=== PATIENT | male | born 1930 | race Caucasian/White ===

== ENCOUNTER 2016-12-10 06:55 | Inpatient (IN) | payer MEDICARE, OTHER ==
[2016-12-10] VITALS (13 sets, daily range): BP systolic 115–170; BP diastolic 54–96
[~2016-12-10] VITALS: Ht 177.8 cm; Wt 75.6 kg
[2016-12-10] MEDS ORDERED: NITROGLYCERIN SUBLINGUAL 0.4 MG BOTTLE OF 25. SL ONE (07:15)
[2016-12-10] MEDS ORDERED: PIP/TAZO PER PHARMACY MC PRN (07:15)
[2016-12-10] MEDS ORDERED: FUROSEMIDE 40 MG/4 ML VIAL IVP ONE ×2 (07:15→12:15)
--- NOTE | 2016-12-10 07:15 | EKG ---
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 ABNORMAL RIGHT AXIS DEVIATION LOW LIMB LEAD VOLTAGE QRS(T) CONTOUR ABNORMALITY CONSIDER ANTEROSEPTAL MYOCARDIAL DAMAGE CONSIDER HIGH LATERAL INFARCT CONSIDER INFERIOR INFARCT ST ABNORMALITY, POSSIBLE ANTERIOR SUBENDOCARDIAL INJURY RI6.01 Unconfirmed report No previous ECG available for comparison Electronically Signed On 12-19-2016 10:06:14 [employer] HEL[employer] by Nito Tong
[2016-12-10 07:30] LABS: CALCIUM 9.2 mg/dL (8.5-10.1); CREATININE 1.1 mg/dL (0.7-1.3); GFR 63.3; POTASSIUM 4.1 mmol/L (3.5-5.1)
[2016-12-10] MEDS ORDERED: MORPHINE SULFATE 2 MG/ML DISP.SYRIN. IV PRN (07:30)
[2016-12-10] MEDS ORDERED: ONDANSETRON PF 4 MG/2 ML VIAL. IV PRN (07:30)
[2016-12-10 07:36] LABS: DIRECT BILIRUBIN 0.2 mg/dL (0.0-0.2); TOTAL BILIRUBIN 0.6 mg/dL (0.2-1.0); TOTAL PROTEIN 7.2 g/dL (6.4-8.2)
[2016-12-10 07:42] LABS: BASO # 0.1 x10^3/uL (0.0-0.2); BASO % 1 % (0-3); EOS % 2 % (0-3); HEMATOCRIT 38.2 % (39.0-53.0); HEMOGLOBIN 12.5 g/dL (13.0-17.5); LYMPH # 1.5 x10^3/uL (1.0-4.8); LYMPH % 20 % (24-48); MEAN CORPUSCULAR HEMOGLOBIN 32 pg (25-35); MEAN CORPUSCULAR HGB CONC 33 g/dL (31-37); MEAN CORPUSCULAR VOLUME 97 fL (79-100); MONO % 5 % (0-9); NEUT % 72 % (31-73); PLATELET COUNT 323 x10^3/uL (140-400); RED BLOOD COUNT 3.95 x10^6/uL (4.30-5.70); RED CELL DISTRIBUTION WIDTH 14.4 % (11.5-14.5); WHITE BLOOD COUNT 7.3 x10^3/uL (4.0-11.0)
--- NOTE | 2016-12-10 07:44 | RAD ---
Portable chest, 12/10/2016: History: Shortness of breath No previous chest radiographs are available at this time for comparison purposes. A right PICC extends into the superior vena cava. The heart is at the upper limits of normal in size. There is calcific plaquing of the aorta. The pulmonary vascularity is congested with loss of vascular margination. There are interstitial opacities in both lungs as well as bibasilar airspace opacities suggesting pulmonary edema. Blunting of the right lateral costophrenic angle suggests associated pleural fluid. IMPRESSION: 1. A right PICC is in satisfactory position. 2. Moderate pulmonary infiltrates most compatible with pulmonary edema due to congestive heart failure.
[2016-12-10] MEDS ORDERED: PIPERACILLIN/TAZOBACTAM 4.5 GM in IV NORMAL SALINE 100ML 100 ML IV ONE (07:45)
[2016-12-10] MEDS: DILTIAZEM 125 MG in IV DEXTROSE 5% 100 ML IV PRN ×2 (07:53→18:16)
[2016-12-10 07:59] LABS: FIO2 ABG 100; HCO3 ABG 22 mmol/L (21-28); PCO2 ABG 37 mmHg (35-46); PO2 ABG 203 mmHg (65-108); SAT O2 ABG 99 % (92-99)
--- NOTE | 2016-12-10 08:21 | ACF ---
Admit Criteria Forms Admit Criteria Forms Admit Criteria Forms RESPIRATORY FAILURE GRG Clinical Indications for Admission to Inpatient Care (Place 'X' for any and all applicable criteria): Hospital admission is needed for appropriate care of the patient because of acute respiratory failure or insufficiency as indicated by ANY ONE of the following(1)(2)(3)(4)(5)(6)(7)(8): [X]I. Mechanical ventilation needed (acute invasive or noninvasive) [ ]II. Severe ventilation deficit as indicated by ANY ONE of the following (9) [ ]a) Respiratory acidosis (pH less than 7.32 and partial pressure of carbon dioxide greater than 40 mm Hg (5.3 kPa)) [ ]b) Partial pressure of carbon dioxide greater than 44 mm Hg (5.9 kPa ) (new) [ ]c) Airflow measurements less than 25% of predicted (eg, peak expiratory flow rate less than 100 L/minute) [ ]d) Forced vital capacity less than 15 mL/kg of ideal body weight, or 50% decrease in vital capacity from baseline [ ]III. Noncardiac pulmonary edema not resolving with rapid emergency treatment (8) [ ]IV. Severe respiratory distress as indicated by ANY ONE of the following: [ ]a) Severe tachypnea (respiratory rate greater than 30, greater than 45 for 6-month-old, greater than 60 for ) [ ]b) Severe hypoxemia (partial pressure of oxygen less than 50 mm Hg ( 6.7 kPa) on greater than 50% oxygen or partial pressure of oxygen to FIO2 ratio less than 200) [ ]c) Mental status deterioration from respiratory disease [ ]V. Airway obstruction or inadequate protection [A](10)(11) The original [employer] content created by [employer] has been revised. The portions of the content which have been revised are identified through the use of italic text or in bold, and [employer] has neither reviewed nor approved the modified material. All other unmodified content is copyright [employer]. Please see references footnoted in the original [employer] edition 2016 JACOBY JULIEN Dec 10, 2016 08:21
--- NOTE | 2016-12-10 09:12 | PDOC2 ---
ELBA PARKER INSTITUTIONAL ASSET MANAGER 12/10/16 0912: CONSULT Date of Consult Date of Consult DATE: 12/10/16 TIME: 09:07 Reason for Consult Reason for Consult: hepatic abscess Referring Physician Referring Physician: ER Identification/Chief Complaint Chief Complaint resp distress Source Source: Chart review, Patient History of Present Illness Reason for Visit: Patient had been treated at another facility for a hepatic abscess where they placed 2 drains, he then went to [facility] for recovery. Almost resolved pain to abdomen, although acute development of respiratory distress he is unsure if he was on abx at [facility] Past Medical History Cardiovascular: HTN Past Surgical History Past Surgical History: Other (2 drains placed in abdomen ) Family History Family History: Other (noncontributory to current illness ) Social History No ALCOHOL: occassional Drugs: None Current Problem List Problem List Problems Medical Problems: (1) Acute respiratory failure Status: Acute Current Medications Current Medications Current Medications Piperacillin Sod/ Tazobactam Sod 1 each 1 each PRN DAILY PRN MC SEE COMMENTS; Start 12/10/16 at 07:15; Status UNV Diltiazem HCl/ Dextrose (Cardizem) 125 ml @ 0 mls/hr CONT PRN IV SEE I/O RECORD Last administered on 12/10/16 07:53; Start 12/10/16 at 07:15 Furosemide (Lasix) 40 mg 1X ONCE IVP Last administered on 12/10/16 07:52; Start 12/10/16 at 07:15; Stop 12/10/16 at 07:18; Status DC Nitroglycerin (Nitrostat) 0.4 mg 1X ONCE SL ; Start 12/10/16 at 07:15; Stop at 07:18; Status DC Ondansetron HCl (Zofran) 4 mg PRN Q8HRS PRN IV NAUSEA/VOMITING; Start 12/10/16 at 07:30; Stop 12/11/16 at 07:29 Morphine Sulfate 2 mg 2 mg PRN Q2HR PRN IV PAIN; Start 12/10/16 at 07:30; Stop 12/11/16 at 07:29 Piperacillin Sod/ Tazobactam Sod/ Sodium Chloride (Zosyn/Iv Sodium Chloride 0.9 % 100ml) 100 ml @ 200 mls/hr 1X ONCE IV ; Start 12/10/16 at 07:45; Stop at 08:14; Status DC Allergies Allergies: Coded Allergies: enalapril (Verified Allergy, Intermediate, 12/10/16) ROS General: No: Chills, Other (fevers) PSYCHOLOGICAL ROS: No: Anxiety, Depression Eyes: No Blurry vision, No Double vision HEENT: No: Heacaches, Sore Throat Hematological and Lymphatic: No: Bleeding Problems, Blood Clots Respiratory: YES: Shortness of breath, No: Cough Cardiovascular: No Chest Pain, No Palpitations Gastrointestinal: No Abdominal Pain, No Nausea, No Vomiting Genitourinary: No Dysuria, No Hematuria Musculoskeletal: No Joint Pain, No Muscle Pain Neurological: No Confusion, No Numbness/Tingling Skin: No Pruritus, No Rash Physical Exam Physical Exam resp distress, pulmonary edema hepatic abscess, has c tube and abscess drain in place--would continue drains and abx at this time General: Alert, Oriented X3, Cooperative, No acute distress HEENT: PERRLA, Mucous membr. moist/pink Lungs: Other (bipap) Heart: Other (tachycardia ) Abdomen: Soft, No tenderness, Other (c tube in place bilious, PAULETTE with purulent drainage) Extremities: No clubbing, No cyanosis Neuro: Normal speech, Sensation intact Psych/Mental Status: Mental status NL, Mood NL MUSCULOSKELETAL: No deformity, No swelling Vitals VITALS Vital Signs Date Time Temp Pulse Resp B/P Pulse Ox O2 Delivery O2 Flow Rate FiO2 12/10/16 07:59 143 26 148/94 98 12/10/16 07:19 BiPAP/CPAP 12/10/16 07:01 97.9 97.9 Labs Labs Laboratory Tests Test 12/10/16 07:00 12/10/16 07:50 White Blood Count 7.3x10^3/uL (4.0-11.0) Red Blood Count 3.95x10^6/uL (4.30-5.70) Hemoglobin 12.5g/dL (13.0-17.5) Hematocrit 38.2% (39.0-53.0) Mean Corpuscular Volume 97fL (79-100) Mean Corpuscular Hemoglobin 32pg (25-35) Mean Corpuscular Hemoglobin Concent 33g/dL (31-37) Red Cell Distribution Width 14.4% (11.5-14.5) Platelet Count 323x10^3/uL (140-400) Neutrophils (%) (Auto) 72% (31-73) Lymphocytes (%) (Auto) 20% (24-48) Monocytes (%) (Auto) 5% (0-9) Eosinophils (%) (Auto) 2% (0-3) Basophils (%) (Auto) 1% (0-3) Neutrophils # (Auto) 5.3x10^3uL (1.8-7.7) Lymphocytes # (Auto) 1.5x10^3/uL (1.0-4.8) Monocytes # (Auto) 0.3x10^3/uL (0.0-1.1) Eosinophils # (Auto) 0.1x10^3/uL (0.0-0.7) Basophils # (Auto) 0.1x10^3/uL (0.0-0.2) Sodium Level 142mmol/L (136-145) Potassium Level 4.1mmol/L (3.5-5.1) Chloride Level 104mmol/L (98-107) Carbon Dioxide Level 27mmol/L (21-32) Anion Gap 11 (6-14) Blood Urea Nitrogen 11mg/dL (8-26) Creatinine 1.1mg/dL (0.7-1.3) Estimated GFR (Cockcroft-Gault) 63.3 Glucose Level 251mg/dL (70-99) Lactic Acid Level 3.8mmol/L (0.4-2.0) Calcium Level 9.2mg/dL (8.5-10.1) Total Bilirubin 0.6mg/dL (0.2-1.0) Direct Bilirubin 0.2mg/dL (0.0-0.2) Aspartate Amino Transf (AST/SGOT) 40U/L (15-37) Alanine Aminotransferase (ALT/SGPT) 38U/L (16-63) Alkaline Phosphatase 75U/L (46-116) Troponin I Quantitative 0.019ng/mL (0.000-0.055) LQ-Bdd-G-Type Natriuretic Peptide 5187pg/mL (0-449) Total Protein 7.2g/dL (6.4-8.2) Albumin 3.0g/dL (3.4-5.0) Lipase 141U/L (73-393) O2 Saturation 99% (92-99) Arterial Blood pH 7.40 (7.35-7.45) Arterial Blood pCO2 at Patient Temp 37mmHg (35-46) Arterial Blood pO2 at Patient Temp 203mmHg (65-108) Arterial Blood HCO3 22mmol/L (21-28) Arterial Blood Base Excess -2mmol/L (-3-3) FiO2 100 Laboratory Tests Test 12/10/16 07:00 12/10/16 07:50 White Blood Count 7.3x10^3/uL (4.0-11.0) Red Blood Count 3.95x10^6/uL (4.30-5.70) Hemoglobin 12.5g/dL (13.0-17.5) Hematocrit 38.2% (39.0-53.0) Mean Corpuscular Volume 97fL (79-100) Mean Corpuscular Hemoglobin 32pg (25-35) Mean Corpuscular Hemoglobin Concent 33g/dL (31-37) Red Cell Distribution Width 14.4% (11.5-14.5) Platelet Count 323x10^3/uL (140-400) Neutrophils (%) (Auto) 72% (31-73) Lymphocytes (%) (Auto) 20% (24-48) Monocytes (%) (Auto) 5% (0-9) Eosinophils (%) (Auto) 2% (0-3) Basophils (%) (Auto) 1% (0-3) Neutrophils # (Auto) 5.3x10^3uL (1.8-7.7) Lymphocytes # (Auto) 1.5x10^3/uL (1.0-4.8) Monocytes # (Auto) 0.3x10^3/uL (0.0-1.1) Eosinophils # (Auto) 0.1x10^3/uL (0.0-0.7) Basophils # (Auto) 0.1x10^3/uL (0.0-0.2) Sodium Level 142mmol/L (136-145) Potassium Level 4.1mmol/L (3.5-5.1) Chloride Level 104mmol/L (98-107) Carbon Dioxide Level 27mmol/L (21-32) Anion Gap 11 (6-14) Blood Urea Nitrogen 11mg/dL (8-26) Creatinine 1.1mg/dL (0.7-1.3) Estimated GFR (Cockcroft-Gault) 63.3 Glucose Level 251mg/dL (70-99) Lactic Acid Level 3.8mmol/L (0.4-2.0) Calcium Level 9.2mg/dL (8.5-10.1) Total Bilirubin 0.6mg/dL (0.2-1.0) Direct Bilirubin 0.2mg/dL (0.0-0.2) Aspartate Amino Transf (AST/SGOT) 40U/L (15-37) Alanine Aminotransferase (ALT/SGPT) 38U/L (16-63) Alkaline Phosphatase 75U/L (46-116) Troponin I Quantitative 0.019ng/mL (0.000-0.055) LN-Rjj-Q-Type Natriuretic Peptide 5187pg/mL (0-449) Total Protein 7.2g/dL (6.4-8.2) Albumin 3.0g/dL (3.4-5.0) Lipase 141U/L (73-393) O2 Saturation 99% (92-99) Arterial Blood pH 7.40 (7.35-7.45) Arterial Blood pCO2 at Patient Temp 37mmHg (35-46) Arterial Blood pO2 at Patient Temp 203mmHg (65-108) Arterial Blood HCO3 22mmol/L (21-28) Arterial Blood Base Excess -2mmol/L (-3-3) FiO2 100 JANEL ALLISON MD 12/10/16 0920: CONSULT Allergies Allergies: Coded Allergies: enalapril (Verified Allergy, Intermediate, 12/10/16) Assessment/Plan Assessment/Plan Pt seen and examined. Agree with Ms. Parker's note Pt seen in ER accompanied by his supportive son d/w Dr. Flower Apparently pt in CHF with resp failure, improving s/p cholecystostomy and liver abscess drainage drains intact with bilious and purulent drainage, respectively abd soft, ND, NTTP agree with ID consult will check CT soon when resp status improved to eval GB and abscess Thanks for consult! ELBA PARKER APRN Dec 10, 2016 09:12 JANEL ALLISON MD Dec 10, 2016 09:20
--- NOTE | 2016-12-10 09:28 | PHYS DOC ---
Past Medical History Past Medical History: A-Fib, COPD, Hypertension, MT, TIA Additional Past Medical Histor: liver abscess Past Surgical History: Angioplasty Alcohol Use: None Drug Use: None Adult General Chief Complaint Chief Complaint: SHORTNESS OF BREATH HPI HPI 86-year-old male presenting to the emergency department today with acute hypoxia. He has a history of a cholecystostomy placement and status post drain placement by interventional radiology at [facility]. Upon EMS arrival the patient was saturating 70% on 2 L nasal cannula. He was placed on BiPAP and brought in to our emergency department for further evaluation workup and care. Onset today. Location lungs. Duration intermittent. No alleviating factors present. Review of systems is negative for abdominal pain nausea vomiting diarrhea. All other review of systems is negative unless otherwise noted in history of present illness. Review of Systems Review of Systems SEE ABOVE. Current Medications Current Medications Current Medications Medications (Trade) Dose Ordered Sig/Massiel Start Time Stop Time Status Last Admin Dose Admin Diltiazem HCl/ Dextrose (Cardizem) 125 ml @ 0 mls/hr CONT PRN 12/10/16 07:15 12/10/16 07:53 5 MLS/HR Furosemide (Lasix) 40 mg 1X ONCE 12/10/16 07:15 12/10/16 07:18 DC 12/10/16 07:52 40 MG Morphine Sulfate 2 mg 2 mg PRN Q2HR PRN 12/10/16 07:30 12/11/16 07:29 Nitroglycerin (Nitrostat) 0.4 mg 1X ONCE 12/10/16 07:15 12/10/16 07:18 DC Ondansetron HCl (Zofran) 4 mg PRN Q8HRS PRN 12/10/16 07:30 12/11/16 07:29 Piperacillin Sod/ Tazobactam Sod 1 each 1 each PRN DAILY PRN 12/10/16 07:15 UNV Piperacillin Sod/ Tazobactam Sod/ Sodium Chloride (Zosyn/Iv Sodium Chloride 0.9% 100ml) 100 ml @ 200 mls/hr 1X ONCE 12/10/16 07:45 12/10/16 08:14 DC Allergies Allergies Allergies Coded Allergies Type Severity Reaction Last Updated Verified enalapril Allergy Intermediate 12/10/16 Yes Physical Exam Physical Exam Constitutional: Well developed, well nourished, patient was transferred to our BiPAP machine from EMS. Patient comfortable on BiPAP. HENT: Normocephalic, atraumatic, bilateral external ears normal, oropharynx moist, no oral exudates, nose normal. [] Eyes: PERRLA, EOMI, conjunctiva normal, no discharge. Neck: Normal range of motion, no tenderness, supple, no stridor. Cardiovascular:Heart rate regular rhythm, no murmur [] Lungs & Thorax: Patient has diffuse crackles more the bases Abdomen: Bowel sounds normal, soft, no tenderness, no masses, no pulsatile masses. [] Skin: Warm, dry, no erythema, no rash. Back: No tenderness, no CVA tenderness. [] Extremities: No tenderness, no cyanosis, no clubbing, ROM intact, no edema. [] Neurologic: Alert and oriented X 3, normal motor function, normal sensory function, no focal deficits noted. Psychologic: Affect normal, judgement normal, mood normal. [] Current Patient Data Vital Signs Vital Signs Date Time Temp Pulse Resp B/P Pulse Ox O2 Delivery O2 Flow Rate FiO2 12/10/16 07:59 143 26 148/94 98 12/10/16 07:19 BiPAP/CPAP 12/10/16 07:01 97.9 97.9 Lab Values Laboratory Tests Test 12/10/16 07:00 12/10/16 07:50 White Blood Count 7.3x10^3/uL (4.0-11.0) Red Blood Count 3.95x10^6/uL (4.30-5.70) L Hemoglobin 12.5g/dL (13.0-17.5) L Hematocrit 38.2% (39.0-53.0) L Mean Corpuscular Volume 97fL (79-100) Mean Corpuscular Hemoglobin 32pg (25-35) Mean Corpuscular Hemoglobin Concent 33g/dL (31-37) Red Cell Distribution Width 14.4% (11.5-14.5) Platelet Count 323x10^3/uL (140-400) Neutrophils (%) (Auto) 72% (31-73) Lymphocytes (%) (Auto) 20% (24-48) L Monocytes (%) (Auto) 5% (0-9) Eosinophils (%) (Auto) 2% (0-3) Basophils (%) (Auto) 1% (0-3) Neutrophils # (Auto) 5.3x10^3uL (1.8-7.7) Lymphocytes # (Auto) 1.5x10^3/uL (1.0-4.8) Monocytes # (Auto) 0.3x10^3/uL (0.0-1.1) Eosinophils # (Auto) 0.1x10^3/uL (0.0-0.7) Basophils # (Auto) 0.1x10^3/uL (0.0-0.2) Sodium Level 142mmol/L (136-145) Potassium Level 4.1mmol/L (3.5-5.1) Chloride Level 104mmol/L (98-107) Carbon Dioxide Level 27mmol/L (21-32) Anion Gap 11 (6-14) Blood Urea Nitrogen 11mg/dL (8-26) Creatinine 1.1mg/dL (0.7-1.3) Estimated GFR (Cockcroft-Gault) 63.3 Glucose Level 251mg/dL (70-99) H Lactic Acid Level 3.8mmol/L (0.4-2.0) H Calcium Level 9.2mg/dL (8.5-10.1) Total Bilirubin 0.6mg/dL (0.2-1.0) Direct Bilirubin 0.2mg/dL (0.0-0.2) Aspartate Amino Transferase (AST) 40U/L (15-37) H Alanine Aminotransferase (ALT) 38U/L (16-63) Alkaline Phosphatase 75U/L (46-116) Troponin I Quantitative 0.019ng/mL (0.000-0.055) YC-Uir-Y-Type Natriuretic Peptide 5187pg/mL (0-449) H Total Protein 7.2g/dL (6.4-8.2) Albumin 3.0g/dL (3.4-5.0) L Lipase 141U/L (73-393) O2 Saturation 99% (92-99) Arterial Blood pH 7.40 (7.35-7.45) Arterial Blood pCO2 at Patient Temp 37mmHg (35-46) Arterial Blood pO2 at Patient Temp 203mmHg (65-108) H Arterial Blood HCO3 22mmol/L (21-28) Arterial Blood Base Excess -2mmol/L (-3-3) FiO2 100 Laboratory Tests 12/10/16 07:00 Laboratory Tests 12/10/16 07:00 EKG EKG EKG shows A. fib with RVR. [place] normal. Intervals within normal limits. ST segments congruent though there is variable baseline in leads V3 through V6 [] Course & Med Decision Making Course & Med Decision Making Pertinent Labs and Imaging studies reviewed. (See chart for details) [] 86-year-old male presenting to the emergency department with acute hypoxic respiratory failure. Patient was placed on BiPAP machine which improved the patient's symptomatology and saturations. Blood work obtained. CBC shows mild anemia. Chemistry panel shows hyperglycemia with elevation in proBNP. Lactic acid 3.8. ABG shows normal pH hyperoxic will titrate down FiO2. I discussed the case with our cardiology team doctor Sid. Nitroglycerin, Lasix, and diltiazem ordered. I placed a consultation for Dr. Parks and our infectious disease team to consult with the treatment of the patient's history of hepatic abscess and cholecystitis status post cholecystostomy tube placement and drain placement. The patient was then admitted to our intensive care unit for further evaluation workup and care. Dragon Disclaimer Dragon Disclaimer This electronic medical record was generated, in whole or in part, using a voice recognition dictation system. Departure Departure Impression: Primary Impression: Acute respiratory failure Additional Impressions: CHF exacerbation Pulmonary edema Hypoxia Volume overload Disposition: ADMITTED INPATIENT Admitting Physician: Alicia Welsh Condition: STABLE Referrals: DONNA ANGELES (PCP) Problem Qualifiers MONI MELO MD Dec 10, 2016 09:27
--- NOTE | 2016-12-10 09:39 | PDOC ---
Provider Note Provider Note dictated RUKHSANA LEE MD Dec 10, 2016 09:39
[2016-12-10 09:52] LABS: BILIRUBIN,URINE NEGATIVE (NEG); GLUCOSE,URINE NEGATIVE (NEG); NITRITE,URINE NEGATIVE (NEG); PH,URINE 5.5; PROTEIN,URINE NEGATIVE (NEG-TRACE); UROBILINOGEN,URINE 0.2 mg/dL (0.2 mg/dL)
--- NOTE | 2016-12-10 10:09 | CONS ---
DATE OF CONSULTATION: ATTENDING PHYSICIAN: Dr. Alicia Welsh. REASON FOR CONSULTATION: Respiratory failure and congestive heart failure. HISTORY OF PRESENT ILLNESS: The patient is an 86-year-old male who has been recently hospitalized at [facility] after he presented with right upper quadrant pain. CT in the ER revealed a dilated gallbladder and a liver abscess. Interventional Radiology was consulted and he underwent percutaneous cholecystostomy with tube placement, which he tolerated well. The patient had new onset atrial fibrillation. Cardiology was consulted. He also had elevated troponin consistent with non-ST HI. He had repeat CT on 12/02/2016 which showed persistent hepatic abscess and a second drain was placed. He was then transferred to [facility]. He was brought into the hospital with complaint of increased shortness of breath. He had lower extremity edema. No cough, no chest pain, no fever, no chills. He was seen in the Emergency Room and was hypoxic. His chest x-ray was consistent with congestive heart failure and he was in AFib with RVR. He is placed on BiPAP and he has received Lasix and ____ for further evaluation. ABGs showed a pH of 7.40, pCO2 of 37, pO2 of 203 on 100% FiO2. PAST MEDICAL HISTORY: History of atrial fibrillation, history of questionable COPD, history of hypertension, history of recent non-ST HI, and history of recent liver abscess. PAST SURGICAL HISTORY: Angioplasty 20 years ago. ALLERGIES: ENALAPRIL. MEDICATIONS: Given in the ER were reviewed. REVIEW OF SYSTEMS: Twelve-point system obtained. Pertinent positives discussed in history of present illness, otherwise noncontributory. All systems that were negative were reviewed as well. SOCIAL HISTORY: Denies any history of tobacco use. FAMILY HISTORY: Noncontributory. PHYSICAL EXAMINATION: VITAL SIGNS: Currently shows a blood pressure of 141/83, pulse was in the 140s, AFib, afebrile, pulse ox 98% on 60% BiPAP. HEENT: Sclerae nonicteric. NECK: Supple. LUNGS: With crackles at lower lobes. CARDIOVASCULAR: Regular rhythm. ABDOMEN: Soft and nontender. There are [address] in the right upper quadrant. EXTREMITIES: With bilateral 2+ pitting edema. LABORATORY DATA: ABGs were discussed in my history of present illness. Other lab shows BUN of 11, creatinine 1.1, sodium 142. White cell count 7.3, hemoglobin 12.5 and platelets 323. IMPRESSION: 1. Acute hypoxic respiratory failure secondary to development of acute congestive heart failure, suspect diastolic heart failure triggered by atrial fibrillation with rapid ventricular response. 2. Atrial fibrillation with rapid ventricular response, triggering congestive heart failure. 3. Recent dilated gallbladder with liver abscess, status post percutaneous cholecystostomy placement. Followup CT chest showed persistent abscess in the liver and status post second drain. He still has ongoing drainage. 4. No significant history of tobacco use. RECOMMENDATIONS: 1. Continue with present BiPAP. We will follow ABGs after diuresis. 2. He may eventually be taken off the BiPAP and placed on Venturi mask, once his oxygenation improves. 3. Follow chest x-rays as needed depending on response to diuretics. 4. Broad-spectrum antibiotics. 5. Consider Infectious Disease consultation and followup. 6. Consult Cardiology and follow their recommendations. 7. Add bronchodilators. 8. Discussed with the patient's son and ER physician. CRITICAL CARE TIME: 37 minutes. RUKHSANA LEE MD DR: IBRAHIMA/sharon JOB#: [id number] / [id number]
[2016-12-10 10:11] LABS: BACTERIA,URINE 0 /HPF (0-FEW); RBC,URINE 0 /HPF (0-2); SQUAMOUS EPITHELIAL CELL,UR FEW /LPF; YEAST,URINE PRESENT /HPF
[2016-12-10] MEDS ORDERED: LABETALOL 20 MG/4 ML DISP.SYRIN. IVP PRN (11:30)
--- NOTE | 2016-12-10 11:44 | PDOC2 ---
CARDIAC CONSULT DATE OF CONSULT Date of Consult DATE: 12/10/16 TIME: 11:23 REASON FOR CONSULT Reason for Consult: AFIB RVR REFERRING PHYSICIAN Referring Physician: Mundo SOURCE Source: Chart review, Patient HISTORY OF PRESENT ILLNESS HISTORY OF PRESENT ILLNESS This is a pleasant 86 yo male admitted for complains of SOA more with exertion. He was recently discharge from [facility] in which he was noted with GB disease and hepatic abscess in which a drain was placed and was also noted with GB infection per pt. He was then discharged to [facility] in which he has been receiving antibiotics via PICC. He then starting to develop SOA particularly with rehab therapy and has noted his legs to increasingly swollen. Upon admission he was noted with AFIB RVR as well and also CHF. He was then placed on bipap and lasix was given in which he responded well. He has CAD with remote PTCA but no prior CHF, AFIB and he is a nonsmoker and no hx of COPD. In the last week he has not been having any chest pain, palpitations, nor dizzy spells. Denies any past falls, syncope, recent injury, no CVA nor VTE. PAST MEDICAL HISTORY Cardiovascular: CAD, HTN Pulmonary: No pertinent hx CENTRAL NERVOUS SYSTEM: Other (No pertinent history) GI: No pertinent hx Hepatobiliary: Other (Recent GB infection) Psych: No pertinent hx Musculoskeletal: Osteoarthritis Rheumatologic: No pertinent hx Infectious disease: No pertinent hx, Other ENT: No pertinent hx Renal/: Benign prostatic enlarg. Endocrine: No pertinent hx Dermatology: No pertinent hx PAST SURGICAL HISTORY Past Surgical History: Other (PTCA 20 yrs ago; s/p cholecystostomy and liver abscess drainage) FAMILY HISTORY Family History: Coronary Artery Disease (father) SOCIAL HISTORY Smoke: No (never) ALCOHOL: occassional Drugs: None Lives: Intermediate CURRENT MEDICATIONS CURRENT MEDICATIONS Current Medications Medications (Trade) Dose Ordered Sig/Massiel Route PRN Reason Start Time Stop Time Status Last Admin Dose Admin Diltiazem HCl/ Dextrose (Cardizem) 125 ml @ 0 mls/hr CONT PRN IV SEE I/O RECORD 12/10/16 07:15 12/10/16 07:53 Furosemide 40 mg 40 mg 1X ONCE IVP 12/10/16 07:15 12/10/16 07:18 DC 12/10/16 07:52 Piperacillin Sod/ Tazobactam Sod/ Sodium Chloride (Zosyn/Iv Sodium Chloride 0.9% 100ml) 100 ml @ 200 mls/hr 1X ONCE IV 12/10/16 07:45 12/10/16 08:14 DC 12/10/16 09:28 ALLERGIES ALLERGIES: Coded Allergies: enalapril (Verified Allergy, Intermediate, 12/10/16) ROS Review of System 14 point ROS evaluated with pertinent positives noted per HPI PHYSICAL EXAM General: Alert, Oriented X3, Cooperative, No acute distress HEENT: Atraumatic, Mucous membr. moist/pink Lungs: Other (bibasilar crackles) Heart: Other (AFIB RVR; 3/6 systolic murmur to apical region) Abdomen: Soft, No tenderness, Other (T-Tube in place with bile drain) Extremities: No cyanosis, Other (2-3+ bilateral LE pitting edema) Skin: No breakdown, Other (multiple abdominal ecchymoses reflecting lovenox injections) Neuro: Normal speech, Sensation intact Psych/Mental Status: Mood NL MUSCULOSKELETAL: Osteoarthritic changes both hands VITALS VITALS Vital Signs Date Time Temp Pulse Resp B/P Pulse Ox O2 Delivery O2 Flow Rate FiO2 12/10/16 07:59 143 26 148/94 98 12/10/16 07:19 BiPAP/CPAP 12/10/16 07:01 97.9 97.9 LABS Lab: Laboratory Tests Test 12/10/16 07:00 12/10/16 07:50 12/10/16 09:31 White Blood Count 7.3x10^3/uL (4.0-11.0) Red Blood Count 3.95x10^6/uL (4.30-5.70) Hemoglobin 12.5g/dL (13.0-17.5) Hematocrit 38.2% (39.0-53.0) Mean Corpuscular Volume 97fL (79-100) Mean Corpuscular Hemoglobin 32pg (25-35) Mean Corpuscular Hemoglobin Concent 33g/dL (31-37) Red Cell Distribution Width 14.4% (11.5-14.5) Platelet Count 323x10^3/uL (140-400) Neutrophils (%) (Auto) 72% (31-73) Lymphocytes (%) (Auto) 20% (24-48) Monocytes (%) (Auto) 5% (0-9) Eosinophils (%) (Auto) 2% (0-3) Basophils (%) (Auto) 1% (0-3) Neutrophils # (Auto) 5.3x10^3uL (1.8-7.7) Lymphocytes # (Auto) 1.5x10^3/uL (1.0-4.8) Monocytes # (Auto) 0.3x10^3/uL (0.0-1.1) Eosinophils # (Auto) 0.1x10^3/uL (0.0-0.7) Basophils # (Auto) 0.1x10^3/uL (0.0-0.2) Sodium Level 142mmol/L (136-145) Potassium Level 4.1mmol/L (3.5-5.1) Chloride Level 104mmol/L (98-107) Carbon Dioxide Level 27mmol/L (21-32) Anion Gap 11 (6-14) Blood Urea Nitrogen 11mg/dL (8-26) Creatinine 1.1mg/dL (0.7-1.3) Estimated GFR (Cockcroft-Gault) 63.3 Glucose Level 251mg/dL (70-99) Lactic Acid Level 3.8mmol/L (0.4-2.0) Calcium Level 9.2mg/dL (8.5-10.1) Total Bilirubin 0.6mg/dL (0.2-1.0) Direct Bilirubin 0.2mg/dL (0.0-0.2) Aspartate Amino Transf (AST/SGOT) 40U/L (15-37) Alanine Aminotransferase (ALT/SGPT) 38U/L (16-63) Alkaline Phosphatase 75U/L (46-116) Troponin I Quantitative 0.019ng/mL (0.000-0.055) TQ-Bap-P-Type Natriuretic Peptide 5187pg/mL (0-449) Total Protein 7.2g/dL (6.4-8.2) Albumin 3.0g/dL (3.4-5.0) Lipase 141U/L (73-393) O2 Saturation 99% (92-99) Arterial Blood pH 7.40 (7.35-7.45) Arterial Blood pCO2 at Patient Temp 37mmHg (35-46) Arterial Blood pO2 at Patient Temp 203mmHg (65-108) Arterial Blood HCO3 22mmol/L (21-28) Arterial Blood Base Excess -2mmol/L (-3-3) FiO2 100 Urine Collection Type Unknown Urine Color Yellow Urine Clarity Clear Urine pH 5.5 Urine Specific [place] 1.010 Urine Protein Negativemg/dL (NEG-TRACE) Urine Glucose (UA) Negativemg/dL (NEG) Urine Ketones (Stick) Negativemg/dL (NEG) Urine Blood Negative (NEG) Urine Nitrite Negative (NEG) Urine Bilirubin Negative (NEG) Urine Urobilinogen Dipstick 0.2mg/dL (0.2 mg/dL) Urine Leukocyte Esterase Trace (NEG) Urine RBC 0/HPF (0-2) Urine WBC 5-10/HPF (0-4) Urine Squamous Epithelial Cells Few/LPF Urine Bacteria 0/HPF (0-FEW) Urine Yeast Present/HPF ECHOCARDIOGRAM ECHOCARDIOGRAM 11/29/2016 TTE EF 45% mild segmental LV systolic dysfunction with hypokinesis to inferolateral , inferior and anterolateral mckeon Normal LV and RV cavity size. Aortic sclerosis without stenosis Normal PA/RA systolic pressure ASSESSMENT/PLAN ASSESSMENT/PLAN 1. Acute Respiratory failure: related to CHF 2. Persistent AFIB with RVR: new onset. Recently diagnosed at [facility]. RVR triggers likely from infectious process 3. Acute CHF with possible diastolic dysfunction: likely induced by AFIB RVR 4. CAD: PTCA about 20 yrs ago. CP free. 5. HTN: labile. 6. s/p cholecystostomy and liver abscess drainage: about 2-3 weeks ago at [facility]. PICC in place. Recommendations 1. Was noted with metoprolol/cardizem po on home med list post [facility]. Continue with cardizem drip. Start on ECASA 81 mg for stroke prevention 2. Unable to place on OAC/NOAC due to t-tube drain with possible surgery 3. Continue with lasix therapy 4. TSH, lipid panel, Mg 5. Rate control for now till hepatobiliary issues resolved. 6. Start on lisinopril. Will reeval for BB post cardizem drip. Labetalol IV PRN. Problems: JASSI REID APRN Dec 10, 2016 11:44
[2016-12-10 12:02] LABS: CHOLESTEROL/HDL RATIO 2.6
--- NOTE | 2016-12-10 13:07 | HP ---
ADMIT DATE: 12/10/2016 CHIEF COMPLAINT: Shortness of breath. HISTORY OF PRESENT ILLNESS: The patient is a pleasant 86-year-old male who has been suffering from a large liver abscess. It appears his gallbladder was also infected. He has been treated [facility]. He has been on IV antibiotics. Today, he presents with shortness of breath. He has known COPD, was in the ER, he is noted to be in AFib with RVR. His sats were 70% when he arrived. Discussed the case with ER physician. We are going to admit the patient, give him IV antibiotics and consult Infectious Disease and Pulmonary Medicine. PAST MEDICAL HISTORY: Chronically infected liver abscess. He is on IV antibiotics. He has a PICC line, cholecystitis, COPD, previous AFib, hypertension, myocardial infarction, transient ischemic attacks, angioplasty. ALLERGIES: ENALAPRIL. FAMILY HISTORY: Coronary artery disease. SOCIAL HISTORY: He quit smoking, no drinking or drugs. MEDICATIONS: Reviewed, please refer the MRAD. REVIEW OF SYSTEMS: GENERAL: No history of weight change, weakness or fevers. SKIN: No bruising, hair changes or rashes. EYES: No blurred, double or loss of vision. NOSE AND THROAT: No history of nosebleeds, hoarseness or sore throat. HEART: No history of palpitations, chest pain or shortness of breath on exertion. LUNGS: Denies cough, hemoptysis, wheezing. He complains of shortness of breath. GASTROINTESTINAL: Denies changes in appetite, nausea, vomiting, diarrhea or constipation, but he complains of abdominal pain. GENITOURINARY: No history of frequency, urgency, hesitancy or nocturia. NEUROLOGIC: Denies history of numbness, tingling, tremor or weakness. PSYCHIATRIC: No history of panic, anxiety or depression. ENDOCRINE: No history of heat or cold intolerance, polyuria or polydipsia. EXTREMITIES: Denies muscle weakness, joint pain, pain on walking or stiffness. PHYSICAL EXAMINATION: VITAL SIGNS: Temperature afebrile, pulse 128, respirations 18, blood pressure 171/103. GENERAL: He is alert, cooperative. His son is present. HEART: Tachycardic, S1, S2 irregular. LUNGS: Clear with slight crackles. ABDOMEN: Soft, decreased bowel sounds, tender. There are [address] ENDOCRINE: No thyromegaly. LYMPHATICS: No cervical nodes. HEMATOPOIETIC: No bruising. PSYCHIATRIC: He seems a little depressed. LABORATORY DATA: White count 7, hemoglobin 12, platelets 323. Electrolytes: Sodium 142, potassium 4.1, chloride 104, bicarbonate 27, BUN 11, creatinine 1.1, glucose 251. Urinalysis, trace leukocyte esterase, 5-10 white cells. Chest x-ray shows PICC line positioned properly and some pulmonary infiltrates. ASSESSMENT AND PLAN: Respiratory failure with AFib with rapid ventricular response with pneumonia and chronic liver abscess. The patient has been admitted for treatment with IV antibiotics. Consult Infectious Disease, consult pulmonary medicine, frequent labs. I resumed the other medicines he was on from home. Consult Cardiology as he also has some vascular congestion on chest x-ray. LONG-TERM PROGNOSIS: Guarded. NYDIA BARBOSA DO DR: ROSENDA/sharon JOB#: [id number] / [id number]
[2016-12-10] MEDS: PIPERACILLIN/TAZOBACTAM 3.375 GM in IV NORMAL SALINE 50ML 50 ML IV SCH ×3 (14:18→23:42)
[2016-12-10] MEDS ORDERED: DILT30TA26 PO (16:15)
[2016-12-10] MEDS ORDERED: METO100T2 PO (16:15)
[2016-12-10] MEDS ORDERED: LINE600T PO (16:15)
[2016-12-10] MEDS ORDERED: MAGN2400 PO (16:15)
[2016-12-10] MEDS ORDERED: SPIR25TA3 PO (16:15)
[2016-12-10] MEDS ORDERED: AMOX1TAB61 PO (16:15)
[2016-12-10] MEDS ORDERED: ALLO100T PO (16:15)
[2016-12-10] MEDS ORDERED: ASPI-482 PO (16:15)
--- NOTE | 2016-12-10 17:56 | PDOC ---
Infectious Disease Note Vital Sign Vital Signs Vital Signs Date Time Temp Pulse Resp B/P Pulse Ox O2 Delivery O2 Flow Rate FiO2 12/10/16 15:30 Nasal Cannula 6.0 12/10/16 14:24 98.6 86 129/58 95 98.6 12/10/16 10:45 20 Labs Lab Laboratory Tests Test 12/10/16 07:00 12/10/16 07:50 12/10/16 09:31 12/10/16 13:25 White Blood Count 7.3x10^3/uL (4.0-11.0) Red Blood Count 3.95x10^6/uL (4.30-5.70) Hemoglobin 12.5g/dL (13.0-17.5) Hematocrit 38.2% (39.0-53.0) Mean Corpuscular Volume 97fL (79-100) Mean Corpuscular Hemoglobin 32pg (25-35) Mean Corpuscular Hemoglobin Concent 33g/dL (31-37) Red Cell Distribution Width 14.4% (11.5-14.5) Platelet Count 323x10^3/uL (140-400) Neutrophils (%) (Auto) 72% (31-73) Lymphocytes (%) (Auto) 20% (24-48) Monocytes (%) (Auto) 5% (0-9) Eosinophils (%) (Auto) 2% (0-3) Basophils (%) (Auto) 1% (0-3) Neutrophils # (Auto) 5.3x10^3uL (1.8-7.7) Lymphocytes # (Auto) 1.5x10^3/uL (1.0-4.8) Monocytes # (Auto) 0.3x10^3/uL (0.0-1.1) Eosinophils # (Auto) 0.1x10^3/uL (0.0-0.7) Basophils # (Auto) 0.1x10^3/uL (0.0-0.2) Sodium Level 142mmol/L (136-145) Potassium Level 4.1mmol/L (3.5-5.1) Chloride Level 104mmol/L (98-107) Carbon Dioxide Level 27mmol/L (21-32) Anion Gap 11 (6-14) Blood Urea Nitrogen 11mg/dL (8-26) Creatinine 1.1mg/dL (0.7-1.3) Estimated GFR (Cockcroft-Gault) 63.3 Glucose Level 251mg/dL (70-99) Lactic Acid Level 3.8mmol/L (0.4-2.0) Calcium Level 9.2mg/dL (8.5-10.1) Magnesium Level 2.0mg/dL (1.8-2.4) Total Bilirubin 0.6mg/dL (0.2-1.0) Direct Bilirubin 0.2mg/dL (0.0-0.2) Aspartate Amino Transf (AST/SGOT) 40U/L (15-37) Alanine Aminotransferase (ALT/SGPT) 38U/L (16-63) Alkaline Phosphatase 75U/L (46-116) Troponin I Quantitative 0.019ng/mL (0.000-0.055) 9.661ng/mL (0.000-0.055) WO-Bkg-B-Type Natriuretic Peptide 5187pg/mL (0-449) Total Protein 7.2g/dL (6.4-8.2) Albumin 3.0g/dL (3.4-5.0) Triglycerides Level 112mg/dL (0-150) Cholesterol Level 132mg/dL (0-200) LDL Cholesterol, Calculated 60mg/dL (0-100) VLDL Cholesterol, Calculated 22mg/dL (0-40) HDL Cholesterol 50mg/dL (40-60) Cholesterol/HDL Ratio 2.6 Lipase 141U/L (73-393) Thyroid Stimulating Hormone (TSH) 2.594uIU/mL (0.358-3.74) O2 Saturation 99% (92-99) Arterial Blood pH 7.40 (7.35-7.45) Arterial Blood pCO2 at Patient Temp 37mmHg (35-46) Arterial Blood pO2 at Patient Temp 203mmHg (65-108) Arterial Blood HCO3 22mmol/L (21-28) Arterial Blood Base Excess -2mmol/L (-3-3) FiO2 100 Urine Collection Type Unknown Urine Color Yellow Urine Clarity Clear Urine pH 5.5 Urine Specific [place] 1.010 Urine Protein Negativemg/dL (NEG-TRACE) Urine Glucose (UA) Negativemg/dL (NEG) Urine Ketones (Stick) Negativemg/dL (NEG) Urine Blood Negative (NEG) Urine Nitrite Negative (NEG) Urine Bilirubin Negative (NEG) Urine Urobilinogen Dipstick 0.2mg/dL (0.2 mg/dL) Urine Leukocyte Esterase Trace (NEG) Urine RBC 0/HPF (0-2) Urine WBC 5-10/HPF (0-4) Urine Squamous Epithelial Cells Few/LPF Urine Bacteria 0/HPF (0-FEW) Urine Yeast Present/HPF Objective Assessment 66 yr old who presented to [facility] on 11/25/16 with Fatigue, ffever. Imaging revealed acute calculous cholecystitis with liver abscess. A drain was placed percutaneously and he was started on Abx and planned for interval cholecystectomy when clinically better Abx plan per note - Zosyn 11/25/16- 12/07/16 Unasyn 12/07/16 to present Assessment Liver abscess Acute cholecystitis Percutaneous drain placement Plan [facility] Nasal swab for MRSA (since there was a plan to switch patient to augmentin and Zyvox on 12/13/16) Full consult to follow RUKHSANA BOCANEGRA MD Dec 10, 2016 17:56
[2016-12-10] MEDS: ASPIRIN ENTERIC COATED 81 MG TABLET.DR. PO SCH (18:09)
[2016-12-11] VITALS (19 sets, daily range): BP systolic 114–159; BP diastolic 41–71
--- NOTE | 2016-12-11 02:28 | CONS ---
DATE OF CONSULTATION: REFERRING PHYSICIAN: Dr. Flower. REASON FOR CONSULTATION: Hepatic abscess. HISTORY OF PRESENT ILLNESS: This patient is an 86-year-old gentleman who was [facility] with acute hypoxic respiratory failure requiring BiPAP, atrial fibrillation with rapid ventricular response and acute congestive heart failure. Both Pulmonology and Cardiology are following. The [facility] with abdominal pain, nausea, vomiting, and fatigue. CT revealed a dilated gallbladder with a 17 mm calculus, dependently in the gallbladder neck and an intrahepatic abscess with a loculated appearance. He underwent a percutaneous cholecystostomy tube placement. A repeat CT on 12/02/2016 showed unchanged multiloculated fluid collections within the right hepatic lobe, the largest measuring 4.9 x 3.4 cm; mildly improved, but persistent pericholecystic inflammation and gallbladder wall thickening with a gallstone in the gallbladder neck; pericolonic inflammation involving the splenic flexure and to a lesser degree of the ascending colon and cecum. There is questionable enlargement of the appendix with surrounding inflammatory changes. A second drain was placed. Cultures are unavailable. He is currently on piperacillin/tazobactam. PAST MEDICAL HISTORY: As mentioned above. Paroxysmal atrial fibrillation, diabetes mellitus type 2, non-ST MS, coronary artery disease, hypertension, solitary pulmonary nodule, chronic obstructive pulmonary disease, and transient ischemic attacks. PAST SURGICAL HISTORY: Angioplasty 20 years ago. SOCIAL HISTORY: Former smoker. [facility]. Former smoker. ALLERGIES: ENALAPRIL. MEDICATIONS: Piperacillin/tazobactam, Cardizem drip, furosemide, labetalol, and Zofran. On review of medication record from [facility], he was initially on Unasyn until 12/12/2016, then was to start on Augmentin for 7 days with an end date of 12/20/2016 and Zyvox for 20 days with an end date of 01/02/2017. REVIEW OF SYSTEMS: The patient verbalized discomfort at the moment. Appetite is diminished. He does try to eat. Denies nausea, vomiting, diarrhea or constipation. Nasal/sinus congestion or sore throat. Denies cough, shortness of air, or wheezing. Denies chest pain or palpitations. His legs feel heavy and swollen. Denies dysuria, frequency, or urgency. Denies muscle aches or joint pains. Denies fevers, chills or sweats. Denies rash. PHYSICAL EXAMINATION: GENERAL: male, propped up in bed, in no apparent distress. VITAL SIGNS: Temperature is 98.6, blood pressure 129/58, heart rate 86, respiratory rate 20, and pulse oximetry is 95% on 2 liters nasal cannula. HEENT: Pupils equally round and reactive. Normal conjunctivae. Oral mucosa is pink and moist. NECK: Supple, no adenopathy present. CHEST: Lungs clear to auscultation. CARDIOVASCULAR: Normal S1, S2. ABDOMEN: Nondistended. Bowel sounds are present, soft, and nontender. MUSCULOSKELETAL: He has 2 percutaneous cholecystostomy tubes on the right side, intact. EXTREMITIES: Bilateral lower extremity pitting edema. No cyanosis. SKIN: Without rash. Warm to touch. NEUROLOGIC: Alert and oriented x 3. Moves all extremities. LINES: RUE-PICC. Clean. LABORATORY DATA: Today's WBC 7.3, hemoglobin 12.5, and platelet count 323,000. Electrolytes were unremarkable. Creatinine 1.1, glucose 251, total bilirubin 0.6, AST 40, and ALT 38. BNP 5187, troponin 9.661 from 0.019 on admission. TSH 2.594. Lipase 141. Urinalysis unremarkable for infection. The urine and blood cultures are pending. IMAGING: Chest x-ray shows moderate pulmonary infiltrates, most compatible with pulmonary edema due to congestive heart failure. ASSESSMENT: 1. Liver abscess. 2. Acute cholecystolithiasis. 3. Atrial fibrillation with rapid ventricular response. 4. Acute respiratory failure, improving. 5. Coronary artery disease. PLAN: Continue the piperacillin/tazobactam for now. Records from [facility] were reviewed. Additional records regarding ID progress notes and microbiology results are requested. Monitor laboratory values and cultures. Supportive care. Thank you, Dr. Flower for asking me to participate in this patient's care. Should you have further questions or concerns, please call. The patient was seen and examined and plan of care implemented by Dr. Andrea Barton. ANDREA BARTON MD DR: FERNANDO/sharon JOB#: [id number] / [id number]
[2016-12-11] MEDS: PIPERACILLIN/TAZOBACTAM 3.375 GM in IV NORMAL SALINE 50ML 50 ML IV SCH ×3 (06:00→18:18)
[2016-12-11 07:32] LABS: BASO # 0.1 x10^3/uL (0.0-0.2); BASO % 1 % (0-3); EOS % 3 % (0-3); HEMATOCRIT 32.5 % (39.0-53.0); HEMOGLOBIN 10.9 g/dL (13.0-17.5); LYMPH # 1.1 x10^3/uL (1.0-4.8); LYMPH % 17 % (24-48); MEAN CORPUSCULAR HEMOGLOBIN 32 pg (25-35); MEAN CORPUSCULAR HGB CONC 33 g/dL (31-37); MEAN CORPUSCULAR VOLUME 96 fL (79-100); MONO % 8 % (0-9); NEUT % 71 % (31-73); PLATELET COUNT 210 x10^3/uL (140-400); RED CELL DISTRIBUTION WIDTH 13.8 % (11.5-14.5); WHITE BLOOD COUNT 6.3 x10^3/uL (4.0-11.0)
[2016-12-11 07:43] LABS: CALCIUM 8.8 mg/dL (8.5-10.1); CREATININE 0.9 mg/dL (0.7-1.3); GFR 79.8; POTASSIUM 3.6 mmol/L (3.5-5.1)
[2016-12-11] MEDS: DILTIAZEM 125 MG in IV DEXTROSE 5% 100 ML IV PRN ×2 (07:55→20:48)
[2016-12-11] MEDS ORDERED: LISINOPRIL 10 MG TABLET PO SCH (09:00)
[2016-12-11] MEDS: ASPIRIN ENTERIC COATED 81 MG TABLET.DR. PO SCH (09:07)
--- NOTE | 2016-12-11 09:27 | PDOC ---
ELBA PARKER SCREENPLAY WRITER 12/11/16926: SURGICAL PROGRESS NOTE Subjective feels better no complaints Vital Signs Vital Signs Date Time Temp Pulse Resp B/P Pulse Ox O2 Delivery O2 Flow Rate FiO2 12/11/16 07:00 98.0 70 24 137/71 93 Nasal Cannula 6.0 98.0 I&O Intake and Output 12/11/16 07:00 Intake Total 230 ml Output Total 2725 ml Balance -2495 ml Intake IV Total 230 ml Output Urine Total 2675 ml Drainage Total 50 ml General: Alert, Oriented X3, Cooperative, No acute distress Abdomen: Soft, Other (ND, NTTP, drains in place) Labs Laboratory Tests Test 12/10/16 07:00 12/10/16 07:50 12/10/16 09:31 12/10/16 13:25 White Blood Count 7.3x10^3/uL (4.0-11.0) Red Blood Count 3.95x10^6/uL (4.30-5.70) Hemoglobin 12.5g/dL (13.0-17.5) Hematocrit 38.2% (39.0-53.0) Mean Corpuscular Volume 97fL (79-100) Mean Corpuscular Hemoglobin 32pg (25-35) Mean Corpuscular Hemoglobin Concent 33g/dL (31-37) Red Cell Distribution Width 14.4% (11.5-14.5) Platelet Count 323x10^3/uL (140-400) Neutrophils (%) (Auto) 72% (31-73) Lymphocytes (%) (Auto) 20% (24-48) Monocytes (%) (Auto) 5% (0-9) Eosinophils (%) (Auto) 2% (0-3) Basophils (%) (Auto) 1% (0-3) Neutrophils # (Auto) 5.3x10^3uL (1.8-7.7) Lymphocytes # (Auto) 1.5x10^3/uL (1.0-4.8) Monocytes # (Auto) 0.3x10^3/uL (0.0-1.1) Eosinophils # (Auto) 0.1x10^3/uL (0.0-0.7) Basophils # (Auto) 0.1x10^3/uL (0.0-0.2) Sodium Level 142mmol/L (136-145) Potassium Level 4.1mmol/L (3.5-5.1) Chloride Level 104mmol/L (98-107) Carbon Dioxide Level 27mmol/L (21-32) Anion Gap 11 (6-14) Blood Urea Nitrogen 11mg/dL (8-26) Creatinine 1.1mg/dL (0.7-1.3) Estimated GFR (Cockcroft-Gault) 63.3 Glucose Level 251mg/dL (70-99) Lactic Acid Level 3.8mmol/L (0.4-2.0) Calcium Level 9.2mg/dL (8.5-10.1) Magnesium Level 2.0mg/dL (1.8-2.4) Total Bilirubin 0.6mg/dL (0.2-1.0) Direct Bilirubin 0.2mg/dL (0.0-0.2) Aspartate Amino Transf (AST/SGOT) 40U/L (15-37) Alanine Aminotransferase (ALT/SGPT) 38U/L (16-63) Alkaline Phosphatase 75U/L (46-116) Troponin I Quantitative 0.019ng/mL (0.000-0.055) 9.661ng/mL (0.000-0.055) KB-Mkl-V-Type Natriuretic Peptide 5187pg/mL (0-449) Total Protein 7.2g/dL (6.4-8.2) Albumin 3.0g/dL (3.4-5.0) Triglycerides Level 112mg/dL (0-150) Cholesterol Level 132mg/dL (0-200) LDL Cholesterol, Calculated 60mg/dL (0-100) VLDL Cholesterol, Calculated 22mg/dL (0-40) HDL Cholesterol 50mg/dL (40-60) Cholesterol/HDL Ratio 2.6 Lipase 141U/L (73-393) Thyroid Stimulating Hormone (TSH) 2.594uIU/mL (0.358-3.74) O2 Saturation 99% (92-99) Arterial Blood pH 7.40 (7.35-7.45) Arterial Blood pCO2 at Patient Temp 37mmHg (35-46) Arterial Blood pO2 at Patient Temp 203mmHg (65-108) Arterial Blood HCO3 22mmol/L (21-28) Arterial Blood Base Excess -2mmol/L (-3-3) FiO2 100 Urine Collection Type Unknown Urine Color Yellow Urine Clarity Clear Urine pH 5.5 Urine Specific Anna 1.010 Urine Protein Negativemg/dL (NEG-TRACE) Urine Glucose (UA) Negativemg/dL (NEG) Urine Ketones (Stick) Negativemg/dL (NEG) Urine Blood Negative (NEG) Urine Nitrite Negative (NEG) Urine Bilirubin Negative (NEG) Urine Urobilinogen Dipstick 0.2mg/dL (0.2 mg/dL) Urine Leukocyte Esterase Trace (NEG) Urine RBC 0/HPF (0-2) Urine WBC 5-10/HPF (0-4) Urine Squamous Epithelial Cells Few/LPF Urine Bacteria 0/HPF (0-FEW) Urine Yeast Present/HPF Test 12/10/16 19:15 12/11/16 07:15 Troponin I Quantitative 10.225ng/mL (0.000-0.055) White Blood Count 6.3x10^3/uL (4.0-11.0) Red Blood Count 3.40x10^6/uL (4.30-5.70) Hemoglobin 10.9g/dL (13.0-17.5) Hematocrit 32.5% (39.0-53.0) Mean Corpuscular Volume 96fL (79-100) Mean Corpuscular Hemoglobin 32pg (25-35) Mean Corpuscular Hemoglobin Concent 33g/dL (31-37) Red Cell Distribution Width 13.8% (11.5-14.5) Platelet Count 210x10^3/uL (140-400) Neutrophils (%) (Auto) 71% (31-73) Lymphocytes (%) (Auto) 17% (24-48) Monocytes (%) (Auto) 8% (0-9) Eosinophils (%) (Auto) 3% (0-3) Basophils (%) (Auto) 1% (0-3) Neutrophils # (Auto) 4.5x10^3uL (1.8-7.7) Lymphocytes # (Auto) 1.1x10^3/uL (1.0-4.8) Monocytes # (Auto) 0.5x10^3/uL (0.0-1.1) Eosinophils # (Auto) 0.2x10^3/uL (0.0-0.7) Basophils # (Auto) 0.1x10^3/uL (0.0-0.2) Sodium Level 146mmol/L (136-145) Potassium Level 3.6mmol/L (3.5-5.1) Chloride Level 106mmol/L (98-107) Carbon Dioxide Level 32mmol/L (21-32) Anion Gap 8 (6-14) Blood Urea Nitrogen 13mg/dL (8-26) Creatinine 0.9mg/dL (0.7-1.3) Estimated GFR (Cockcroft-Gault) 79.8 Glucose Level 103mg/dL (70-99) Calcium Level 8.8mg/dL (8.5-10.1) Laboratory Tests Test 12/10/16 09:31 12/10/16 13:25 12/10/16 19:15 12/11/16 07:15 Urine Collection Type Unknown Urine Color Yellow Urine Clarity Clear Urine pH 5.5 Urine Specific Anna 1.010 Urine Protein Negativemg/dL (NEG-TRACE) Urine Glucose (UA) Negativemg/dL (NEG) Urine Ketones (Stick) Negativemg/dL (NEG) Urine Blood Negative (NEG) Urine Nitrite Negative (NEG) Urine Bilirubin Negative (NEG) Urine Urobilinogen Dipstick 0.2mg/dL (0.2 mg/dL) Urine Leukocyte Esterase Trace (NEG) Urine RBC 0/HPF (0-2) Urine WBC 5-10/HPF (0-4) Urine Squamous Epithelial Cells Few/LPF Urine Bacteria 0/HPF (0-FEW) Urine Yeast Present/HPF Troponin I Quantitative 9.661ng/mL (0.000-0.055) 10.225ng/mL (0.000-0.055) White Blood Count 6.3x10^3/uL (4.0-11.0) Red Blood Count 3.40x10^6/uL (4.30-5.70) Hemoglobin 10.9g/dL (13.0-17.5) Hematocrit 32.5% (39.0-53.0) Mean Corpuscular Volume 96fL (79-100) Mean Corpuscular Hemoglobin 32pg (25-35) Mean Corpuscular Hemoglobin Concent 33g/dL (31-37) Red Cell Distribution Width 13.8% (11.5-14.5) Platelet Count 210x10^3/uL (140-400) Neutrophils (%) (Auto) 71% (31-73) Lymphocytes (%) (Auto) 17% (24-48) Monocytes (%) (Auto) 8% (0-9) Eosinophils (%) (Auto) 3% (0-3) Basophils (%) (Auto) 1% (0-3) Neutrophils # (Auto) 4.5x10^3uL (1.8-7.7) Lymphocytes # (Auto) 1.1x10^3/uL (1.0-4.8) Monocytes # (Auto) 0.5x10^3/uL (0.0-1.1) Eosinophils # (Auto) 0.2x10^3/uL (0.0-0.7) Basophils # (Auto) 0.1x10^3/uL (0.0-0.2) Sodium Level 146mmol/L (136-145) Potassium Level 3.6mmol/L (3.5-5.1) Chloride Level 106mmol/L (98-107) Carbon Dioxide Level 32mmol/L (21-32) Anion Gap 8 (6-14) Blood Urea Nitrogen 13mg/dL (8-26) Creatinine 0.9mg/dL (0.7-1.3) Estimated GFR (Cockcroft-Gault) 79.8 Glucose Level 103mg/dL (70-99) Calcium Level 8.8mg/dL (8.5-10.1) Problem List Problems Medical Problems: (1) Acute respiratory failure Status: Acute (2) CHF exacerbation Status: Acute (3) Hypoxia Status: Acute (4) Pulmonary edema Status: Acute (5) Volume overload Status: Acute Assessment/Plan liver abscess continue drains, abx per ID Repeat CT prior to discharge to reassess(? tomorrow) Problems: JANEL ALLISON MD 12/11/16 3918: SURGICAL PROGRESS NOTE Assessment/Plan Pt seen and examined. Agree with Ms. Parker's note pt denies abd c/o abd soft, ND, NTTP drains with bilious and purulent output d/w cards, proceed with their w/u no gen surgical plans currently imaging at some point to eval abscess elective lap raquel with grams, but may be several months Problems: ELBA PARKER APRN Dec 11, 2016 09:27 JANEL ALLISON MD Dec 11, 2016 14:18
--- NOTE | 2016-12-11 09:36 | PDOC ---
PROGRESS NOTES Chief Complaint Chief Complaint SOB Edema ASSESSMENT AND PLAN: 1. Afib w/ RVR: new onset. remains on cardizem gtt. cardiology following. 2. CHF: prob related to above. breathing much improved. echo pending 3. Troponin leak: without primary symptoms. ?cause or result of above. further W/U as per cards. ? IV heparin 4. CAD hx: cont deidre BB, ASA 5. GB abscess: drain in place, on Abx. ID service following. on Zosyn, zyvox (reportedly, for Klebsiella, enterococcus - printed records not yet available) 6. Gout: no acute issues. cont allopurinol Vitals Vitals Vital Signs Date Time Temp Pulse Resp B/P Pulse Ox O2 Delivery O2 Flow Rate FiO2 12/11/16 07:00 98.0 70 24 137/71 93 Nasal Cannula 6.0 98.0 Physical Exam General: Alert, Oriented X3, Cooperative, No acute distress Heart: Regular rate, Other (AFIB RVR; 3/6 systolic murmur to apical region) Lungs: Clear Abdomen: Soft, No tenderness, Other (billiary drain in place) Extremities: No cyanosis, Other (2-3+ bilateral LE pitting edema) Skin: No breakdown, Other (multiple abdominal ecchymoses reflecting lovenox injections) Labs LABS Laboratory Tests Test 12/10/16 09:31 12/10/16 13:25 12/10/16 19:15 12/11/16 07:15 Urine Collection Type Unknown Urine Color Yellow Urine Clarity Clear Urine pH 5.5 Urine Specific Drayton 1.010 Urine Protein Negativemg/dL (NEG-TRACE) Urine Glucose (UA) Negativemg/dL (NEG) Urine Ketones (Stick) Negativemg/dL (NEG) Urine Blood Negative (NEG) Urine Nitrite Negative (NEG) Urine Bilirubin Negative (NEG) Urine Urobilinogen Dipstick 0.2mg/dL (0.2 mg/dL) Urine Leukocyte Esterase Trace (NEG) Urine RBC 0/HPF (0-2) Urine WBC 5-10/HPF (0-4) Urine Squamous Epithelial Cells Few/LPF Urine Bacteria 0/HPF (0-FEW) Urine Yeast Present/HPF Troponin I Quantitative 9.661ng/mL (0.000-0.055) 10.225ng/mL (0.000-0.055) White Blood Count 6.3x10^3/uL (4.0-11.0) Red Blood Count 3.40x10^6/uL (4.30-5.70) Hemoglobin 10.9g/dL (13.0-17.5) Hematocrit 32.5% (39.0-53.0) Mean Corpuscular Volume 96fL (79-100) Mean Corpuscular Hemoglobin 32pg (25-35) Mean Corpuscular Hemoglobin Concent 33g/dL (31-37) Red Cell Distribution Width 13.8% (11.5-14.5) Platelet Count 210x10^3/uL (140-400) Neutrophils (%) (Auto) 71% (31-73) Lymphocytes (%) (Auto) 17% (24-48) Monocytes (%) (Auto) 8% (0-9) Eosinophils (%) (Auto) 3% (0-3) Basophils (%) (Auto) 1% (0-3) Neutrophils # (Auto) 4.5x10^3uL (1.8-7.7) Lymphocytes # (Auto) 1.1x10^3/uL (1.0-4.8) Monocytes # (Auto) 0.5x10^3/uL (0.0-1.1) Eosinophils # (Auto) 0.2x10^3/uL (0.0-0.7) Basophils # (Auto) 0.1x10^3/uL (0.0-0.2) Sodium Level 146mmol/L (136-145) Potassium Level 3.6mmol/L (3.5-5.1) Chloride Level 106mmol/L (98-107) Carbon Dioxide Level 32mmol/L (21-32) Anion Gap 8 (6-14) Blood Urea Nitrogen 13mg/dL (8-26) Creatinine 0.9mg/dL (0.7-1.3) Estimated GFR (Cockcroft-Gault) 79.8 Glucose Level 103mg/dL (70-99) Calcium Level 8.8mg/dL (8.5-10.1) Assessment and Plan Assessmemt and Plan no CP, no SOB Problems: NINA RAO MD Dec 11, 2016 09:36
[2016-12-11] MEDS: SPIRONOLACTONE 25 MG TABLET PO SCH (10:00)
[2016-12-11] MEDS ORDERED: ALLOPURINOL 100 MG TABLET. PO SCH (10:00)
[2016-12-11] MEDS: METOPROLOL TART IMMED RELEASE 50 MG TABLET PO SCH ×2 (10:00→21:00)
--- NOTE | 2016-12-11 10:10 | PDOC ---
PULMONARY PROGRESS NOTES Subjective feels better off BIPAP Vitals Vital Signs Date Time Temp Pulse Resp B/P Pulse Ox O2 Delivery O2 Flow Rate FiO2 12/11/16 07:00 98.0 70 24 137/71 93 Nasal Cannula 6.0 98.0 General: Alert, No acute distress Lungs: Crackles (improved) Cardiovascular: S1 Abdomen: Soft Neuro Exam: Alert Extremities: No Edema Skin: Warm Labs Laboratory Tests Test 12/10/16 07:00 12/10/16 07:50 12/10/16 09:31 12/10/16 13:25 White Blood Count 7.3x10^3/uL (4.0-11.0) Red Blood Count 3.95x10^6/uL (4.30-5.70) Hemoglobin 12.5g/dL (13.0-17.5) Hematocrit 38.2% (39.0-53.0) Mean Corpuscular Volume 97fL (79-100) Mean Corpuscular Hemoglobin 32pg (25-35) Mean Corpuscular Hemoglobin Concent 33g/dL (31-37) Red Cell Distribution Width 14.4% (11.5-14.5) Platelet Count 323x10^3/uL (140-400) Neutrophils (%) (Auto) 72% (31-73) Lymphocytes (%) (Auto) 20% (24-48) Monocytes (%) (Auto) 5% (0-9) Eosinophils (%) (Auto) 2% (0-3) Basophils (%) (Auto) 1% (0-3) Neutrophils # (Auto) 5.3x10^3uL (1.8-7.7) Lymphocytes # (Auto) 1.5x10^3/uL (1.0-4.8) Monocytes # (Auto) 0.3x10^3/uL (0.0-1.1) Eosinophils # (Auto) 0.1x10^3/uL (0.0-0.7) Basophils # (Auto) 0.1x10^3/uL (0.0-0.2) Sodium Level 142mmol/L (136-145) Potassium Level 4.1mmol/L (3.5-5.1) Chloride Level 104mmol/L (98-107) Carbon Dioxide Level 27mmol/L (21-32) Anion Gap 11 (6-14) Blood Urea Nitrogen 11mg/dL (8-26) Creatinine 1.1mg/dL (0.7-1.3) Estimated GFR (Cockcroft-Gault) 63.3 Glucose Level 251mg/dL (70-99) Lactic Acid Level 3.8mmol/L (0.4-2.0) Calcium Level 9.2mg/dL (8.5-10.1) Magnesium Level 2.0mg/dL (1.8-2.4) Total Bilirubin 0.6mg/dL (0.2-1.0) Direct Bilirubin 0.2mg/dL (0.0-0.2) Aspartate Amino Transf (AST/SGOT) 40U/L (15-37) Alanine Aminotransferase (ALT/SGPT) 38U/L (16-63) Alkaline Phosphatase 75U/L (46-116) Troponin I Quantitative 0.019ng/mL (0.000-0.055) 9.661ng/mL (0.000-0.055) FO-Psv-X-Type Natriuretic Peptide 5187pg/mL (0-449) Total Protein 7.2g/dL (6.4-8.2) Albumin 3.0g/dL (3.4-5.0) Triglycerides Level 112mg/dL (0-150) Cholesterol Level 132mg/dL (0-200) LDL Cholesterol, Calculated 60mg/dL (0-100) VLDL Cholesterol, Calculated 22mg/dL (0-40) HDL Cholesterol 50mg/dL (40-60) Cholesterol/HDL Ratio 2.6 Lipase 141U/L (73-393) Thyroid Stimulating Hormone (TSH) 2.594uIU/mL (0.358-3.74) O2 Saturation 99% (92-99) Arterial Blood pH 7.40 (7.35-7.45) Arterial Blood pCO2 at Patient Temp 37mmHg (35-46) Arterial Blood pO2 at Patient Temp 203mmHg (65-108) Arterial Blood HCO3 22mmol/L (21-28) Arterial Blood Base Excess -2mmol/L (-3-3) FiO2 100 Urine Collection Type Unknown Urine Color Yellow Urine Clarity Clear Urine pH 5.5 Urine Specific Adrian 1.010 Urine Protein Negativemg/dL (NEG-TRACE) Urine Glucose (UA) Negativemg/dL (NEG) Urine Ketones (Stick) Negativemg/dL (NEG) Urine Blood Negative (NEG) Urine Nitrite Negative (NEG) Urine Bilirubin Negative (NEG) Urine Urobilinogen Dipstick 0.2mg/dL (0.2 mg/dL) Urine Leukocyte Esterase Trace (NEG) Urine RBC 0/HPF (0-2) Urine WBC 5-10/HPF (0-4) Urine Squamous Epithelial Cells Few/LPF Urine Bacteria 0/HPF (0-FEW) Urine Yeast Present/HPF Test 12/10/16 19:15 12/11/16 07:15 Troponin I Quantitative 10.225ng/mL (0.000-0.055) White Blood Count 6.3x10^3/uL (4.0-11.0) Red Blood Count 3.40x10^6/uL (4.30-5.70) Hemoglobin 10.9g/dL (13.0-17.5) Hematocrit 32.5% (39.0-53.0) Mean Corpuscular Volume 96fL (79-100) Mean Corpuscular Hemoglobin 32pg (25-35) Mean Corpuscular Hemoglobin Concent 33g/dL (31-37) Red Cell Distribution Width 13.8% (11.5-14.5) Platelet Count 210x10^3/uL (140-400) Neutrophils (%) (Auto) 71% (31-73) Lymphocytes (%) (Auto) 17% (24-48) Monocytes (%) (Auto) 8% (0-9) Eosinophils (%) (Auto) 3% (0-3) Basophils (%) (Auto) 1% (0-3) Neutrophils # (Auto) 4.5x10^3uL (1.8-7.7) Lymphocytes # (Auto) 1.1x10^3/uL (1.0-4.8) Monocytes # (Auto) 0.5x10^3/uL (0.0-1.1) Eosinophils # (Auto) 0.2x10^3/uL (0.0-0.7) Basophils # (Auto) 0.1x10^3/uL (0.0-0.2) Sodium Level 146mmol/L (136-145) Potassium Level 3.6mmol/L (3.5-5.1) Chloride Level 106mmol/L (98-107) Carbon Dioxide Level 32mmol/L (21-32) Anion Gap 8 (6-14) Blood Urea Nitrogen 13mg/dL (8-26) Creatinine 0.9mg/dL (0.7-1.3) Estimated GFR (Cockcroft-Gault) 79.8 Glucose Level 103mg/dL (70-99) Calcium Level 8.8mg/dL (8.5-10.1) Laboratory Tests Test 12/10/16 13:25 12/10/16 19:15 12/11/16 07:15 Troponin I Quantitative 9.661ng/mL (0.000-0.055) 10.225ng/mL (0.000-0.055) White Blood Count 6.3x10^3/uL (4.0-11.0) Red Blood Count 3.40x10^6/uL (4.30-5.70) Hemoglobin 10.9g/dL (13.0-17.5) Hematocrit 32.5% (39.0-53.0) Mean Corpuscular Volume 96fL (79-100) Mean Corpuscular Hemoglobin 32pg (25-35) Mean Corpuscular Hemoglobin Concent 33g/dL (31-37) Red Cell Distribution Width 13.8% (11.5-14.5) Platelet Count 210x10^3/uL (140-400) Neutrophils (%) (Auto) 71% (31-73) Lymphocytes (%) (Auto) 17% (24-48) Monocytes (%) (Auto) 8% (0-9) Eosinophils (%) (Auto) 3% (0-3) Basophils (%) (Auto) 1% (0-3) Neutrophils # (Auto) 4.5x10^3uL (1.8-7.7) Lymphocytes # (Auto) 1.1x10^3/uL (1.0-4.8) Monocytes # (Auto) 0.5x10^3/uL (0.0-1.1) Eosinophils # (Auto) 0.2x10^3/uL (0.0-0.7) Basophils # (Auto) 0.1x10^3/uL (0.0-0.2) Sodium Level 146mmol/L (136-145) Potassium Level 3.6mmol/L (3.5-5.1) Chloride Level 106mmol/L (98-107) Carbon Dioxide Level 32mmol/L (21-32) Anion Gap 8 (6-14) Blood Urea Nitrogen 13mg/dL (8-26) Creatinine 0.9mg/dL (0.7-1.3) Estimated GFR (Cockcroft-Gault) 79.8 Glucose Level 103mg/dL (70-99) Calcium Level 8.8mg/dL (8.5-10.1) Medications Active Scripts Medications Dose Route/Sig Days Date Category Milk Of Magnesia (Magnesium Hydroxide) 2,400 Mg/10 Ml Oral.susp 2,400 Mg PO 12/10/16 Reported Metoprolol Tartrate 100 Mg Tablet 1 Tab PO BID 12/10/16 Reported Allopurinol 100 Mg Tablet 1 Tab PO DAILY 12/10/16 Reported Aspir 81 (Aspirin) 81 Mg Tablet.dr 1 Tab PO DAILY 12/10/16 Reported Spironolactone 25 Mg Tablet 1 Tab PO DAILY 12/10/16 Reported Cardizem Tablet (Diltiazem Hcl) 30 Mg Tablet 30 Mg PO DAILY 12/10/16 Reported Zyvox (Linezolid) 600 Mg Tablet 600 Mg PO BID 12/10/16 Reported Augmentin 875-125 Tablet (Amoxicillin/Potassium Clav) 1 Each Tablet Tab PO BID 12/10/16 Reported Impression . 1. Acute hypoxic respiratory failure secondary to development of acute congestive heart failure, suspect diastolic heart failure triggered by atrial fibrillation with rapid ventricular response. 2. Atrial fibrillation with rapid ventricular response, triggering congestive heart failure. 3. Recent dilated gallbladder with liver abscess, status post percutaneous cholecystostomy placement. Followup CT chest showed persistent abscess in the liver and status post second drain. He still has ongoing drainage. 4. No significant history of tobacco use. Plan . 1. Continue with present oxygen . 2. clinically better 3. Follow chest x-rays as needed 4. Broad-spectrum antibiotics. 5. Infectious Disease consultation and followup. 6. Cardiology recommendations. 7. bronchodilators. RUKHSANA LEE MD Dec 11, 2016 10:10
--- NOTE | 2016-12-11 10:27 | PDOC ---
Infectious Disease Note Subjective Subjective Comfortable, denies pain Off BiPAP ROS ROS GEN: Denies fevers, chills, sweats HEENT: Denies sore throat CV: Denies chest pain RESP: Denies shortness of air, cough GI: Denies n/v/d/abd pain Vital Sign Vital Signs Vital Signs Date Time Temp Pulse Resp B/P Pulse Ox O2 Delivery O2 Flow Rate FiO2 12/11/16 07:00 98.0 70 24 137/71 93 Nasal Cannula 6.0 98.0 Physical Exam PHYSICAL EXAM GENERAL: Propped up in bed, relaxed appearance, smiling CHEST: Lungs clear to auscultation. CARDIOVASCULAR: Normal S1, S2. ABDOMEN: Nondistended. Bowel sounds are present, soft, and nontender. right-sided percutaneous cholecystostomy tube & PAULETTE drain intact, bilious drainage EXTREMITIES: Bilateral lower extremity pitting edema. No cyanosis. SKIN: Without rash. Warm to touch. NEUROLOGIC: Alert and oriented x 3. Moves all extremities. RUE-PICC. Clean. Labs Lab Laboratory Tests Test 12/10/16 13:25 12/10/16 19:15 12/11/16 07:15 Troponin I Quantitative 9.661ng/mL (0.000-0.055) 10.225ng/mL (0.000-0.055) White Blood Count 6.3x10^3/uL (4.0-11.0) Red Blood Count 3.40x10^6/uL (4.30-5.70) Hemoglobin 10.9g/dL (13.0-17.5) Hematocrit 32.5% (39.0-53.0) Mean Corpuscular Volume 96fL (79-100) Mean Corpuscular Hemoglobin 32pg (25-35) Mean Corpuscular Hemoglobin Concent 33g/dL (31-37) Red Cell Distribution Width 13.8% (11.5-14.5) Platelet Count 210x10^3/uL (140-400) Neutrophils (%) (Auto) 71% (31-73) Lymphocytes (%) (Auto) 17% (24-48) Monocytes (%) (Auto) 8% (0-9) Eosinophils (%) (Auto) 3% (0-3) Basophils (%) (Auto) 1% (0-3) Neutrophils # (Auto) 4.5x10^3uL (1.8-7.7) Lymphocytes # (Auto) 1.1x10^3/uL (1.0-4.8) Monocytes # (Auto) 0.5x10^3/uL (0.0-1.1) Eosinophils # (Auto) 0.2x10^3/uL (0.0-0.7) Basophils # (Auto) 0.1x10^3/uL (0.0-0.2) Sodium Level 146mmol/L (136-145) Potassium Level 3.6mmol/L (3.5-5.1) Chloride Level 106mmol/L (98-107) Carbon Dioxide Level 32mmol/L (21-32) Anion Gap 8 (6-14) Blood Urea Nitrogen 13mg/dL (8-26) Creatinine 0.9mg/dL (0.7-1.3) Estimated GFR (Cockcroft-Gault) 79.8 Glucose Level 103mg/dL (70-99) Calcium Level 8.8mg/dL (8.5-10.1) Micro BLOOD CULTURE Preliminary NO GROWTH AFTER 1 DAY Objective Assessment Liver abscess. s/p drains. Reportedly Klebsiella and enterococcus per [facility] s micro, though not able to access all results Acute cholecystolithiasis. Atrial fibrillation with rapid ventricular response. Acute respiratory failure, improving. Coronary artery disease Plan Plan of Care Zosyn Zyvox added per primary Await [facility] ID notes & micro. Need verification of bacteria and clarification regarding abx plans Nasal swab for MRSA (since there was a plan to switch patient to Augmentin and Zyvox on 12/13/16) pending Patient seen and examined. Chart reviewed. Case discussed with TAG [employer]ER. Agree with above plan Unable to get final susceptibility report from [facility] with Zyvox. Patient scheduled for cardiac cath in [facility]ESS[facility] Stephens APRN Dec 11, 2016 10:27 RUKHSANA BOCANEGRA MD Dec 11, 2016 17:41
--- NOTE | 2016-12-11 15:23 | PDOC ---
PROGRESS NOTES Subjective Subjective Patient feeling much better today. Dyspnea improved. Objective Objective Vital Signs Date Time Temp Pulse Resp B/P Pulse Ox O2 Delivery O2 Flow Rate FiO2 12/11/16 15:00 97.8 82 20 131/64 92 Nasal Cannula 6.0 97.8 Intake and Output 12/11/16 07:00 Intake Total 230 ml Output Total 2725 ml Balance -2495 ml IV Total 230 ml Output Urine Total 2675 ml Drainage Total 50 ml Physical Exam Abdomen: Soft, Other (ND, NTTP, drains in place) Heart: Other (AFIB RVR; 3/6 systolic murmur to apical region) Extremities: No cyanosis, Other (2-3+ bilateral LE pitting edema) General: Alert, Cooperative, No acute distress HEENT: Atraumatic, Mucous membr. moist/pink Lungs: Other (bibasilar crackles) Neuro: Normal speech Psych/Mental Status: Mood NL Skin: Other (multiple abdominal ecchymoses reflecting lovenox injections) Assessment Assessment 1. Acute Respiratory failure: secondary to acute on chronic diastolic heart failure - improved with diuresis. 2. Persistent AFIB with RVR: Heart rate well controlled with cardizem drip. Continue aspirin and start heparin per weight based protocol. 3. Acute NSTEMI - troponin level ~ 10, presently chest pain free. h/o CAD s/p PTCA about 20 yrs ago. Start heparin as stated above and plan cardiac cath and possible PCI in AM. Risks and benefits explained. OK from surgical standpoint per Dr. Parks. 4. HTN: better controlled since admission. 5. s/p cholecystostomy and liver abscess drainage: about 2-3 weeks ago at [facility]. PICC in place. Plan Plan of Care Problems Medical Problems: (1) Acute respiratory failure Status: Acute (2) CHF exacerbation Status: Acute (3) Hypoxia Status: Acute (4) Pulmonary edema Status: Acute (5) Volume overload Status: Acute Comment Review of Relevant I have reviewed the following items liana (where applicable) has been applied. Labs Laboratory Tests Test 12/10/16 19:15 12/11/16 07:15 Troponin I Quantitative 10.225ng/mL (0.000-0.055) White Blood Count 6.3x10^3/uL (4.0-11.0) Red Blood Count 3.40x10^6/uL (4.30-5.70) Hemoglobin 10.9g/dL (13.0-17.5) Hematocrit 32.5% (39.0-53.0) Mean Corpuscular Volume 96fL (79-100) Mean Corpuscular Hemoglobin 32pg (25-35) Mean Corpuscular Hemoglobin Concent 33g/dL (31-37) Red Cell Distribution Width 13.8% (11.5-14.5) Platelet Count 210x10^3/uL (140-400) Neutrophils (%) (Auto) 71% (31-73) Lymphocytes (%) (Auto) 17% (24-48) Monocytes (%) (Auto) 8% (0-9) Eosinophils (%) (Auto) 3% (0-3) Basophils (%) (Auto) 1% (0-3) Neutrophils # (Auto) 4.5x10^3uL (1.8-7.7) Lymphocytes # (Auto) 1.1x10^3/uL (1.0-4.8) Monocytes # (Auto) 0.5x10^3/uL (0.0-1.1) Eosinophils # (Auto) 0.2x10^3/uL (0.0-0.7) Basophils # (Auto) 0.1x10^3/uL (0.0-0.2) Sodium Level 146mmol/L (136-145) Potassium Level 3.6mmol/L (3.5-5.1) Chloride Level 106mmol/L (98-107) Carbon Dioxide Level 32mmol/L (21-32) Anion Gap 8 (6-14) Blood Urea Nitrogen 13mg/dL (8-26) Creatinine 0.9mg/dL (0.7-1.3) Estimated GFR (Cockcroft-Gault) 79.8 Glucose Level 103mg/dL (70-99) Calcium Level 8.8mg/dL (8.5-10.1) Microbiology 12/10/16 Blood Culture - Preliminary, Resulted NO GROWTH AFTER 1 DAY 12/10/16 Urine Culture - Preliminary, Resulted 12/10/16 Urine Culture Result 1 ([facility]) - Preliminary, Resulted Medications Current Medications Allopurinol (Zyloprim) 100 mg DAILY PO ; Start 12/11/16 at 10:00; Stop 12/11/16 at 10:13; Status DC Aspirin (Ecotrin) 81 mg DAILY PO ; Start 12/12/16 at 09:00; Status Cancel Heparin Sodium (Porcine) 2,050 unit PRN Q6HRS PRN IV FOR UFH LEVEL LESS THAN 0.2; Start 12/11/16 at 14:45 Heparin Sodium/ Dextrose 500 ml @ 19.6 mls/hr CONT PRN IV SEE I/O RECORD; Start 12/11/16 at 14:45 Linezolid (Zyvox) 600 mg BID PO ; Start 12/11/16 at 10:00 Lisinopril (Prinivil) 10 mg DAILY PO ; Start 12/11/16 at 09:00; Status UNV Metoprolol Tartrate 100 mg 100 mg BID PO ; Start 12/11/16 at 10:00 Spironolactone (Aldactone) 25 mg DAILY PO ; Start 12/11/16 at 10:00 Vitals/I & O Vital Sign - Last 24 Hours 12/10/16 12/10/16 12/10/16 12/10/16 15:30 16:00 17:00 18:00 Pulse 87 87 83 Resp 20 18 B/P 138/60 133/80 160/78 Pulse Ox 94 95 93 O2 Delivery Nasal Cannula Nasal Cannula Nasal Cannula Nasal Cannula O2 Flow Rate 6.0 6.0 6.0 6.0 12/10/16 12/10/16 12/10/16 12/10/16 19:51 20:00 21:00 22:00 Pulse 76 82 80 B/P 129/61 170/96 141/57 O2 Delivery Nasal Cannula O2 Flow Rate 6.0 12/10/16 12/10/16 12/11/16 12/11/16 22:55 23:00 00:00 01:00 Temp 98.3 98.3 Pulse 71 72 70 68 Resp 16 B/P 154/57 154/57 141/56 140/67 Pulse Ox 95 O2 Delivery Nasal Cannula O2 Flow Rate 6.0 12/11/16 12/11/16 12/11/16 12/11/16 02:00 03:00 03:00 04:00 Temp 98.3 98.3 Pulse 66 70 66 66 Resp 18 B/P 147/56 159/69 139/66 155/69 Pulse Ox 95 O2 Delivery Nasal Cannula O2 Flow Rate 6.0 12/11/16 12/11/16 12/11/16 12/11/16 05:00 07:00 08:00 11:00 Temp 98.0 97.6 98.0 97.6 Pulse 78 70 70 Resp 24 20 B/P 139/62 137/71 134/56 Pulse Ox 93 94 O2 Delivery Nasal Cannula Nasal Cannula Nasal Cannula O2 Flow Rate 6.0 6.0 6.0 12/11/16 15:00 Temp 97.8 97.8 Pulse 82 Resp 20 B/P 131/64 Pulse Ox 92 O2 Delivery Nasal Cannula O2 Flow Rate 6.0 Intake and Output 12/10/16 12/10/16 12/11/16 15:00 23:00 07:00 Intake Total 100 ml 130 ml Output Total 600 ml 1575 ml 550 ml Balance -500 ml -1445 ml -550 ml DYLLAN DUMONT MD Dec 11, 2016 15:23
[2016-12-11] MEDS: HEPARIN for IV BOLUS 10,000 UNIT/10 ML VIAL. IV PRN ×2 (15:36→21:18)
[2016-12-11] MEDS: HEPARIN 25,000UTS/500ML PREMIX 500 ML IV PRN (15:38)
[2016-12-11] MEDS: LINEZOLID 600 MG TABLET PO SCH ×2 (17:01→20:31)
[2016-12-12] VITALS (17 sets, daily range): BP systolic 113–141; BP diastolic 45–77
[2016-12-12] MEDS: PIPERACILLIN/TAZOBACTAM 3.375 GM in IV NORMAL SALINE 50ML 50 ML IV SCH ×5 (06:00→19:03)
[2016-12-12 06:17] LABS: HEMATOCRIT 32.6 % (39.0-53.0); HEMOGLOBIN 10.8 g/dL (13.0-17.5); RED BLOOD COUNT 3.41 x10^6/uL (4.30-5.70); RED CELL DISTRIBUTION WIDTH 13.8 % (11.5-14.5); WHITE BLOOD COUNT 7.9 x10^3/uL (4.0-11.0)
--- NOTE | 2016-12-12 08:13 | RAD ---
Portable chest, 12/12/2016: History: Congestive heart failure Comparison is made to a study from 12/10/2016. A right PICC remains in place extending into the superior vena cava. The heart is at the upper limits of normal in size and unchanged. There are persistent patchy infiltrates in the lower chest, slightly improved with better definition of the right hemidiaphragm. The pulmonary vascularity is congested, but better defined in some areas. There is persistent blunting of the lateral costophrenic angles. IMPRESSION: Ongoing congestive heart failure with slight interval improvement.
--- NOTE | 2016-12-12 08:34 | PDOC ---
Infectious Disease Note Subjective Subjective Comfortable, denies pain Off BiPAP ROS ROS GEN: Denies fevers, chills, sweats HEENT: Denies blurred vision, sore throat CV: Denies chest pain RESP: Denies shortness of air, cough GI: Denies n/v/d NEURO: Denies confusion, dizziness MSK: Denies weakness, joint pain/swelling Vital Sign Vital Signs Vital Signs Date Time Temp Pulse Resp B/P Pulse Ox O2 Delivery O2 Flow Rate FiO2 12/12/16 03:00 97.8 80 16 132/74 93 Nasal Cannula 6.0 97.8 Physical Exam PHYSICAL EXAM GENERAL: NAD, Alert HEENT: PERRL, OC/OP NECK: Supple, no JVD, no LN LUNGS: Clear HEART: S1S2, no gallop, no murmur ABD: Soft, NT, no organomegaly, no rebound EXT: No edema, no cyanosis EVENT DESIGNER: Alert, oriented x 3, no focal neurologic deficit SKIN: No rash IV: ok Labs Lab Laboratory Tests Test 12/11/16 11:00 12/11/16 20:45 12/12/16 06:00 Nasal Screen MRSA (PCR) Negative (Negative) Heparin Anti-Xa Act, Unfractionated < 0.10IU/mL (0.30-0.70) White Blood Count 7.9x10^3/uL (4.0-11.0) Red Blood Count 3.41x10^6/uL (4.30-5.70) Hemoglobin 10.8g/dL (13.0-17.5) Hematocrit 32.6% (39.0-53.0) Mean Corpuscular Volume 96fL (79-100) Mean Corpuscular Hemoglobin 32pg (25-35) Mean Corpuscular Hemoglobin Concent 33g/dL (31-37) Red Cell Distribution Width 13.8% (11.5-14.5) Platelet Count 201x10^3/uL (140-400) Objective Assessment Liver abscess 12/02 Kleb and Enterococcus. s/p biliary drains. Reportedly Klebsiella/Hafnia alvei/Ecoli and enterococcus 11/[address] [facility] records. Acute cholecystolithiasis. Atrial fibrillation with rapid ventricular response. Acute respiratory failure, improving. Coronary artery disease Plan Plan of Care Cont Zosyn for now . Will at least 2 to 4 more weeks of abx but can step down to po Augmentin soon as he was discharged on this on 12/07 Zyvox added per primary Nasal swab for MRSA (since there was a plan to switch patient to Augmentin and Zyvox on 12/13/16) pending Change to po abx after cath Patient scheduled for cardiac cath this [facility] records reviewed MICK WILBURN MD Dec 12, 2016 08:34
[2016-12-12] MEDS ORDERED: ASPIRIN ENTERIC COATED 81 MG TABLET.DR. PO SCH (09:00)
[2016-12-12] MEDS: ASPIRIN ENTERIC COATED 81 MG TABLET.DR. PO SCH (09:02)
[2016-12-12] MEDS: METOPROLOL TART IMMED RELEASE 50 MG TABLET PO SCH ×2 (09:02→21:34)
[2016-12-12] MEDS: LINEZOLID 600 MG TABLET PO SCH ×2 (09:02→21:34)
--- NOTE | 2016-12-12 09:50 | PDOC ---
ELBA PARKER SOFTWARE ENGINEERING ASSOCIATE MANAGER 12/12/16 0950: SURGICAL PROGRESS NOTE Subjective up in chair no complaints Vital Signs Vital Signs Date Time Temp Pulse Resp B/P Pulse Ox O2 Delivery O2 Flow Rate FiO2 12/12/16 09:02 70 141/69 12/12/16 07:00 98.2 20 91 Nasal Cannula 6.0 98.2 I&O Intake and Output 12/12/16 07:00 Intake Total 2205 ml Output Total 1250 ml Balance 955 ml Intake Oral 2010 ml IV Total 195 ml Output Urine Total 1150 ml Drainage Total 100 ml General: Alert, Oriented X3, Cooperative, No acute distress Abdomen: Soft, Other (ND, drains in place) Labs Laboratory Tests Test 12/10/16 13:25 12/10/16 19:15 12/11/16 07:15 12/11/16 11:00 Troponin I Quantitative 9.661ng/mL (0.000-0.055) 10.225ng/mL (0.000-0.055) White Blood Count 6.3x10^3/uL (4.0-11.0) Red Blood Count 3.40x10^6/uL (4.30-5.70) Hemoglobin 10.9g/dL (13.0-17.5) Hematocrit 32.5% (39.0-53.0) Mean Corpuscular Volume 96fL (79-100) Mean Corpuscular Hemoglobin 32pg (25-35) Mean Corpuscular Hemoglobin Concent 33g/dL (31-37) Red Cell Distribution Width 13.8% (11.5-14.5) Platelet Count 210x10^3/uL (140-400) Neutrophils (%) (Auto) 71% (31-73) Lymphocytes (%) (Auto) 17% (24-48) Monocytes (%) (Auto) 8% (0-9) Eosinophils (%) (Auto) 3% (0-3) Basophils (%) (Auto) 1% (0-3) Neutrophils # (Auto) 4.5x10^3uL (1.8-7.7) Lymphocytes # (Auto) 1.1x10^3/uL (1.0-4.8) Monocytes # (Auto) 0.5x10^3/uL (0.0-1.1) Eosinophils # (Auto) 0.2x10^3/uL (0.0-0.7) Basophils # (Auto) 0.1x10^3/uL (0.0-0.2) Sodium Level 146mmol/L (136-145) Potassium Level 3.6mmol/L (3.5-5.1) Chloride Level 106mmol/L (98-107) Carbon Dioxide Level 32mmol/L (21-32) Anion Gap 8 (6-14) Blood Urea Nitrogen 13mg/dL (8-26) Creatinine 0.9mg/dL (0.7-1.3) Estimated GFR (Cockcroft-Gault) 79.8 Glucose Level 103mg/dL (70-99) Calcium Level 8.8mg/dL (8.5-10.1) Nasal Screen MRSA (PCR) Negative (Negative) Test 12/11/16 20:45 12/12/16 06:00 Heparin Anti-Xa Act, Unfractionated < 0.10IU/mL (0.30-0.70) White Blood Count 7.9x10^3/uL (4.0-11.0) Red Blood Count 3.41x10^6/uL (4.30-5.70) Hemoglobin 10.8g/dL (13.0-17.5) Hematocrit 32.6% (39.0-53.0) Mean Corpuscular Volume 96fL (79-100) Mean Corpuscular Hemoglobin 32pg (25-35) Mean Corpuscular Hemoglobin Concent 33g/dL (31-37) Red Cell Distribution Width 13.8% (11.5-14.5) Platelet Count 201x10^3/uL (140-400) Laboratory Tests Test 12/11/16 11:00 12/11/16 20:45 12/12/16 06:00 Nasal Screen MRSA (PCR) Negative (Negative) Heparin Anti-Xa Act, Unfractionated < 0.10IU/mL (0.30-0.70) White Blood Count 7.9x10^3/uL (4.0-11.0) Red Blood Count 3.41x10^6/uL (4.30-5.70) Hemoglobin 10.8g/dL (13.0-17.5) Hematocrit 32.6% (39.0-53.0) Mean Corpuscular Volume 96fL (79-100) Mean Corpuscular Hemoglobin 32pg (25-35) Mean Corpuscular Hemoglobin Concent 33g/dL (31-37) Red Cell Distribution Width 13.8% (11.5-14.5) Platelet Count 201x10^3/uL (140-400) Problem List Problems Medical Problems: (1) Acute respiratory failure Status: Acute (2) CHF exacerbation Status: Acute (3) Hypoxia Status: Acute (4) Pulmonary edema Status: Acute (5) Volume overload Status: Acute Assessment/Plan continue drains, abx per ID cardiac evaluation in progress Problems: JANEL ALLISON MD 12/12/16 1343: SURGICAL PROGRESS NOTE Assessment/Plan Pt seen and examined. Agree with Ms. Parker's note Pt denies abd pain drains with appropriate output cont drains Problems: ELBA PARKER APRN Dec 12, 2016 09:50 JANEL ALLISON MD Dec 12, 2016 13:43
[2016-12-12] MEDS ORDERED: POLYETHYLENE GLYCOL 3350 17 GM PACKET. PO PRN (10:00)
[2016-12-12] MEDS ORDERED: MAGNESIUM HYDROXIDE 2,400 MG/30 ML ORAL.SUSP. PO PRN (10:00)
[2016-12-12] MEDS: DILTIAZEM 125 MG in IV DEXTROSE 5% 100 ML IV PRN (11:47)
--- NOTE | 2016-12-12 13:22 | CARD ---
APPROVED REPORT EXAM: Two-dimensional and M-mode echocardiogram with Doppler and color Doppler. Other Information Quality : Fair INDICATION Congestive Heart Failure 2D DIMENSIONS RVDd3.6 (2.9-3.5cm)Left Atrium(2D)4.7 (1.6-4.0cm) IVSd1.1 (0.7-1.1cm)Aortic Root(2D)3.0 (2.0-3.7cm) LVDd4.6 (3.9-5.9cm)LVOT Diameter2.3 (1.8-2.4cm) PWd1.1 (0.7-1.1cm)LVDs2.8 (2.5-4.0cm) FS (%) 30.0 %SV68.8 ml Aortic Valve AoV Peak Miko.154.5cm/sAoV VTI24.5cm AO Peak GR.9.5mmHgLVOT VTI 14.46cm AO Mean GR.6mmHgAVA (VTI)2.50cm2 AI P 1/2 [id number] Mitral Valve MV E Otmwioge744.0cm/sMV DECEL [id number] TDI Lateral E' P. V10.49cm/sMedial E' P. V6.44cm/s E/Lateral E'10.6E/Medial E'17.2 Tricuspid Valve TR P. [id number]/sRAP [id number] TR Peak Gr.68aoHfSJSC72esTc LEFT VENTRICLE The left ventricle is normal size. There is normal left ventricular wall thickness. The left ventricu lar systolic function is normal and the ejection fraction is within normal range. The Ejection Fracti on is 50-60%. There is normal LV segmental wall motion. RIGHT VENTRICLE The right ventricle is normal size. The right ventricular systolic function is normal. ATRIA The left atrium is mildly dilated. The right atrium size is normal. The interatrial septum is intact with no evidence for an atrial septal defect or patent foramen ovale as noted on 2-D or Doppler imagi ng. AORTIC VALVE The aortic valve is calcified but opens well. Doppler and Color Flow revealed mild aortic regurgitati on. There is no significant aortic valvular stenosis. MITRAL VALVE The mitral valve is calcified but opens well. Posterior mitral annular calcification is mild. There i s no evidence of mitral valve prolapse. There is no mitral valve stenosis. Doppler and Color-flow rev ealed mild mitral regurgitation. TRICUSPID VALVE The tricuspid valve is normal in structure and function. Doppler and Color Flow revealed mild tricusp id regurgitation. The PA pressure was estimated at 47 mmHg. There is no tricuspid valve stenosis. PULMONIC VALVE The pulmonary valve is normal in structure and function. Doppler and Color Flow revealed no pulmonic valvular regurgitation. There is no pulmonic valvular stenosis. GREAT VESSELS The aortic root is normal in size. The ascending aorta is mildly dilated at 3.8 cm. The IVC is normal in size and collapses >50% with inspiration. PERICARDIAL EFFUSION There is no evidence of significant pericardial effusion. Critical Notification Critical Value: No <Conclusion> The left ventricle is normal size. The left ventricular systolic function is normal and the ejection fraction is within normal range. The Ejection Fraction is 50-60%. There is no significant aortic valvular stenosis. Doppler and Color Flow revealed mild aortic regurgitation. Doppler and Color-flow revealed mild mitral regurgitation. Doppler and Color Flow revealed mild tricuspid regurgitation. The PA pressure was estimated at 47 mmHg. The ascending aorta is mildly dilated at 3.8 cm.
[2016-12-12] MEDS ORDERED: IODIXANOL 320 MG/ML 100 ML VIAL. ONE (14:11)
[2016-12-12] MEDS ORDERED: LIDOCAINE 2% 20 ML VIAL. ONE (14:11)
[2016-12-12] MEDS ORDERED: IOHEXOL 300 MG/ML 100ML VIAL. ONE (14:11)
--- NOTE | 2016-12-12 14:15 | PDOC ---
Provider Note Provider Note pt not seen / in director of cath lab Needs aggressive diuresis per cardiology, still in CHF RUKHSANA LEE MD Dec 12, 2016 14:15
[2016-12-12] MEDS ORDERED: VERAPAMIL 5 MG/2 ML VIAL. ONE (14:16)
[2016-12-12] MEDS ORDERED: NITROGLYCERIN 200 MCG/2 ML SYRINGE FOR CATH/VASC LAB. ONE (14:16)
[2016-12-12] MEDS ORDERED: FENTANYL PF 100 MCG/2 ML VIAL. ONE (14:16)
[2016-12-12] MEDS ORDERED: HEPARIN for IV BOLUS 10,000 UNIT/10 ML VIAL. ONE (14:16)
[2016-12-12] MEDS ORDERED: MIDAZOLAM HCL 2 MG/2 ML VIAL. ONE (14:16)
--- NOTE | 2016-12-12 14:29 | PDOC ---
MODERATE SEDATION ASSESSMENT RISKS/ALTERNATIVES Risks/Alternatives Risks and alternatives of this type of sedation and procedure discussed with: RISK/ALTERNATIVES: Patient H & P ON CHART H & P H & P on chart and reviewed for co-morbid conditions and appropriate labs. H&P ON CHART: Yes STATUS PREG STATUS ASSESSED: N/A MEDS/ALLERGIES REVIEWED Meds/Allergies Reviewed Medications and Allergies including time and route of recently administered narcotics and sedatives. MEDS/ALLERGIES REVIEWED: Yes ASA RATING ASA RATING: II AIRWAY ASSESSMENT Airway Assessment Airway patency, oral function limitations, presence of caps, crowns, dentures, partials, and ability to extend neck assessed. AIRWAY ASSESSMENT: Yes MALLAMPATI SCORE MALLAMPATI SCORE: II PRE-SEDATION ASSESSMENT PRE-SEDATION ASSESSMENT: Yes DYLLAN DUMONT MD Dec 12, 2016 14:29
[2016-12-12] MEDS ORDERED: IODIXANOL 320 MG/ML 100 ML VIAL. IART ONE (14:45)
[2016-12-12] MEDS ORDERED: NITROGLYCERIN 200 MCG/2 ML SYRINGE FOR CATH/VASC LAB. IART ONE (14:45)
[2016-12-12] MEDS ORDERED: HEPARIN for IV BOLUS 10,000 UNIT/10 ML VIAL. IART ONE (14:45)
[2016-12-12] MEDS ORDERED: FENTANYL PF 100 MCG/2 ML VIAL. IV ONE (14:45)
[2016-12-12] MEDS ORDERED: MIDAZOLAM HCL 2 MG/2 ML VIAL. IV ONE (14:45)
[2016-12-12] MEDS ORDERED: VERAPAMIL 5 MG/2 ML VIAL. IART ONE (14:45)
[2016-12-12] MEDS ORDERED: LIDOCAINE 2% 20 ML VIAL. IJ ONE (14:45)
--- NOTE | 2016-12-12 15:08 | PDOC ---
PROGRESS NOTES Chief Complaint Chief Complaint SOB Edema ASSESSMENT AND PLAN: 1. 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 Afib w/ RVR: new onset. remains on cardizem gtt. cardiology following. 2. CHF: prob related to above. breathing much improved. echo pending 3. Troponin leak: without primary symptoms. ?cause or result of above. further W/U as per cards. ? IV heparin 4. CAD hx: cont deidre BB, ASA 5. GB abscess: drain in place, on Abx. ID service following. on Zosyn, zyvox (reportedly, for Klebsiella, enterococcus - printed records not yet available) 6. Gout: no acute issues. cont allopurinol 7,.A cute hypoxic respi failure needing venti mask History of Present Illness History of Present Illness Out having cardiac cath Per report, triple vessel dse Needs TCVS Will be started on heparin gtt SBP 1teens SOA, needing high O2 requirements from CHF - pulmo on case - on venti mask Getting lasix PLAN: Follow pulmo recs TCVS consult Vitals Vitals Vital Signs Date Time Temp Pulse Resp B/P Pulse Ox O2 Delivery O2 Flow Rate FiO2 12/12/16 14:08 93 Nasal Cannula 6.0 12/12/16 11:18 97.9 80 21 138/77 97.9 Physical Exam General: Alert, Oriented X3, Cooperative, No acute distress Heart: Regular rate, Other (AFIB RVR; 3/6 systolic murmur to apical region) Lungs: Clear Abdomen: Soft, No tenderness, Other (billiary drain in place) Extremities: No cyanosis, Other (2-3+ bilateral LE pitting edema) Skin: Other (multiple abdominal ecchymoses reflecting lovenox injections) Labs LABS Laboratory Tests Test 12/11/16 20:45 12/12/16 06:00 Heparin Anti-Xa Act, Unfractionated < 0.10IU/mL (0.30-0.70) White Blood Count 7.9x10^3/uL (4.0-11.0) Red Blood Count 3.41x10^6/uL (4.30-5.70) Hemoglobin 10.8g/dL (13.0-17.5) Hematocrit 32.6% (39.0-53.0) Mean Corpuscular Volume 96fL (79-100) Mean Corpuscular Hemoglobin 32pg (25-35) Mean Corpuscular Hemoglobin Concent 33g/dL (31-37) Red Cell Distribution Width 13.8% (11.5-14.5) Platelet Count 201x10^3/uL (140-400) Review of Systems Review of Systems out Assessment and Plan Assessmemt and Plan Problems Medical Problems: (1) Acute respiratory failure Status: Acute (2) CHF exacerbation Status: Acute (3) Hypoxia Status: Acute (4) Pulmonary edema Status: Acute (5) Volume overload Status: Acute Problems: Comment Review of Relevant I have reviewed the following items liana (where applicable) has been applied. Labs Laboratory Tests Test 12/10/16 19:15 12/11/16 07:15 12/11/16 11:00 12/11/16 20:45 Troponin I Quantitative 10.225ng/mL (0.000-0.055) White Blood Count 6.3x10^3/uL (4.0-11.0) Red Blood Count 3.40x10^6/uL (4.30-5.70) Hemoglobin 10.9g/dL (13.0-17.5) Hematocrit 32.5% (39.0-53.0) Mean Corpuscular Volume 96fL (79-100) Mean Corpuscular Hemoglobin 32pg (25-35) Mean Corpuscular Hemoglobin Concent 33g/dL (31-37) Red Cell Distribution Width 13.8% (11.5-14.5) Platelet Count 210x10^3/uL (140-400) Neutrophils (%) (Auto) 71% (31-73) Lymphocytes (%) (Auto) 17% (24-48) Monocytes (%) (Auto) 8% (0-9) Eosinophils (%) (Auto) 3% (0-3) Basophils (%) (Auto) 1% (0-3) Neutrophils # (Auto) 4.5x10^3uL (1.8-7.7) Lymphocytes # (Auto) 1.1x10^3/uL (1.0-4.8) Monocytes # (Auto) 0.5x10^3/uL (0.0-1.1) Eosinophils # (Auto) 0.2x10^3/uL (0.0-0.7) Basophils # (Auto) 0.1x10^3/uL (0.0-0.2) Sodium Level 146mmol/L (136-145) Potassium Level 3.6mmol/L (3.5-5.1) Chloride Level 106mmol/L (98-107) Carbon Dioxide Level 32mmol/L (21-32) Anion Gap 8 (6-14) Blood Urea Nitrogen 13mg/dL (8-26) Creatinine 0.9mg/dL (0.7-1.3) Estimated GFR (Cockcroft-Gault) 79.8 Glucose Level 103mg/dL (70-99) Calcium Level 8.8mg/dL (8.5-10.1) Nasal Screen MRSA (PCR) Negative (Negative) Heparin Anti-Xa Act, Unfractionated < 0.10IU/mL (0.30-0.70) Test 12/12/16 06:00 White Blood Count 7.9x10^3/uL (4.0-11.0) Red Blood Count 3.41x10^6/uL (4.30-5.70) Hemoglobin 10.8g/dL (13.0-17.5) Hematocrit 32.6% (39.0-53.0) Mean Corpuscular Volume 96fL (79-100) Mean Corpuscular Hemoglobin 32pg (25-35) Mean Corpuscular Hemoglobin Concent 33g/dL (31-37) Red Cell Distribution Width 13.8% (11.5-14.5) Platelet Count 201x10^3/uL (140-400) Laboratory Tests Test 12/11/16 20:45 12/12/16 06:00 Heparin Anti-Xa Act, Unfractionated < 0.10IU/mL (0.30-0.70) White Blood Count 7.9x10^3/uL (4.0-11.0) Red Blood Count 3.41x10^6/uL (4.30-5.70) Hemoglobin 10.8g/dL (13.0-17.5) Hematocrit 32.6% (39.0-53.0) Mean Corpuscular Volume 96fL (79-100) Mean Corpuscular Hemoglobin 32pg (25-35) Mean Corpuscular Hemoglobin Concent 33g/dL (31-37) Red Cell Distribution Width 13.8% (11.5-14.5) Platelet Count 201x10^3/uL (140-400) Microbiology 12/10/16 Blood Culture - Preliminary, Resulted NO GROWTH AFTER 2 DAYS 12/10/16 Urine Culture - Final, Complete 12/10/16 Urine Culture Result 1 ([facility]) - Final, Complete Medications Current Medications Piperacillin Sod/ Tazobactam Sod 1 each 1 each PRN DAILY PRN MC SEE COMMENTS; Start 12/10/16 at 07:15 Diltiazem HCl/ Dextrose (Cardizem) 125 ml @ 0 mls/hr CONT PRN IV SEE I/O RECORD Last administered on 12/12/16 11:47; Start 12/10/16 at 07:15 Furosemide (Lasix) 40 mg 1X ONCE IVP Last administered on 12/10/16 07:52; Start 12/10/16 at 07:15; Stop 12/10/16 at 07:18; Status DC Nitroglycerin (Nitrostat) 0.4 mg 1X ONCE SL ; Start 12/10/16 at 07:15; Stop at 07:18; Status DC Ondansetron HCl (Zofran) 4 mg PRN Q8HRS PRN IV NAUSEA/VOMITING; Start 12/10/16 at 07:30; Stop 12/11/16 at 07:29; Status DC Morphine Sulfate 2 mg 2 mg PRN Q2HR PRN IV PAIN; Start 12/10/16 at 07:30; Stop 12/11/16 at 07:29; Status DC Piperacillin Sod/ Tazobactam Sod/ Sodium Chloride (Zosyn/Iv Sodium Chloride 0.9 % 100ml) 100 ml @ 200 mls/hr 1X ONCE IV Last administered on 12/10/16 09:28 ; Start 12/10/16 at 07:45; Stop 12/10/16 at 08:14; Status DC Lisinopril (Prinivil) 10 mg DAILY PO ; Start 12/11/16 at 09:00; Stop 12/11/16 at 16:31; Status DC Labetalol HCl (Normodyne) 20 mg PRN Q2HR PRN IVP HYPERTENSION, SEE COMMENTS; Start 12/10/16 at 11:30 Aspirin (Ecotrin) 81 mg DAILYWBKFT PO Last administered on 12/12/16 09:02; Start 12/10/16 at 13:00 Furosemide 40 mg 40 mg 1X ONCE IVP Last administered on 12/10/16 14:37; Start 12/10/16 at 12:15; Stop 12/10/16 at 12:23; Status DC Piperacillin Sod/ Tazobactam Sod/ Sodium Chloride (Zosyn/Iv Sodium Chloride 0.9 % 50ml) 50 ml @ 100 mls/hr Q6HRS IV Last administered on 12/12/16 13:10; Start 12/10/16 at 13:30 Allopurinol (Zyloprim) 100 mg DAILY PO ; Start 12/11/16 at 10:00; Stop 12/11/16 at 10:13; Status DC Aspirin (Ecotrin) 81 mg DAILY PO ; Start 12/12/16 at 09:00; Status Cancel Linezolid (Zyvox) 600 mg BID PO Last administered on 12/12/16 09:02; Start at 10:00 Spironolactone (Aldactone) 25 mg DAILY PO ; Start 12/11/16 at 10:00 Metoprolol Tartrate 100 mg 100 mg BID PO Last administered on 12/12/16 09:02; Start 12/11/16 at 10:00 Heparin Sodium/ Dextrose 500 ml @ 19.6 mls/hr CONT PRN IV SEE I/O RECORD Last administered on 12/11/16 15:38; Start 12/11/16 at 14:45 Heparin Sodium (Porcine) 2,050 unit PRN Q6HRS PRN IV FOR UFH LEVEL LESS THAN 0.2 Last administered on 12/11/16 21:18; Start 12/11/16 at 14:45 Throat Lozenges (Cepacol Sore Throat Lozenge) 1 jorge a PRN Q2HRS PRN PO SORE THROAT; Start 12/11/16 at 19:30 Docusate Sodium (Colace) 100 mg DAILY PO ; Start 12/12/16 at 10:00 Polyethylene Glycol (miraLAX PACKET) 17 gm PRN DAILY PRN PO CONSTIPATION; Start 12/12/16 at 10:00 Magnesium Hydroxide (Milk Of Magnesia) 2,400 mg PRN DAILY PRN PO CONSTIPATION; Start 12/12/16 at 10:00 Lidocaine HCl 20 ml 20 ml STK-MED ONCE .ROUTE ; Start 12/12/16 at 14:11; Stop at 14:12; Status DC Heparin Sodium/ Sodium Chloride 500 ml @ As Directed STK-MED ONCE .ROUTE ; Start 12/12/16 at 14:11; Stop 12/12/16 at 14:12; Status DC Iohexol (Omnipaque 300 Mg/ml) 100 ml STK-MED ONCE .ROUTE ; Start 12/12/16 at 14: 11; Stop 12/12/16 at 14:12; Status DC Iodixanol (Visipaque 320) 100 ml STK-MED ONCE .ROUTE ; Start 12/12/16 at 14:11; Stop 12/12/16 at 14:12; Status DC Nitroglycerin (Nitroglycerin) 200 mcg STK-MED ONCE .ROUTE ; Start 12/12/16 at 14 :16; Stop 12/12/16 at 14:17; Status DC Verapamil HCl (Verapamil) 5 mg STK-MED ONCE .ROUTE ; Start 12/12/16 at 14:16; Stop 12/12/16 at 14:17; Status DC Midazolam HCl (Versed) 2 mg STK-MED ONCE .ROUTE ; Start 12/12/16 at 14:16; Stop 12/12/16 at 14:17; Status DC Fentanyl Citrate (Fentanyl 2ml Vial) 100 mcg STK-MED ONCE .ROUTE ; Start at 14:16; Stop 12/12/16 at 14:17; Status DC Heparin Sodium (Porcine) 10,000 unit STK-MED ONCE .ROUTE ; Start 12/12/16 at 14: 16; Stop 12/12/16 at 14:17; Status DC Nitroglycerin (Nitroglycerin) 200 mcg 1X ONCE IART ; Start 12/12/16 at 14:45; Stop 12/12/16 at 14:46; Status DC Verapamil HCl (Verapamil) 2.5 mg 1X ONCE IART ; Start 12/12/16 at 14:45; Stop 12/12/16 at 14:46; Status DC Heparin Sodium (Porcine) 2,500 unit 1X ONCE IART ; Start 12/12/16 at 14:45; Stop 12/12/16 at 14:46; Status DC Heparin Sodium/ Sodium Chloride 1,000 unit 1X ONCE IART ; Start 12/12/16 at 14: 45; Stop 12/12/16 at 14:46; Status DC Midazolam HCl (Versed) 2 mg 1X ONCE IV ; Start 12/12/16 at 14:45; Stop at 14:46; Status DC Fentanyl Citrate (Fentanyl 2ml Vial) 100 mcg 1X ONCE IV ; Start 12/12/16 at 14: 45; Stop 12/12/16 at 14:46; Status DC Iodixanol (Visipaque 320) 100 ml 1X ONCE IART ; Start 12/12/16 at 14:45; Stop 12/12/16 at 14:46; Status DC Lidocaine HCl 1 ml 1X ONCE IJ ; Start 12/12/16 at 14:45; Stop 12/12/16 at 14:46 ; Status DC Active Scripts Active Reported Milk Of Magnesia (Magnesium Hydroxide) 2,400 Mg/10 Ml Oral.susp 2,400 Mg PO Metoprolol Tartrate 100 Mg Tablet 1 Tab PO BID Allopurinol 100 Mg Tablet 1 Tab PO DAILY Aspir 81 (Aspirin) 81 Mg Tablet.dr 1 Tab PO DAILY Spironolactone 25 Mg Tablet 1 Tab PO DAILY Cardizem Tablet (Diltiazem Hcl) 30 Mg Tablet 30 Mg PO DAILY Zyvox (Linezolid) 600 Mg Tablet 600 Mg PO BID Augmentin 875-125 Tablet (Amoxicillin/Potassium Clav) 1 Each Tablet Tab PO BID Vitals/I & O Vital Sign - Last 24 Hours 12/11/16 12/11/16 12/11/16 12/11/16 16:00 17:00 18:00 20:00 Pulse 71 66 66 B/P 142/59 119/71 137/67 O2 Delivery Nasal Cannula O2 Flow Rate 6.0 12/11/16 12/11/16 12/12/16 12/12/16 21:00 22:33 03:00 07:00 Temp 97.6 97.8 98.2 97.6 97.8 98.2 Pulse 66 80 80 70 Resp 18 16 20 B/P 137/67 152/67 132/74 141/69 Pulse Ox 91 93 91 O2 Delivery Nasal Cannula Nasal Cannula Nasal Cannula O2 Flow Rate 6.0 6.0 6.0 12/12/16 12/12/16 12/12/16 12/12/16 08:00 09:02 11:18 14:08 Temp 97.9 97.9 Pulse 70 80 Resp 21 B/P 141/69 138/77 Pulse Ox 93 O2 Delivery Nasal Cannula Nasal Cannula Nasal Cannula O2 Flow Rate 6.0 6.0 6.0 Intake and Output 12/11/16 12/11/16 12/12/16 15:00 23:00 07:00 Intake Total 720 ml 1335 ml 150 ml Output Total 450 ml 450 ml 350 ml Balance 270 ml 885 ml -200 ml CARLYLE CARMEN MD Dec 12, 2016 15:08
[2016-12-12] MEDS ORDERED: NITROGLYCERIN SUBLINGUAL 0.4 MG BOTTLE OF 25. SL PRN (15:30)
[2016-12-12] MEDS ORDERED: FUROSEMIDE 40 MG/4 ML VIAL IVP ONE (15:30)
--- NOTE | 2016-12-12 15:36 | CARD ---
APPROVED REPORT Procedure(s) performed: Left heart catheterization, selective coronary angiography and left ventricul ography via right transradial approach INDICATION The indication(s) include : Acute non-STEMI, acute on chronic diastolic heart failure. PROCEDURE NARRATIVE After explaining the risks, benefits and alternative options, informed consent was obtained from teresita ent. Patient was brought to the cardiac [facility] and right wrist was prepped and draped in the usual fashion after confirming a positive modified Fredrick's test. Arterial access was obtained in the [facility] radial artery and a 6 Russian sheath was inserted. Gigi Hill guidewire followed by glidewire Harvest wires were used to navigate radial artery loops and tortuosities and 6 Russian Darell catheter was used to perform selective angiography of the left and right coronary arteries. 6 Russian pigtail cath eter was used to perform left ventriculography. Patient tolerated the procedure well. Hemostasis wa s achieved using TR band. There were no immediate complications. The following findings were noted. FINDINGS 1. Hemodynamics: Left ventricular end-diastolic pressure of 20 mmHg. No pullback gradient across th e aortic valve. 2. Left ventriculography: Diaphragmatic wall hypokinesis with ejection fraction estimated at 50%. No significant mitral regurgitation seen. 3. Coronary angiography: a. The left main coronary artery arose from the left sinus of Valsalva, gave rise to the left anteri or descending and left circumflex arteries and did not show any significant stenosis. b. The left anterior descending artery was heavily calcified and showed 80% stenosis in proximal seg ment, long 40-50% stenosis in the midsegment, 90-95% stenosis with ulceration seen in the mid-distal segment. The second diagonal branch is a small-caliber vessel and showed 90% stenosis in the proximal segment. c. The left circumflex artery was heavily calcified and showed 90-95% stenosis in the midsegment. Th e first obtuse marginal branch showed 90% stenosis in proximal segment and 80% stenosis in the midseg ment, the second obtuse marginal branch showed 90-95% stenosis in the proximal to mid segment, the th ird obtuse marginal branch showed 80-90% stenosis in the proximal segment. d. The right coronary artery was a large and dominant vessel arising from the right sinus of Valsalv a that showed 90% stenosis involving the distal segment. The posterolateral branch showed 95% stenosi s involving the proximal segment. Conclusion 1. Severe three-vessel coronary artery disease 2. Diaphragmatic wall hypokinesis with ejection fraction estimated at 50%. Recommendations Cardiothoracic surgery consultation for possible coronary artery bypass surgery. If he is deemed a poor surgical candidate, we will consider either high risk multivessel Rotablator a therectomy/PCI with hemodynamic support from Impella percutaneous ventricular assist device or PCI/st ents in a staged fashion.
--- NOTE | 2016-12-12 15:54 | PDOC ---
Provider Note Provider Note Dr Lau asked me to see Mr Qiu for possible surgical coronary revascularization. I reviewed his coronary angiography which reveals severe three-vessel coronary artery diseasen, with preserved LV function. The patient 2 weeks ago had an episode of severe acute cholecystitis which required a cholecystotomy tube placement and was complicated by a right hepatic lobe abscess with subsequent drain placement. Both the cholecystostomy tube and liver abscess drain are in place. It does not appear that he has had a cholecystectomy. During this admission, the patient developed atrial fibrillation with RVR and a positive troponin which prompted a left heart cath. Considering the ongoing hepatic and biliary infection and in situ percutaneous drains, open heart surgery is contraindicated. The patient has very complex coronary artery disease, which would require multiple stents in a staged fashion. The patient does not have any symptoms nor did he have a myocardial infarction. I don't think that urgent coronary intervention is warranted at this stage. We can proceed with medical management for now. I went to see the patient today but he will still drowsy from his left heart catheter. I will see him tomorrow and will also speak to his family to assess if he is an appropriate surgical candidate for CABG in the future. If the patient wishes to proceed with open heart surgery, his liver and biliary infection need to resolve with removal of the both percutaneous drains first. Until then he can be treated with aggressive medical management. If the patient is too frail considering his advanced age or does not wish to have CABG, then the appropriate option would be staged multiple PCI's. Full consult to follow tomorrow. NEVA JUDGE MD Dec 12, 2016 15:54
[2016-12-12] MEDS: DOCUSATE SODIUM 100 MG CAPSULE PO SCH (16:17)
[2016-12-12] MEDS: SPIRONOLACTONE 25 MG TABLET PO SCH (16:18)
[2016-12-12] MEDS: HEPARIN for IV BOLUS 10,000 UNIT/10 ML VIAL. IV PRN ×2 (16:19→23:03)
[2016-12-12] MEDS: HEPARIN 25,000UTS/500ML PREMIX 500 ML IV PRN (16:20)
[2016-12-13] VITALS (12 sets, daily range): BP systolic 101–144; BP diastolic 51–74
[2016-12-13] MEDS: PIPERACILLIN/TAZOBACTAM 3.375 GM in IV NORMAL SALINE 50ML 50 ML IV SCH ×4 (00:11→18:00)
[2016-12-13] MEDS: DILTIAZEM 125 MG in IV DEXTROSE 5% 100 ML IV PRN (00:58)
[2016-12-13 05:00] LABS: BASO # 0.1 x10^3/uL (0.0-0.2); BASO % 1 % (0-3); EOS % 4 % (0-3); HEMATOCRIT 31.2 % (39.0-53.0); HEMOGLOBIN 10.2 g/dL (13.0-17.5); LYMPH # 1.3 x10^3/uL (1.0-4.8); LYMPH % 18 % (24-48); MEAN CORPUSCULAR HEMOGLOBIN 31 pg (25-35); MEAN CORPUSCULAR HGB CONC 33 g/dL (31-37); MEAN CORPUSCULAR VOLUME 96 fL (79-100); MONO % 10 % (0-9); NEUT % 68 % (31-73); PLATELET COUNT 175 x10^3/uL (140-400); RED BLOOD COUNT 3.25 x10^6/uL (4.30-5.70); WHITE BLOOD COUNT 7.3 x10^3/uL (4.0-11.0)
[2016-12-13 05:15] LABS: GFR 70.7; POTASSIUM 3.7 mmol/L (3.5-5.1)
[2016-12-13] MEDS: HEPARIN for IV BOLUS 10,000 UNIT/10 ML VIAL. IV PRN ×2 (06:13→20:30)
--- NOTE | 2016-12-13 08:34 | PDOC ---
ELBA PARKER PSS DELIVERY PROFESSIONAL 12/13/16 0834: SURGICAL PROGRESS NOTE Subjective tolerating diet a little weak today Vital Signs Vital Signs Date Time Temp Pulse Resp B/P Pulse Ox O2 Delivery O2 Flow Rate FiO2 12/13/16 07:45 97.7 51 22 130/63 91 Nasal Cannula 7.0 97.7 I&O Intake and Output 12/13/16 07:00 Intake Total 641.6 ml Output Total 1126 ml Balance -484.4 ml Intake Oral 360 ml IV Total 161.6 ml Other 120 ml Output Urine Total 1100 ml Stool Total 1 ml Drainage Total 25 ml # Voids 2 # Bowel Movements 1 General: Alert, Oriented X3, Cooperative, No acute distress Abdomen: Soft, Other (drains present ) Labs Laboratory Tests Test 12/11/16 11:00 12/11/16 20:45 12/12/16 06:00 12/12/16 22:12 Nasal Screen MRSA (PCR) Negative (Negative) Heparin Anti-Xa Act, Unfractionated < 0.10IU/mL (0.30-0.70) < 0.10IU/mL (0.30-0.70) White Blood Count 7.9x10^3/uL (4.0-11.0) Red Blood Count 3.41x10^6/uL (4.30-5.70) Hemoglobin 10.8g/dL (13.0-17.5) Hematocrit 32.6% (39.0-53.0) Mean Corpuscular Volume 96fL (79-100) Mean Corpuscular Hemoglobin 32pg (25-35) Mean Corpuscular Hemoglobin Concent 33g/dL (31-37) Red Cell Distribution Width 13.8% (11.5-14.5) Platelet Count 201x10^3/uL (140-400) Test 12/13/16 04:35 White Blood Count 7.3x10^3/uL (4.0-11.0) Red Blood Count 3.25x10^6/uL (4.30-5.70) Hemoglobin 10.2g/dL (13.0-17.5) Hematocrit 31.2% (39.0-53.0) Mean Corpuscular Volume 96fL (79-100) Mean Corpuscular Hemoglobin 31pg (25-35) Mean Corpuscular Hemoglobin Concent 33g/dL (31-37) Red Cell Distribution Width 14.0% (11.5-14.5) Platelet Count 175x10^3/uL (140-400) Neutrophils (%) (Auto) 68% (31-73) Lymphocytes (%) (Auto) 18% (24-48) Monocytes (%) (Auto) 10% (0-9) Eosinophils (%) (Auto) 4% (0-3) Basophils (%) (Auto) 1% (0-3) Neutrophils # (Auto) 5.0x10^3uL (1.8-7.7) Lymphocytes # (Auto) 1.3x10^3/uL (1.0-4.8) Monocytes # (Auto) 0.7x10^3/uL (0.0-1.1) Eosinophils # (Auto) 0.3x10^3/uL (0.0-0.7) Basophils # (Auto) 0.1x10^3/uL (0.0-0.2) Heparin Anti-Xa Act, Unfractionated < 0.10IU/mL (0.30-0.70) Sodium Level 140mmol/L (136-145) Potassium Level 3.7mmol/L (3.5-5.1) Chloride Level 103mmol/L (98-107) Carbon Dioxide Level 29mmol/L (21-32) Anion Gap 8 (6-14) Blood Urea Nitrogen 16mg/dL (8-26) Creatinine 1.0mg/dL (0.7-1.3) Estimated GFR (Cockcroft-Gault) 70.7 Glucose Level 121mg/dL (70-99) Calcium Level 9.0mg/dL (8.5-10.1) Laboratory Tests Test 12/12/16 22:12 12/13/16 04:35 Heparin Anti-Xa Act, Unfractionated < 0.10IU/mL (0.30-0.70) < 0.10IU/mL (0.30-0.70) White Blood Count 7.3x10^3/uL (4.0-11.0) Red Blood Count 3.25x10^6/uL (4.30-5.70) Hemoglobin 10.2g/dL (13.0-17.5) Hematocrit 31.2% (39.0-53.0) Mean Corpuscular Volume 96fL (79-100) Mean Corpuscular Hemoglobin 31pg (25-35) Mean Corpuscular Hemoglobin Concent 33g/dL (31-37) Red Cell Distribution Width 14.0% (11.5-14.5) Platelet Count 175x10^3/uL (140-400) Neutrophils (%) (Auto) 68% (31-73) Lymphocytes (%) (Auto) 18% (24-48) Monocytes (%) (Auto) 10% (0-9) Eosinophils (%) (Auto) 4% (0-3) Basophils (%) (Auto) 1% (0-3) Neutrophils # (Auto) 5.0x10^3uL (1.8-7.7) Lymphocytes # (Auto) 1.3x10^3/uL (1.0-4.8) Monocytes # (Auto) 0.7x10^3/uL (0.0-1.1) Eosinophils # (Auto) 0.3x10^3/uL (0.0-0.7) Basophils # (Auto) 0.1x10^3/uL (0.0-0.2) Sodium Level 140mmol/L (136-145) Potassium Level 3.7mmol/L (3.5-5.1) Chloride Level 103mmol/L (98-107) Carbon Dioxide Level 29mmol/L (21-32) Anion Gap 8 (6-14) Blood Urea Nitrogen 16mg/dL (8-26) Creatinine 1.0mg/dL (0.7-1.3) Estimated GFR (Cockcroft-Gault) 70.7 Glucose Level 121mg/dL (70-99) Calcium Level 9.0mg/dL (8.5-10.1) Problem List Problems Medical Problems: (1) Acute respiratory failure Status: Acute (2) CHF exacerbation Status: Acute (3) Hypoxia Status: Acute (4) Pulmonary edema Status: Acute (5) Volume overload Status: Acute Assessment/Plan continue drains, will plan ct prior to discharge Problems: JANEL ALLISON MD 12/13/16 1033: SURGICAL PROGRESS NOTE Assessment/Plan Pt seen and examined. Agree with Ms. Parker's note PT denies abd pain, reports feeling fatigued abd soft, drains in place cont drains and supportive care no surgical plans currently Problems: ELBA PARKER APRN Dec 13, 2016 08:34 JANEL ALLISON MD Dec 13, 2016 10:33
--- NOTE | 2016-12-13 08:53 | PDOC ---
Infectious Disease Note Subjective Subjective Comfortable, denies pain Feels well ROS ROS GEN: Denies fevers, chills, sweats HEENT: Denies blurred vision, sore throat CV: Denies chest pain RESP: Denies shortness of air, cough GI: Denies n/v/d NEURO: Denies confusion, dizziness MSK: Denies weakness, joint pain/swelling Vital Sign Vital Signs Vital Signs Date Time Temp Pulse Resp B/P Pulse Ox O2 Delivery O2 Flow Rate FiO2 12/13/16 07:45 97.7 51 22 130/63 91 Nasal Cannula 7.0 97.7 Physical Exam PHYSICAL EXAM GENERAL: NAD, Alert -pleasant HEENT: PERRL, OC/OP - clear NECK: Supple, no JVD, no LN LUNGS: Clear HEART: S1S2, no gallop, no murmur ABD: Soft, NT, no organomegaly, no rebound. Drain with bile appearing fluid EXT: No edema, no cyanosis. RU wrist cath site is clean IMMIGRATION CONSULTANT: Alert, oriented x 3, no focal neurologic deficit SKIN: No rash IV: ok Labs Lab Laboratory Tests Test 12/12/16 22:12 12/13/16 04:35 Heparin Anti-Xa Act, Unfractionated < 0.10IU/mL (0.30-0.70) < 0.10IU/mL (0.30-0.70) White Blood Count 7.3x10^3/uL (4.0-11.0) Red Blood Count 3.25x10^6/uL (4.30-5.70) Hemoglobin 10.2g/dL (13.0-17.5) Hematocrit 31.2% (39.0-53.0) Mean Corpuscular Volume 96fL (79-100) Mean Corpuscular Hemoglobin 31pg (25-35) Mean Corpuscular Hemoglobin Concent 33g/dL (31-37) Red Cell Distribution Width 14.0% (11.5-14.5) Platelet Count 175x10^3/uL (140-400) Neutrophils (%) (Auto) 68% (31-73) Lymphocytes (%) (Auto) 18% (24-48) Monocytes (%) (Auto) 10% (0-9) Eosinophils (%) (Auto) 4% (0-3) Basophils (%) (Auto) 1% (0-3) Neutrophils # (Auto) 5.0x10^3uL (1.8-7.7) Lymphocytes # (Auto) 1.3x10^3/uL (1.0-4.8) Monocytes # (Auto) 0.7x10^3/uL (0.0-1.1) Eosinophils # (Auto) 0.3x10^3/uL (0.0-0.7) Basophils # (Auto) 0.1x10^3/uL (0.0-0.2) Sodium Level 140mmol/L (136-145) Potassium Level 3.7mmol/L (3.5-5.1) Chloride Level 103mmol/L (98-107) Carbon Dioxide Level 29mmol/L (21-32) Anion Gap 8 (6-14) Blood Urea Nitrogen 16mg/dL (8-26) Creatinine 1.0mg/dL (0.7-1.3) Estimated GFR (Cockcroft-Gault) 70.7 Glucose Level 121mg/dL (70-99) Calcium Level 9.0mg/dL (8.5-10.1) Objective Assessment Liver abscess 12/02 Kleb and Enterococcus. s/p biliary drains. Reportedly Klebsiella/Hafnia alvei/Ecoli and enterococcus 11/28 per [facility] records. CAD s/p cath Acute cholecystolithiasis. Atrial fibrillation with rapid ventricular response. Acute respiratory failure, improving. Coronary artery disease Plan Plan of Care Cont Zosyn for now . Will at least 2 to 4 more weeks of abx D/c Zyvox Change to po Augmentin at discharge Ok to d/c from ID standpoint F/u [facility] ID [facility] records reviewed MICK WILBURN MD Dec 13, 2016 08:53
[2016-12-13] MEDS: BENZOCAINE/MENTHOL LOZENGE. PO PRN (09:26)
[2016-12-13] MEDS: ASPIRIN ENTERIC COATED 81 MG TABLET.DR. PO SCH (09:28)
[2016-12-13] MEDS: METOPROLOL TART IMMED RELEASE 50 MG TABLET PO SCH ×2 (09:28→20:28)
[2016-12-13] MEDS: SPIRONOLACTONE 25 MG TABLET PO SCH (09:29)
[2016-12-13] MEDS: DOCUSATE SODIUM 100 MG CAPSULE PO SCH (09:30)
--- NOTE | 2016-12-13 10:05 | PDOC ---
PULMONARY PROGRESS NOTES Subjective no more soa off venturi mask Vitals Vital Signs Date Time Temp Pulse Resp B/P Pulse Ox O2 Delivery O2 Flow Rate FiO2 12/13/16 09:28 80 136/71 12/13/16 07:45 97.7 22 91 Nasal Cannula 7.0 97.7 General: Alert, No acute distress Lungs: Clear Cardiovascular: S1 Abdomen: Soft Neuro Exam: Alert Extremities: No Edema Skin: Warm Labs Laboratory Tests Test 12/11/16 11:00 12/11/16 20:45 12/12/16 06:00 12/12/16 22:12 Nasal Screen MRSA (PCR) Negative (Negative) Heparin Anti-Xa Act, Unfractionated < 0.10IU/mL (0.30-0.70) < 0.10IU/mL (0.30-0.70) White Blood Count 7.9x10^3/uL (4.0-11.0) Red Blood Count 3.41x10^6/uL (4.30-5.70) Hemoglobin 10.8g/dL (13.0-17.5) Hematocrit 32.6% (39.0-53.0) Mean Corpuscular Volume 96fL (79-100) Mean Corpuscular Hemoglobin 32pg (25-35) Mean Corpuscular Hemoglobin Concent 33g/dL (31-37) Red Cell Distribution Width 13.8% (11.5-14.5) Platelet Count 201x10^3/uL (140-400) Test 12/13/16 04:35 White Blood Count 7.3x10^3/uL (4.0-11.0) Red Blood Count 3.25x10^6/uL (4.30-5.70) Hemoglobin 10.2g/dL (13.0-17.5) Hematocrit 31.2% (39.0-53.0) Mean Corpuscular Volume 96fL (79-100) Mean Corpuscular Hemoglobin 31pg (25-35) Mean Corpuscular Hemoglobin Concent 33g/dL (31-37) Red Cell Distribution Width 14.0% (11.5-14.5) Platelet Count 175x10^3/uL (140-400) Neutrophils (%) (Auto) 68% (31-73) Lymphocytes (%) (Auto) 18% (24-48) Monocytes (%) (Auto) 10% (0-9) Eosinophils (%) (Auto) 4% (0-3) Basophils (%) (Auto) 1% (0-3) Neutrophils # (Auto) 5.0x10^3uL (1.8-7.7) Lymphocytes # (Auto) 1.3x10^3/uL (1.0-4.8) Monocytes # (Auto) 0.7x10^3/uL (0.0-1.1) Eosinophils # (Auto) 0.3x10^3/uL (0.0-0.7) Basophils # (Auto) 0.1x10^3/uL (0.0-0.2) Heparin Anti-Xa Act, Unfractionated < 0.10IU/mL (0.30-0.70) Sodium Level 140mmol/L (136-145) Potassium Level 3.7mmol/L (3.5-5.1) Chloride Level 103mmol/L (98-107) Carbon Dioxide Level 29mmol/L (21-32) Anion Gap 8 (6-14) Blood Urea Nitrogen 16mg/dL (8-26) Creatinine 1.0mg/dL (0.7-1.3) Estimated GFR (Cockcroft-Gault) 70.7 Glucose Level 121mg/dL (70-99) Calcium Level 9.0mg/dL (8.5-10.1) Laboratory Tests Test 12/12/16 22:12 12/13/16 04:35 Heparin Anti-Xa Act, Unfractionated < 0.10IU/mL (0.30-0.70) < 0.10IU/mL (0.30-0.70) White Blood Count 7.3x10^3/uL (4.0-11.0) Red Blood Count 3.25x10^6/uL (4.30-5.70) Hemoglobin 10.2g/dL (13.0-17.5) Hematocrit 31.2% (39.0-53.0) Mean Corpuscular Volume 96fL (79-100) Mean Corpuscular Hemoglobin 31pg (25-35) Mean Corpuscular Hemoglobin Concent 33g/dL (31-37) Red Cell Distribution Width 14.0% (11.5-14.5) Platelet Count 175x10^3/uL (140-400) Neutrophils (%) (Auto) 68% (31-73) Lymphocytes (%) (Auto) 18% (24-48) Monocytes (%) (Auto) 10% (0-9) Eosinophils (%) (Auto) 4% (0-3) Basophils (%) (Auto) 1% (0-3) Neutrophils # (Auto) 5.0x10^3uL (1.8-7.7) Lymphocytes # (Auto) 1.3x10^3/uL (1.0-4.8) Monocytes # (Auto) 0.7x10^3/uL (0.0-1.1) Eosinophils # (Auto) 0.3x10^3/uL (0.0-0.7) Basophils # (Auto) 0.1x10^3/uL (0.0-0.2) Sodium Level 140mmol/L (136-145) Potassium Level 3.7mmol/L (3.5-5.1) Chloride Level 103mmol/L (98-107) Carbon Dioxide Level 29mmol/L (21-32) Anion Gap 8 (6-14) Blood Urea Nitrogen 16mg/dL (8-26) Creatinine 1.0mg/dL (0.7-1.3) Estimated GFR (Cockcroft-Gault) 70.7 Glucose Level 121mg/dL (70-99) Calcium Level 9.0mg/dL (8.5-10.1) Medications Active Scripts Medications Dose Route/Sig Days Date Category Milk Of Magnesia (Magnesium Hydroxide) 2,400 Mg/10 Ml Oral.susp 2,400 Mg PO 12/10/16 Reported Metoprolol Tartrate 100 Mg Tablet 1 Tab PO BID 12/10/16 Reported Allopurinol 100 Mg Tablet 1 Tab PO DAILY 12/10/16 Reported Aspir 81 (Aspirin) 81 Mg Tablet.dr 1 Tab PO DAILY 12/10/16 Reported Spironolactone 25 Mg Tablet 1 Tab PO DAILY 12/10/16 Reported Cardizem Tablet (Diltiazem Hcl) 30 Mg Tablet 30 Mg PO DAILY 12/10/16 Reported Zyvox (Linezolid) 600 Mg Tablet 600 Mg PO BID 12/10/16 Reported Augmentin 875-125 Tablet (Amoxicillin/Potassium Clav) 1 Each Tablet Tab PO BID 12/10/16 Reported Impression . 1. Acute hypoxic respiratory failure secondary to development of acute congestive heart failure, suspect diastolic heart failure triggered by atrial fibrillation with rapid ventricular response. 2. Atrial fibrillation with rapid ventricular response, triggering congestive heart failure. 3. Recent dilated gallbladder with liver abscess, status post percutaneous cholecystostomy placement. Followup CT chest showed persistent abscess in the liver and status post second drain. He still has ongoing drainage. 4. No significant history of tobacco use. Plan . will need 6 min walk prior to d/c 1. Continue with present oxygen . 2. clinically better 3. Follow chest x-rays as needed 4. Broad-spectrum antibiotics. 5. Infectious Disease consultation and followup. 6. Cardiology recommendations. 7. bronchodilators. YARIEL SMITH MD Dec 13, 2016 10:05
[2016-12-13] MEDS ORDERED: FUROSEMIDE 40 MG/4 ML VIAL IVP ONE (12:15)
--- NOTE | 2016-12-13 12:33 | PDOC ---
JASSI REID WELDING TECHNICIAN 12/13/16 1233: CARDIO Progress Notes Date and Time Date of Service 12/13/2016 Time of Evaluation 1200 Subjective Subjective: No Chest Pain, No Palpitations, No Dizziness, Other (SOA with activity; feels better today) Vitals Vitals Vital Signs Date Time Temp Pulse Resp B/P Pulse Ox O2 Delivery O2 Flow Rate FiO2 12/13/16 11:10 98.0 60 18 128/51 91 Nasal Cannula 6.0 98.0 Weight Weight [ ] Input and Output Intake and Output Intake and Output 12/13/16 07:00 Intake Total 641.6 ml Output Total 1126 ml Balance -484.4 ml Intake Oral 360 ml IV Total 161.6 ml Other 120 ml Output Urine Total 1100 ml Stool Total 1 ml Drainage Total 25 ml # Voids 2 # Bowel Movements 1 Laboratory Labs Laboratory Tests Test 12/12/16 22:12 12/13/16 04:35 Heparin Anti-Xa Act, Unfractionated < 0.10IU/mL (0.30-0.70) < 0.10IU/mL (0.30-0.70) White Blood Count 7.3x10^3/uL (4.0-11.0) Red Blood Count 3.25x10^6/uL (4.30-5.70) Hemoglobin 10.2g/dL (13.0-17.5) Hematocrit 31.2% (39.0-53.0) Mean Corpuscular Volume 96fL (79-100) Mean Corpuscular Hemoglobin 31pg (25-35) Mean Corpuscular Hemoglobin Concent 33g/dL (31-37) Red Cell Distribution Width 14.0% (11.5-14.5) Platelet Count 175x10^3/uL (140-400) Neutrophils (%) (Auto) 68% (31-73) Lymphocytes (%) (Auto) 18% (24-48) Monocytes (%) (Auto) 10% (0-9) Eosinophils (%) (Auto) 4% (0-3) Basophils (%) (Auto) 1% (0-3) Neutrophils # (Auto) 5.0x10^3uL (1.8-7.7) Lymphocytes # (Auto) 1.3x10^3/uL (1.0-4.8) Monocytes # (Auto) 0.7x10^3/uL (0.0-1.1) Eosinophils # (Auto) 0.3x10^3/uL (0.0-0.7) Basophils # (Auto) 0.1x10^3/uL (0.0-0.2) Sodium Level 140mmol/L (136-145) Potassium Level 3.7mmol/L (3.5-5.1) Chloride Level 103mmol/L (98-107) Carbon Dioxide Level 29mmol/L (21-32) Anion Gap 8 (6-14) Blood Urea Nitrogen 16mg/dL (8-26) Creatinine 1.0mg/dL (0.7-1.3) Estimated GFR (Cockcroft-Gault) 70.7 Glucose Level 121mg/dL (70-99) Calcium Level 9.0mg/dL (8.5-10.1) Microbiology Micro Microbiology 12/10/16 Blood Culture - Preliminary, Resulted NO GROWTH AFTER 2 DAYS 12/10/16 Urine Culture - Final, Complete 12/10/16 Urine Culture Result 1 (MILTON) - Final, Complete Physical Exam HEENT: Neck Supple W Full Motion Chest: Symmetric LUNGS: Other (diffuse crackles) Heart: S1S2, irregularly irregular Abdomen: Soft N/T Extremities: No Calf Tenderness, Other (2+ bilateral LE pitting edema) Neurology: alert, oriented, follow commands Assessment Assessment 1. Acute diastolic CHF: improved 2. NSTEMI: S/P LHC with results below 3. 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 4. Persistent AFIB with RVR: new onset. Now rate controlled. 5. HTN: controlled 6. s/p cholecystostomy and liver abscess drainage: about 2-3 weeks ago at [facility]. PICC in place. Recommendations 1. DC Cardizem drip. HR 50-60s. Decrease metoprolol and start on cardizem. 2. Continue heparin drip in the next 24 hours. Staged complex PCI with impella support is a consideration. Will discuss with primary escrow agent. 3. Continue with lasix therapy 4. Will consider for OAC/NOAC once decision for cardiac testing is finalized 5. Unable to place on ACEi due to allergy. Will consider for ARB if no angioedema or anaphylactic reaction to ACEi. . ECASA. 6. Low dose lipitor. DYLLAN DUMONT MD 12/14/16 0557: CARDIO Progress Notes Assessment Assessment Patient seen and examined 12/13/16. Agree with CARGO BROKER's assessment and plan. Atrial fib rate controlled. Acute on chr diast HF better compensated. If he remains stable, consider CABG once hepatobiliary issues resolve. If he becomes symptomatic, we will consider staged and high risk PCI/stents. JASSI REID APRN Dec 13, 2016 12:33 DYLLAN DUMONT MD Dec 14, 2016 05:57
--- NOTE | 2016-12-13 14:19 | PDOC ---
PROGRESS NOTES Chief Complaint Chief Complaint SOB Edema ASSESSMENT AND PLAN: 1. 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 Afib s/p RVR (new) 2. CHF: 3. Troponin leak: 4. CAD hx: 5. GB abscess: drain in place, on Abx. done by [facility] 6. Gout: no acute issues. cont allopurinol 7,.A cute hypoxic respi failure needing venti mask , resolved History of Present Illness History of Present Illness Non surgical candidate by TCVSS bec of 2 indwelling abd drains inserted by [facility] On iV zosyn, ID is ok to shift to PO augmentin once dcd back to HCR Family at bedside Counselled on HCR that they can ff up or set up appt with [facility] re the drains On heparin gtt still by cards cards note: If he is deemed a poor surgical candidate, we will consider either high risk multivessel Rotablator atherectomy/PCI with hemodynamic support from Impella percutaneous ventricular assist device or PCI/stents in a staged fashion. PALn: As per cards Willd c back to [facility] when cards cleared DRain c/o [facility] IR or NICK Dw RN and multiple fam members at bedside Vitals Vitals Vital Signs Date Time Temp Pulse Resp B/P Pulse Ox O2 Delivery O2 Flow Rate FiO2 12/13/16 11:10 98.0 60 18 128/51 91 Nasal Cannula 6.0 98.0 Physical Exam General: Alert, Oriented X3, Cooperative, No acute distress Heart: Regular rate, Other (AFIB RVR; 3/6 systolic murmur to apical region) Lungs: Clear Abdomen: Soft, Other (drains present ) Extremities: No cyanosis, Other (2-3+ bilateral LE pitting edema) Skin: Other (multiple abdominal ecchymoses reflecting lovenox injections) Labs LABS Laboratory Tests Test 12/12/16 22:12 12/13/16 04:35 12/13/16 12:00 Heparin Anti-Xa Act, Unfractionated < 0.10IU/mL (0.30-0.70) < 0.10IU/mL (0.30-0.70) 0.20IU/mL (0.30-0.70) White Blood Count 7.3x10^3/uL (4.0-11.0) Red Blood Count 3.25x10^6/uL (4.30-5.70) Hemoglobin 10.2g/dL (13.0-17.5) Hematocrit 31.2% (39.0-53.0) Mean Corpuscular Volume 96fL (79-100) Mean Corpuscular Hemoglobin 31pg (25-35) Mean Corpuscular Hemoglobin Concent 33g/dL (31-37) Red Cell Distribution Width 14.0% (11.5-14.5) Platelet Count 175x10^3/uL (140-400) Neutrophils (%) (Auto) 68% (31-73) Lymphocytes (%) (Auto) 18% (24-48) Monocytes (%) (Auto) 10% (0-9) Eosinophils (%) (Auto) 4% (0-3) Basophils (%) (Auto) 1% (0-3) Neutrophils # (Auto) 5.0x10^3uL (1.8-7.7) Lymphocytes # (Auto) 1.3x10^3/uL (1.0-4.8) Monocytes # (Auto) 0.7x10^3/uL (0.0-1.1) Eosinophils # (Auto) 0.3x10^3/uL (0.0-0.7) Basophils # (Auto) 0.1x10^3/uL (0.0-0.2) Sodium Level 140mmol/L (136-145) Potassium Level 3.7mmol/L (3.5-5.1) Chloride Level 103mmol/L (98-107) Carbon Dioxide Level 29mmol/L (21-32) Anion Gap 8 (6-14) Blood Urea Nitrogen 16mg/dL (8-26) Creatinine 1.0mg/dL (0.7-1.3) Estimated GFR (Cockcroft-Gault) 70.7 Glucose Level 121mg/dL (70-99) Calcium Level 9.0mg/dL (8.5-10.1) Assessment and Plan Assessmemt and Plan Problems Medical Problems: (1) Acute respiratory failure Status: Acute (2) CHF exacerbation Status: Acute (3) Hypoxia Status: Acute (4) Pulmonary edema Status: Acute (5) Volume overload Status: Acute Problems: Comment Review of Relevant I have reviewed the following items liana (where applicable) has been applied. Labs Laboratory Tests Test 12/11/16 20:45 12/12/16 06:00 12/12/16 22:12 12/13/16 04:35 Heparin Anti-Xa Act, Unfractionated < 0.10IU/mL (0.30-0.70) < 0.10IU/mL (0.30-0.70) < 0.10IU/mL (0.30-0.70) White Blood Count 7.9x10^3/uL (4.0-11.0) 7.3x10^3/uL (4.0-11.0) Red Blood Count 3.41x10^6/uL (4.30-5.70) 3.25x10^6/uL (4.30-5.70) Hemoglobin 10.8g/dL (13.0-17.5) 10.2g/dL (13.0-17.5) Hematocrit 32.6% (39.0-53.0) 31.2% (39.0-53.0) Mean Corpuscular Volume 96fL (79-100) 96fL (79-100) Mean Corpuscular Hemoglobin 32pg (25-35) 31pg (25-35) Mean Corpuscular Hemoglobin Concent 33g/dL (31-37) 33g/dL (31-37) Red Cell Distribution Width 13.8% (11.5-14.5) 14.0% (11.5-14.5) Platelet Count 201x10^3/uL (140-400) 175x10^3/uL (140-400) Neutrophils (%) (Auto) 68% (31-73) Lymphocytes (%) (Auto) 18% (24-48) Monocytes (%) (Auto) 10% (0-9) Eosinophils (%) (Auto) 4% (0-3) Basophils (%) (Auto) 1% (0-3) Neutrophils # (Auto) 5.0x10^3uL (1.8-7.7) Lymphocytes # (Auto) 1.3x10^3/uL (1.0-4.8) Monocytes # (Auto) 0.7x10^3/uL (0.0-1.1) Eosinophils # (Auto) 0.3x10^3/uL (0.0-0.7) Basophils # (Auto) 0.1x10^3/uL (0.0-0.2) Sodium Level 140mmol/L (136-145) Potassium Level 3.7mmol/L (3.5-5.1) Chloride Level 103mmol/L (98-107) Carbon Dioxide Level 29mmol/L (21-32) Anion Gap 8 (6-14) Blood Urea Nitrogen 16mg/dL (8-26) Creatinine 1.0mg/dL (0.7-1.3) Estimated GFR (Cockcroft-Gault) 70.7 Glucose Level 121mg/dL (70-99) Calcium Level 9.0mg/dL (8.5-10.1) Test 12/13/16 12:00 Heparin Anti-Xa Act, Unfractionated 0.20IU/mL (0.30-0.70) Laboratory Tests Test 12/12/16 22:12 12/13/16 04:35 12/13/16 12:00 Heparin Anti-Xa Act, Unfractionated < 0.10IU/mL (0.30-0.70) < 0.10IU/mL (0.30-0.70) 0.20IU/mL (0.30-0.70) White Blood Count 7.3x10^3/uL (4.0-11.0) Red Blood Count 3.25x10^6/uL (4.30-5.70) Hemoglobin 10.2g/dL (13.0-17.5) Hematocrit 31.2% (39.0-53.0) Mean Corpuscular Volume 96fL (79-100) Mean Corpuscular Hemoglobin 31pg (25-35) Mean Corpuscular Hemoglobin Concent 33g/dL (31-37) Red Cell Distribution Width 14.0% (11.5-14.5) Platelet Count 175x10^3/uL (140-400) Neutrophils (%) (Auto) 68% (31-73) Lymphocytes (%) (Auto) 18% (24-48) Monocytes (%) (Auto) 10% (0-9) Eosinophils (%) (Auto) 4% (0-3) Basophils (%) (Auto) 1% (0-3) Neutrophils # (Auto) 5.0x10^3uL (1.8-7.7) Lymphocytes # (Auto) 1.3x10^3/uL (1.0-4.8) Monocytes # (Auto) 0.7x10^3/uL (0.0-1.1) Eosinophils # (Auto) 0.3x10^3/uL (0.0-0.7) Basophils # (Auto) 0.1x10^3/uL (0.0-0.2) Sodium Level 140mmol/L (136-145) Potassium Level 3.7mmol/L (3.5-5.1) Chloride Level 103mmol/L (98-107) Carbon Dioxide Level 29mmol/L (21-32) Anion Gap 8 (6-14) Blood Urea Nitrogen 16mg/dL (8-26) Creatinine 1.0mg/dL (0.7-1.3) Estimated GFR (Cockcroft-Gault) 70.7 Glucose Level 121mg/dL (70-99) Calcium Level 9.0mg/dL (8.5-10.1) Microbiology 12/10/16 Blood Culture - Preliminary, Resulted NO GROWTH AFTER 3 DAYS 12/10/16 Urine Culture - Final, Complete 12/10/16 Urine Culture Result 1 (MILTON) - Final, Complete Medications Current Medications Piperacillin Sod/ Tazobactam Sod 1 each 1 each PRN DAILY PRN MC SEE COMMENTS; Start 12/10/16 at 07:15 Diltiazem HCl/ Dextrose (Cardizem) 125 ml @ 0 mls/hr CONT PRN IV SEE I/O RECORD Last administered on 12/13/16 00:58; Start 12/10/16 at 07:15; Stop 12/13 at 12:33; Status DC Furosemide (Lasix) 40 mg 1X ONCE IVP Last administered on 12/10/16 07:52; Start 12/10/16 at 07:15; Stop 12/10/16 at 07:18; Status DC Nitroglycerin (Nitrostat) 0.4 mg 1X ONCE SL ; Start 12/10/16 at 07:15; Stop at 07:18; Status DC Ondansetron HCl (Zofran) 4 mg PRN Q8HRS PRN IV NAUSEA/VOMITING; Start 12/10/16 at 07:30; Stop 12/11/16 at 07:29; Status DC Morphine Sulfate 2 mg 2 mg PRN Q2HR PRN IV PAIN; Start 12/10/16 at 07:30; Stop 12/11/16 at 07:29; Status DC Piperacillin Sod/ Tazobactam Sod/ Sodium Chloride (Zosyn/Iv Sodium Chloride 0.9 % 100ml) 100 ml @ 200 mls/hr 1X ONCE IV Last administered on 12/10/16 09:28 ; Start 12/10/16 at 07:45; Stop 12/10/16 at 08:14; Status DC Lisinopril (Prinivil) 10 mg DAILY PO ; Start 12/11/16 at 09:00; Stop 12/11/16 at 16:31; Status DC Labetalol HCl (Normodyne) 20 mg PRN Q2HR PRN IVP HYPERTENSION, SEE COMMENTS; Start 12/10/16 at 11:30 Aspirin (Ecotrin) 81 mg DAILYWBKFT PO Last administered on 12/13/16 09:28; Start 12/10/16 at 13:00 Furosemide 40 mg 40 mg 1X ONCE IVP Last administered on 12/10/16 14:37; Start 12/10/16 at 12:15; Stop 12/10/16 at 12:23; Status DC Piperacillin Sod/ Tazobactam Sod/ Sodium Chloride (Zosyn/Iv Sodium Chloride 0.9 % 50ml) 50 ml @ 100 mls/hr Q6HRS IV Last administered on 12/13/16 05:08; Start 12/10/16 at 13:30 Allopurinol (Zyloprim) 100 mg DAILY PO ; Start 12/11/16 at 10:00; Stop 12/11/16 at 10:13; Status DC Aspirin (Ecotrin) 81 mg DAILY PO ; Start 12/12/16 at 09:00; Status Cancel Linezolid (Zyvox) 600 mg BID PO Last administered on 12/12/16 21:34; Start at 10:00; Stop 12/13/16 at 08:51; Status DC Spironolactone (Aldactone) 25 mg DAILY PO Last administered on 12/13/16 09:29 ; Start 12/11/16 at 10:00 Metoprolol Tartrate 100 mg 100 mg BID PO Last administered on 12/13/16 09:28; Start 12/11/16 at 10:00; Stop 12/13/16 at 12:33; Status DC Heparin Sodium/ Dextrose 500 ml @ 19.6 mls/hr CONT PRN IV SEE I/O RECORD Last administered on 12/12/16 16:20; Start 12/11/16 at 14:45 Heparin Sodium (Porcine) 2,050 unit PRN Q6HRS PRN IV FOR UFH LEVEL LESS THAN 0.2 Last administered on 12/13/16 06:13; Start 12/11/16 at 14:45 Throat Lozenges (Cepacol Sore Throat Lozenge) 1 jorge a PRN Q2HRS PRN PO SORE THROAT Last administered on 12/13/16 09:26; Start 12/11/16 at 19:30 Docusate Sodium (Colace) 100 mg DAILY PO Last administered on 12/13/16 09:30; Start 12/12/16 at 10:00 Polyethylene Glycol (miraLAX PACKET) 17 gm PRN DAILY PRN PO CONSTIPATION; Start 12/12/16 at 10:00 Magnesium Hydroxide (Milk Of Magnesia) 2,400 mg PRN DAILY PRN PO CONSTIPATION; Start 12/12/16 at 10:00 Lidocaine HCl 20 ml 20 ml STK-MED ONCE .ROUTE ; Start 12/12/16 at 14:11; Stop at 14:12; Status DC Heparin Sodium/ Sodium Chloride 500 ml @ As Directed STK-MED ONCE .ROUTE ; Start 12/12/16 at 14:11; Stop 12/12/16 at 14:12; Status DC Iohexol (Omnipaque 300 Mg/ml) 100 ml STK-MED ONCE .ROUTE ; Start 12/12/16 at 14: 11; Stop 12/12/16 at 14:12; Status DC Iodixanol (Visipaque 320) 100 ml STK-MED ONCE .ROUTE ; Start 12/12/16 at 14:11; Stop 12/12/16 at 14:12; Status DC Nitroglycerin (Nitroglycerin) 200 mcg STK-MED ONCE .ROUTE ; Start 12/12/16 at 14 :16; Stop 12/12/16 at 14:17; Status DC Verapamil HCl (Verapamil) 5 mg STK-MED ONCE .ROUTE ; Start 12/12/16 at 14:16; Stop 12/12/16 at 14:17; Status DC Midazolam HCl (Versed) 2 mg STK-MED ONCE .ROUTE ; Start 12/12/16 at 14:16; Stop 12/12/16 at 14:17; Status DC Fentanyl Citrate (Fentanyl 2ml Vial) 100 mcg STK-MED ONCE .ROUTE ; Start at 14:16; Stop 12/12/16 at 14:17; Status DC Heparin Sodium (Porcine) 10,000 unit STK-MED ONCE .ROUTE ; Start 12/12/16 at 14: 16; Stop 12/12/16 at 14:17; Status DC Nitroglycerin (Nitroglycerin) 200 mcg 1X ONCE IART Last administered on 15:04; Start 12/12/16 at 14:45; Stop 12/12/16 at 14:46; Status DC Verapamil HCl (Verapamil) 2.5 mg 1X ONCE IART Last administered on 12/12/16 15:05; Start 12/12/16 at 14:45; Stop 12/12/16 at 14:46; Status DC Heparin Sodium (Porcine) 2,500 unit 1X ONCE IART Last administered on 15:06; Start 12/12/16 at 14:45; Stop 12/12/16 at 14:46; Status DC Heparin Sodium/ Sodium Chloride 1,000 unit 1X ONCE IART Last administered on 15:03; Start 12/12/16 at 14:45; Stop 12/12/16 at 14:46; Status DC Midazolam HCl (Versed) 2 mg 1X ONCE IV Last administered on 12/12/16 15:04; Start 12/12/16 at 14:45; Stop 12/12/16 at 14:46; Status DC Fentanyl Citrate (Fentanyl 2ml Vial) 100 mcg 1X ONCE IV Last administered on 15:04; Start 12/12/16 at 14:45; Stop 12/12/16 at 14:46; Status DC Iodixanol (Visipaque 320) 100 ml 1X ONCE IART Last administered on 12/12/16 15:05; Start 12/12/16 at 14:45; Stop 12/12/16 at 14:46; Status DC Lidocaine HCl 1 ml 1X ONCE IJ Last administered on 12/12/16 15:03; Start at 14:45; Stop 12/12/16 at 14:46; Status DC Nitroglycerin (Nitrostat) 0.4 mg PRN Q5MIN PRN SL CHEST PAIN; Start 12/12/16 at 15:30 Furosemide (Lasix) 40 mg 1X ONCE IVP Last administered on 12/12/16 16:18; Start 12/12/16 at 15:30; Stop 12/12/16 at 15:31; Status DC Metoprolol Tartrate (Lopressor) 50 mg BID PO ; Start 12/13/16 at 21:00 Furosemide (Lasix) 40 mg 1X ONCE IVP ; Start 12/13/16 at 12:15; Stop 12/13/16 at 12:37; Status DC Furosemide (Lasix) 40 mg DAILY PO ; Start 12/14/16 at 09:00 Diltiazem HCl (Cardizem 24hr Cd) 120 mg DAILY PO ; Start 12/14/16 at 09:00 Active Scripts Active Reported Milk Of Magnesia (Magnesium Hydroxide) 2,400 Mg/10 Ml Oral.susp 2,400 Mg PO Metoprolol Tartrate 100 Mg Tablet 1 Tab PO BID Allopurinol 100 Mg Tablet 1 Tab PO DAILY Aspir 81 (Aspirin) 81 Mg Tablet.dr 1 Tab PO DAILY Spironolactone 25 Mg Tablet 1 Tab PO DAILY Cardizem Tablet (Diltiazem Hcl) 30 Mg Tablet 30 Mg PO DAILY Zyvox (Linezolid) 600 Mg Tablet 600 Mg PO BID Augmentin 875-125 Tablet (Amoxicillin/Potassium Clav) 1 Each Tablet Tab PO BID Vitals/I & O Vital Sign - Last 24 Hours 12/12/16 12/12/16 12/12/16 12/12/16 15:04 15:05 15:06 15:30 Pulse 65 65 65 Resp 23 32 22 B/P 116/63 Pulse Ox 87 87 89 O2 Delivery Simple Mask Simple Mask Simple Mask O2 Flow Rate 6.0 6.0 6.0 2/27/17 2/27/17 2/27/17 2/27/17 15:45 16:00 16:30 17:30 Pulse 65 65 76 81 Resp 22 20 20 20 Pulse Ox 89 89 89 89 O2 Delivery Simple Mask Simple Mask Simple Mask Simple Mask O2 Flow Rate 6.0 6.0 7.0 7.0 12/12/16 12/12/16 12/12/16 12/12/16 18:30 19:00 19:15 19:40 Temp 98.1 98.1 Pulse 88 76 88 85 Resp 19 22 20 B/P 118/51 113/56 Pulse Ox 92 O2 Delivery Nasal Cannula Nasal Cannula Nasal Cannula O2 Flow Rate 7.0 7.0 7.0 12/12/16 12/12/16 12/12/16 12/12/16 20:00 20:30 21:00 21:34 Pulse 78 72 72 B/P 113/56 120/65 119/68 O2 Delivery Nasal Cannula O2 Flow Rate 7.0 12/12/16 12/12/16 12/12/16 12/13/16 22:00 23:00 23:07 00:00 Temp 99.5 99.5 Pulse 72 70 68 58 Resp 25 B/P 119/68 116/56 116/56 111/52 Pulse Ox 91 O2 Delivery Nasal Cannula O2 Flow Rate 7.0 12/13/16 12/13/16 12/13/16 12/13/16 01:00 02:00 03:08 03:29 Temp 98.1 98.1 Pulse 60 65 64 B/P 110/62 110/57 116/59 12/13/16 12/13/16 12/13/16 12/13/16 04:29 05:29 06:29 07:45 Temp 97.7 97.7 Pulse 62 68 54 51 Resp 22 B/P 127/64 117/59 126/62 130/63 Pulse Ox 91 O2 Delivery Nasal Cannula O2 Flow Rate 7.0 12/13/16 12/13/16 12/13/16 09:28 09:33 11:10 Temp 98.0 98.0 Pulse 80 60 Resp 18 B/P 136/71 128/51 Pulse Ox 91 O2 Delivery Nasal Cannula Nasal Cannula O2 Flow Rate 6.0 6.0 Intake and Output 12/12/16 12/12/16 12/13/16 15:00 23:00 07:00 Intake Total 521.6 ml 120 ml Output Total 901 ml 225 ml Balance -379.4 ml -105 ml CARLYLE CARMEN MD Dec 13, 2016 14:19
[2016-12-13] MEDS: HEPARIN 25,000UTS/500ML PREMIX 500 ML IV PRN (15:05)
[2016-12-13] MEDS: ANTI-COAG MONITOR BY PHARMACY. MC PRN (16:50)
--- NOTE | 2016-12-13 18:15 | PDOC2 ---
CONSULT Date of Consult Date of Consult DATE: 12/13/16 TIME: 18:01 Reason for Consult Reason for Consult: Severe 3 vessel coronary artery disease Referring Physician Referring Physician: Dr Lau Identification/Chief Complaint Chief Complaint AFib with RVR Source Source: Chart review, Patient History of Present Illness Reason for Visit: The patient is a 87 year old male who 2 weeks ago had an episode of severe acute cholecystitis which required a cholecystotomy tube placement and was complicated by a right hepatic lobe abscess with subsequent drain placement. Both the cholecystostomy tube and liver abscess drain are in place. It does not appear that he has had a cholecystectomy. During this admission, the patient developed atrial fibrillation with RVR and a positive troponin which prompted a left heart cath. I reviewed his coronary angiography which reveals severe three -vessel coronary artery disease, with preserved LV function. He denies ever having chest pain or an [place]. He currently has no symptoms. I was consulted to consider the patient for possible surgical revascularization. Past Medical History Cardiovascular: CAD, HTN Pulmonary: No pertinent hx CENTRAL NERVOUS SYSTEM: Other (No pertinent history) GI: No pertinent hx Hepatobiliary: Other (Recent GB infection) Psych: No pertinent hx Musculoskeletal: Osteoarthritis Rheumatologic: No pertinent hx Infectious disease: No pertinent hx, Other ENT: No pertinent hx Renal/: Benign prostatic enlarg. Endocrine: No pertinent hx Dermatology: No pertinent hx Past Surgical History Past Surgical History: Other (PTCA 20 yrs ago; s/p cholecystostomy and liver abscess drainage) Family History Family History: Coronary Artery Disease (father) Social History No (never) ALCOHOL: occassional Drugs: None Lives: Senior Living Current Problem List Problem List Problems Medical Problems: (1) Acute respiratory failure Status: Acute (2) CHF exacerbation Status: Acute (3) Hypoxia Status: Acute (4) Pulmonary edema Status: Acute (5) Volume overload Status: Acute Current Medications Current Medications Current Medications Piperacillin Sod/ Tazobactam Sod 1 each 1 each PRN DAILY PRN MC SEE COMMENTS; Start 12/10/16 at 07:15 Diltiazem HCl/ Dextrose (Cardizem) 125 ml @ 0 mls/hr CONT PRN IV SEE I/O RECORD Last administered on 12/13/16t 00:58; Start 12/10/16 at 07:15; Stop 12/13 at 12:33; Status DC Furosemide (Lasix) 40 mg 1X ONCE IVP Last administered on 12/10/16 07:52; Start 12/10/16 at 07:15; Stop 12/10/16 at 07:18; Status DC Nitroglycerin (Nitrostat) 0.4 mg 1X ONCE SL ; Start 12/10/16 at 07:15; Stop at 07:18; Status DC Ondansetron HCl (Zofran) 4 mg PRN Q8HRS PRN IV NAUSEA/VOMITING; Start 12/10/16 at 07:30; Stop 12/11/16 at 07:29; Status DC Morphine Sulfate 2 mg 2 mg PRN Q2HR PRN IV PAIN; Start 12/10/16 at 07:30; Stop 12/11/16 at 07:29; Status DC Piperacillin Sod/ Tazobactam Sod/ Sodium Chloride (Zosyn/Iv Sodium Chloride 0.9 % 100ml) 100 ml @ 200 mls/hr 1X ONCE IV Last administered on 12/10/16 09:28 ; Start 12/10/16 at 07:45; Stop 12/10/16 at 08:14; Status DC Lisinopril (Prinivil) 10 mg DAILY PO ; Start 12/11/16 at 09:00; Stop 12/11/16 at 16:31; Status DC Labetalol HCl (Normodyne) 20 mg PRN Q2HR PRN IVP HYPERTENSION, SEE COMMENTS; Start 12/10/16 at 11:30 Aspirin (Ecotrin) 81 mg DAILYWBKFT PO Last administered on 12/13/16 09:28; Start 12/10/16 at 13:00 Furosemide 40 mg 40 mg 1X ONCE IVP Last administered on 12/10/16 14:37; Start 12/10/16 at 12:15; Stop 12/10/16 at 12:23; Status DC Piperacillin Sod/ Tazobactam Sod/ Sodium Chloride (Zosyn/Iv Sodium Chloride 0.9 % 50ml) 50 ml @ 100 mls/hr Q6HRS IV Last administered on 12/13/16 15:06; Start 12/10/16 at 13:30 Allopurinol (Zyloprim) 100 mg DAILY PO ; Start 12/11/16 at 10:00; Stop 12/11/16 at 10:13; Status DC Aspirin (Ecotrin) 81 mg DAILY PO ; Start 12/12/16 at 09:00; Status Cancel Linezolid (Zyvox) 600 mg BID PO Last administered on 12/12/16 21:34; Start at 10:00; Stop 12/13/16 at 08:51; Status DC Spironolactone (Aldactone) 25 mg DAILY PO Last administered on 12/13/16 09:29 ; Start 12/11/16 at 10:00 Metoprolol Tartrate 100 mg 100 mg BID PO Last administered on 12/13/16 09:28; Start 12/11/16 at 10:00; Stop 12/13/16 at 12:33; Status DC Heparin Sodium/ Dextrose 500 ml @ 19.6 mls/hr CONT PRN IV SEE I/O RECORD Last administered on 12/13/16 15:05; Start 12/11/16 at 14:45 Heparin Sodium (Porcine) 2,050 unit PRN Q6HRS PRN IV FOR UFH LEVEL LESS THAN 0.2 Last administered on 12/13/16 06:13; Start 12/11/16 at 14:45 Throat Lozenges (Cepacol Sore Throat Lozenge) 1 jorge a PRN Q2HRS PRN PO SORE THROAT Last administered on 12/13/16 09:26; Start 12/11/16 at 19:30 Docusate Sodium (Colace) 100 mg DAILY PO Last administered on 12/13/16 09:30; Start 12/12/16 at 10:00 Polyethylene Glycol (miraLAX PACKET) 17 gm PRN DAILY PRN PO CONSTIPATION; Start 12/12/16 at 10:00 Magnesium Hydroxide (Milk Of Magnesia) 2,400 mg PRN DAILY PRN PO CONSTIPATION; Start 12/12/16 at 10:00 Lidocaine HCl 20 ml 20 ml STK-MED ONCE .ROUTE ; Start 12/12/16 at 14:11; Stop at 14:12; Status DC Heparin Sodium/ Sodium Chloride 500 ml @ As Directed STK-MED ONCE .ROUTE ; Start 12/12/16 at 14:11; Stop 12/12/16 at 14:12; Status DC Iohexol (Omnipaque 300 Mg/ml) 100 ml STK-MED ONCE .ROUTE ; Start 12/12/16 at 14: 11; Stop 12/12/16 at 14:12; Status DC Iodixanol (Visipaque 320) 100 ml STK-MED ONCE .ROUTE ; Start 12/12/16 at 14:11; Stop 12/12/16 at 14:12; Status DC Nitroglycerin (Nitroglycerin) 200 mcg STK-MED ONCE .ROUTE ; Start 12/12/16 at 14 :16; Stop 12/12/16 at 14:17; Status DC Verapamil HCl (Verapamil) 5 mg STK-MED ONCE .ROUTE ; Start 12/12/16 at 14:16; Stop 12/12/16 at 14:17; Status DC Midazolam HCl (Versed) 2 mg STK-MED ONCE .ROUTE ; Start 12/12/16 at 14:16; Stop 12/12/16 at 14:17; Status DC Fentanyl Citrate (Fentanyl 2ml Vial) 100 mcg STK-MED ONCE .ROUTE ; Start at 14:16; Stop 12/12/16 at 14:17; Status DC Heparin Sodium (Porcine) 10,000 unit STK-MED ONCE .ROUTE ; Start 12/12/16 at 14: 16; Stop 12/12/16 at 14:17; Status DC Nitroglycerin (Nitroglycerin) 200 mcg 1X ONCE IART Last administered on 15:04; Start 12/12/16 at 14:45; Stop 12/12/16 at 14:46; Status DC Verapamil HCl (Verapamil) 2.5 mg 1X ONCE IART Last administered on 12/12/16 15:05; Start 12/12/16 at 14:45; Stop 12/12/16 at 14:46; Status DC Heparin Sodium (Porcine) 2,500 unit 1X ONCE IART Last administered on 15:06; Start 12/12/16 at 14:45; Stop 12/12/16 at 14:46; Status DC Heparin Sodium/ Sodium Chloride 1,000 unit 1X ONCE IART Last administered on 15:03; Start 12/12/16 at 14:45; Stop 12/12/16 at 14:46; Status DC Midazolam HCl (Versed) 2 mg 1X ONCE IV Last administered on 12/12/16 15:04; Start 12/12/16 at 14:45; Stop 12/12/16 at 14:46; Status DC Fentanyl Citrate (Fentanyl 2ml Vial) 100 mcg 1X ONCE IV Last administered on 15:04; Start 12/12/16 at 14:45; Stop 12/12/16 at 14:46; Status DC Iodixanol (Visipaque 320) 100 ml 1X ONCE IART Last administered on 12/12/16 15:05; Start 12/12/16 at 14:45; Stop 12/12/16 at 14:46; Status DC Lidocaine HCl 1 ml 1X ONCE IJ Last administered on 12/12/16 15:03; Start at 14:45; Stop 12/12/16 at 14:46; Status DC Nitroglycerin (Nitrostat) 0.4 mg PRN Q5MIN PRN SL CHEST PAIN; Start 12/12/16 at 15:30 Furosemide (Lasix) 40 mg 1X ONCE IVP Last administered on 12/12/16 16:18; Start 12/12/16 at 15:30; Stop 12/12/16 at 15:31; Status DC Metoprolol Tartrate (Lopressor) 50 mg BID PO ; Start 12/13/16 at 21:00 Furosemide (Lasix) 40 mg 1X ONCE IVP Last administered on 12/13/16 15:06; Start 12/13/16 at 12:15; Stop 12/13/16 at 12:37; Status DC Furosemide (Lasix) 40 mg DAILY PO ; Start 12/14/16 at 09:00 Diltiazem HCl (Cardizem 24hr Cd) 120 mg DAILY PO ; Start 12/14/16 at 09:00 Lisinopril (Prinivil) 2.5 mg DAILY PO ; Start 12/14/16 at 09:00; Stop 12/14/16 at 09:00; Status DC Atorvastatin Calcium (Lipitor) 10 mg QHS PO ; Start 12/13/16 at 21:00 Info (Anti-Coagulation Monitoring By Pharmacy) 1 each PRN DAILY PRN MC SEE COMMENTS Last administered on 12/13/16 16:50; Start 12/13/16 at 16:30 Active Scripts Active Reported Milk Of Magnesia (Magnesium Hydroxide) 2,400 Mg/10 Ml Oral.susp 2,400 Mg PO Metoprolol Tartrate 100 Mg Tablet 1 Tab PO BID Allopurinol 100 Mg Tablet 1 Tab PO DAILY Aspir 81 (Aspirin) 81 Mg Tablet.dr 1 Tab PO DAILY Spironolactone 25 Mg Tablet 1 Tab PO DAILY Cardizem Tablet (Diltiazem Hcl) 30 Mg Tablet 30 Mg PO DAILY Zyvox (Linezolid) 600 Mg Tablet 600 Mg PO BID Augmentin 875-125 Tablet (Amoxicillin/Potassium Clav) 1 Each Tablet Tab PO BID Allergies Allergies: Coded Allergies: enalapril (Verified Allergy, Severe, ANGIOEDEMA, 12/13/16) ROS General: No: Appetite, Chills, Fatigue, Malaise, Night Sweats PSYCHOLOGICAL ROS: No: Anxiety, Behavioral Disorder, Concentration difficultie , Decreased libido, Depression, Disorientation, Hallucinations, Hostility, Irritablity, Memory difficulties, Mood Swings, Obsessive thoughts, Physical abuse, Sexual abuse, Sleep disturbances, Suicidal ideation Eyes: No Blurry vision, No Decreased vision, No Double vision, No Dry eyes, No Excessive tearing, No Eye Pain, No Itchy Eyes, No Loss of vision, No Photophobia , No Scotomata, No Uses contacts, No Uses glasses HEENT: No: Epistaxis, Heacaches, Hearing change, Nasal congestion, Nasal discharge, Oral lesions, Sinus pain, Sneezing, Snoring, Sore Throat, Tinnitus, Vertigo, Visual Changes, Vocal changes ALLERGY AND IMMUNOLOGY: No: Hives, Insect Bite Sensitivity, Itchy/Watery Eyes, Nasal Congestion, Post Nasal Drip, Seasonal Allergies Hematological and Lymphatic: No: Bleeding Problems, Blood Clots, Blood Transfusions, Brusing, Night Sweats, Pallor, Swollen Lymph Nodes ENDOCRINE: No: Breast Changes, Galactorrhea, Hair Pattern Changes, Hot Flashes , Malaise/lethargy, Mood Swings, Palpitations, Polydipsia/polyuria, Skin Changes , Temperature Intolerance, Unexpected Weight Changes Respiratory: YES: Shortness of breath, No: Cough, Hemoptysis, Orthopnea, Pleuritic Pain, SOB with excertion, Sputum Changes, Stridor, Tachypnea, Wheezing Cardiovascular: No Chest Pain, No Edema, No Lt Headedness, No Orthopnea, No Palpitations, No Paroxysmal Noc. Dyspnea Gastrointestinal: Yes Abdominal Pain, No Constipation, No Diarrhea, No Hematochezia, No Melena, No Nausea, No Vomiting Genitourinary: No Discharge, No Dysuria, No Flank Pain, No Frequency, No Hematuria, No Incontinence, No Pain, No Retention, No Urgency Musculoskeletal: No Gait Disturbance, No Joint Pain, No Joint Stiffness, No Joint Swelling, No Muscle Pain, No Muscular Weakness, No Pain In:, No Swelling In: Neurological: No Behavorial Changes, No Bowel/Bladder ControlChng, No Confusion , No Dizziness, No Gait Disturbance, No Headaches, No Impaired Coord/balance, No Memory Loss, No Numbness/Tingling, No Seizures, No Speech Problems, No Tremors, No Visual Changes, No Weakness Skin: No Acne, No Dry Skin, No Eczema, No Hair Changes, No Lumps, No Mole Changes, No Mottling, No Nail Changes, No Pruritus, No Rash, No Skin Lesion Changes Physical Exam General: Alert, Oriented X3 HEENT: Atraumatic, PERRLA Lungs: Clear to auscultation Heart: Normal S1, Normal S2, No murmurs, Other (irregular) Abdomen: Soft, Other (mild tenderness, raquel tube and abscess drain in situ) Extremities: No edema Skin: No significant lesion Neuro: Normal gait, Normal speech, Strength at 5/5 X4 ext, Normal tone, Sensation intact, Cranial nerves 3-12 NL Psych/Mental Status: Mental status NL MUSCULOSKELETAL: No deformity Vitals VITALS Vital Signs Date Time Temp Pulse Resp B/P Pulse Ox O2 Delivery O2 Flow Rate FiO2 12/13/16 11:10 98.0 60 18 128/51 91 Nasal Cannula 6.0 98.0 Labs Labs Laboratory Tests Test 12/11/16 20:45 12/12/16 06:00 12/12/16 22:12 12/13/16 04:35 Heparin Anti-Xa Act, Unfractionated < 0.10IU/mL (0.30-0.70) < 0.10IU/mL (0.30-0.70) < 0.10IU/mL (0.30-0.70) White Blood Count 7.9x10^3/uL (4.0-11.0) 7.3x10^3/uL (4.0-11.0) Red Blood Count 3.41x10^6/uL (4.30-5.70) 3.25x10^6/uL (4.30-5.70) Hemoglobin 10.8g/dL (13.0-17.5) 10.2g/dL (13.0-17.5) Hematocrit 32.6% (39.0-53.0) 31.2% (39.0-53.0) Mean Corpuscular Volume 96fL (79-100) 96fL (79-100) Mean Corpuscular Hemoglobin 32pg (25-35) 31pg (25-35) Mean Corpuscular Hemoglobin Concent 33g/dL (31-37) 33g/dL (31-37) Red Cell Distribution Width 13.8% (11.5-14.5) 14.0% (11.5-14.5) Platelet Count 201x10^3/uL (140-400) 175x10^3/uL (140-400) Neutrophils (%) (Auto) 68% (31-73) Lymphocytes (%) (Auto) 18% (24-48) Monocytes (%) (Auto) 10% (0-9) Eosinophils (%) (Auto) 4% (0-3) Basophils (%) (Auto) 1% (0-3) Neutrophils # (Auto) 5.0x10^3uL (1.8-7.7) Lymphocytes # (Auto) 1.3x10^3/uL (1.0-4.8) Monocytes # (Auto) 0.7x10^3/uL (0.0-1.1) Eosinophils # (Auto) 0.3x10^3/uL (0.0-0.7) Basophils # (Auto) 0.1x10^3/uL (0.0-0.2) Sodium Level 140mmol/L (136-145) Potassium Level 3.7mmol/L (3.5-5.1) Chloride Level 103mmol/L (98-107) Carbon Dioxide Level 29mmol/L (21-32) Anion Gap 8 (6-14) Blood Urea Nitrogen 16mg/dL (8-26) Creatinine 1.0mg/dL (0.7-1.3) Estimated GFR (Cockcroft-Gault) 70.7 Glucose Level 121mg/dL (70-99) Calcium Level 9.0mg/dL (8.5-10.1) Test 2/28/17 12:00 Heparin Anti-Xa Act, Unfractionated 0.20IU/mL (0.30-0.70) Laboratory Tests Test 12/12/16 22:12 12/13/16 04:35 12/13/16 12:00 Heparin Anti-Xa Act, Unfractionated < 0.10IU/mL (0.30-0.70) < 0.10IU/mL (0.30-0.70) 0.20IU/mL (0.30-0.70) White Blood Count 7.3x10^3/uL (4.0-11.0) Red Blood Count 3.25x10^6/uL (4.30-5.70) Hemoglobin 10.2g/dL (13.0-17.5) Hematocrit 31.2% (39.0-53.0) Mean Corpuscular Volume 96fL (79-100) Mean Corpuscular Hemoglobin 31pg (25-35) Mean Corpuscular Hemoglobin Concent 33g/dL (31-37) Red Cell Distribution Width 14.0% (11.5-14.5) Platelet Count 175x10^3/uL (140-400) Neutrophils (%) (Auto) 68% (31-73) Lymphocytes (%) (Auto) 18% (24-48) Monocytes (%) (Auto) 10% (0-9) Eosinophils (%) (Auto) 4% (0-3) Basophils (%) (Auto) 1% (0-3) Neutrophils # (Auto) 5.0x10^3uL (1.8-7.7) Lymphocytes # (Auto) 1.3x10^3/uL (1.0-4.8) Monocytes # (Auto) 0.7x10^3/uL (0.0-1.1) Eosinophils # (Auto) 0.3x10^3/uL (0.0-0.7) Basophils # (Auto) 0.1x10^3/uL (0.0-0.2) Sodium Level 140mmol/L (136-145) Potassium Level 3.7mmol/L (3.5-5.1) Chloride Level 103mmol/L (98-107) Carbon Dioxide Level 29mmol/L (21-32) Anion Gap 8 (6-14) Blood Urea Nitrogen 16mg/dL (8-26) Creatinine 1.0mg/dL (0.7-1.3) Estimated GFR (Cockcroft-Gault) 70.7 Glucose Level 121mg/dL (70-99) Calcium Level 9.0mg/dL (8.5-10.1) Images Images FINDINGS 1. Hemodynamics: Left ventricular end-diastolic pressure of 20 mmHg. No pullback gradient across the aortic valve. 2. Left ventriculography: Diaphragmatic wall hypokinesis with ejection fraction estimated at 50%. No significant mitral regurgitation seen. 3. Coronary angiography: a. The left main coronary artery arose from the left sinus of Valsalva, gave rise to the left anterior descending and left circumflex arteries and did not show any significant stenosis. b. The left anterior descending artery was heavily calcified and showed 80% stenosis in proximal segment, long 40-50% stenosis in the midsegment, 90-95% stenosis with ulceration seen in the mid-distal segment. The second diagonal branch is a small-caliber vessel and showed 90% stenosis in the proximal segment. c. The left circumflex artery was heavily calcified and showed 90-95% stenosis in the midsegment. The first obtuse marginal branch showed 90% stenosis in proximal segment and 80% stenosis in the midsegment, the second obtuse marginal branch showed 90-95% stenosis in the proximal to mid segment, the third obtuse marginal branch showed 80-90% stenosis in the proximal segment. d. The right coronary artery was a large and dominant vessel arising from the right sinus of Valsalva that showed 90% stenosis involving the distal segment. The posterolateral branch showed 95% stenosis involving the proximal segment. Conclusion 1. Severe three-vessel coronary artery disease 2. Diaphragmatic wall hypokinesis with ejection fraction estimated at 50%. Assessment/Plan Assessment/Plan 87 year old male, admitted with SOB, new onset AFib with RVR and troponin elevation. This resulted in a LHC which showed severe complex 3 vessel coronary artery disease, with good targets and preserved LV function. Considering the ongoing hepatic and biliary infection with in situ percutaneous drains, open heart surgery is contraindicated currently. The patient does not have any symptoms nor did he have a myocardial infarction. I don't think that urgent coronary intervention is warranted at this stage. We can proceed with medical management for now. I did offer possible future CABG, but after his liver and biliary infections resolve with removal of the both percutaneous drains first. Until then, he can be treated with aggressive medical management. The patient is relatively frail considering his advanced age and the fact that he is partially dependent. He clearly stated that he did not want surgery owing to his advanced age, which I think is reasonable. If he wishes to have an intervention, then he should be staged with multiple PCI's. NEVA JUDGE MD Dec 13, 2016 18:15
[2016-12-13] MEDS: ATORVASTATIN CALCIUM 10 MG TABLET. PO SCH (20:28)
[2016-12-14] MEDS: PIPERACILLIN/TAZOBACTAM 3.375 GM in IV NORMAL SALINE 50ML 50 ML IV SCH ×4 (01:00→18:03)
[2016-12-14 03:00] VITALS: BP 148/74
[2016-12-14] MEDS: HEPARIN 25,000UTS/500ML PREMIX 500 ML IV PRN ×2 (04:56→17:32)
[2016-12-14 06:34] VITALS: BP 157/82
[2016-12-14] MEDS: SPIRONOLACTONE 25 MG TABLET PO SCH (08:59)
[2016-12-14] MEDS: DOCUSATE SODIUM 100 MG CAPSULE PO SCH (08:59)
[2016-12-14] MEDS: FUROSEMIDE 40 MG TABLET PO SCH (09:00)
[2016-12-14] MEDS ORDERED: LISINOPRIL 2.5 MG TABLET PO SCH (09:00)
[2016-12-14] MEDS: ASPIRIN ENTERIC COATED 81 MG TABLET.DR. PO SCH (09:00)
[2016-12-14] MEDS: METOPROLOL TART IMMED RELEASE 50 MG TABLET PO SCH ×2 (09:00→20:22)
[2016-12-14] MEDS ORDERED: DILTIAZEM HCL 120 MG CAP.ER.24H PO SCH (09:00)
--- NOTE | 2016-12-14 09:35 | PDOC ---
PROGRESS NOTES Chief Complaint Chief Complaint SOB Edema ASSESSMENT AND PLAN: 1. 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 Afib s/p RVR (new) 2. CHF: 3. Troponin leak: 4. CAD hx: 5. GB abscess: drain in place, on Abx. done by [facility] 6. Gout: no acute issues. cont allopurinol 7,.A cute hypoxic respi failure needing venti mask , resolved History of Present Illness History of Present Illness Non surgical candidate by TCVSS bec of 2 indwelling abd drains inserted by [facility] On iV zosyn, ID is ok to shift to PO augmentin once dcd back to HCR Family at bedside Counselled on HCR that they can ff up or set up appt with [facility] GS re the drains On heparin gtt still by cards cards note: If he is deemed a poor surgical candidate, we will consider either high risk multivessel Rotablator atherectomy/PCI with hemodynamic support from Impella percutaneous ventricular assist device or PCI/stents in a staged fashion. PALn: As per cards Willd c back to SNU when cards cleared DRain c/o [facility] IR or GS Daljit RN and multiple fam members at bedside awaiting cards plans today - might dc heparin gtt today daljit pt and RN tameka Vitals Vitals Vital Signs Date Time Temp Pulse Resp B/P Pulse Ox O2 Delivery O2 Flow Rate FiO2 12/14/16 09:00 88 157/82 12/14/16 06:34 97.6 18 97 Nasal Cannula 4.0 97.6 Physical Exam General: Alert, Oriented X3 Heart: Normal S1, Normal S2, No murmurs, Other (irregular) Lungs: Clear Abdomen: Soft, Other (mild tenderness, raquel tube and abscess drain in situ) Extremities: No edema Skin: No significant lesion Labs LABS Laboratory Tests Test 12/13/16 12:00 12/13/16 19:45 12/14/16 01:45 12/14/16 08:10 Heparin Anti-Xa Act, Unfractionated 0.20IU/mL (0.30-0.70) 0.17IU/mL (0.30-0.70) 0.20IU/mL (0.30-0.70) 0.41IU/mL (0.30-0.70) Assessment and Plan Assessmemt and Plan Problems Medical Problems: (1) Acute respiratory failure Status: Acute (2) CHF exacerbation Status: Acute (3) Hypoxia Status: Acute (4) Pulmonary edema Status: Acute (5) Volume overload Status: Acute Problems: Comment Review of Relevant I have reviewed the following items liana (where applicable) has been applied. Labs Laboratory Tests Test 12/12/16 22:12 12/13/16 04:35 12/13/16 12:00 12/13/16 19:45 Heparin Anti-Xa Act, Unfractionated < 0.10IU/mL (0.30-0.70) < 0.10IU/mL (0.30-0.70) 0.20IU/mL (0.30-0.70) 0.17IU/mL (0.30-0.70) White Blood Count 7.3x10^3/uL (4.0-11.0) Red Blood Count 3.25x10^6/uL (4.30-5.70) Hemoglobin 10.2g/dL (13.0-17.5) Hematocrit 31.2% (39.0-53.0) Mean Corpuscular Volume 96fL (79-100) Mean Corpuscular Hemoglobin 31pg (25-35) Mean Corpuscular Hemoglobin Concent 33g/dL (31-37) Red Cell Distribution Width 14.0% (11.5-14.5) Platelet Count 175x10^3/uL (140-400) Neutrophils (%) (Auto) 68% (31-73) Lymphocytes (%) (Auto) 18% (24-48) Monocytes (%) (Auto) 10% (0-9) Eosinophils (%) (Auto) 4% (0-3) Basophils (%) (Auto) 1% (0-3) Neutrophils # (Auto) 5.0x10^3uL (1.8-7.7) Lymphocytes # (Auto) 1.3x10^3/uL (1.0-4.8) Monocytes # (Auto) 0.7x10^3/uL (0.0-1.1) Eosinophils # (Auto) 0.3x10^3/uL (0.0-0.7) Basophils # (Auto) 0.1x10^3/uL (0.0-0.2) Sodium Level 140mmol/L (136-145) Potassium Level 3.7mmol/L (3.5-5.1) Chloride Level 103mmol/L (98-107) Carbon Dioxide Level 29mmol/L (21-32) Anion Gap 8 (6-14) Blood Urea Nitrogen 16mg/dL (8-26) Creatinine 1.0mg/dL (0.7-1.3) Estimated GFR (Cockcroft-Gault) 70.7 Glucose Level 121mg/dL (70-99) Calcium Level 9.0mg/dL (8.5-10.1) Test 12/14/16 01:45 12/14/16 08:10 Heparin Anti-Xa Act, Unfractionated 0.20IU/mL (0.30-0.70) 0.41IU/mL (0.30-0.70) Laboratory Tests Test 12/13/16 12:00 12/13/16 19:45 12/14/16 01:45 12/14/16 08:10 Heparin Anti-Xa Act, Unfractionated 0.20IU/mL (0.30-0.70) 0.17IU/mL (0.30-0.70) 0.20IU/mL (0.30-0.70) 0.41IU/mL (0.30-0.70) Microbiology 12/10/16 Blood Culture - Preliminary, Resulted NO GROWTH AFTER 3 DAYS 12/10/16 Urine Culture - Final, Complete 12/10/16 Urine Culture Result 1 ([facility]ILTON) - Final, Complete Medications Current Medications Piperacillin Sod/ Tazobactam Sod 1 each 1 each PRN DAILY PRN MC SEE COMMENTS; Start 12/10/16 at 07:15 Diltiazem HCl/ Dextrose (Cardizem) 125 ml @ 0 mls/hr CONT PRN IV SEE I/O RECORD Last administered on 12/13/16 00:58; Start 12/10/16 at 07:15; Stop 12/13 at 12:33; Status DC Furosemide (Lasix) 40 mg 1X ONCE IVP Last administered on 12/10/16 07:52; Start 12/10/16 at 07:15; Stop 12/10/16 at 07:18; Status DC Nitroglycerin (Nitrostat) 0.4 mg 1X ONCE SL ; Start 12/10/16 at 07:15; Stop at 07:18; Status DC Ondansetron HCl (Zofran) 4 mg PRN Q8HRS PRN IV NAUSEA/VOMITING; Start 12/10/16 at 07:30; Stop 12/11/16 at 07:29; Status DC Morphine Sulfate 2 mg 2 mg PRN Q2HR PRN IV PAIN; Start 12/10/16 at 07:30; Stop 12/11/16 at 07:29; Status DC Piperacillin Sod/ Tazobactam Sod/ Sodium Chloride (Zosyn/Iv Sodium Chloride 0.9 % 100ml) 100 ml @ 200 mls/hr 1X ONCE IV Last administered on 12/10/16 09:28 ; Start 12/10/16 at 07:45; Stop 12/10/16 at 08:14; Status DC Lisinopril (Prinivil) 10 mg DAILY PO ; Start 12/11/16 at 09:00; Stop 12/11/16 at 16:31; Status DC Labetalol HCl (Normodyne) 20 mg PRN Q2HR PRN IVP HYPERTENSION, SEE COMMENTS; Start 12/10/16 at 11:30 Aspirin (Ecotrin) 81 mg DAILYWBKFT PO Last administered on 12/14/16 09:00; Start 12/10/16 at 13:00 Furosemide 40 mg 40 mg 1X ONCE IVP Last administered on 12/10/16 14:37; Start 12/10/16 at 12:15; Stop 12/10/16 at 12:23; Status DC Piperacillin Sod/ Tazobactam Sod/ Sodium Chloride (Zosyn/Iv Sodium Chloride 0.9 % 50ml) 50 ml @ 100 mls/hr Q6HRS IV Last administered on 12/14/16 06:07; Start 12/10/16 at 13:30 Allopurinol (Zyloprim) 100 mg DAILY PO ; Start 12/11/16 at 10:00; Stop 12/11/16 at 10:13; Status DC Aspirin (Ecotrin) 81 mg DAILY PO ; Start 12/12/16 at 09:00; Status Cancel Linezolid (Zyvox) 600 mg BID PO Last administered on 12/12/16 21:34; Start at 10:00; Stop 12/13/16 at 08:51; Status DC Spironolactone (Aldactone) 25 mg DAILY PO Last administered on 12/14/16 08:59; Start 12/11/16 at 10:00 Metoprolol Tartrate 100 mg 100 mg BID PO Last administered on 12/13/16 09:28; Start 12/11/16 at 10:00; Stop 12/13/16 at 12:33; Status DC Heparin Sodium/ Dextrose 500 ml @ 19.6 mls/hr CONT PRN IV SEE I/O RECORD Last administered on 12/14/16 04:56; Start 12/11/16 at 14:45 Heparin Sodium (Porcine) 2,050 unit PRN Q6HRS PRN IV FOR UFH LEVEL LESS THAN 0.2 Last administered on 12/13/16 20:30; Start 12/11/16 at 14:45 Throat Lozenges (Cepacol Sore Throat Lozenge) 1 jorge a PRN Q2HRS PRN PO SORE THROAT Last administered on 12/13/16 09:26; Start 12/11/16 at 19:30 Docusate Sodium (Colace) 100 mg DAILY PO Last administered on 12/14/16 08:59; Start 12/12/16 at 10:00 Polyethylene Glycol (miraLAX PACKET) 17 gm PRN DAILY PRN PO CONSTIPATION; Start 12/12/16 at 10:00 Magnesium Hydroxide (Milk Of Magnesia) 2,400 mg PRN DAILY PRN PO CONSTIPATION; Start 12/12/16 at 10:00 Lidocaine HCl 20 ml 20 ml STK-MED ONCE .ROUTE ; Start 12/12/16 at 14:11; Stop at 14:12; Status DC Heparin Sodium/ Sodium Chloride 500 ml @ As Directed STK-MED ONCE .ROUTE ; Start 12/12/16 at 14:11; Stop 12/12/16 at 14:12; Status DC Iohexol (Omnipaque 300 Mg/ml) 100 ml STK-MED ONCE .ROUTE ; Start 12/12/16 at 14: 11; Stop 12/12/16 at 14:12; Status DC Iodixanol (Visipaque 320) 100 ml STK-MED ONCE .ROUTE ; Start 12/12/16 at 14:11; Stop 12/12/16 at 14:12; Status DC Nitroglycerin (Nitroglycerin) 200 mcg STK-MED ONCE .ROUTE ; Start 12/12/16 at 14 :16; Stop 12/12/16 at 14:17; Status DC Verapamil HCl (Verapamil) 5 mg STK-MED ONCE .ROUTE ; Start 12/12/16 at 14:16; Stop 12/12/16 at 14:17; Status DC Midazolam HCl (Versed) 2 mg STK-MED ONCE .ROUTE ; Start 12/12/16 at 14:16; Stop 12/12/16 at 14:17; Status DC Fentanyl Citrate (Fentanyl 2ml Vial) 100 mcg STK-MED ONCE .ROUTE ; Start at 14:16; Stop 12/12/16 at 14:17; Status DC Heparin Sodium (Porcine) 10,000 unit STK-MED ONCE .ROUTE ; Start 12/12/16 at 14: 16; Stop 12/12/16 at 14:17; Status DC Nitroglycerin (Nitroglycerin) 200 mcg 1X ONCE IART Last administered on 15:04; Start 12/12/16 at 14:45; Stop 12/12/16 at 14:46; Status DC Verapamil HCl (Verapamil) 2.5 mg 1X ONCE IART Last administered on 12/12/16 15:05; Start 12/12/16 at 14:45; Stop 12/12/16 at 14:46; Status DC Heparin Sodium (Porcine) 2,500 unit 1X ONCE IART Last administered on 15:06; Start 12/12/16 at 14:45; Stop 12/12/16 at 14:46; Status DC Heparin Sodium/ Sodium Chloride 1,000 unit 1X ONCE IART Last administered on 15:03; Start 12/12/16 at 14:45; Stop 12/12/16 at 14:46; Status DC Midazolam HCl (Versed) 2 mg 1X ONCE IV Last administered on 12/12/16 15:04; Start 12/12/16 at 14:45; Stop 12/12/16 at 14:46; Status DC Fentanyl Citrate (Fentanyl 2ml Vial) 100 mcg 1X ONCE IV Last administered on 15:04; Start 12/12/16 at 14:45; Stop 12/12/16 at 14:46; Status DC Iodixanol (Visipaque 320) 100 ml 1X ONCE IART Last administered on 12/12/16 15:05; Start 12/12/16 at 14:45; Stop 12/12/16 at 14:46; Status DC Lidocaine HCl 1 ml 1X ONCE IJ Last administered on 12/12/16 15:03; Start at 14:45; Stop 12/12/16 at 14:46; Status DC Nitroglycerin (Nitrostat) 0.4 mg PRN Q5MIN PRN SL CHEST PAIN; Start 12/12/16 at 15:30 Furosemide (Lasix) 40 mg 1X ONCE IVP Last administered on 12/12/16 16:18; Start 12/12/16 at 15:30; Stop 12/12/16 at 15:31; Status DC Metoprolol Tartrate (Lopressor) 50 mg BID PO Last administered on 12/14/16 09: 00; Start 12/13/16 at 21:00 Furosemide (Lasix) 40 mg 1X ONCE IVP Last administered on 12/13/16 15:06; Start 12/13/16 at 12:15; Stop 12/13/16 at 12:37; Status DC Furosemide (Lasix) 40 mg DAILY PO Last administered on 12/14/16 09:00; Start at 09:00 Diltiazem HCl (Cardizem 24hr Cd) 120 mg DAILY PO Last administered on 12/14/16 09:00; Start 12/14/16 at 09:00 Lisinopril (Prinivil) 2.5 mg DAILY PO ; Start 12/14/16 at 09:00; Stop 12/14/16 at 09:00; Status DC Atorvastatin Calcium (Lipitor) 10 mg QHS PO Last administered on 12/13/16 20: 28; Start 12/13/16 at 21:00 Info (Anti-Coagulation Monitoring By Pharmacy) 1 each PRN DAILY PRN MC SEE COMMENTS Last administered on 12/13/16 16:50; Start 12/13/16 at 16:30 Active Scripts Active Reported Milk Of Magnesia (Magnesium Hydroxide) 2,400 Mg/10 Ml Oral.susp 2,400 Mg PO Metoprolol Tartrate 100 Mg Tablet 1 Tab PO BID Allopurinol 100 Mg Tablet 1 Tab PO DAILY Aspir 81 (Aspirin) 81 Mg Tablet.dr 1 Tab PO DAILY Spironolactone 25 Mg Tablet 1 Tab PO DAILY Cardizem Tablet (Diltiazem Hcl) 30 Mg Tablet 30 Mg PO DAILY Zyvox (Linezolid) 600 Mg Tablet 600 Mg PO BID Augmentin 875-125 Tablet (Amoxicillin/Potassium Clav) 1 Each Tablet Tab PO BID Vitals/I & O Vital Sign - Last 24 Hours 12/13/16 12/13/16 12/13/16 12/13/16 11:10 15:00 19:00 20:00 Temp 98.0 98.1 98.7 98.0 98.1 98.7 Pulse 60 71 95 Resp 18 B/P 128/51 140/68 101/74 Pulse Ox 91 91 95 O2 Delivery Nasal Cannula Nasal Cannula Nasal Cannula Nasal Cannula O2 Flow Rate 6.0 4.0 4.0 6.0 12/13/16 12/13/16 12/14/16 12/14/16 20:28 23:00 03:00 06:34 Temp 98.8 98.2 97.6 98.8 98.2 97.6 Pulse 95 74 77 88 Resp 18 B/P 101/74 144/63 148/74 157/82 Pulse Ox 95 96 97 O2 Delivery Nasal Cannula Nasal Cannula Nasal Cannula O2 Flow Rate 5.0 4.0 4.0 12/14/16 12/14/16 09:00 09:00 Pulse 88 88 B/P 157/82 157/82 Intake and Output 12/13/16 12/13/16 12/14/16 15:00 23:00 07:00 Intake Total 730 ml 50 ml Output Total 1550 ml 1000 ml Balance -820 ml -950 ml CARLYLE CARMEN MD Dec 14, 2016 09:35
[2016-12-14 11:02] VITALS: BP 144/77
[2016-12-14] MEDS ORDERED: DILTIAZEM HCL 120 MG CAP.ER.24H PO ONE (12:15)
--- NOTE | 2016-12-14 12:29 | PDOC ---
JASSI REID HIMS CLERK 12/14/16 1229: CARDIO Progress Notes Date and Time Date of Service 12/14/2016 Time of Evaluation 1210 Subjective Subjective: No Chest Pain, No shortness of breath, No Palpitations, No Dizziness Vitals Vitals Vital Signs Date Time Temp Pulse Resp B/P Pulse Ox O2 Delivery O2 Flow Rate FiO2 12/14/16 11:02 97.9 98 20 144/77 96 Nasal Cannula 4.0 97.9 Weight Weight [ ] Input and Output Intake and Output Intake and Output 12/14/16 07:00 Intake Total 780 ml Output Total 2550 ml Balance -1770 ml Intake Oral 730 ml IV Total 50 ml Output Urine Total 2550 ml Laboratory Labs Laboratory Tests Test 12/13/16 19:45 12/14/16 01:45 12/14/16 08:10 Heparin Anti-Xa Act, Unfractionated 0.17IU/mL (0.30-0.70) 0.20IU/mL (0.30-0.70) 0.41IU/mL (0.30-0.70) Microbiology Micro Microbiology 12/10/16 Blood Culture - Preliminary, Resulted NO GROWTH AFTER 3 DAYS 12/10/16 Urine Culture - Final, Complete 12/10/16 Urine Culture Result 1 ([facility]) - Final, Complete Physical Exam HEENT: Neck Supple W Full Motion Chest: Symmetric LUNGS: Other (faint basilar crackles) Heart: S1S2, irregularly irregular Abdomen: Soft N/T Extremities: No Calf Tenderness, Other (trace to 1+ bilateral LE edema) Neurology: alert, oriented, follow commands Assessment Assessment 1. Acute diastolic CHF: compensated 2. NSTEMI: S/P LHC with results below 3. 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 4. Persistent AFIB with RVR: new onset. HR erratic 80-120, higher 5. HTN: labile 6. s/p cholecystostomy and liver abscess drainage: about 2-3 weeks ago at [facility]. PICC in place. Recommendations 1. Continue with metoprolol, Increase cardizem. Anticipated DC to SNU tomorrow. 2. Pt does not want CABG and at this time he is considering but hesitant to pursue staged complex PCI. Significant discussion made. Further discussion with primary instructional technologist 3. Continue with lasix therapy 4. Will consider for OAC/NOAC once decision for cardiac testing is finalized. Continue with ASA for stroke prevention. 5. Unable to place on ACEi/ARB due to angioedema in the past. Will start on plavix. 6. Low dose lipitor. 7. Continue with optimization DYLLAN DUMONT MD 12/15/16 0833: CARDIO Progress Notes Assessment Assessment Patient seen and examined 12/14/16. Agree with HOGSHEAD HOOPER's assessment and plan. Patient presented chest pain free. Atrial fibrillation rate controlled. Option self CABG and PCI discussed in detail along with the risks and benefits. Patient does not want coronary artery bypass surgery in lieu of his age. We will plan for staged and high risk PCI/stent placement. If he remains inpatient through Monday, we will plan for PCI/stent to RCA and possibly LAD and consider PCI/ stent to LCx at a later date. JASSI REID APRN Dec 14, 2016 12:29 DYLLAN DUMONT MD Dec 15, 2016 08:33
[2016-12-14] MEDS: CLOPIDOGREL BISULFATE 75 MG TABLET PO SCH (12:47)
--- NOTE | 2016-12-14 12:48 | PDOC ---
SURGICAL PROGRESS NOTE Subjective Pt tolerating diet, no abd c/o Vital Signs Vital Signs Date Time Temp Pulse Resp B/P Pulse Ox O2 Delivery O2 Flow Rate FiO2 12/14/16 11:02 97.9 98 20 144/77 96 Nasal Cannula 4.0 97.9 I&O Intake and Output 12/14/16 07:00 Intake Total 780 ml Output Total 2550 ml Balance -1770 ml Intake Oral 730 ml IV Total 50 ml Output Urine Total 2550 ml General: Alert, Oriented X3, Cooperative, No acute distress Abdomen: Soft, No tenderness, Other (drains in place) Labs Laboratory Tests Test 12/12/16 22:12 12/13/16 04:35 12/13/16 12:00 12/13/16 19:45 Heparin Anti-Xa Act, Unfractionated < 0.10IU/mL (0.30-0.70) < 0.10IU/mL (0.30-0.70) 0.20IU/mL (0.30-0.70) 0.17IU/mL (0.30-0.70) White Blood Count 7.3x10^3/uL (4.0-11.0) Red Blood Count 3.25x10^6/uL (4.30-5.70) Hemoglobin 10.2g/dL (13.0-17.5) Hematocrit 31.2% (39.0-53.0) Mean Corpuscular Volume 96fL (79-100) Mean Corpuscular Hemoglobin 31pg (25-35) Mean Corpuscular Hemoglobin Concent 33g/dL (31-37) Red Cell Distribution Width 14.0% (11.5-14.5) Platelet Count 175x10^3/uL (140-400) Neutrophils (%) (Auto) 68% (31-73) Lymphocytes (%) (Auto) 18% (24-48) Monocytes (%) (Auto) 10% (0-9) Eosinophils (%) (Auto) 4% (0-3) Basophils (%) (Auto) 1% (0-3) Neutrophils # (Auto) 5.0x10^3uL (1.8-7.7) Lymphocytes # (Auto) 1.3x10^3/uL (1.0-4.8) Monocytes # (Auto) 0.7x10^3/uL (0.0-1.1) Eosinophils # (Auto) 0.3x10^3/uL (0.0-0.7) Basophils # (Auto) 0.1x10^3/uL (0.0-0.2) Sodium Level 140mmol/L (136-145) Potassium Level 3.7mmol/L (3.5-5.1) Chloride Level 103mmol/L (98-107) Carbon Dioxide Level 29mmol/L (21-32) Anion Gap 8 (6-14) Blood Urea Nitrogen 16mg/dL (8-26) Creatinine 1.0mg/dL (0.7-1.3) Estimated GFR (Cockcroft-Gault) 70.7 Glucose Level 121mg/dL (70-99) Calcium Level 9.0mg/dL (8.5-10.1) Test 12/14/16 01:45 12/14/16 08:10 Heparin Anti-Xa Act, Unfractionated 0.20IU/mL (0.30-0.70) 0.41IU/mL (0.30-0.70) Laboratory Tests Test 12/13/16 19:45 12/14/16 01:45 12/14/16 08:10 Heparin Anti-Xa Act, Unfractionated 0.17IU/mL (0.30-0.70) 0.20IU/mL (0.30-0.70) 0.41IU/mL (0.30-0.70) Problem List Problems Medical Problems: (1) Acute respiratory failure Status: Acute (2) CHF exacerbation Status: Acute (3) Hypoxia Status: Acute (4) Pulmonary edema Status: Acute (5) Volume overload Status: Acute Assessment/Plan cont drains CT prior to d/c to eval liver abscess and GB Problems: JANEL ALLIOSN MD Dec 14, 2016 12:48
[2016-12-14 14:06] LABS: BASO % 0 % (0-3); EOS % 4 % (0-3); HEMOGLOBIN 12.3 g/dL (13.0-17.5); LYMPH # 0.9 x10^3/uL (1.0-4.8); LYMPH % 12 % (24-48); MEAN CORPUSCULAR HEMOGLOBIN 32 pg (25-35); MEAN CORPUSCULAR HGB CONC 33 g/dL (31-37); MEAN CORPUSCULAR VOLUME 95 fL (79-100); MONO % 6 % (0-9); NEUT % 77 % (31-73); PLATELET COUNT 205 x10^3/uL (140-400); RED BLOOD COUNT 3.89 x10^6/uL (4.30-5.70); WHITE BLOOD COUNT 7.1 x10^3/uL (4.0-11.0)
[2016-12-14 14:24] LABS: CALCIUM 9.2 mg/dL (8.5-10.1); CREATININE 0.9 mg/dL (0.7-1.3); GFR 79.8; MAGNESIUM 2.1 mg/dL (1.8-2.4); POTASSIUM 3.8 mmol/L (3.5-5.1)
--- NOTE | 2016-12-14 14:27 | PDOC ---
PULMONARY PROGRESS NOTES Subjective no more soa off venturi mask Vitals Vital Signs Date Time Temp Pulse Resp B/P Pulse Ox O2 Delivery O2 Flow Rate FiO2 12/14/16 12:49 98 144/77 12/14/16 11:02 97.9 20 96 Nasal Cannula 4.0 97.9 General: Alert, No acute distress Lungs: Clear Cardiovascular: S1 Abdomen: Soft Neuro Exam: Alert Extremities: No Edema Skin: Warm Labs Laboratory Tests Test 12/12/16 22:12 12/13/16 04:35 12/13/16 12:00 12/13/16 19:45 Heparin Anti-Xa Act, Unfractionated < 0.10IU/mL (0.30-0.70) < 0.10IU/mL (0.30-0.70) 0.20IU/mL (0.30-0.70) 0.17IU/mL (0.30-0.70) White Blood Count 7.3x10^3/uL (4.0-11.0) Red Blood Count 3.25x10^6/uL (4.30-5.70) Hemoglobin 10.2g/dL (13.0-17.5) Hematocrit 31.2% (39.0-53.0) Mean Corpuscular Volume 96fL (79-100) Mean Corpuscular Hemoglobin 31pg (25-35) Mean Corpuscular Hemoglobin Concent 33g/dL (31-37) Red Cell Distribution Width 14.0% (11.5-14.5) Platelet Count 175x10^3/uL (140-400) Neutrophils (%) (Auto) 68% (31-73) Lymphocytes (%) (Auto) 18% (24-48) Monocytes (%) (Auto) 10% (0-9) Eosinophils (%) (Auto) 4% (0-3) Basophils (%) (Auto) 1% (0-3) Neutrophils # (Auto) 5.0x10^3uL (1.8-7.7) Lymphocytes # (Auto) 1.3x10^3/uL (1.0-4.8) Monocytes # (Auto) 0.7x10^3/uL (0.0-1.1) Eosinophils # (Auto) 0.3x10^3/uL (0.0-0.7) Basophils # (Auto) 0.1x10^3/uL (0.0-0.2) Sodium Level 140mmol/L (136-145) Potassium Level 3.7mmol/L (3.5-5.1) Chloride Level 103mmol/L (98-107) Carbon Dioxide Level 29mmol/L (21-32) Anion Gap 8 (6-14) Blood Urea Nitrogen 16mg/dL (8-26) Creatinine 1.0mg/dL (0.7-1.3) Estimated GFR (Cockcroft-Gault) 70.7 Glucose Level 121mg/dL (70-99) Calcium Level 9.0mg/dL (8.5-10.1) Test 12/14/16 01:45 12/14/16 08:10 12/14/16 14:00 Heparin Anti-Xa Act, Unfractionated 0.20IU/mL (0.30-0.70) 0.41IU/mL (0.30-0.70) 0.40IU/mL (0.30-0.70) White Blood Count 7.1x10^3/uL (4.0-11.0) Red Blood Count 3.89x10^6/uL (4.30-5.70) Hemoglobin 12.3g/dL (13.0-17.5) Hematocrit 37.0% (39.0-53.0) Mean Corpuscular Volume 95fL (79-100) Mean Corpuscular Hemoglobin 32pg (25-35) Mean Corpuscular Hemoglobin Concent 33g/dL (31-37) Red Cell Distribution Width 14.0% (11.5-14.5) Platelet Count 205x10^3/uL (140-400) Neutrophils (%) (Auto) 77% (31-73) Lymphocytes (%) (Auto) 12% (24-48) Monocytes (%) (Auto) 6% (0-9) Eosinophils (%) (Auto) 4% (0-3) Basophils (%) (Auto) 0% (0-3) Neutrophils # (Auto) 5.5x10^3uL (1.8-7.7) Lymphocytes # (Auto) 0.9x10^3/uL (1.0-4.8) Monocytes # (Auto) 0.4x10^3/uL (0.0-1.1) Eosinophils # (Auto) 0.3x10^3/uL (0.0-0.7) Basophils # (Auto) 0.0x10^3/uL (0.0-0.2) Laboratory Tests Test 12/13/16 19:45 12/14/16 01:45 12/14/16 08:10 12/14/16 14:00 Heparin Anti-Xa Act, Unfractionated 0.17IU/mL (0.30-0.70) 0.20IU/mL (0.30-0.70) 0.41IU/mL (0.30-0.70) 0.40IU/mL (0.30-0.70) White Blood Count 7.1x10^3/uL (4.0-11.0) Red Blood Count 3.89x10^6/uL (4.30-5.70) Hemoglobin 12.3g/dL (13.0-17.5) Hematocrit 37.0% (39.0-53.0) Mean Corpuscular Volume 95fL (79-100) Mean Corpuscular Hemoglobin 32pg (25-35) Mean Corpuscular Hemoglobin Concent 33g/dL (31-37) Red Cell Distribution Width 14.0% (11.5-14.5) Platelet Count 205x10^3/uL (140-400) Neutrophils (%) (Auto) 77% (31-73) Lymphocytes (%) (Auto) 12% (24-48) Monocytes (%) (Auto) 6% (0-9) Eosinophils (%) (Auto) 4% (0-3) Basophils (%) (Auto) 0% (0-3) Neutrophils # (Auto) 5.5x10^3uL (1.8-7.7) Lymphocytes # (Auto) 0.9x10^3/uL (1.0-4.8) Monocytes # (Auto) 0.4x10^3/uL (0.0-1.1) Eosinophils # (Auto) 0.3x10^3/uL (0.0-0.7) Basophils # (Auto) 0.0x10^3/uL (0.0-0.2) Medications Active Scripts Medications Dose Route/Sig Days Date Category Milk Of Magnesia (Magnesium Hydroxide) 2,400 Mg/10 Ml Oral.susp 2,400 Mg PO 12/10/16 Reported Metoprolol Tartrate 100 Mg Tablet 1 Tab PO BID 12/10/16 Reported Allopurinol 100 Mg Tablet 1 Tab PO DAILY 12/10/16 Reported Aspir 81 (Aspirin) 81 Mg Tablet.dr 1 Tab PO DAILY 12/10/16 Reported Spironolactone 25 Mg Tablet 1 Tab PO DAILY 12/10/16 Reported Cardizem Tablet (Diltiazem Hcl) 30 Mg Tablet 30 Mg PO DAILY 12/10/16 Reported Zyvox (Linezolid) 600 Mg Tablet 600 Mg PO BID 12/10/16 Reported Augmentin 875-125 Tablet (Amoxicillin/Potassium Clav) 1 Each Tablet Tab PO BID 12/10/16 Reported Impression . 1. Acute hypoxic respiratory failure secondary to development of acute congestive heart failure, suspect diastolic heart failure triggered by atrial fibrillation with rapid ventricular response. 2. Atrial fibrillation with rapid ventricular response, triggering congestive heart failure. 3. Recent dilated gallbladder with liver abscess, status post percutaneous cholecystostomy placement. Followup CT chest showed persistent abscess in the liver and status post second drain. He still has ongoing drainage. 4. No significant history of tobacco use. Plan . will need 6 min walk prior to d/c SNU eval antibx per ID follow surgery input YARIEL SMITH MD Dec 14, 2016 14:26
[2016-12-14 15:00] VITALS: BP 137/88
[2016-12-14 18:50] VITALS: BP 130/65
[2016-12-14] MEDS: ATORVASTATIN CALCIUM 10 MG TABLET. PO SCH (20:22)
[2016-12-14 22:39] VITALS: BP 127/63
[2016-12-15] VITALS (7 sets, daily range): BP systolic 101–161; BP diastolic 52–88
[2016-12-15] MEDS: PIPERACILLIN/TAZOBACTAM 3.375 GM in IV NORMAL SALINE 50ML 50 ML IV SCH ×5 (05:34→17:58)
[2016-12-15] MEDS: HEPARIN 25,000UTS/500ML PREMIX 500 ML IV PRN (05:34)
[2016-12-15] MEDS: ANTI-COAG MONITOR BY PHARMACY. MC PRN (07:26)
[2016-12-15] MEDS: FUROSEMIDE 40 MG TABLET PO SCH (09:06)
[2016-12-15] MEDS: ASPIRIN ENTERIC COATED 81 MG TABLET.DR. PO SCH (09:06)
[2016-12-15] MEDS: CLOPIDOGREL BISULFATE 75 MG TABLET PO SCH (09:06)
[2016-12-15] MEDS: METOPROLOL TART IMMED RELEASE 50 MG TABLET PO SCH ×2 (09:07→21:00)
[2016-12-15] MEDS: DOCUSATE SODIUM 100 MG CAPSULE PO SCH (09:07)
[2016-12-15] MEDS: SPIRONOLACTONE 25 MG TABLET PO SCH (09:07)
[2016-12-15] MEDS: DILTIAZEM HCL 240 MG CAP.ER.24H PO SCH (09:07)
--- NOTE | 2016-12-15 10:00 | PDOC ---
ELBA PARKER [employer] DEVELOPER 12/15/16 1000: SURGICAL PROGRESS NOTE Subjective tolerating diet no pain Vital Signs Vital Signs Date Time Temp Pulse Resp B/P Pulse Ox O2 Delivery O2 Flow Rate FiO2 12/15/16 09:07 72 149/72 12/15/16 07:30 Nasal Cannula 4.0 12/15/16 07:00 97.7 20 94 97.7 I&O Intake and Output 12/15/16 07:00 Intake Total 2219 ml Output Total 1345 ml Balance 874 ml Intake Oral 1020 ml IV Total 1199 ml Output Urine Total 1225 ml Drainage Total 120 ml # Bowel Movements 2 General: Alert, Oriented X3, Cooperative, No acute distress Abdomen: Soft, Other (drains in place) Labs Laboratory Tests Test 12/13/16 12:00 12/13/16 19:45 12/14/16 01:45 12/14/16 08:10 Heparin Anti-Xa Act, Unfractionated 0.20IU/mL (0.30-0.70) 0.17IU/mL (0.30-0.70) 0.20IU/mL (0.30-0.70) 0.41IU/mL (0.30-0.70) Test 12/14/16 14:00 12/15/16 05:50 White Blood Count 7.1x10^3/uL (4.0-11.0) Red Blood Count 3.89x10^6/uL (4.30-5.70) Hemoglobin 12.3g/dL (13.0-17.5) Hematocrit 37.0% (39.0-53.0) Mean Corpuscular Volume 95fL (79-100) Mean Corpuscular Hemoglobin 32pg (25-35) Mean Corpuscular Hemoglobin Concent 33g/dL (31-37) Red Cell Distribution Width 14.0% (11.5-14.5) Platelet Count 205x10^3/uL (140-400) Neutrophils (%) (Auto) 77% (31-73) Lymphocytes (%) (Auto) 12% (24-48) Monocytes (%) (Auto) 6% (0-9) Eosinophils (%) (Auto) 4% (0-3) Basophils (%) (Auto) 0% (0-3) Neutrophils # (Auto) 5.5x10^3uL (1.8-7.7) Lymphocytes # (Auto) 0.9x10^3/uL (1.0-4.8) Monocytes # (Auto) 0.4x10^3/uL (0.0-1.1) Eosinophils # (Auto) 0.3x10^3/uL (0.0-0.7) Basophils # (Auto) 0.0x10^3/uL (0.0-0.2) Heparin Anti-Xa Act, Unfractionated 0.40IU/mL (0.30-0.70) 0.46IU/mL (0.30-0.70) Sodium Level 140mmol/L (136-145) Potassium Level 3.8mmol/L (3.5-5.1) Chloride Level 99mmol/L (98-107) Carbon Dioxide Level 30mmol/L (21-32) Anion Gap 11 (6-14) Blood Urea Nitrogen 15mg/dL (8-26) Creatinine 0.9mg/dL (0.7-1.3) Estimated GFR (Cockcroft-Gault) 79.8 Glucose Level 154mg/dL (70-99) Calcium Level 9.2mg/dL (8.5-10.1) Magnesium Level 2.1mg/dL (1.8-2.4) Laboratory Tests Test 12/14/16 14:00 12/15/16 05:50 White Blood Count 7.1x10^3/uL (4.0-11.0) Red Blood Count 3.89x10^6/uL (4.30-5.70) Hemoglobin 12.3g/dL (13.0-17.5) Hematocrit 37.0% (39.0-53.0) Mean Corpuscular Volume 95fL (79-100) Mean Corpuscular Hemoglobin 32pg (25-35) Mean Corpuscular Hemoglobin Concent 33g/dL (31-37) Red Cell Distribution Width 14.0% (11.5-14.5) Platelet Count 205x10^3/uL (140-400) Neutrophils (%) (Auto) 77% (31-73) Lymphocytes (%) (Auto) 12% (24-48) Monocytes (%) (Auto) 6% (0-9) Eosinophils (%) (Auto) 4% (0-3) Basophils (%) (Auto) 0% (0-3) Neutrophils # (Auto) 5.5x10^3uL (1.8-7.7) Lymphocytes # (Auto) 0.9x10^3/uL (1.0-4.8) Monocytes # (Auto) 0.4x10^3/uL (0.0-1.1) Eosinophils # (Auto) 0.3x10^3/uL (0.0-0.7) Basophils # (Auto) 0.0x10^3/uL (0.0-0.2) Heparin Anti-Xa Act, Unfractionated 0.40IU/mL (0.30-0.70) 0.46IU/mL (0.30-0.70) Sodium Level 140mmol/L (136-145) Potassium Level 3.8mmol/L (3.5-5.1) Chloride Level 99mmol/L (98-107) Carbon Dioxide Level 30mmol/L (21-32) Anion Gap 11 (6-14) Blood Urea Nitrogen 15mg/dL (8-26) Creatinine 0.9mg/dL (0.7-1.3) Estimated GFR (Cockcroft-Gault) 79.8 Glucose Level 154mg/dL (70-99) Calcium Level 9.2mg/dL (8.5-10.1) Magnesium Level 2.1mg/dL (1.8-2.4) Problem List Problems Medical Problems: (1) Acute respiratory failure Status: Acute (2) CAD (coronary artery disease) Status: Acute (3) CHF exacerbation Status: Acute (4) Hypoxia Status: Acute (5) Pulmonary edema Status: Acute (6) Volume overload Status: Acute Assessment/Plan d/w cards--plans for cath in AM, stent/anticoagulation will check CT today to eval liver/gallbladder prior to assess if any intervention needed first Problems: JANEL ALLISON MD 12/15/16 1031: SURGICAL PROGRESS NOTE Assessment/Plan Pt seen and examined. Agree with Ms. Parker's note Pt without c/o abd soft, drains in place cont supportive care will check formal abd CT Problems: ELBA PARKER [employer] DEVELOPER Dec 15, 2016 10:00 JANEL ALLISON MD Dec 15, 2016 10:31
--- NOTE | 2016-12-15 10:48 | PDOC ---
CARDIO Progress Notes Date and Time Date of Service 12/15/2016 Time of Evaluation 1015 Subjective Subjective: No Chest Pain, No shortness of breath, No Palpitations, No Dizziness Vitals Vitals Vital Signs Date Time Temp Pulse Resp B/P Pulse Ox O2 Delivery O2 Flow Rate FiO2 12/15/16 09:07 72 149/72 12/15/16 07:30 Nasal Cannula 4.0 12/15/16 07:00 97.7 20 94 97.7 Weight Weight [ ] Input and Output Intake and Output Intake and Output 12/15/16 07:00 Intake Total 2219 ml Output Total 1345 ml Balance 874 ml Intake Oral 1020 ml IV Total 1199 ml Output Urine Total 1225 ml Drainage Total 120 ml # Bowel Movements 2 Laboratory Labs Laboratory Tests Test 12/14/16 14:00 12/15/16 05:50 White Blood Count 7.1x10^3/uL (4.0-11.0) Red Blood Count 3.89x10^6/uL (4.30-5.70) Hemoglobin 12.3g/dL (13.0-17.5) Hematocrit 37.0% (39.0-53.0) Mean Corpuscular Volume 95fL (79-100) Mean Corpuscular Hemoglobin 32pg (25-35) Mean Corpuscular Hemoglobin Concent 33g/dL (31-37) Red Cell Distribution Width 14.0% (11.5-14.5) Platelet Count 205x10^3/uL (140-400) Neutrophils (%) (Auto) 77% (31-73) Lymphocytes (%) (Auto) 12% (24-48) Monocytes (%) (Auto) 6% (0-9) Eosinophils (%) (Auto) 4% (0-3) Basophils (%) (Auto) 0% (0-3) Neutrophils # (Auto) 5.5x10^3uL (1.8-7.7) Lymphocytes # (Auto) 0.9x10^3/uL (1.0-4.8) Monocytes # (Auto) 0.4x10^3/uL (0.0-1.1) Eosinophils # (Auto) 0.3x10^3/uL (0.0-0.7) Basophils # (Auto) 0.0x10^3/uL (0.0-0.2) Heparin Anti-Xa Act, Unfractionated 0.40IU/mL (0.30-0.70) 0.46IU/mL (0.30-0.70) Sodium Level 140mmol/L (136-145) Potassium Level 3.8mmol/L (3.5-5.1) Chloride Level 99mmol/L (98-107) Carbon Dioxide Level 30mmol/L (21-32) Anion Gap 11 (6-14) Blood Urea Nitrogen 15mg/dL (8-26) Creatinine 0.9mg/dL (0.7-1.3) Estimated GFR (Cockcroft-Gault) 79.8 Glucose Level 154mg/dL (70-99) Calcium Level 9.2mg/dL (8.5-10.1) Magnesium Level 2.1mg/dL (1.8-2.4) Microbiology Micro Microbiology 12/10/16 Blood Culture - Preliminary, Resulted NO GROWTH AFTER 4 DAYS 12/10/16 Urine Culture - Final, Complete 12/10/16 Urine Culture Result 1 ([facility]ILTON) - Final, Complete Physical Exam HEENT: Neck Supple W Full Motion Chest: Symmetric LUNGS: Other (faint basilar crackles) Heart: S1S2, irregularly irregular Abdomen: Soft N/T Extremities: No Calf Tenderness, Other (trace to 1+ bilateral LE edema) Neurology: alert, oriented, follow commands Assessment Assessment 1. Acute diastolic CHF: compensated 2. NSTEMI: S/P LHC with results below 3. 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 4. Persistent AFIB with RVR: new onset. Rate controlled. HR episodes in the 40s overnight, likely vagal induced. 5. HTN: controlled 6. s/p cholecystostomy and liver abscess drainage: about 2-3 weeks ago at [facility]. PICC in place. Recommendations 1. Continue with metoprolol, Increase cardizem. Anticipated DC to [facility] Sat post [facility].. 2. Not a CABG candidate at this time and pt has refused this. Significant discussion regarding staged complex PCI and agreeable. 3. Risks and benfits reiterated. Will plan for PCI/stent to RCA and possibly LAD tomorrow and consider PCI/stent to LCx at a later date. 4. Continue with lasix therapy 5. Discussed OAC/NOAC use for his AFIB with general surgery, decision pending. If triple therapy is not doable then will remain on ASA fro stroke prevention. 6. Unable to place on ACEi/ARB due to angioedema in the past. Continue on DAPT 7. Low dose lipitor, start on imdur 8. Continue with optimization 9. Bladder scan today and will place gatica to DD if significant urinary retention is noted in anticipation of C tomorrow. JASSI REID APRN Dec 15, 2016 10:48
--- NOTE | 2016-12-15 11:08 | PDOC ---
PROGRESS NOTES Chief Complaint Chief Complaint SOB Edema ASSESSMENT AND PLAN: 1. 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 Afib s/p RVR (new) 2. CHF: 3. Troponin leak: 4. CAD hx: 5. GB abscess: drain in place, on Abx. done by [facility] 6. Gout: no acute issues. cont allopurinol 7,.A cute hypoxic respi failure needing venti mask , resolved History of Present Illness History of Present Illness Non surgical candidate by [facility]CVSS bec of 2 indwelling abd drains inserted by [employer] [facility] plans to re cath pastor - staged PCI wants CT scan abd today - check abd status/drains etc before dcding back to [facility] On iV zosyn, ID is ok to shift to PO augmentin once dcd back to [facility]. In the meantime, to cont IV zosyn here PLAN: CArdiac cath pastor CT abd today per HCR upon dc dw cards and RN Vitals Vitals Vital Signs Date Time Temp Pulse Resp B/P Pulse Ox O2 Delivery O2 Flow Rate FiO2 12/15/16 09:07 72 149/72 12/15/16 07:30 Nasal Cannula 4.0 12/15/16 07:00 97.7 20 94 97.7 Physical Exam General: Alert, Oriented X3, Cooperative, No acute distress Heart: Normal S1, Normal S2, No murmurs, Other (irregular) Lungs: Clear Abdomen: Soft, Other (drains in place) Extremities: No edema Skin: No significant lesion Labs LABS Laboratory Tests Test 12/14/16 14:00 12/15/16 05:50 White Blood Count 7.1x10^3/uL (4.0-11.0) Red Blood Count 3.89x10^6/uL (4.30-5.70) Hemoglobin 12.3g/dL (13.0-17.5) Hematocrit 37.0% (39.0-53.0) Mean Corpuscular Volume 95fL (79-100) Mean Corpuscular Hemoglobin 32pg (25-35) Mean Corpuscular Hemoglobin Concent 33g/dL (31-37) Red Cell Distribution Width 14.0% (11.5-14.5) Platelet Count 205x10^3/uL (140-400) Neutrophils (%) (Auto) 77% (31-73) Lymphocytes (%) (Auto) 12% (24-48) Monocytes (%) (Auto) 6% (0-9) Eosinophils (%) (Auto) 4% (0-3) Basophils (%) (Auto) 0% (0-3) Neutrophils # (Auto) 5.5x10^3uL (1.8-7.7) Lymphocytes # (Auto) 0.9x10^3/uL (1.0-4.8) Monocytes # (Auto) 0.4x10^3/uL (0.0-1.1) Eosinophils # (Auto) 0.3x10^3/uL (0.0-0.7) Basophils # (Auto) 0.0x10^3/uL (0.0-0.2) Heparin Anti-Xa Act, Unfractionated 0.40IU/mL (0.30-0.70) 0.46IU/mL (0.30-0.70) Sodium Level 140mmol/L (136-145) Potassium Level 3.8mmol/L (3.5-5.1) Chloride Level 99mmol/L (98-107) Carbon Dioxide Level 30mmol/L (21-32) Anion Gap 11 (6-14) Blood Urea Nitrogen 15mg/dL (8-26) Creatinine 0.9mg/dL (0.7-1.3) Estimated GFR (Cockcroft-Gault) 79.8 Glucose Level 154mg/dL (70-99) Calcium Level 9.2mg/dL (8.5-10.1) Magnesium Level 2.1mg/dL (1.8-2.4) Review of Systems Review of Systems limited, cognitive impairment Assessment and Plan Assessmemt and Plan Problems Medical Problems: (1) Acute respiratory failure Status: Acute (2) CAD (coronary artery disease) Status: Acute (3) CHF exacerbation Status: Acute (4) Hypoxia Status: Acute (5) Pulmonary edema Status: Acute (6) Volume overload Status: Acute Problems: Comment Review of Relevant I have reviewed the following items liana (where applicable) has been applied. Labs Laboratory Tests Test 12/13/16 12:00 12/13/16 19:45 12/14/16 01:45 12/14/16 08:10 Heparin Anti-Xa Act, Unfractionated 0.20IU/mL (0.30-0.70) 0.17IU/mL (0.30-0.70) 0.20IU/mL (0.30-0.70) 0.41IU/mL (0.30-0.70) Test 12/14/16 14:00 12/15/16 05:50 White Blood Count 7.1x10^3/uL (4.0-11.0) Red Blood Count 3.89x10^6/uL (4.30-5.70) Hemoglobin 12.3g/dL (13.0-17.5) Hematocrit 37.0% (39.0-53.0) Mean Corpuscular Volume 95fL (79-100) Mean Corpuscular Hemoglobin 32pg (25-35) Mean Corpuscular Hemoglobin Concent 33g/dL (31-37) Red Cell Distribution Width 14.0% (11.5-14.5) Platelet Count 205x10^3/uL (140-400) Neutrophils (%) (Auto) 77% (31-73) Lymphocytes (%) (Auto) 12% (24-48) Monocytes (%) (Auto) 6% (0-9) Eosinophils (%) (Auto) 4% (0-3) Basophils (%) (Auto) 0% (0-3) Neutrophils # (Auto) 5.5x10^3uL (1.8-7.7) Lymphocytes # (Auto) 0.9x10^3/uL (1.0-4.8) Monocytes # (Auto) 0.4x10^3/uL (0.0-1.1) Eosinophils # (Auto) 0.3x10^3/uL (0.0-0.7) Basophils # (Auto) 0.0x10^3/uL (0.0-0.2) Heparin Anti-Xa Act, Unfractionated 0.40IU/mL (0.30-0.70) 0.46IU/mL (0.30-0.70) Sodium Level 140mmol/L (136-145) Potassium Level 3.8mmol/L (3.5-5.1) Chloride Level 99mmol/L (98-107) Carbon Dioxide Level 30mmol/L (21-32) Anion Gap 11 (6-14) Blood Urea Nitrogen 15mg/dL (8-26) Creatinine 0.9mg/dL (0.7-1.3) Estimated GFR (Cockcroft-Gault) 79.8 Glucose Level 154mg/dL (70-99) Calcium Level 9.2mg/dL (8.5-10.1) Magnesium Level 2.1mg/dL (1.8-2.4) Laboratory Tests Test 12/14/16 14:00 12/15/16 05:50 White Blood Count 7.1x10^3/uL (4.0-11.0) Red Blood Count 3.89x10^6/uL (4.30-5.70) Hemoglobin 12.3g/dL (13.0-17.5) Hematocrit 37.0% (39.0-53.0) Mean Corpuscular Volume 95fL (79-100) Mean Corpuscular Hemoglobin 32pg (25-35) Mean Corpuscular Hemoglobin Concent 33g/dL (31-37) Red Cell Distribution Width 14.0% (11.5-14.5) Platelet Count 205x10^3/uL (140-400) Neutrophils (%) (Auto) 77% (31-73) Lymphocytes (%) (Auto) 12% (24-48) Monocytes (%) (Auto) 6% (0-9) Eosinophils (%) (Auto) 4% (0-3) Basophils (%) (Auto) 0% (0-3) Neutrophils # (Auto) 5.5x10^3uL (1.8-7.7) Lymphocytes # (Auto) 0.9x10^3/uL (1.0-4.8) Monocytes # (Auto) 0.4x10^3/uL (0.0-1.1) Eosinophils # (Auto) 0.3x10^3/uL (0.0-0.7) Basophils # (Auto) 0.0x10^3/uL (0.0-0.2) Heparin Anti-Xa Act, Unfractionated 0.40IU/mL (0.30-0.70) 0.46IU/mL (0.30-0.70) Sodium Level 140mmol/L (136-145) Potassium Level 3.8mmol/L (3.5-5.1) Chloride Level 99mmol/L (98-107) Carbon Dioxide Level 30mmol/L (21-32) Anion Gap 11 (6-14) Blood Urea Nitrogen 15mg/dL (8-26) Creatinine 0.9mg/dL (0.7-1.3) Estimated GFR (Cockcroft-Gault) 79.8 Glucose Level 154mg/dL (70-99) Calcium Level 9.2mg/dL (8.5-10.1) Magnesium Level 2.1mg/dL (1.8-2.4) Microbiology 12/10/16 Blood Culture - Preliminary, Resulted NO GROWTH AFTER 4 DAYS 12/10/16 Urine Culture - Final, Complete 12/10/16 Urine Culture Result 1 ([facility]) - Final, Complete Medications Current Medications Piperacillin Sod/ Tazobactam Sod 1 each 1 each PRN DAILY PRN MC SEE COMMENTS; Start 12/10/16 at 07:15; Stop 12/14/16 at 11:23; Status DC Diltiazem HCl/ Dextrose (Cardizem) 125 ml @ 0 mls/hr CONT PRN IV SEE I/O RECORD Last administered on 12/13/16 00:58; Start 12/10/16 at 07:15; Stop 12/13 at 12:33; Status DC Furosemide (Lasix) 40 mg 1X ONCE IVP Last administered on 12/10/16 07:52; Start 12/10/16 at 07:15; Stop 12/10/16 at 07:18; Status DC Nitroglycerin (Nitrostat) 0.4 mg 1X ONCE SL ; Start 12/10/16 at 07:15; Stop at 07:18; Status DC Ondansetron HCl (Zofran) 4 mg PRN Q8HRS PRN IV NAUSEA/VOMITING; Start 12/10/16 at 07:30; Stop 12/11/16 at 07:29; Status DC Morphine Sulfate 2 mg 2 mg PRN Q2HR PRN IV PAIN; Start 12/10/16 at 07:30; Stop 12/11/16 at 07:29; Status DC Piperacillin Sod/ Tazobactam Sod/ Sodium Chloride (Zosyn/Iv Sodium Chloride 0.9 % 100ml) 100 ml @ 200 mls/hr 1X ONCE IV Last administered on 12/10/16 09:28 ; Start 12/10/16 at 07:45; Stop 12/10/16 at 08:14; Status DC Lisinopril (Prinivil) 10 mg DAILY PO ; Start 12/11/16 at 09:00; Stop 12/11/16 at 16:31; Status DC Labetalol HCl (Normodyne) 20 mg PRN Q2HR PRN IVP HYPERTENSION, SEE COMMENTS; Start 12/10/16 at 11:30 Aspirin (Ecotrin) 81 mg DAILYWBKFT PO Last administered on 12/15/16 09:06; Start 12/10/16 at 13:00 Furosemide 40 mg 40 mg 1X ONCE IVP Last administered on 12/10/16 14:37; Start 12/10/16 at 12:15; Stop 12/10/16 at 12:23; Status DC Piperacillin Sod/ Tazobactam Sod/ Sodium Chloride (Zosyn/Iv Sodium Chloride 0.9 % 50ml) 50 ml @ 100 mls/hr Q6HRS IV Last administered on 12/15/16 05:34; Start 12/10/16 at 13:30 Allopurinol (Zyloprim) 100 mg DAILY PO ; Start 12/11/16 at 10:00; Stop 12/11/16 at 10:13; Status DC Aspirin (Ecotrin) 81 mg DAILY PO ; Start 12/12/16 at 09:00; Status Cancel Linezolid (Zyvox) 600 mg BID PO Last administered on 12/12/16 21:34; Start at 10:00; Stop 12/13/16 at 08:51; Status DC Spironolactone (Aldactone) 25 mg DAILY PO Last administered on 12/15/16 09:07; Start 12/11/16 at 10:00 Metoprolol Tartrate 100 mg 100 mg BID PO Last administered on 12/13/16 09:28; Start 12/11/16 at 10:00; Stop 12/13/16 at 12:33; Status DC Heparin Sodium/ Dextrose 500 ml @ 19.6 mls/hr CONT PRN IV SEE I/O RECORD Last administered on 12/15/16 05:34; Start 12/11/16 at 14:45; Stop 12/15/16 at 10:20; Status DC Heparin Sodium (Porcine) 2,050 unit PRN Q6HRS PRN IV FOR UFH LEVEL LESS THAN 0.2 Last administered on 12/13/16 20:30; Start 12/11/16 at 14:45; Stop 12/15/16 at 10:20; Status DC Throat Lozenges (Cepacol Sore Throat Lozenge) 1 jorge a PRN Q2HRS PRN PO SORE THROAT Last administered on 12/13/16 09:26; Start 12/11/16 at 19:30 Docusate Sodium (Colace) 100 mg DAILY PO Last administered on 12/15/16 09:07; Start 12/12/16 at 10:00 Polyethylene Glycol (miraLAX PACKET) 17 gm PRN DAILY PRN PO CONSTIPATION; Start 12/12/16 at 10:00 Magnesium Hydroxide (Milk Of Magnesia) 2,400 mg PRN DAILY PRN PO CONSTIPATION; Start 12/12/16 at 10:00 Lidocaine HCl 20 ml 20 ml STK-MED ONCE .ROUTE ; Start 12/12/16 at 14:11; Stop at 14:12; Status DC Heparin Sodium/ Sodium Chloride 500 ml @ As Directed STK-MED ONCE .ROUTE ; Start 12/12/16 at 14:11; Stop 12/12/16 at 14:12; Status DC Iohexol (Omnipaque 300 Mg/ml) 100 ml STK-MED ONCE .ROUTE ; Start 12/12/16 at 14: 11; Stop 12/12/16 at 14:12; Status DC Iodixanol (Visipaque 320) 100 ml STK-MED ONCE .ROUTE ; Start 12/12/16 at 14:11; Stop 12/12/16 at 14:12; Status DC Nitroglycerin (Nitroglycerin) 200 mcg STK-MED ONCE .ROUTE ; Start 12/12/16 at 14 :16; Stop 12/12/16 at 14:17; Status DC Verapamil HCl (Verapamil) 5 mg STK-MED ONCE .ROUTE ; Start 12/12/16 at 14:16; Stop 12/12/16 at 14:17; Status DC Midazolam HCl (Versed) 2 mg STK-MED ONCE .ROUTE ; Start 12/12/16 at 14:16; Stop 12/12/16 at 14:17; Status DC Fentanyl Citrate (Fentanyl 2ml Vial) 100 mcg STK-MED ONCE .ROUTE ; Start at 14:16; Stop 12/12/16 at 14:17; Status DC Heparin Sodium (Porcine) 10,000 unit STK-MED ONCE .ROUTE ; Start 12/12/16 at 14: 16; Stop 12/12/16 at 14:17; Status DC Nitroglycerin (Nitroglycerin) 200 mcg 1X ONCE IART Last administered on 15:04; Start 12/12/16 at 14:45; Stop 12/12/16 at 14:46; Status DC Verapamil HCl (Verapamil) 2.5 mg 1X ONCE IART Last administered on 12/12/16 15:05; Start 12/12/16 at 14:45; Stop 12/12/16 at 14:46; Status DC Heparin Sodium (Porcine) 2,500 unit 1X ONCE IART Last administered on 15:06; Start 12/12/16 at 14:45; Stop 12/12/16 at 14:46; Status DC Heparin Sodium/ Sodium Chloride 1,000 unit 1X ONCE IART Last administered on 15:03; Start 12/12/16 at 14:45; Stop 12/12/16 at 14:46; Status DC Midazolam HCl (Versed) 2 mg 1X ONCE IV Last administered on 12/12/16 15:04; Start 12/12/16 at 14:45; Stop 12/12/16 at 14:46; Status DC Fentanyl Citrate (Fentanyl 2ml Vial) 100 mcg 1X ONCE IV Last administered on 15:04; Start 12/12/16 at 14:45; Stop 12/12/16 at 14:46; Status DC Iodixanol (Visipaque 320) 100 ml 1X ONCE IART Last administered on 12/12/16 15:05; Start 12/12/16 at 14:45; Stop 12/12/16 at 14:46; Status DC Lidocaine HCl 1 ml 1X ONCE IJ Last administered on 12/12/16 15:03; Start at 14:45; Stop 12/12/16 at 14:46; Status DC Nitroglycerin (Nitrostat) 0.4 mg PRN Q5MIN PRN SL CHEST PAIN; Start 12/12/16 at 15:30 Furosemide (Lasix) 40 mg 1X ONCE IVP Last administered on 12/12/16 16:18; Start 12/12/16 at 15:30; Stop 12/12/16 at 15:31; Status DC Metoprolol Tartrate (Lopressor) 50 mg BID PO Last administered on 12/15/16 09: 07; Start 12/13/16 at 21:00 Furosemide (Lasix) 40 mg 1X ONCE IVP Last administered on 12/13/16 15:06; Start 12/13/16 at 12:15; Stop 12/13/16 at 12:37; Status DC Furosemide (Lasix) 40 mg DAILY PO Last administered on 12/15/16 09:06; Start at 09:00 Diltiazem HCl (Cardizem 24hr Cd) 120 mg DAILY PO Last administered on 12/14/16 09:00; Start 12/14/16 at 09:00; Stop 12/14/16 at 12:13; Status DC Lisinopril (Prinivil) 2.5 mg DAILY PO ; Start 12/14/16 at 09:00; Stop 12/14/16 at 09:00; Status DC Atorvastatin Calcium (Lipitor) 10 mg QHS PO Last administered on 12/14/16 20:22 ; Start 12/13/16 at 21:00 Info (Anti-Coagulation Monitoring By Pharmacy) 1 each PRN DAILY PRN MC SEE COMMENTS Last administered on 12/15/16 07:26; Start 12/13/16 at 16:30 Diltiazem HCl (Cardizem 24hr Cd) 240 mg DAILY PO Last administered on 12/15/16 09:07; Start 12/15/16 at 09:00 Diltiazem HCl (Cardizem 24hr Cd) 120 mg 1X ONCE PO Last administered on 12:49; Start 12/14/16 at 12:15; Stop 12/14/16 at 12:20; Status DC Clopidogrel Bisulfate (Plavix) 75 mg DAILYWBKFT PO Last administered on 09:06; Start 12/14/16 at 13:00 Isosorbide Mononitrate (Imdur) 30 mg DAILY PO ; Start 12/15/16 at 11:30 Active Scripts Active Reported Milk Of Magnesia (Magnesium Hydroxide) 2,400 Mg/10 Ml Oral.susp 2,400 Mg PO Metoprolol Tartrate 100 Mg Tablet 1 Tab PO BID Allopurinol 100 Mg Tablet 1 Tab PO DAILY Aspir 81 (Aspirin) 81 Mg Tablet.dr 1 Tab PO DAILY Spironolactone 25 Mg Tablet 1 Tab PO DAILY Cardizem Tablet (Diltiazem Hcl) 30 Mg Tablet 30 Mg PO DAILY Zyvox (Linezolid) 600 Mg Tablet 600 Mg PO BID Augmentin 875-125 Tablet (Amoxicillin/Potassium Clav) 1 Each Tablet Tab PO BID Vitals/I & O Vital Sign - Last 24 Hours 12/14/16 12/14/16 12/14/16 12/14/16 12:49 15:00 18:50 19:35 Temp 97.9 97.9 97.9 97.9 Pulse 98 87 82 Resp 20 20 B/P 144/77 137/88 130/65 Pulse Ox 92 91 O2 Delivery Nasal Cannula Nasal Cannula Nasal Cannula O2 Flow Rate 4.0 4.0 4.0 12/14/16 12/14/16 12/15/16 12/15/16 20:22 22:39 03:00 07:00 Temp 98.0 98.3 97.7 98.0 98.3 97.7 Pulse 82 71 70 78 Resp 16 18 20 B/P 130/65 127/63 143/65 161/88 Pulse Ox 93 94 94 O2 Delivery Nasal Cannula Nasal Cannula Nasal Cannula O2 Flow Rate 4.0 4.0 4.0 12/15/16 12/15/16 12/15/16 12/15/16 07:30 08:09 09:07 09:07 Pulse 72 72 72 B/P 149/72 149/72 149/72 O2 Delivery Nasal Cannula O2 Flow Rate 4.0 Intake and Output 12/14/16 12/14/16 12/15/16 15:00 23:00 07:00 Intake Total 720 ml 825 ml 674 ml Output Total 300 ml 620 ml 425 ml Balance 420 ml 205 ml 249 ml CARLYLE CARMEN MD Dec 15, 2016 11:08
[2016-12-15] MEDS ORDERED: CONTRAST GIVEN MC PRN (11:45)
[2016-12-15] MEDS ORDERED: IOHEXOL 300 MG/ML 75 ML VIAL IV ONE (11:45)
[2016-12-15] MEDS ORDERED: IOHEXOL 240 MG/ML 50ML VIAL. PO ONE (11:45)
[2016-12-15] MEDS: ISOSORBIDE MONONITRATE ER 30 MG TAB.ER.24H PO SCH (11:48)
--- NOTE | 2016-12-15 15:58 | RAD ---
CT of the abdomen and pelvis with contrast, 12/15/2016: History: Evaluate liver abscess Multidetector CT imaging was performed following oral and IV administration of contrast. No previous studies are available at this time for correlative purposes. The scans which include the lower chest demonstrate extensive coronary artery calcification. There low density foci in the right main and right lower lobe pulmonary arteries raising the possibility of pulmonary emboli. There are small bilateral pleural effusions. There is moderate atelectasis/infiltrate in both lower lobes with air bronchograms. There is a cholecystostomy drain in place with decompression of the gallbladder. A second tube entering the right lobe of the liver apparently represents an abscess drain. There is a 2.5 cm low-density structure within the liver along the posterior inferior aspect of this drain possibly representing residual nondrained abscess. The pancreas is unremarkable. No splenic abnormality is seen. There appears to be a tiny cyst posteriorly in the right kidney. The kidneys are otherwise unremarkable. There is moderate aortoiliac calcific plaquing. No abdominal or pelvic adenopathy is seen. The bladder mckeon are mildly thickened. There is a moderate amount of stool in the rectum. There are scattered diverticula in the colon. The small bowel loops are unremarkable. There are appears to be mild mural thickening along the base of the cecum. There is a tubular structure extending inferiorly from this level which probably represents a dilated appendix. It measures approximately 11 to 14 mm in width. There is hazy obscuration of some of its margins suggesting inflammation. No free fluid or free air is evident in the abdomen or pelvis. Moderate degenerative change is present in the lower lumbar spine. There is a minimal associated spondylolisthesis at L4-5. IMPRESSION: 1. A cholecystostomy drain appears to be in satisfactory position. 2. A hepatic abscess drain is in place in the right lobe of the liver with an adjacent small fluid collection suggesting a nondrained abscess component. Correlation with previous studies if available would be helpful. 3. Colonic diverticulosis. 4. Mural thickening along the base of the cecum raising the possibility of a cecal neoplasm with adjacent appendiceal obstruction and/or appendicitis. 5. Small bilateral pleural effusions with moderate bilateral lower lobe atelectasis/infiltrate. 6. Probable pulmonary emboli, incompletely evaluated on these abdominal scans. 7. Coronary artery disease. Note: The findings were called to the patient's nurse on the floor at 3:50 PM on 12/15/2016, who will relay the information to the attending physician. PQRS Compliance Statement: One or more of the following individualized dose reduction techniques were utilized for this examination: 1. Automated exposure control 2. Adjustment of the mA and/or kV according to patient size 3. Use of iterative reconstruction technique
--- NOTE | 2016-12-15 16:52 | PDOC ---
PULMONARY PROGRESS NOTES Subjective no more soa off venturi mask Vitals Vital Signs Date Time Temp Pulse Resp B/P Pulse Ox O2 Delivery O2 Flow Rate FiO2 12/15/16 15:00 97.9 91 125/53 92 Nasal Cannula 4.0 97.9 12/15/16 11:00 24 General: Alert, No acute distress Lungs: Clear Cardiovascular: S1 Abdomen: Soft Neuro Exam: Alert Extremities: No Edema Skin: Warm Labs Laboratory Tests Test 12/13/16 19:45 12/14/16 01:45 12/14/16 08:10 12/14/16 14:00 Heparin Anti-Xa Act, Unfractionated 0.17IU/mL (0.30-0.70) 0.20IU/mL (0.30-0.70) 0.41IU/mL (0.30-0.70) 0.40IU/mL (0.30-0.70) White Blood Count 7.1x10^3/uL (4.0-11.0) Red Blood Count 3.89x10^6/uL (4.30-5.70) Hemoglobin 12.3g/dL (13.0-17.5) Hematocrit 37.0% (39.0-53.0) Mean Corpuscular Volume 95fL (79-100) Mean Corpuscular Hemoglobin 32pg (25-35) Mean Corpuscular Hemoglobin Concent 33g/dL (31-37) Red Cell Distribution Width 14.0% (11.5-14.5) Platelet Count 205x10^3/uL (140-400) Neutrophils (%) (Auto) 77% (31-73) Lymphocytes (%) (Auto) 12% (24-48) Monocytes (%) (Auto) 6% (0-9) Eosinophils (%) (Auto) 4% (0-3) Basophils (%) (Auto) 0% (0-3) Neutrophils # (Auto) 5.5x10^3uL (1.8-7.7) Lymphocytes # (Auto) 0.9x10^3/uL (1.0-4.8) Monocytes # (Auto) 0.4x10^3/uL (0.0-1.1) Eosinophils # (Auto) 0.3x10^3/uL (0.0-0.7) Basophils # (Auto) 0.0x10^3/uL (0.0-0.2) Sodium Level 140mmol/L (136-145) Potassium Level 3.8mmol/L (3.5-5.1) Chloride Level 99mmol/L (98-107) Carbon Dioxide Level 30mmol/L (21-32) Anion Gap 11 (6-14) Blood Urea Nitrogen 15mg/dL (8-26) Creatinine 0.9mg/dL (0.7-1.3) Estimated GFR (Cockcroft-Gault) 79.8 Glucose Level 154mg/dL (70-99) Calcium Level 9.2mg/dL (8.5-10.1) Magnesium Level 2.1mg/dL (1.8-2.4) Test 12/15/16 05:50 Heparin Anti-Xa Act, Unfractionated 0.46IU/mL (0.30-0.70) Laboratory Tests Test 12/15/16 05:50 Heparin Anti-Xa Act, Unfractionated 0.46IU/mL (0.30-0.70) Medications Active Scripts Medications Dose Route/Sig Days Date Category Milk Of Magnesia (Magnesium Hydroxide) 2,400 Mg/10 Ml Oral.susp 2,400 Mg PO 12/10/16 Reported Metoprolol Tartrate 100 Mg Tablet 1 Tab PO BID 12/10/16 Reported Allopurinol 100 Mg Tablet 1 Tab PO DAILY 12/10/16 Reported Aspir 81 (Aspirin) 81 Mg Tablet.dr 1 Tab PO DAILY 12/10/16 Reported Spironolactone 25 Mg Tablet 1 Tab PO DAILY 12/10/16 Reported Cardizem Tablet (Diltiazem Hcl) 30 Mg Tablet 30 Mg PO DAILY 12/10/16 Reported Zyvox (Linezolid) 600 Mg Tablet 600 Mg PO BID 12/10/16 Reported Augmentin 875-125 Tablet (Amoxicillin/Potassium Clav) 1 Each Tablet Tab PO BID 12/10/16 Reported Impression . 1. Acute hypoxic respiratory failure secondary to development of acute congestive heart failure, suspect diastolic heart failure triggered by atrial fibrillation with rapid ventricular response. 2. Atrial fibrillation with rapid ventricular response, triggering congestive heart failure. 3. Recent dilated gallbladder with liver abscess, status post percutaneous cholecystostomy placement. Followup CT chest showed persistent abscess in the liver and status post second drain. He still has ongoing drainage. 4. No significant history of tobacco use. Plan . will need 6 min walk prior to d/c SNU eval antibx per ID follow surgery input YARIEL SMITH MD Dec 15, 2016 16:51
[2016-12-15] MEDS ORDERED: ENOXAPARIN 40 MG/0.4 ML DISP.SYRIN. SQ SCH (18:00)
[2016-12-15] MEDS: ATORVASTATIN CALCIUM 10 MG TABLET. PO SCH (21:00)
[2016-12-16 03:00] VITALS: BP_SYST 101; BP_SYST 133; BP_DIAS 52; BP_DIAS 71
[2016-12-16 04:59] LABS: CALCIUM 9.2 mg/dL (8.5-10.1); CREATININE 0.9 mg/dL (0.7-1.3); GFR 79.8; POTASSIUM 3.9 mmol/L (3.5-5.1)
[2016-12-16] MEDS: PIPERACILLIN/TAZOBACTAM 3.375 GM in IV NORMAL SALINE 50ML 50 ML IV SCH ×5 (06:00→18:21)
[2016-12-16 07:09] VITALS: BP 149/75
--- NOTE | 2016-12-16 09:16 | PDOC ---
SURGICAL PROGRESS NOTE Subjective Pt denies complaints, feels better Vital Signs Vital Signs Date Time Temp Pulse Resp B/P Pulse Ox O2 Delivery O2 Flow Rate FiO2 12/16/16 07:09 98.0 79 149/75 90 Nasal Cannula 4.0 98.0 12/15/16 23:00 16 I&O Intake and Output 12/16/16 07:00 Intake Total 1420 ml Output Total 1125 ml Balance 295 ml Intake Oral 1170 ml IV Total 250 ml Output Urine Total 1125 ml General: Alert, Oriented X3, Cooperative, No acute distress Abdomen: Soft, No tenderness, Other (drains in place) Labs Laboratory Tests Test 12/14/16 14:00 12/15/16 05:50 12/16/16 04:30 White Blood Count 7.1x10^3/uL (4.0-11.0) Red Blood Count 3.89x10^6/uL (4.30-5.70) Hemoglobin 12.3g/dL (13.0-17.5) Hematocrit 37.0% (39.0-53.0) Mean Corpuscular Volume 95fL (79-100) Mean Corpuscular Hemoglobin 32pg (25-35) Mean Corpuscular Hemoglobin Concent 33g/dL (31-37) Red Cell Distribution Width 14.0% (11.5-14.5) Platelet Count 205x10^3/uL (140-400) Neutrophils (%) (Auto) 77% (31-73) Lymphocytes (%) (Auto) 12% (24-48) Monocytes (%) (Auto) 6% (0-9) Eosinophils (%) (Auto) 4% (0-3) Basophils (%) (Auto) 0% (0-3) Neutrophils # (Auto) 5.5x10^3uL (1.8-7.7) Lymphocytes # (Auto) 0.9x10^3/uL (1.0-4.8) Monocytes # (Auto) 0.4x10^3/uL (0.0-1.1) Eosinophils # (Auto) 0.3x10^3/uL (0.0-0.7) Basophils # (Auto) 0.0x10^3/uL (0.0-0.2) Heparin Anti-Xa Act, Unfractionated 0.40IU/mL (0.30-0.70) 0.46IU/mL (0.30-0.70) Sodium Level 140mmol/L (136-145) 144mmol/L (136-145) Potassium Level 3.8mmol/L (3.5-5.1) 3.9mmol/L (3.5-5.1) Chloride Level 99mmol/L (98-107) 105mmol/L (98-107) Carbon Dioxide Level 30mmol/L (21-32) 31mmol/L (21-32) Anion Gap 11 (6-14) 8 (6-14) Blood Urea Nitrogen 15mg/dL (8-26) 14mg/dL (8-26) Creatinine 0.9mg/dL (0.7-1.3) 0.9mg/dL (0.7-1.3) Estimated GFR (Cockcroft-Gault) 79.8 79.8 Glucose Level 154mg/dL (70-99) 106mg/dL (70-99) Calcium Level 9.2mg/dL (8.5-10.1) 9.2mg/dL (8.5-10.1) Magnesium Level 2.1mg/dL (1.8-2.4) 2.0mg/dL (1.8-2.4) Laboratory Tests Test 12/16/16 04:30 Sodium Level 144mmol/L (136-145) Potassium Level 3.9mmol/L (3.5-5.1) Chloride Level 105mmol/L (98-107) Carbon Dioxide Level 31mmol/L (21-32) Anion Gap 8 (6-14) Blood Urea Nitrogen 14mg/dL (8-26) Creatinine 0.9mg/dL (0.7-1.3) Estimated GFR (Cockcroft-Gault) 79.8 Glucose Level 106mg/dL (70-99) Calcium Level 9.2mg/dL (8.5-10.1) Magnesium Level 2.0mg/dL (1.8-2.4) Problem List Problems Medical Problems: (1) Acute respiratory failure Status: Acute (2) CAD (coronary artery disease) Status: Acute (3) CHF exacerbation Status: Acute (4) Hypoxia Status: Acute (5) Pulmonary edema Status: Acute (6) Volume overload Status: Acute Assessment/Plan CT reviewed-concern for PE-will defer to pulm colon mass-will ask GI to eval persistent liver abscess and GB drain-will ask IR to eval palliative care consult-pt reports he doesn't want to live another 10 years, but if we could get a few more, he would be OK with that. Surgical intervention on liver, GB, colon may be highly morbid and mortal. Goals of care. Problems: JANEL ALLISON MD Dec 16, 2016 09:16
[2016-12-16] MEDS ORDERED: ENOXAPARIN ** NOTE DOSE ** SYRINGE SQ SCH (10:00)
[2016-12-16 10:05] VITALS: BP 140/70
--- NOTE | 2016-12-16 10:16 | PDOC ---
CARDIO Progress Notes Date and Time Date of Service 12/16/2016 Time of Evaluation 0910 Subjective Subjective: No Chest Pain, No shortness of breath, No Palpitations, No Dizziness Vitals Vitals Vital Signs Date Time Temp Pulse Resp B/P Pulse Ox O2 Delivery O2 Flow Rate FiO2 12/16/16 07:09 98.0 79 149/75 90 Nasal Cannula 4.0 98.0 12/15/16 23:00 16 Weight Weight [ ] Input and Output Intake and Output Intake and Output 12/16/16 07:00 Intake Total 1420 ml Output Total 1125 ml Balance 295 ml Intake Oral 1170 ml IV Total 250 ml Output Urine Total 1125 ml Laboratory Labs Laboratory Tests Test 12/16/16 04:30 Sodium Level 144mmol/L (136-145) Potassium Level 3.9mmol/L (3.5-5.1) Chloride Level 105mmol/L (98-107) Carbon Dioxide Level 31mmol/L (21-32) Anion Gap 8 (6-14) Blood Urea Nitrogen 14mg/dL (8-26) Creatinine 0.9mg/dL (0.7-1.3) Estimated GFR (Cockcroft-Gault) 79.8 Glucose Level 106mg/dL (70-99) Calcium Level 9.2mg/dL (8.5-10.1) Magnesium Level 2.0mg/dL (1.8-2.4) Microbiology Micro Microbiology 12/10/16 Blood Culture - Final, Complete NO GROWTH AFTER 5 DAYS 12/10/16 Urine Culture - Final, Complete 12/10/16 Urine Culture Result 1 ([facility]) - Final, Complete Physical Exam HEENT: Neck Supple W Full Motion Chest: Symmetric LUNGS: Other (faint basilar crackles) Heart: S1S2, irregularly irregular Abdomen: Soft N/T, Other (biliary tube in place, bilous drain) Extremities: No Calf Tenderness, Other (trace to 1+ bilateral LE edema) Neurology: alert, oriented, follow commands Assessment Assessment 1. Acute diastolic CHF: compensated 2. NSTEMI: S/P LHC with severe 3VD. CP free, no SOA. 3. Persistent AFIB with RVR: new onset. Well controlled overnight 4. HTN: controlled 5. s/p cholecystostomy and liver abscess drainage: about 2-3 weeks ago at [facility]. 6. Possible cecal mass/possible appendicitis/small pulmonary emboli NEW per CT Recommendations 1. Continue rate controlling meds. Continue with DAPT. 2. In light of the new findings as noted above, further GI workup is warranted. Pt currently stable, will hold off PCI at this point. Discussed with pt. 3. With his complex comorbid conditions will recommend palliative team to address conservative vs aggressive measures. 4. Defer to pulmonary in regards to anticoagulation in regards to small PE noted in CT. 5. Continue with diuretic therapy 6. Unable to place on ACEi/ARB due to angioedema in the past. Continue on DAPT 7. Low dose lipitor 8. Continue with optimization and supportive care. JASSI REID APRN Dec 16, 2016 10:16
--- NOTE | 2016-12-16 10:18 | PDOC ---
PROGRESS NOTES Chief Complaint Chief Complaint SOB Edema ASSESSMENT AND PLAN: 1. 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 Afib s/p RVR (new) 2. CHF: 3. Troponin leak: 4. CAD hx: 5. GB abscess: drain in place, on Abx. done by [facility] 6. Gout: no acute issues. cont allopurinol 7,.A cute hypoxic respi failure needing venti mask , resolved 8. PE, possible 9. Possible liver abscess 10, Possible appy History of Present Illness History of Present Illness Non surgical candidate by TCVSS bec of 2 indwelling abd drains inserted by Qinti CArds initial plans to re cath today staged PCI but CT yesterday shows: IMPRESSION: 1. A cholecystostomy drain appears to be in satisfactory position. 2. A hepatic abscess drain is in place in the right lobe of the liver with an adjacent small fluid collection suggesting a nondrained abscess component. Correlation with previous studies if available would be helpful. 3. Colonic diverticulosis. 4. Mural thickening along the base of the cecum raising the possibility of a cecal neoplasm with adjacent appendiceal obstruction and/or appendicitis. 5. Small bilateral pleural effusions with moderate bilateral lower lobe atelectasis/infiltrate. 6. Probable pulmonary emboli, incompletely evaluated on these abdominal scans. 7. Coronary artery disease. Pt denies any abd pain, fever white ct or sxs. NO SOA or desaturations PLAN: IR consulted for possible liver abscess CAth on hold for now COnt ASA 81 and plavix I have started lovenox BID weight based dose Dw RN and pt Vitals Vitals Vital Signs Date Time Temp Pulse Resp B/P Pulse Ox O2 Delivery O2 Flow Rate FiO2 12/16/16 07:09 98.0 79 149/75 90 Nasal Cannula 4.0 98.0 12/15/16 23:00 16 Physical Exam General: Alert, Oriented X3, Cooperative, No acute distress Heart: Normal S1, Normal S2, No murmurs, Other (irregular) Lungs: Clear Abdomen: Soft, No tenderness, Other (drains in place) Extremities: No edema Skin: No significant lesion Labs LABS Laboratory Tests Test 12/16/16 04:30 Sodium Level 144mmol/L (136-145) Potassium Level 3.9mmol/L (3.5-5.1) Chloride Level 105mmol/L (98-107) Carbon Dioxide Level 31mmol/L (21-32) Anion Gap 8 (6-14) Blood Urea Nitrogen 14mg/dL (8-26) Creatinine 0.9mg/dL (0.7-1.3) Estimated GFR (Cockcroft-Gault) 79.8 Glucose Level 106mg/dL (70-99) Calcium Level 9.2mg/dL (8.5-10.1) Magnesium Level 2.0mg/dL (1.8-2.4) Review of Systems Review of Systems no SO, CP or abd pain or fevers Assessment and Plan Assessmemt and Plan Problems Medical Problems: (1) Acute respiratory failure Status: Acute (2) CAD (coronary artery disease) Status: Acute (3) CHF exacerbation Status: Acute (4) Hypoxia Status: Acute (5) Pulmonary edema Status: Acute (6) Volume overload Status: Acute Problems: Comment Review of Relevant I have reviewed the following items liana (where applicable) has been applied. Labs Laboratory Tests Test 12/14/16 14:00 12/15/16 05:50 12/16/16 04:30 White Blood Count 7.1x10^3/uL (4.0-11.0) Red Blood Count 3.89x10^6/uL (4.30-5.70) Hemoglobin 12.3g/dL (13.0-17.5) Hematocrit 37.0% (39.0-53.0) Mean Corpuscular Volume 95fL (79-100) Mean Corpuscular Hemoglobin 32pg (25-35) Mean Corpuscular Hemoglobin Concent 33g/dL (31-37) Red Cell Distribution Width 14.0% (11.5-14.5) Platelet Count 205x10^3/uL (140-400) Neutrophils (%) (Auto) 77% (31-73) Lymphocytes (%) (Auto) 12% (24-48) Monocytes (%) (Auto) 6% (0-9) Eosinophils (%) (Auto) 4% (0-3) Basophils (%) (Auto) 0% (0-3) Neutrophils # (Auto) 5.5x10^3uL (1.8-7.7) Lymphocytes # (Auto) 0.9x10^3/uL (1.0-4.8) Monocytes # (Auto) 0.4x10^3/uL (0.0-1.1) Eosinophils # (Auto) 0.3x10^3/uL (0.0-0.7) Basophils # (Auto) 0.0x10^3/uL (0.0-0.2) Heparin Anti-Xa Act, Unfractionated 0.40IU/mL (0.30-0.70) 0.46IU/mL (0.30-0.70) Sodium Level 140mmol/L (136-145) 144mmol/L (136-145) Potassium Level 3.8mmol/L (3.5-5.1) 3.9mmol/L (3.5-5.1) Chloride Level 99mmol/L (98-107) 105mmol/L (98-107) Carbon Dioxide Level 30mmol/L (21-32) 31mmol/L (21-32) Anion Gap 11 (6-14) 8 (6-14) Blood Urea Nitrogen 15mg/dL (8-26) 14mg/dL (8-26) Creatinine 0.9mg/dL (0.7-1.3) 0.9mg/dL (0.7-1.3) Estimated GFR (Cockcroft-Gault) 79.8 79.8 Glucose Level 154mg/dL (70-99) 106mg/dL (70-99) Calcium Level 9.2mg/dL (8.5-10.1) 9.2mg/dL (8.5-10.1) Magnesium Level 2.1mg/dL (1.8-2.4) 2.0mg/dL (1.8-2.4) Laboratory Tests Test 12/16/16 04:30 Sodium Level 144mmol/L (136-145) Potassium Level 3.9mmol/L (3.5-5.1) Chloride Level 105mmol/L (98-107) Carbon Dioxide Level 31mmol/L (21-32) Anion Gap 8 (6-14) Blood Urea Nitrogen 14mg/dL (8-26) Creatinine 0.9mg/dL (0.7-1.3) Estimated GFR (Cockcroft-Gault) 79.8 Glucose Level 106mg/dL (70-99) Calcium Level 9.2mg/dL (8.5-10.1) Magnesium Level 2.0mg/dL (1.8-2.4) Microbiology 12/10/16 Blood Culture - Final, Complete NO GROWTH AFTER 5 DAYS 12/10/16 Urine Culture - Final, Complete 12/10/16 Urine Culture Result 1 ([facility]ILTON) - Final, Complete Medications Current Medications Piperacillin Sod/ Tazobactam Sod 1 each 1 each PRN DAILY PRN MC SEE COMMENTS; Start 12/10/16 at 07:15; Stop 12/14/16 at 11:23; Status DC Diltiazem HCl/ Dextrose (Cardizem) 125 ml @ 0 mls/hr CONT PRN IV SEE I/O RECORD Last administered on 12/13/16 00:58; Start 12/10/16 at 07:15; Stop 12/13 at 12:33; Status DC Furosemide (Lasix) 40 mg 1X ONCE IVP Last administered on 12/10/16 07:52; Start 12/10/16 at 07:15; Stop 12/10/16 at 07:18; Status DC Nitroglycerin (Nitrostat) 0.4 mg 1X ONCE SL ; Start 12/10/16 at 07:15; Stop at 07:18; Status DC Ondansetron HCl (Zofran) 4 mg PRN Q8HRS PRN IV NAUSEA/VOMITING; Start 12/10/16 at 07:30; Stop 12/11/16 at 07:29; Status DC Morphine Sulfate 2 mg 2 mg PRN Q2HR PRN IV PAIN; Start 12/10/16 at 07:30; Stop 12/11/16 at 07:29; Status DC Piperacillin Sod/ Tazobactam Sod/ Sodium Chloride (Zosyn/Iv Sodium Chloride 0.9 % 100ml) 100 ml @ 200 mls/hr 1X ONCE IV Last administered on 12/10/16 09:28 ; Start 12/10/16 at 07:45; Stop 12/10/16 at 08:14; Status DC Lisinopril (Prinivil) 10 mg DAILY PO ; Start 12/11/16 at 09:00; Stop 12/11/16 at 16:31; Status DC Labetalol HCl (Normodyne) 20 mg PRN Q2HR PRN IVP HYPERTENSION, SEE COMMENTS; Start 12/10/16 at 11:30 Aspirin (Ecotrin) 81 mg DAILYWBKFT PO Last administered on 12/15/16 09:06; Start 12/10/16 at 13:00 Furosemide 40 mg 40 mg 1X ONCE IVP Last administered on 12/10/16 14:37; Start 12/10/16 at 12:15; Stop 12/10/16 at 12:23; Status DC Piperacillin Sod/ Tazobactam Sod/ Sodium Chloride (Zosyn/Iv Sodium Chloride 0.9 % 50ml) 50 ml @ 100 mls/hr Q6HRS IV Last administered on 12/16/16 06:00; Start 12/10/16 at 13:30 Allopurinol (Zyloprim) 100 mg DAILY PO ; Start 12/11/16 at 10:00; Stop 12/11/16 at 10:13; Status DC Aspirin (Ecotrin) 81 mg DAILY PO ; Start 12/12/16 at 09:00; Status Cancel Linezolid (Zyvox) 600 mg BID PO Last administered on 12/12/16 21:34; Start at 10:00; Stop 12/13/16 at 08:51; Status DC Spironolactone (Aldactone) 25 mg DAILY PO Last administered on 12/15/16 09:07; Start 12/11/16 at 10:00 Metoprolol Tartrate 100 mg 100 mg BID PO Last administered on 12/13/16 09:28; Start 12/11/16 at 10:00; Stop 12/13/16 at 12:33; Status DC Heparin Sodium/ Dextrose 500 ml @ 19.6 mls/hr CONT PRN IV SEE I/O RECORD Last administered on 12/15/16 05:34; Start 12/11/16 at 14:45; Stop 12/15/16 at 10:20; Status DC Heparin Sodium (Porcine) 2,050 unit PRN Q6HRS PRN IV FOR UFH LEVEL LESS THAN 0.2 Last administered on 12/13/16 20:30; Start 12/11/16 at 14:45; Stop 12/15/16 at 10:20; Status DC Throat Lozenges (Cepacol Sore Throat Lozenge) 1 jorge a PRN Q2HRS PRN PO SORE THROAT Last administered on 12/13/16 09:26; Start 12/11/16 at 19:30 Docusate Sodium (Colace) 100 mg DAILY PO Last administered on 12/15/16 09:07; Start 12/12/16 at 10:00 Polyethylene Glycol (miraLAX PACKET) 17 gm PRN DAILY PRN PO CONSTIPATION; Start 12/12/16 at 10:00 Magnesium Hydroxide (Milk Of Magnesia) 2,400 mg PRN DAILY PRN PO CONSTIPATION; Start 12/12/16 at 10:00 Lidocaine HCl 20 ml 20 ml STK-MED ONCE .ROUTE ; Start 12/12/16 at 14:11; Stop at 14:12; Status DC Heparin Sodium/ Sodium Chloride 500 ml @ As Directed STK-MED ONCE .ROUTE ; Start 12/12/16 at 14:11; Stop 12/12/16 at 14:12; Status DC Iohexol (Omnipaque 300 Mg/ml) 100 ml STK-MED ONCE .ROUTE ; Start 12/12/16 at 14: 11; Stop 12/12/16 at 14:12; Status DC Iodixanol (Visipaque 320) 100 ml STK-MED ONCE .ROUTE ; Start 12/12/16 at 14:11; Stop 12/12/16 at 14:12; Status DC Nitroglycerin (Nitroglycerin) 200 mcg STK-MED ONCE .ROUTE ; Start 12/12/16 at 14 :16; Stop 12/12/16 at 14:17; Status DC Verapamil HCl (Verapamil) 5 mg STK-MED ONCE .ROUTE ; Start 12/12/16 at 14:16; Stop 12/12/16 at 14:17; Status DC Midazolam HCl (Versed) 2 mg STK-MED ONCE .ROUTE ; Start 12/12/16 at 14:16; Stop 12/12/16 at 14:17; Status DC Fentanyl Citrate (Fentanyl 2ml Vial) 100 mcg STK-MED ONCE .ROUTE ; Start at 14:16; Stop 12/12/16 at 14:17; Status DC Heparin Sodium (Porcine) 10,000 unit STK-MED ONCE .ROUTE ; Start 12/12/16 at 14: 16; Stop 12/12/16 at 14:17; Status DC Nitroglycerin (Nitroglycerin) 200 mcg 1X ONCE IART Last administered on 15:04; Start 12/12/16 at 14:45; Stop 12/12/16 at 14:46; Status DC Verapamil HCl (Verapamil) 2.5 mg 1X ONCE IART Last administered on 12/12/16 15:05; Start 12/12/16 at 14:45; Stop 12/12/16 at 14:46; Status DC Heparin Sodium (Porcine) 2,500 unit 1X ONCE IART Last administered on 15:06; Start 12/12/16 at 14:45; Stop 12/12/16 at 14:46; Status DC Heparin Sodium/ Sodium Chloride 1,000 unit 1X ONCE IART Last administered on 15:03; Start 12/12/16 at 14:45; Stop 12/12/16 at 14:46; Status DC Midazolam HCl (Versed) 2 mg 1X ONCE IV Last administered on 12/12/16 15:04; Start 12/12/16 at 14:45; Stop 12/12/16 at 14:46; Status DC Fentanyl Citrate (Fentanyl 2ml Vial) 100 mcg 1X ONCE IV Last administered on 15:04; Start 12/12/16 at 14:45; Stop 12/12/16 at 14:46; Status DC Iodixanol (Visipaque 320) 100 ml 1X ONCE IART Last administered on 12/12/16 15:05; Start 12/12/16 at 14:45; Stop 12/12/16 at 14:46; Status DC Lidocaine HCl 1 ml 1X ONCE IJ Last administered on 12/12/16 15:03; Start at 14:45; Stop 12/12/16 at 14:46; Status DC Nitroglycerin (Nitrostat) 0.4 mg PRN Q5MIN PRN SL CHEST PAIN; Start 12/12/16 at 15:30 Furosemide (Lasix) 40 mg 1X ONCE IVP Last administered on 12/12/16 16:18; Start 12/12/16 at 15:30; Stop 12/12/16 at 15:31; Status DC Metoprolol Tartrate (Lopressor) 50 mg BID PO Last administered on 12/15/16 21: 00; Start 12/13/16 at 21:00 Furosemide (Lasix) 40 mg 1X ONCE IVP Last administered on 12/13/16 15:06; Start 12/13/16 at 12:15; Stop 12/13/16 at 12:37; Status DC Furosemide (Lasix) 40 mg DAILY PO Last administered on 12/15/16 09:06; Start at 09:00 Diltiazem HCl (Cardizem 24hr Cd) 120 mg DAILY PO Last administered on 12/14/16 09:00; Start 12/14/16 at 09:00; Stop 12/14/16 at 12:13; Status DC Lisinopril (Prinivil) 2.5 mg DAILY PO ; Start 12/14/16 at 09:00; Stop 12/14/16 at 09:00; Status DC Atorvastatin Calcium (Lipitor) 10 mg QHS PO Last administered on 12/15/16 21:00 ; Start 12/13/16 at 21:00 Info (Anti-Coagulation Monitoring By Pharmacy) 1 each PRN DAILY PRN MC SEE COMMENTS Last administered on 12/15/16 07:26; Start 12/13/16 at 16:30 Diltiazem HCl (Cardizem 24hr Cd) 240 mg DAILY PO Last administered on 12/15/16 09:07; Start 12/15/16 at 09:00 Diltiazem HCl (Cardizem 24hr Cd) 120 mg 1X ONCE PO Last administered on 12:49; Start 12/14/16 at 12:15; Stop 12/14/16 at 12:20; Status DC Clopidogrel Bisulfate (Plavix) 75 mg DAILYWBKFT PO Last administered on 09:06; Start 12/14/16 at 13:00 Isosorbide Mononitrate (Imdur) 30 mg DAILY PO Last administered on 12/15/16 11: 48; Start 12/15/16 at 11:30 Iohexol (Omnipaque 240 Mg/ml) 30 ml 1X ONCE PO ; Start 12/15/16 at 11:45; Stop 12/15/16 at 11:46; Status DC Iohexol (Omnipaque 300 Mg/ml) 75 ml 1X ONCE IV ; Start 12/15/16 at 11:45; Stop 12/15/16 at 11:46; Status DC Info (Do NOT chart on this entry -- for MONITORING) 1 each PRN DAILY PRN MC SEE COMMENTS; Start 12/15/16 at 11:45; Stop 12/17/16 at 11:44 Enoxaparin Sodium (Lovenox 40mg Syringe) 40 mg Q24H SQ Last administered on 12/15t 17:59; Start 12/15/16 at 18:00; Stop 12/16/16 at 09:35; Status DC Enoxaparin Sodium (Lovenox 80mg Syringe) 80 mg BID SQ ; Start 12/16/16 at 10:00 Active Scripts Active Reported Milk Of Magnesia (Magnesium Hydroxide) 2,400 Mg/10 Ml Oral.susp 2,400 Mg PO Metoprolol Tartrate 100 Mg Tablet 1 Tab PO BID Allopurinol 100 Mg Tablet 1 Tab PO DAILY Aspir 81 (Aspirin) 81 Mg Tablet.dr 1 Tab PO DAILY Spironolactone 25 Mg Tablet 1 Tab PO DAILY Cardizem Tablet (Diltiazem Hcl) 30 Mg Tablet 30 Mg PO DAILY Zyvox (Linezolid) 600 Mg Tablet 600 Mg PO BID Augmentin 875-125 Tablet (Amoxicillin/Potassium Clav) 1 Each Tablet Tab PO BID Vitals/I & O Vital Sign - Last 24 Hours 12/15/16 12/15/16 12/15/16 12/15/16 11:00 11:48 15:00 18:59 Temp 97.8 97.9 98.0 97.8 97.9 98.0 Pulse 79 79 91 96 Resp 24 16 B/P 130/66 130/66 125/53 131/54 Pulse Ox 95 92 92 O2 Delivery Nasal Cannula Nasal Cannula O2 Flow Rate 4.0 4.0 12/15/16 12/15/16 12/15/16 12/16/16 20:00 21:00 23:00 03:00 Temp 98.0 98.0 98.0 98.0 Pulse 96 66 66 Resp 16 B/P 131/54 101/52 133/71 Pulse Ox 94 95 O2 Delivery Nasal Cannula Nasal Cannula Nasal Cannula O2 Flow Rate 4.0 4.0 3.0 12/16/16 12/16/16 03:00 07:09 Temp 98.0 98.0 98.0 98.0 Pulse 66 79 B/P 101/52 149/75 Pulse Ox 94 90 O2 Delivery Nasal Cannula Nasal Cannula O2 Flow Rate 4.0 4.0 Intake and Output 12/15/16 12/15/16 12/16/16 15:00 23:00 07:00 Intake Total 680 ml 740 ml Output Total 125 ml 600 ml 400 ml Balance 555 ml 140 ml -400 ml CARLYLE CARMEN MD Dec 16, 2016 10:18
[2016-12-16] MEDS ORDERED: IOHEXOL 300 MG/ML 50 ML VIAL. ONE (10:32)
--- NOTE | 2016-12-16 11:37 | PDOC2 ---
GISSELL FUENTES 12/16/16 1137: GI CONSULT Reason For Consult: Abnormal CT HPI: HPI: 86 y/o male w/ h/o liver abscesses w/ two drains placed at [facility] plus additional h/o recent MO and new onset A Fib admitted to [facility] 12/10/16 w/ resp distress and CHF. Has been followed by cardiology, pulmonology, and surgery. Had a cath demonstrating triple vessel disease, saw vascular surgery, declined CABG. CT 12/15 showed mural thickening along the base of the cecum raising the possibility of a cecal neoplasm with adjacent appendiceal obstruction and/or appendicitis and probable pulmonary emboli. GI consult requested for this. He says he feels great and has no GI complaints. Denies n/v, reflux, abd pain, diarrhea, constipation, hematochezia/melena. No previous colonoscopy or EGD. passed 24 years ago from colon cancer. PMH: PMH: A Fib, CAD, recent MO, HTN, COPD, BPH, OA, angioplasty FH: Family History: No pertinent hx Social History: Smoke: No ALCOHOL: occassional Drugs: None ROS: GEN: Denies fevers, chills, sweats HEENT: Denies blurred vision, sore throat CV: Denies chest pain RESP: Denies shortness of air, cough GI: Per HPI : Denies hematuria, dysuria ENDO: Denies weight changes NEURO: Denies confusion, dizziness MSK: Denies weakness, joint pain/swelling SKIN: Denies jaundice, pruritus VItals: Vitals: Vital Signs Date Time Temp Pulse Resp B/P Pulse Ox O2 Delivery O2 Flow Rate FiO2 12/16/16 07:09 98.0 79 149/75 90 Nasal Cannula 4.0 98.0 12/15/16 23:00 16 Labs: Labs: Laboratory Tests Test 12/16/16 04:30 Sodium Level 144mmol/L (136-145) Potassium Level 3.9mmol/L (3.5-5.1) Chloride Level 105mmol/L (98-107) Carbon Dioxide Level 31mmol/L (21-32) Anion Gap 8 (6-14) Blood Urea Nitrogen 14mg/dL (8-26) Creatinine 0.9mg/dL (0.7-1.3) Estimated GFR (Cockcroft-Gault) 79.8 Glucose Level 106mg/dL (70-99) Calcium Level 9.2mg/dL (8.5-10.1) Magnesium Level 2.0mg/dL (1.8-2.4) Allergies: Coded Allergies: enalapril (Verified Allergy, Severe, ANGIOEDEMA, 12/13/16) Medications: Current Medications Medications (Trade) Dose Ordered Sig/Massiel Route PRN Reason Start Time Stop Time Status Last Admin Dose Admin Isosorbide Mononitrate (Imdur) 30 mg DAILY PO 12/15/16 11:30 12/15/16 11:48 Enoxaparin Sodium (Lovenox 40mg Syringe) 40 mg Q24H SQ 12/15/16 18:00 12/16/16 09:35 DC 12/15/16 17:59 Imaging: Imaging: CT A/P 12/15/16 IMPRESSION: 1. A cholecystostomy drain appears to be in satisfactory position. 2. A hepatic abscess drain is in place in the right lobe of the liver with an adjacent small fluid collection suggesting a nondrained abscess component. Correlation with previous studies if available would be helpful. 3. Colonic diverticulosis. 4. Mural thickening along the base of the cecum raising the possibility of a cecal neoplasm with adjacent appendiceal obstruction and/or appendicitis. 5. Small bilateral pleural effusions with moderate bilateral lower lobe atelectasis/infiltrate. 6. Probable pulmonary emboli, incompletely evaluated on these abdominal scans. 7. Coronary artery disease. PE: GEN: NAD, pleasant HEENT: Atraumatic, PERRL LUNGS: decreased anteriorly HEART: S1S2 ABD: NABS, S/ND/NT, [address] EXTREMITY: BLE edema SKIN: No jaundice NEURO/PSYCH: A & O 3 A/P: A/P: Liver abscesses Abnormal CT A/P -mural thickening along the base of the cecum raising the possibility of a cecal neoplasm with adjacent appendiceal obstruction and/or appendicitis CRC screen -no previous A Fib, CHF, recent MO, resp failure -- Discussed evaluation w/ colonoscopy - he wishes to think about this. Would need cardiac clearance. MOE GIANG MD 12/16/16 1144: GI CONSULT Allergies: Coded Allergies: enalapril (Verified Allergy, Severe, ANGIOEDEMA, 12/13/16) GISSELL FUENTES Dec 16, 2016 11:37 MOE GIANG MD Dec 16, 2016 11:44
--- NOTE | 2016-12-16 11:42 | PDOC ---
BRIEF OPERATIVE NOTE Pre-Op Diagnosis Cholecystostomy and liver abcess Post-Op Diagnosis same Procedure Performed Cholecystostogram and abcessogram Surgeon Cathy Anesthesia Type: Conscious Sedation Findings Hepatic drain with persistent 8-10 cc cavity. Recommend continued irrigation and drainage. Cholecystostomy tube in good position. Two large gall stones. Patent cystic duck and normal intra and extrahepatic bile ducts. GARY DAVIS MD Dec 16, 2016 11:41
[2016-12-16] MEDS ORDERED: IOHEXOL 300 MG/ML 50 ML VIAL. IJ ONE (11:45)
[2016-12-16] MEDS ORDERED: CONTRAST GIVEN MC PRN ×2 (11:45→15:30)
--- NOTE | 2016-12-16 12:09 | RAD ---
Noncontrast CT scan of the abdomen dated 12/16/2016 compared to contrast enhanced scan of the abdomen dated 12-30 for evaluation of hepatic abscess, cholecystostomy tube. Technique: Contiguous helical 5 mm axial images are obtained from the apex the diaphragm to the iliac crests, following administration of contrast into the hepatic abscess drain and into the cholecystostomy tube. Findings: Bibasilar airspace disease and small bilateral pleural effusions are redemonstrated. There is increased density throughout the right pleural effusion which likely reflects some trace accumulation of contrast associated with recent abscessogram. Although hemorrhage could have a similar appearance, this is less likely in the current clinical context. Extensive atherosclerosis is redemonstrated multiple distributions. The spleen, pancreas, bilateral adrenal glands, and bilateral kidneys are grossly unremarkable though evaluation is limited by lack of IV contrast. No free or loculated fluid collections are seen within the peritoneum. No significant osseous abdomen values are evident. There is a well-positioned cholecystostomy tube within a decompressed gallbladder. Contrast is present throughout the decompressed gallbladder and cystic duct, demonstrating at two 1.5 cm stones within the gallbladder lumen, with patency of the cystic duct and intra and extra hepatic biliary ductal system. No gallstones are present within the bile ducts. There is egress of contrast into small bowel indicating patency of the ampulla. The percutaneous hepatic drain previously noted to sit just anterior to 2.5 cm focal abscess cavity is once again identified and unchanged in configuration and appearance. There is accumulation of dense contrast within the 2.5 cm abscess cavity just caudal to this drain, indicating continuity with the involuted portion of the abscess in which the drain resides. No other hepatic abnormality is are identified. Impression: 1. Well-positioned cholecystostomy tube with cholelithiasis, and patent cystic duct and ampulla. 2. Functional hepatic abscess drain within involuted segment of the hepatic abscess. There is a 2.5 cm hepatic abscess immediately posterior to the drain which is in continuity and should be effectively evacuated with the existing drain if aggressively irrigated. 3. Bibasilar airspace disease and bilateral pleural effusions, stable as to extent. 4. Increased density within the right pleural effusion which is new and likely represents a small amount of contrast from the recent abscessogram. Hemorrhage could have a similar appearance but is considered less likely.
[2016-12-16] MEDS: FUROSEMIDE 40 MG TABLET PO SCH (13:01)
[2016-12-16] MEDS: DILTIAZEM HCL 240 MG CAP.ER.24H PO SCH (13:01)
[2016-12-16] MEDS: CLOPIDOGREL BISULFATE 75 MG TABLET PO SCH (13:01)
[2016-12-16] MEDS: ASPIRIN ENTERIC COATED 81 MG TABLET.DR. PO SCH (13:01)
[2016-12-16] MEDS: DOCUSATE SODIUM 100 MG CAPSULE PO SCH (13:01)
[2016-12-16] MEDS: METOPROLOL TART IMMED RELEASE 50 MG TABLET PO SCH ×2 (13:02→22:02)
[2016-12-16] MEDS: SPIRONOLACTONE 25 MG TABLET PO SCH (13:02)
[2016-12-16] MEDS: ISOSORBIDE MONONITRATE ER 30 MG TAB.ER.24H PO SCH (13:02)
--- NOTE | 2016-12-16 14:02 | PDOC2 ---
PALLIATIVE CARE Palliative Care Note Palliative Care Consult requested to address goals of care Patient seen at 11am Diagnosis Liver Abcess; -mural thickening along the base of the cecum raising the possibility of a cecal neoplasm A Fib, CHF, recent [place], resp failure; possible PE Spoke with patient. Requested call to Elver eldridge to arrange family meeting Spoke with Elver. Plan : Family meeting Monday 11am. Elver unable to come today. 1420 Spoke with patient. Alert and oriented. Discussed code status: Patient Requests DNR/DNI. Understands without this attempt he likely would . Son Alex at bedside also Linnea REED will obtain order DAPHNEY JEFFERS Dec 16, 2016 14:02
[2016-12-16] MEDS ORDERED: CALCIUM CARBONATE 500 MG TAB.CHEW PO PRN (14:15)
[2016-12-16] MEDS: MORPHINE SULFATE 2 MG/ML DISP.SYRIN. IV PRN ×4 (14:16→22:02)
[2016-12-16] MEDS: PANTOPRAZOLE 40 MG TABLET. PO SCH (14:30)
--- NOTE | 2016-12-16 14:39 | PDOC2 ---
PALLIATIVE CARE Palliative Care Note Palliative Care Patient complain of stabbing/throbbing pain RLQ. Dr. Frazier called. Orders given to Linnea REED 1430 Dr. Frazier paged for orders for change in code status. Patient sats declining to 78% on 2L NC. Increased respiratory distress. Oxygen changed to mask 1440 Dr. Linares called . Orders received. oxygen sat improved 89% on mask. Increased respiratory distress. DAPHNEY JEFFERS Dec 16, 2016 14:39
--- NOTE | 2016-12-16 14:51 | RAD ---
Procedure: Cholecystostomy gram through a cholecystostomy tube, and abscessogram through a hepatic abscess drainage catheter Clinical Indication: 86-year-old male with history of acute cholecystitis and hepatic abscesses Sedation: None Antibiotics: None Exposure: Kerma-Area Product: 15 Gycm2 Contrast: 18 cc of Isovue-300 Sterility: The procedure was performed in its entirety using appropriate elements of sterile technique. Consent: The procedure was explained in its entirety to the patient or the patients designated artist's representative by a member of the treatment team, including a discussion of the risks, benefits and commonly accepted alternatives to the procedure, as well as the expected consequences of no therapy whatsoever. Discussion of the risks included, but was not limited to, those that are most frequent and those that are rare but possibly severe or life-threatening, as well as the possibility of unforeseen complications. Technique and Findings: Following informed consent, the patient was prepped and draped in usual sterile fashion. Preliminary fluoroscopic spot view revealed 2 intact pigtail drainage catheters overlying the liver. The largest catheter which was known to correspond to the abscess was then injected under fluoroscopic guidance with contrast. Contrast is seen to fill a 2.5 centimeter to 3 cm cavity just caudal to the pigtail portion of the catheter. No biliary claudication was identified. Total volume is roughly 8 cc. Contrast was then injected through the cholecystostomy tube and was seen to fill the decompressed gallbladder which is notable for at least 2 large stones. Cystic duct is patent and there is a normal appearance to the intra and extra hepatic bile ducts with rapid egress of contrast through patent ampulla into the duodenum. Both catheters were then flushed and replaced to drainage. Complications: No immediate Impression: 1. Appropriately positioned cholecystostomy tube. 2. Cholelithiasis with a patent cystic duct and normal intra and extrahepatic biliary ducts. 3. Persistent small abscess cavity in contiguity with the existing drainage catheter. Volume is estimated at 8 cc. Recommend continued irrigation and drainage.
[2016-12-16 15:08] VITALS: BP 180/116
--- NOTE | 2016-12-16 15:16 | RAD ---
Portable chest, 12/16/2016: History: Hypoxia Comparison is made to a study from 12/12/2016. A right PICC is in place extending into the inferior aspect of the superior vena cava. Its tip is not clearly defined. The heart is at the upper limits of normal in size. Pulmonary vascularity is prominent. Basilar opacities have worsened with increasing obscuration of the hemidiaphragms. The recent CT studies have shown that these are due to a combination of pleural fluid and basilar atelectasis/infiltrate. There is no evidence of pneumothorax. IMPRESSION: Worsening bibasilar opacities due to pleural fluid and moderate infiltrate.
[2016-12-16 15:17] LABS: HCO3 ABG 28 mmol/L (21-28); PCO2 ABG 41 mmHg (35-46); PH ABG 7.45 (7.35-7.45); PO2 ABG 69 mmHg (65-108); SAT O2 ABG 94 % (92-99)
[2016-12-16 15:18] LABS: FIO2 ABG 50
--- NOTE | 2016-12-16 15:21 | PDOC ---
PULMONARY PROGRESS NOTES Subjective PT MORE SOA TODAY Vitals Vital Signs Date Time Temp Pulse Resp B/P Pulse Ox O2 Delivery O2 Flow Rate FiO2 12/16/16 15:08 98.4 93 180/116 86 Simple Mask 7.0 98.4 12/16/16 14:57 33 General: Alert Lungs: Clear, Crackles Cardiovascular: S1 Abdomen: Soft Neuro Exam: Alert Extremities: No Edema Skin: Warm Labs Laboratory Tests Test 12/15/16 05:50 12/16/16 04:30 12/16/16 14:43 Heparin Anti-Xa Act, Unfractionated 0.46IU/mL (0.30-0.70) Sodium Level 144mmol/L (136-145) Potassium Level 3.9mmol/L (3.5-5.1) Chloride Level 105mmol/L (98-107) Carbon Dioxide Level 31mmol/L (21-32) Anion Gap 8 (6-14) Blood Urea Nitrogen 14mg/dL (8-26) Creatinine 0.9mg/dL (0.7-1.3) Estimated GFR (Cockcroft-Gault) 79.8 Glucose Level 106mg/dL (70-99) Calcium Level 9.2mg/dL (8.5-10.1) Magnesium Level 2.0mg/dL (1.8-2.4) O2 Saturation 94% (92-99) Arterial Blood pH 7.45 (7.35-7.45) Arterial Blood pCO2 at Patient Temp 41mmHg (35-46) Arterial Blood pO2 at Patient Temp 69mmHg (65-108) Arterial Blood HCO3 28mmol/L (21-28) Arterial Blood Base Excess 4mmol/L (-3-3) FiO2 50 Laboratory Tests Test 12/16/16 04:30 12/16/16 14:43 Sodium Level 144mmol/L (136-145) Potassium Level 3.9mmol/L (3.5-5.1) Chloride Level 105mmol/L (98-107) Carbon Dioxide Level 31mmol/L (21-32) Anion Gap 8 (6-14) Blood Urea Nitrogen 14mg/dL (8-26) Creatinine 0.9mg/dL (0.7-1.3) Estimated GFR (Cockcroft-Gault) 79.8 Glucose Level 106mg/dL (70-99) Calcium Level 9.2mg/dL (8.5-10.1) Magnesium Level 2.0mg/dL (1.8-2.4) O2 Saturation 94% (92-99) Arterial Blood pH 7.45 (7.35-7.45) Arterial Blood pCO2 at Patient Temp 41mmHg (35-46) Arterial Blood pO2 at Patient Temp 69mmHg (65-108) Arterial Blood HCO3 28mmol/L (21-28) Arterial Blood Base Excess 4mmol/L (-3-3) FiO2 50 Medications Active Scripts Medications Dose Route/Sig Days Date Category Milk Of Magnesia (Magnesium Hydroxide) 2,400 Mg/10 Ml Oral.susp 2,400 Mg PO 12/10/16 Reported Metoprolol Tartrate 100 Mg Tablet 1 Tab PO BID 12/10/16 Reported Allopurinol 100 Mg Tablet 1 Tab PO DAILY 12/10/16 Reported Aspir 81 (Aspirin) 81 Mg Tablet.dr 1 Tab PO DAILY 12/10/16 Reported Spironolactone 25 Mg Tablet 1 Tab PO DAILY 12/10/16 Reported Cardizem Tablet (Diltiazem Hcl) 30 Mg Tablet 30 Mg PO DAILY 12/10/16 Reported Zyvox (Linezolid) 600 Mg Tablet 600 Mg PO BID 12/10/16 Reported Augmentin 875-125 Tablet (Amoxicillin/Potassium Clav) 1 Each Tablet Tab PO BID 12/10/16 Reported Impression . 1. Acute hypoxic respiratory failure secondary to development of acute congestive heart failure, suspect diastolic heart failure triggered by atrial fibrillation with rapid ventricular response. 2. Atrial fibrillation with rapid ventricular response, triggering congestive heart failure. 3. Recent dilated gallbladder with liver abscess, status post percutaneous cholecystostomy placement. Followup CT chest showed persistent abscess in the liver and status post second drain. Replaced drains 12/16/16 4. No significant history of tobacco use. 5. Probable PE on CT ABD Plan . Stat CT Angio rule out MS ABG noted s/p new drains 12/16 spoke with son antibx per ID follow surgery input YARIEL SMITH MD Dec 16, 2016 15:21
[2016-12-16 15:53] LABS: INR 1.3 (0.8-1.1); PROTHROMBIN TIME PATIENT 15.7 SEC (11.7-14.0)
[2016-12-16] MEDS ORDERED: IOHEXOL 300 MG/ML 75 ML VIAL IV ONE (16:00)
--- NOTE | 2016-12-16 16:08 | RAD ---
CT of the chest with contrast, 12/16/2016: History: Shortness of breath, pulmonary bullae Multidetector CT imaging was performed following an IV bolus injection of iodinated contrast material. Multiplanar reconstructions were produced including coronal MIP images. There are multiple filling defects in the pulmonary arteries bilaterally. On the left there are occlusive and nonocclusive filling defects in segmental and subsegmental pulmonary arteries in the upper and lower lobes. On the right there is a serpiginous filling defect in the lateral aspect of the main pulmonary artery extending into the right lower lobe pulmonary artery. This thrombus is nonocclusive. There are small occlusive and nonocclusive thrombi in subsegmental pulmonary arteries in the the right upper lobe. Some of these emboli were also noted on yesterday's CT abdomen and pelvis exam. There is moderate calcific plaquing of the thoracic aorta. The ascending aorta is at the upper limits of normal in size measuring 4 cm in width. Moderate coronary artery calcifications are present. The heart is generally enlarged. There is a low density nodule in the lower pole of the right lobe of the thyroid gland. There are moderate sized pleural effusions, right greater than left. There is moderate underlying atelectasis and infiltrate posteriorly in both lower lobes and to lesser degree in the posterior aspects of the right middle lobe and lingula. IMPRESSION: 1. Multiple bilateral pulmonary emboli. 2. 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 3. Moderate-sized bilateral pleural effusions, right greater than left, with moderate underlying atelectasis and consolidation in in both lower lobes. PQRS Compliance Statement: One or more of the following individualized dose reduction techniques were utilized for this examination: 1. Automated exposure control 2. Adjustment of the mA and/or kV according to patient size 3. Use of iterative reconstruction technique
--- NOTE | 2016-12-16 16:16 | PDOC ---
Provider Note Provider Note CT ANGIO REVIEWED POSITIVE FOR PE WILL START HEPARIN PER PROTOCOL YARIEL SMITH MD Dec 16, 2016 16:16
[2016-12-16] MEDS: HEPARIN for IV BOLUS 10,000 UNIT/10 ML VIAL. IV PRN (16:28)
[2016-12-16] MEDS: HEPARIN 25,000UTS/500ML PREMIX 500 ML IV PRN (16:29)
[2016-12-16] MEDS ORDERED: WARFARIN 6 MG TABLET. PO ONE (17:00)
[2016-12-16 19:40] VITALS: BP 120/51
[2016-12-16] MEDS: ATORVASTATIN CALCIUM 10 MG TABLET. PO SCH (22:01)
[2016-12-16 23:00] VITALS: BP 134/60
[2016-12-17] MEDS: PIPERACILLIN/TAZOBACTAM 3.375 GM in IV NORMAL SALINE 50ML 50 ML IV SCH ×5 (00:15→23:44)
[2016-12-17] MEDS: MORPHINE SULFATE 2 MG/ML DISP.SYRIN. IV PRN ×3 (01:36→21:43)
[2016-12-17 03:00] VITALS: BP 122/64
[2016-12-17 05:09] LABS: BASO % 1 % (0-3); EOS % 2 % (0-3); HEMATOCRIT 29.6 % (39.0-53.0); HEMOGLOBIN 10.1 g/dL (13.0-17.5); LYMPH # 1.4 x10^3/uL (1.0-4.8); LYMPH % 17 % (24-48); MEAN CORPUSCULAR HEMOGLOBIN 32 pg (25-35); MEAN CORPUSCULAR HGB CONC 34 g/dL (31-37); MEAN CORPUSCULAR VOLUME 94 fL (79-100); MONO % 8 % (0-9); NEUT % 72 % (31-73); PLATELET COUNT 184 x10^3/uL (140-400); RED BLOOD COUNT 3.14 x10^6/uL (4.30-5.70); RED CELL DISTRIBUTION WIDTH 14.2 % (11.5-14.5)
[2016-12-17 05:15] LABS: INR 1.4 (0.8-1.1); PROTHROMBIN TIME PATIENT 16.3 SEC (11.7-14.0)
[2016-12-17 05:26] LABS: CALCIUM 8.9 mg/dL (8.5-10.1); GFR 70.7; POTASSIUM 3.8 mmol/L (3.5-5.1)
[2016-12-17 07:30] VITALS: BP 116/54
[2016-12-17] MEDS: ISOSORBIDE MONONITRATE ER 30 MG TAB.ER.24H PO SCH (08:29)
[2016-12-17] MEDS: DILTIAZEM HCL 240 MG CAP.ER.24H PO SCH (08:29)
[2016-12-17] MEDS: ASPIRIN ENTERIC COATED 81 MG TABLET.DR. PO SCH (08:29)
[2016-12-17] MEDS: FUROSEMIDE 40 MG TABLET PO SCH (08:29)
[2016-12-17] MEDS: PANTOPRAZOLE 40 MG TABLET. PO SCH (08:29)
[2016-12-17] MEDS: SPIRONOLACTONE 25 MG TABLET PO SCH (08:30)
[2016-12-17] MEDS: METOPROLOL TART IMMED RELEASE 50 MG TABLET PO SCH ×2 (08:30→21:42)
[2016-12-17] MEDS: DOCUSATE SODIUM 100 MG CAPSULE PO SCH (08:30)
[2016-12-17] MEDS: CLOPIDOGREL BISULFATE 75 MG TABLET PO SCH (08:30)
--- NOTE | 2016-12-17 10:04 | PDOC ---
PROGRESS NOTES Chief Complaint Chief Complaint SOB Edema ASSESSMENT AND PLAN: 1. 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 Afib s/p RVR (new) 2. CHF: 3. Troponin leak: 4. CAD hx: 5. GB abscess: drain in place, on Abx. done by [facility] 6. Gout: no acute issues. cont allopurinol 7,.A cute hypoxic respi failure needing venti mask , resolved 8. PE, possible 9. Possible liver abscess 10, Possible appy History of Present Illness History of Present Illness CAlled by RN yesterday 3 PM for "INDIGESTION and PAIN s/p IR PROCEDURE" No reports of desaturations to me or SOA Now looking at notes, needed Venturi mask around taht time and stat CTA showed multiple PE HE did get lovenox therapeutic dose this AM Pt looks confortable today, on nasal canula, started on warfarin per pharamcy He knows the updates of his health Given multiple serious medical issues, pt actually holding up quite well given age PL:AN; Cont AC CArdiac cath [plans on hold Cont IV zosyn while in house per ID Monitor output in drains dw [employer] and pt LAbs in AM MOnitor for bleeding - on multiple blood thinners CHECK VENOUS DOPPLER - Vitals Vitals Vital Signs Date Time Temp Pulse Resp B/P Pulse Ox O2 Delivery O2 Flow Rate FiO2 12/17/16 08:30 84 116/54 12/17/16 08:15 Nasal Cannula 5.0 12/17/16 07:30 97.0 20 96 97.0 Physical Exam General: Alert, Oriented X3, Cooperative, No acute distress Heart: Normal S1, Normal S2, No murmurs, Other (irregular) Lungs: Clear, Crackles Abdomen: Soft, No tenderness, Other (drains in place) Extremities: No edema Skin: No significant lesion Labs LABS Laboratory Tests Test 12/16/16 14:43 12/16/16 15:00 12/16/16 22:25 12/17/16 04:45 O2 Saturation 94% (92-99) Arterial Blood pH 7.45 (7.35-7.45) Arterial Blood pCO2 at Patient Temp 41mmHg (35-46) Arterial Blood pO2 at Patient Temp 69mmHg (65-108) Arterial Blood HCO3 28mmol/L (21-28) Arterial Blood Base Excess 4mmol/L (-3-3) FiO2 50 Prothrombin Time 15.7SEC (11.7-14.0) 16.3SEC (11.7-14.0) Prothromb Time International Ratio 1.3 (0.8-1.1) 1.4 (0.8-1.1) Heparin Anti-Xa Act, Unfractionated 0.51IU/mL (0.30-0.70) 0.33IU/mL (0.30-0.70) White Blood Count 8.0x10^3/uL (4.0-11.0) Red Blood Count 3.14x10^6/uL (4.30-5.70) Hemoglobin 10.1g/dL (13.0-17.5) Hematocrit 29.6% (39.0-53.0) Mean Corpuscular Volume 94fL (79-100) Mean Corpuscular Hemoglobin 32pg (25-35) Mean Corpuscular Hemoglobin Concent 34g/dL (31-37) Red Cell Distribution Width 14.2% (11.5-14.5) Platelet Count 184x10^3/uL (140-400) Neutrophils (%) (Auto) 72% (31-73) Lymphocytes (%) (Auto) 17% (24-48) Monocytes (%) (Auto) 8% (0-9) Eosinophils (%) (Auto) 2% (0-3) Basophils (%) (Auto) 1% (0-3) Neutrophils # (Auto) 5.8x10^3uL (1.8-7.7) Lymphocytes # (Auto) 1.4x10^3/uL (1.0-4.8) Monocytes # (Auto) 0.7x10^3/uL (0.0-1.1) Eosinophils # (Auto) 0.1x10^3/uL (0.0-0.7) Basophils # (Auto) 0.0x10^3/uL (0.0-0.2) Sodium Level 139mmol/L (136-145) Potassium Level 3.8mmol/L (3.5-5.1) Chloride Level 103mmol/L (98-107) Carbon Dioxide Level 30mmol/L (21-32) Anion Gap 6 (6-14) Blood Urea Nitrogen 13mg/dL (8-26) Creatinine 1.0mg/dL (0.7-1.3) Estimated GFR (Cockcroft-Gault) 70.7 Glucose Level 125mg/dL (70-99) Calcium Level 8.9mg/dL (8.5-10.1) Review of Systems Review of Systems some ab dpain, no emesis, no SOA, no CP Assessment and Plan Assessmemt and Plan Problems Medical Problems: (1) Acute respiratory failure Status: Acute (2) CAD (coronary artery disease) Status: Acute (3) CHF exacerbation Status: Acute (4) Hypoxia Status: Acute (5) Pulmonary edema Status: Acute (6) Volume overload Status: Acute Problems: Comment Review of Relevant I have reviewed the following items liana (where applicable) has been applied. Labs Laboratory Tests Test 12/16/16 04:30 12/16/16 14:43 12/16/16 15:00 12/16/16 22:25 Sodium Level 144mmol/L (136-145) Potassium Level 3.9mmol/L (3.5-5.1) Chloride Level 105mmol/L (98-107) Carbon Dioxide Level 31mmol/L (21-32) Anion Gap 8 (6-14) Blood Urea Nitrogen 14mg/dL (8-26) Creatinine 0.9mg/dL (0.7-1.3) Estimated GFR (Cockcroft-Gault) 79.8 Glucose Level 106mg/dL (70-99) Calcium Level 9.2mg/dL (8.5-10.1) Magnesium Level 2.0mg/dL (1.8-2.4) O2 Saturation 94% (92-99) Arterial Blood pH 7.45 (7.35-7.45) Arterial Blood pCO2 at Patient Temp 41mmHg (35-46) Arterial Blood pO2 at Patient Temp 69mmHg (65-108) Arterial Blood HCO3 28mmol/L (21-28) Arterial Blood Base Excess 4mmol/L (-3-3) FiO2 50 Prothrombin Time 15.7SEC (11.7-14.0) Prothromb Time International Ratio 1.3 (0.8-1.1) Heparin Anti-Xa Act, Unfractionated 0.51IU/mL (0.30-0.70) Test 12/17/16 04:45 White Blood Count 8.0x10^3/uL (4.0-11.0) Red Blood Count 3.14x10^6/uL (4.30-5.70) Hemoglobin 10.1g/dL (13.0-17.5) Hematocrit 29.6% (39.0-53.0) Mean Corpuscular Volume 94fL (79-100) Mean Corpuscular Hemoglobin 32pg (25-35) Mean Corpuscular Hemoglobin Concent 34g/dL (31-37) Red Cell Distribution Width 14.2% (11.5-14.5) Platelet Count 184x10^3/uL (140-400) Neutrophils (%) (Auto) 72% (31-73) Lymphocytes (%) (Auto) 17% (24-48) Monocytes (%) (Auto) 8% (0-9) Eosinophils (%) (Auto) 2% (0-3) Basophils (%) (Auto) 1% (0-3) Neutrophils # (Auto) 5.8x10^3uL (1.8-7.7) Lymphocytes # (Auto) 1.4x10^3/uL (1.0-4.8) Monocytes # (Auto) 0.7x10^3/uL (0.0-1.1) Eosinophils # (Auto) 0.1x10^3/uL (0.0-0.7) Basophils # (Auto) 0.0x10^3/uL (0.0-0.2) Prothrombin Time 16.3SEC (11.7-14.0) Prothromb Time International Ratio 1.4 (0.8-1.1) Heparin Anti-Xa Act, Unfractionated 0.33IU/mL (0.30-0.70) Sodium Level 139mmol/L (136-145) Potassium Level 3.8mmol/L (3.5-5.1) Chloride Level 103mmol/L (98-107) Carbon Dioxide Level 30mmol/L (21-32) Anion Gap 6 (6-14) Blood Urea Nitrogen 13mg/dL (8-26) Creatinine 1.0mg/dL (0.7-1.3) Estimated GFR (Cockcroft-Gault) 70.7 Glucose Level 125mg/dL (70-99) Calcium Level 8.9mg/dL (8.5-10.1) Laboratory Tests Test 12/16/16 14:43 12/16/16 15:00 12/16/16 22:25 12/17/16 04:45 O2 Saturation 94% (92-99) Arterial Blood pH 7.45 (7.35-7.45) Arterial Blood pCO2 at Patient Temp 41mmHg (35-46) Arterial Blood pO2 at Patient Temp 69mmHg (65-108) Arterial Blood HCO3 28mmol/L (21-28) Arterial Blood Base Excess 4mmol/L (-3-3) FiO2 50 Prothrombin Time 15.7SEC (11.7-14.0) 16.3SEC (11.7-14.0) Prothromb Time International Ratio 1.3 (0.8-1.1) 1.4 (0.8-1.1) Heparin Anti-Xa Act, Unfractionated 0.51IU/mL (0.30-0.70) 0.33IU/mL (0.30-0.70) White Blood Count 8.0x10^3/uL (4.0-11.0) Red Blood Count 3.14x10^6/uL (4.30-5.70) Hemoglobin 10.1g/dL (13.0-17.5) Hematocrit 29.6% (39.0-53.0) Mean Corpuscular Volume 94fL (79-100) Mean Corpuscular Hemoglobin 32pg (25-35) Mean Corpuscular Hemoglobin Concent 34g/dL (31-37) Red Cell Distribution Width 14.2% (11.5-14.5) Platelet Count 184x10^3/uL (140-400) Neutrophils (%) (Auto) 72% (31-73) Lymphocytes (%) (Auto) 17% (24-48) Monocytes (%) (Auto) 8% (0-9) Eosinophils (%) (Auto) 2% (0-3) Basophils (%) (Auto) 1% (0-3) Neutrophils # (Auto) 5.8x10^3uL (1.8-7.7) Lymphocytes # (Auto) 1.4x10^3/uL (1.0-4.8) Monocytes # (Auto) 0.7x10^3/uL (0.0-1.1) Eosinophils # (Auto) 0.1x10^3/uL (0.0-0.7) Basophils # (Auto) 0.0x10^3/uL (0.0-0.2) Sodium Level 139mmol/L (136-145) Potassium Level 3.8mmol/L (3.5-5.1) Chloride Level 103mmol/L (98-107) Carbon Dioxide Level 30mmol/L (21-32) Anion Gap 6 (6-14) Blood Urea Nitrogen 13mg/dL (8-26) Creatinine 1.0mg/dL (0.7-1.3) Estimated GFR (Cockcroft-Gault) 70.7 Glucose Level 125mg/dL (70-99) Calcium Level 8.9mg/dL (8.5-10.1) Microbiology 12/10/16 Blood Culture - Final, Complete NO GROWTH AFTER 5 DAYS 12/10/16 Urine Culture - Final, Complete 12/10/16 Urine Culture Result 1 ([facility]) - Final, Complete Medications Current Medications Piperacillin Sod/ Tazobactam Sod 1 each 1 each PRN DAILY PRN MC SEE COMMENTS; Start 12/10/16 at 07:15; Stop 12/14/16 at 11:23; Status DC Diltiazem HCl/ Dextrose (Cardizem) 125 ml @ 0 mls/hr CONT PRN IV SEE I/O RECORD Last administered on 12/13/16 00:58; Start 12/10/16 at 07:15; Stop 12/13 at 12:33; Status DC Furosemide (Lasix) 40 mg 1X ONCE IVP Last administered on 12/10/16 07:52; Start 12/10/16 at 07:15; Stop 12/10/16 at 07:18; Status DC Nitroglycerin (Nitrostat) 0.4 mg 1X ONCE SL ; Start 12/10/16 at 07:15; Stop at 07:18; Status DC Ondansetron HCl (Zofran) 4 mg PRN Q8HRS PRN IV NAUSEA/VOMITING; Start 12/10/16 at 07:30; Stop 12/11/16 at 07:29; Status DC Morphine Sulfate 2 mg 2 mg PRN Q2HR PRN IV PAIN; Start 12/10/16 at 07:30; Stop 12/11/16 at 07:29; Status DC Piperacillin Sod/ Tazobactam Sod/ Sodium Chloride (Zosyn/Iv Sodium Chloride 0.9 % 100ml) 100 ml @ 200 mls/hr 1X ONCE IV Last administered on 12/10/16 09:28 ; Start 12/10/16 at 07:45; Stop 12/10/16 at 08:14; Status DC Lisinopril (Prinivil) 10 mg DAILY PO ; Start 12/11/16 at 09:00; Stop 12/11/16 at 16:31; Status DC Labetalol HCl (Normodyne) 20 mg PRN Q2HR PRN IVP HYPERTENSION, SEE COMMENTS; Start 12/10/16 at 11:30 Aspirin (Ecotrin) 81 mg DAILYWBKFT PO Last administered on 12/17/16 08:29; Start 12/10/16 at 13:00 Furosemide 40 mg 40 mg 1X ONCE IVP Last administered on 12/10/16 14:37; Start 12/10/16 at 12:15; Stop 12/10/16 at 12:23; Status DC Piperacillin Sod/ Tazobactam Sod/ Sodium Chloride (Zosyn/Iv Sodium Chloride 0.9 % 50ml) 50 ml @ 100 mls/hr Q6HRS IV Last administered on 12/17/16 05:26; Start 12/10/16 at 13:30 Allopurinol (Zyloprim) 100 mg DAILY PO ; Start 12/11/16 at 10:00; Stop 12/11/16 at 10:13; Status DC Aspirin (Ecotrin) 81 mg DAILY PO ; Start 12/12/16 at 09:00; Status Cancel Linezolid (Zyvox) 600 mg BID PO Last administered on 12/12/16 21:34; Start at 10:00; Stop 12/13/16 at 08:51; Status DC Spironolactone (Aldactone) 25 mg DAILY PO Last administered on 12/17/16 08:30; Start 12/11/16 at 10:00 Metoprolol Tartrate 100 mg 100 mg BID PO Last administered on 12/13/16 09:28; Start 12/11/16 at 10:00; Stop 12/13/16 at 12:33; Status DC Heparin Sodium/ Dextrose 500 ml @ 19.6 mls/hr CONT PRN IV SEE I/O RECORD Last administered on 12/15/16 05:34; Start 12/11/16 at 14:45; Stop 12/15/16 at 10:20; Status DC Heparin Sodium (Porcine) 2,050 unit PRN Q6HRS PRN IV FOR UFH LEVEL LESS THAN 0.2 Last administered on 12/13/16 20:30; Start 12/11/16 at 14:45; Stop 12/15/16 at 10:20; Status DC Throat Lozenges (Cepacol Sore Throat Lozenge) 1 jorge a PRN Q2HRS PRN PO SORE THROAT Last administered on 12/13/16 09:26; Start 12/11/16 at 19:30 Docusate Sodium (Colace) 100 mg DAILY PO Last administered on 12/17/16 08:30; Start 12/12/16 at 10:00 Polyethylene Glycol (miraLAX PACKET) 17 gm PRN DAILY PRN PO CONSTIPATION; Start 12/12/16 at 10:00 Magnesium Hydroxide (Milk Of Magnesia) 2,400 mg PRN DAILY PRN PO CONSTIPATION; Start 12/12/16 at 10:00 Lidocaine HCl 20 ml 20 ml STK-MED ONCE .ROUTE ; Start 12/12/16 at 14:11; Stop at 14:12; Status DC Heparin Sodium/ Sodium Chloride 500 ml @ As Directed STK-MED ONCE .ROUTE ; Start 12/12/16 at 14:11; Stop 12/12/16 at 14:12; Status DC Iohexol (Omnipaque 300 Mg/ml) 100 ml STK-MED ONCE .ROUTE ; Start 12/12/16 at 14: 11; Stop 12/12/16 at 14:12; Status DC Iodixanol (Visipaque 320) 100 ml STK-MED ONCE .ROUTE ; Start 12/12/16 at 14:11; Stop 12/12/16 at 14:12; Status DC Nitroglycerin (Nitroglycerin) 200 mcg STK-MED ONCE .ROUTE ; Start 12/12/16 at 14 :16; Stop 12/12/16 at 14:17; Status DC Verapamil HCl (Verapamil) 5 mg STK-MED ONCE .ROUTE ; Start 12/12/16 at 14:16; Stop 12/12/16 at 14:17; Status DC Midazolam HCl (Versed) 2 mg STK-MED ONCE .ROUTE ; Start 12/12/16 at 14:16; Stop 12/12/16 at 14:17; Status DC Fentanyl Citrate (Fentanyl 2ml Vial) 100 mcg STK-MED ONCE .ROUTE ; Start at 14:16; Stop 12/12/16 at 14:17; Status DC Heparin Sodium (Porcine) 10,000 unit STK-MED ONCE .ROUTE ; Start 12/12/16 at 14: 16; Stop 12/12/16 at 14:17; Status DC Nitroglycerin (Nitroglycerin) 200 mcg 1X ONCE IART Last administered on 15:04; Start 12/12/16 at 14:45; Stop 12/12/16 at 14:46; Status DC Verapamil HCl (Verapamil) 2.5 mg 1X ONCE IART Last administered on 12/12/16 15:05; Start 12/12/16 at 14:45; Stop 12/12/16 at 14:46; Status DC Heparin Sodium (Porcine) 2,500 unit 1X ONCE IART Last administered on 15:06; Start 12/12/16 at 14:45; Stop 12/12/16 at 14:46; Status DC Heparin Sodium/ Sodium Chloride 1,000 unit 1X ONCE IART Last administered on 15:03; Start 12/12/16 at 14:45; Stop 12/12/16 at 14:46; Status DC Midazolam HCl (Versed) 2 mg 1X ONCE IV Last administered on 12/12/16 15:04; Start 12/12/16 at 14:45; Stop 12/12/16 at 14:46; Status DC Fentanyl Citrate (Fentanyl 2ml Vial) 100 mcg 1X ONCE IV Last administered on 15:04; Start 12/12/16 at 14:45; Stop 12/12/16 at 14:46; Status DC Iodixanol (Visipaque 320) 100 ml 1X ONCE IART Last administered on 12/12/16 15:05; Start 12/12/16 at 14:45; Stop 12/12/16 at 14:46; Status DC Lidocaine HCl 1 ml 1X ONCE IJ Last administered on 12/12/16 15:03; Start at 14:45; Stop 12/12/16 at 14:46; Status DC Nitroglycerin (Nitrostat) 0.4 mg PRN Q5MIN PRN SL CHEST PAIN; Start 12/12/16 at 15:30 Furosemide (Lasix) 40 mg 1X ONCE IVP Last administered on 12/12/16 16:18; Start 12/12/16 at 15:30; Stop 12/12/16 at 15:31; Status DC Metoprolol Tartrate (Lopressor) 50 mg BID PO Last administered on 12/17/16 08: 30; Start 12/13/16 at 21:00 Furosemide (Lasix) 40 mg 1X ONCE IVP Last administered on 12/13/16 15:06; Start 12/13/16 at 12:15; Stop 12/13/16 at 12:37; Status DC Furosemide (Lasix) 40 mg DAILY PO Last administered on 12/17/16 08:29; Start at 09:00 Diltiazem HCl (Cardizem 24hr Cd) 120 mg DAILY PO Last administered on 12/14/16 09:00; Start 12/14/16 at 09:00; Stop 12/14/16 at 12:13; Status DC Lisinopril (Prinivil) 2.5 mg DAILY PO ; Start 12/14/16 at 09:00; Stop 12/14/16 at 09:00; Status DC Atorvastatin Calcium (Lipitor) 10 mg QHS PO Last administered on 12/16/16 22:01 ; Start 12/13/16 at 21:00 Info (Anti-Coagulation Monitoring By Pharmacy) 1 each PRN DAILY PRN MC SEE COMMENTS Last administered on 12/15/16 07:26; Start 12/13/16 at 16:30 Diltiazem HCl (Cardizem 24hr Cd) 240 mg DAILY PO Last administered on 12/17/16 08:29; Start 12/15/16 at 09:00 Diltiazem HCl (Cardizem 24hr Cd) 120 mg 1X ONCE PO Last administered on 12:49; Start 12/14/16 at 12:15; Stop 12/14/16 at 12:20; Status DC Clopidogrel Bisulfate (Plavix) 75 mg DAILYWBKFT PO Last administered on 08:30; Start 12/14/16 at 13:00 Isosorbide Mononitrate (Imdur) 30 mg DAILY PO Last administered on 12/17/16 08: 29; Start 12/15/16 at 11:30 Iohexol (Omnipaque 240 Mg/ml) 30 ml 1X ONCE PO ; Start 12/15/16 at 11:45; Stop 12/15/16 at 11:46; Status DC Iohexol (Omnipaque 300 Mg/ml) 75 ml 1X ONCE IV ; Start 12/15/16 at 11:45; Stop 12/15/16 at 11:46; Status DC Info (Do NOT chart on this entry -- for MONITORING) 1 each PRN DAILY PRN MC SEE COMMENTS; Start 12/15/16 at 11:45; Stop 12/16/16 at 14:09; Status DC Enoxaparin Sodium (Lovenox 40mg Syringe) 40 mg Q24H SQ Last administered on 12/15 17:59; Start 12/15/16 at 18:00; Stop 12/16/16 at 09:35; Status DC Enoxaparin Sodium (Lovenox 80mg Syringe) 80 mg BID SQ Last administered on 14:15; Start 12/16/16 at 10:00; Stop 12/16/16 at 16:23; Status DC Iohexol (Omnipaque 300 Mg/ml) 50 ml STK-MED ONCE .ROUTE ; Start 12/16/16 at 10:32 ; Stop 12/16/16 at 10:33; Status DC Iohexol (Omnipaque 300 Mg/ml) 10 ml 1X ONCE IJ Last administered on 12/16/16 11:40; Start 12/16/16 at 11:45; Stop 12/16/16 at 11:46; Status DC Info (Do NOT chart on this entry -- for MONITORING) 1 each PRN DAILY PRN MC SEE COMMENTS; Start 12/16/16 at 11:45; Stop 12/18/16 at 11:44 Calcium Carbonate/ Glycine (Tums) 500 mg PRN AFTMEALHC PRN PO INDIGESTION Last administered on 12/16/16 14:14; Start 12/16/16 at 14:15 Pantoprazole Sodium (Protonix) 40 mg DAILYAC PO Last administered on 12/17/16 08:29; Start 12/16/16 at 14:30 Morphine Sulfate 1 mg PRN Q2HR PRN IV PAIN Last administered on 12/17/16 01:36 ; Start 12/16/16 at 14:15 Iohexol (Omnipaque 300 Mg/ml) 75 ml 1X ONCE IV ; Start 12/16/16 at 16:00; Stop 12/16/16 at 16:01; Status DC Info 1 each 1 each PRN DAILY PRN MC SEE COMMENTS; Start 12/16/16 at 15:30; Stop 12/18/16 at 15:29 Heparin Sodium/ Dextrose 500 ml @ 0 mls/hr CONT PRN IV SEE I/O RECORD Last administered on 12/16/16 16:29; Start 12/16/16 at 16:15 Heparin Sodium (Porcine) 2,500 unit PRN Q6HRS PRN IV FOR UFH LEVEL LESS THAN 0.2 Last administered on 12/16/16 16:28; Start 12/16/16 at 16:15 Heparin Sodium (Porcine) 1,250 unit PRN Q6HRS PRN IV FOR UFH LEVEL 0.2 - 0.29; Start 12/16/16 at 16:15 Warfarin Sodium (Coumadin Per Pharmacy) 1 each PRN DAILY PRN MC PER PROTOCOL Last administered on 12/17/16 09:15; Start 12/16/16 at 16:15 Morphine Sulfate 2 mg PRN Q2HR PRN IV PAIN Last administered on 12/17/16 06:01 ; Start 12/16/16 at 16:15 Warfarin Sodium (Coumadin) 6 mg 1X WARF ONCE PO Last administered on 12/16/16 18:20; Start 12/16/16 at 17:00; Stop 12/16/16 at 17:01; Status DC Warfarin Sodium (Coumadin) 5 mg 1X WARF ONCE PO ; Start 12/17/16 at 16:00; Stop 12/17/16 at 16:01 Active Scripts Active Reported Milk Of Magnesia (Magnesium Hydroxide) 2,400 Mg/10 Ml Oral.susp 2,400 Mg PO Metoprolol Tartrate 100 Mg Tablet 1 Tab PO BID Allopurinol 100 Mg Tablet 1 Tab PO DAILY Aspir 81 (Aspirin) 81 Mg Tablet.dr 1 Tab PO DAILY Spironolactone 25 Mg Tablet 1 Tab PO DAILY Cardizem Tablet (Diltiazem Hcl) 30 Mg Tablet 30 Mg PO DAILY Zyvox (Linezolid) 600 Mg Tablet 600 Mg PO BID Augmentin 875-125 Tablet (Amoxicillin/Potassium Clav) 1 Each Tablet Tab PO BID Vitals/I & O Vital Sign - Last 24 Hours 12/16/16 12/16/16 12/16/16 12/16/16 10:05 13:01 13:02 13:02 Pulse 90 90 90 90 B/P 140/70 140/70 140/70 140/70 12/16/16 12/16/16 12/16/16 12/16/16 14:16 14:57 15:08 16:36 Temp 98.4 98.4 Pulse 93 Resp 18 33 32 B/P 180/116 Pulse Ox 90 90 86 98 O2 Delivery Nasal Cannula Nasal Cannula Simple Mask Nasal Cannula O2 Flow Rate 4.0 6.0 7.0 15.0 12/16/16 12/16/16 12/16/16 12/16/16 19:20 19:40 22:02 22:02 Temp 98.0 98.0 Pulse 98 98 Resp 22 20 B/P 120/51 120/51 Pulse Ox 96 95 O2 Delivery Nasal Cannula Nasal Cannula Nasal Cannula O2 Flow Rate 6.0 6.0 6.0 12/16/16 12/17/16 12/17/16 12/17/16 23:00 01:36 02:06 03:00 Temp 98.8 97.7 98.8 97.7 Pulse 94 80 Resp 20 20 20 20 B/P 134/60 122/64 Pulse Ox 95 95 95 91 O2 Delivery Nasal Cannula Nasal Cannula Nasal Cannula Nasal Cannula O2 Flow Rate 6.0 6.0 6.0 6.0 12/17/16 12/17/16 12/17/16 12/17/16 06:01 06:31 07:30 08:15 Temp 97.0 97.0 Pulse 73 Resp 20 22 20 B/P 116/54 Pulse Ox 90 94 96 O2 Delivery Nasal Cannula Nasal Cannula Nasal Cannula Nasal Cannula O2 Flow Rate 6.0 6.0 5.0 5.0 12/17/16 12/17/16 12/17/16 08:29 08:29 08:30 Pulse 84 82 84 B/P 116/54 116/54 Intake and Output 12/16/16 12/16/16 12/17/16 15:00 23:00 07:00 Intake Total 300 ml 600 ml Output Total 160 ml 625 ml 255 ml Balance -160 ml -325 ml 345 ml CARLYLE CARMEN MD Dec 17, 2016 10:04
[2016-12-17] MEDS: HEPARIN 25,000UTS/500ML PREMIX 500 ML IV PRN (10:30)
[2016-12-17 11:15] VITALS: BP 121/50
--- NOTE | 2016-12-17 11:21 | RAD ---
Examination: Bilateral lower extremity venous duplex History: History of multiple pulmonary emboli Comparison: None available Technique: Grayscale, color Doppler 2-D, spectral waveform analysis was performed of both lower extremities with and without compression. Findings: There is normal compressibility of all visualized vein segments. No evidence of DVT is present on grayscale or color images. There is normal phasicity of waveform. There is normal augmentation . Impression: No evidence of deep vein thrombosis in either lower extremity.
--- NOTE | 2016-12-17 12:52 | PDOC ---
Provider Note Provider Note he appears well. sitting in chair eating lunch, smiling. denies abd pain, sob afeb vss abd soft nd nt minimal output from drains. a/p PE--on anticoagulation liver abscess/cholecystitis. s/p perc drain and abx. poss cecal mass. no new surg recs. cont supportive care. TRINI KELLEY MD Dec 17, 2016 12:52
[2016-12-17 15:26] VITALS: BP 122/58
[2016-12-17] MEDS ORDERED: WARFARIN 5 MG TABLET. PO ONE (16:00)
--- NOTE | 2016-12-17 17:29 | PDOC ---
PULMONARY PROGRESS NOTES Subjective PT NOT MORE SOA TODAY Vitals Vital Signs Date Time Temp Pulse Resp B/P Pulse Ox O2 Delivery O2 Flow Rate FiO2 12/17/16 16:30 96 Nasal Cannula 5.0 12/17/16 15:26 98.4 80 122/58 98.4 12/17/16 15:25 20 General: Alert Lungs: Clear, Crackles Cardiovascular: S1 Abdomen: Soft Neuro Exam: Alert Extremities: No Edema Skin: Warm Labs Laboratory Tests Test 12/16/16 04:30 12/16/16 14:43 12/16/16 15:00 12/16/16 22:25 Sodium Level 144mmol/L (136-145) Potassium Level 3.9mmol/L (3.5-5.1) Chloride Level 105mmol/L (98-107) Carbon Dioxide Level 31mmol/L (21-32) Anion Gap 8 (6-14) Blood Urea Nitrogen 14mg/dL (8-26) Creatinine 0.9mg/dL (0.7-1.3) Estimated GFR (Cockcroft-Gault) 79.8 Glucose Level 106mg/dL (70-99) Calcium Level 9.2mg/dL (8.5-10.1) Magnesium Level 2.0mg/dL (1.8-2.4) O2 Saturation 94% (92-99) Arterial Blood pH 7.45 (7.35-7.45) Arterial Blood pCO2 at Patient Temp 41mmHg (35-46) Arterial Blood pO2 at Patient Temp 69mmHg (65-108) Arterial Blood HCO3 28mmol/L (21-28) Arterial Blood Base Excess 4mmol/L (-3-3) FiO2 50 Prothrombin Time 15.7SEC (11.7-14.0) Prothromb Time International Ratio 1.3 (0.8-1.1) Heparin Anti-Xa Act, Unfractionated 0.51IU/mL (0.30-0.70) Test 12/17/16 04:45 White Blood Count 8.0x10^3/uL (4.0-11.0) Red Blood Count 3.14x10^6/uL (4.30-5.70) Hemoglobin 10.1g/dL (13.0-17.5) Hematocrit 29.6% (39.0-53.0) Mean Corpuscular Volume 94fL (79-100) Mean Corpuscular Hemoglobin 32pg (25-35) Mean Corpuscular Hemoglobin Concent 34g/dL (31-37) Red Cell Distribution Width 14.2% (11.5-14.5) Platelet Count 184x10^3/uL (140-400) Neutrophils (%) (Auto) 72% (31-73) Lymphocytes (%) (Auto) 17% (24-48) Monocytes (%) (Auto) 8% (0-9) Eosinophils (%) (Auto) 2% (0-3) Basophils (%) (Auto) 1% (0-3) Neutrophils # (Auto) 5.8x10^3uL (1.8-7.7) Lymphocytes # (Auto) 1.4x10^3/uL (1.0-4.8) Monocytes # (Auto) 0.7x10^3/uL (0.0-1.1) Eosinophils # (Auto) 0.1x10^3/uL (0.0-0.7) Basophils # (Auto) 0.0x10^3/uL (0.0-0.2) Prothrombin Time 16.3SEC (11.7-14.0) Prothromb Time International Ratio 1.4 (0.8-1.1) Heparin Anti-Xa Act, Unfractionated 0.33IU/mL (0.30-0.70) Sodium Level 139mmol/L (136-145) Potassium Level 3.8mmol/L (3.5-5.1) Chloride Level 103mmol/L (98-107) Carbon Dioxide Level 30mmol/L (21-32) Anion Gap 6 (6-14) Blood Urea Nitrogen 13mg/dL (8-26) Creatinine 1.0mg/dL (0.7-1.3) Estimated GFR (Cockcroft-Gault) 70.7 Glucose Level 125mg/dL (70-99) Calcium Level 8.9mg/dL (8.5-10.1) Laboratory Tests Test 12/16/16 22:25 12/17/16 04:45 Heparin Anti-Xa Act, Unfractionated 0.51IU/mL (0.30-0.70) 0.33IU/mL (0.30-0.70) White Blood Count 8.0x10^3/uL (4.0-11.0) Red Blood Count 3.14x10^6/uL (4.30-5.70) Hemoglobin 10.1g/dL (13.0-17.5) Hematocrit 29.6% (39.0-53.0) Mean Corpuscular Volume 94fL (79-100) Mean Corpuscular Hemoglobin 32pg (25-35) Mean Corpuscular Hemoglobin Concent 34g/dL (31-37) Red Cell Distribution Width 14.2% (11.5-14.5) Platelet Count 184x10^3/uL (140-400) Neutrophils (%) (Auto) 72% (31-73) Lymphocytes (%) (Auto) 17% (24-48) Monocytes (%) (Auto) 8% (0-9) Eosinophils (%) (Auto) 2% (0-3) Basophils (%) (Auto) 1% (0-3) Neutrophils # (Auto) 5.8x10^3uL (1.8-7.7) Lymphocytes # (Auto) 1.4x10^3/uL (1.0-4.8) Monocytes # (Auto) 0.7x10^3/uL (0.0-1.1) Eosinophils # (Auto) 0.1x10^3/uL (0.0-0.7) Basophils # (Auto) 0.0x10^3/uL (0.0-0.2) Prothrombin Time 16.3SEC (11.7-14.0) Prothromb Time International Ratio 1.4 (0.8-1.1) Sodium Level 139mmol/L (136-145) Potassium Level 3.8mmol/L (3.5-5.1) Chloride Level 103mmol/L (98-107) Carbon Dioxide Level 30mmol/L (21-32) Anion Gap 6 (6-14) Blood Urea Nitrogen 13mg/dL (8-26) Creatinine 1.0mg/dL (0.7-1.3) Estimated GFR (Cockcroft-Gault) 70.7 Glucose Level 125mg/dL (70-99) Calcium Level 8.9mg/dL (8.5-10.1) Medications Active Scripts Medications Dose Route/Sig Days Date Category Milk Of Magnesia (Magnesium Hydroxide) 2,400 Mg/10 Ml Oral.susp 2,400 Mg PO 12/10/16 Reported Metoprolol Tartrate 100 Mg Tablet 1 Tab PO BID 12/10/16 Reported Allopurinol 100 Mg Tablet 1 Tab PO DAILY 12/10/16 Reported Aspir 81 (Aspirin) 81 Mg Tablet.dr 1 Tab PO DAILY 12/10/16 Reported Spironolactone 25 Mg Tablet 1 Tab PO DAILY 12/10/16 Reported Cardizem Tablet (Diltiazem Hcl) 30 Mg Tablet 30 Mg PO DAILY 12/10/16 Reported Zyvox (Linezolid) 600 Mg Tablet 600 Mg PO BID 12/10/16 Reported Augmentin 875-125 Tablet (Amoxicillin/Potassium Clav) 1 Each Tablet Tab PO BID 12/10/16 Reported Impression . 1. Acute hypoxic respiratory failure secondary to development of acute congestive heart failure, suspect diastolic heart failure triggered by atrial fibrillation with rapid ventricular response. 2. Atrial fibrillation with rapid ventricular response, triggering congestive heart failure. 3. Recent dilated gallbladder with liver abscess, status post percutaneous cholecystostomy placement. Followup CT chest showed persistent abscess in the liver and status post second drain. Replaced drains 12/16/16 4. No significant history of tobacco use. 5. PE CONFIRMED WITH CTA Plan . ON HEPARIN AND COUMADIN ABG noted s/p new drains 12/16 spoke with son antibx per ID follow surgery input YARIEL SMITH MD Dec 17, 2016 17:28
[2016-12-17 19:00] VITALS: BP 136/77
[2016-12-17] MEDS: ATORVASTATIN CALCIUM 10 MG TABLET. PO SCH (21:41)
[2016-12-17 23:00] VITALS: BP 130/76
[2016-12-18 03:00] VITALS: BP 190/77
[2016-12-18] MEDS: PIPERACILLIN/TAZOBACTAM 3.375 GM in IV NORMAL SALINE 50ML 50 ML IV SCH ×4 (05:07→23:52)
[2016-12-18] MEDS: HEPARIN 25,000UTS/500ML PREMIX 500 ML IV PRN ×2 (05:14→21:48)
[2016-12-18 06:08] LABS: HEMATOCRIT 30.1 % (39.0-53.0); HEMOGLOBIN 10.2 g/dL (13.0-17.5); RED BLOOD COUNT 3.28 x10^6/uL (4.30-5.70); RED CELL DISTRIBUTION WIDTH 14.1 % (11.5-14.5); WHITE BLOOD COUNT 7.2 x10^3/uL (4.0-11.0)
[2016-12-18 06:14] LABS: INR 1.5 (0.8-1.1); PROTHROMBIN TIME PATIENT 17.2 SEC (11.7-14.0)
[2016-12-18 07:00] VITALS: BP 150/86
[2016-12-18] MEDS: PANTOPRAZOLE 40 MG TABLET. PO SCH (09:20)
[2016-12-18] MEDS: SPIRONOLACTONE 25 MG TABLET PO SCH (09:20)
[2016-12-18] MEDS: METOPROLOL TART IMMED RELEASE 50 MG TABLET PO SCH ×2 (09:21→20:21)
[2016-12-18] MEDS: DOCUSATE SODIUM 100 MG CAPSULE PO SCH (09:21)
[2016-12-18] MEDS: ISOSORBIDE MONONITRATE ER 30 MG TAB.ER.24H PO SCH (09:21)
[2016-12-18] MEDS: ASPIRIN ENTERIC COATED 81 MG TABLET.DR. PO SCH (09:21)
[2016-12-18] MEDS: FUROSEMIDE 40 MG TABLET PO SCH (09:21)
[2016-12-18] MEDS: CLOPIDOGREL BISULFATE 75 MG TABLET PO SCH (09:21)
[2016-12-18] MEDS: DILTIAZEM HCL 240 MG CAP.ER.24H PO SCH (09:22)
[2016-12-18 11:30] VITALS: BP 153/73
[2016-12-18] MEDS: HEPARIN for IV BOLUS 10,000 UNIT/10 ML VIAL. IV PRN ×2 (11:46→18:19)
--- NOTE | 2016-12-18 12:16 | PDOC ---
PROGRESS NOTES Chief Complaint Chief Complaint SOB Edema ASSESSMENT AND PLAN: 1. 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 Afib s/p RVR (new) 2. CHF: 3. Troponin leak: 4. CAD hx: 5. GB abscess: drain in place, on Abx. done by [facility] 6. Gout: no acute issues. cont allopurinol 7,.A cute hypoxic respi failure needing venti mask , resolved 8. PE, possible 9. Possible liver abscess 10, Possible appy History of Present Illness History of Present Illness No CP (despite multivessel CAD on cath, non surgical candidtae) No SOA -(despite PE on CTA)- heparin gtt restarted Up in chair, worked with PT today NO tests for today Will go back to [facility] upon dc Pt eager to be dcd PLAn: Follow GS and cards rec and pulmo Either staged cath or back to [facility] Will ff up [facility] for his abd drains Will need Blood thinners upon dc (CAD and PE) dw pt and RN Vitals Vitals Vital Signs Date Time Temp Pulse Resp B/P Pulse Ox O2 Delivery O2 Flow Rate FiO2 12/18/16 09:22 110 150/86 12/18/16 07:00 98.1 22 Nasal Cannula 6.0 98.1 12/18/16 03:00 90 Physical Exam General: Alert, Oriented X3, Cooperative, No acute distress Heart: Normal S1, Normal S2, No murmurs, Other (irregular) Lungs: Clear, Crackles Abdomen: Soft, No tenderness, Other (drains in place) Extremities: No edema Skin: No significant lesion Labs LABS Laboratory Tests Test 12/18/16 05:40 12/18/16 06:33 White Blood Count 7.2x10^3/uL (4.0-11.0) Red Blood Count 3.28x10^6/uL (4.30-5.70) Hemoglobin 10.2g/dL (13.0-17.5) Hematocrit 30.1% (39.0-53.0) Mean Corpuscular Volume 92fL (79-100) Mean Corpuscular Hemoglobin 31pg (25-35) Mean Corpuscular Hemoglobin Concent 34g/dL (31-37) Red Cell Distribution Width 14.1% (11.5-14.5) Platelet Count 194x10^3/uL (140-400) Prothrombin Time 17.2SEC (11.7-14.0) Prothromb Time International Ratio 1.5 (0.8-1.1) Heparin Anti-Xa Act, Unfractionated < 0.10IU/mL (0.30-0.70) 0.12IU/mL (0.30-0.70) Review of Systems Review of Systems no SOA, no CP, no abd pain or efvers Assessment and Plan Assessmemt and Plan Problems Medical Problems: (1) Acute respiratory failure Status: Acute (2) CAD (coronary artery disease) Status: Acute (3) CHF exacerbation Status: Acute (4) Hypoxia Status: Acute (5) Pulmonary edema Status: Acute (6) Volume overload Status: Acute Problems: Comment Review of Relevant I have reviewed the following items liana (where applicable) has been applied. Labs Laboratory Tests Test 12/16/16 14:43 12/16/16 15:00 12/16/16 22:25 12/17/16 04:45 O2 Saturation 94% (92-99) Arterial Blood pH 7.45 (7.35-7.45) Arterial Blood pCO2 at Patient Temp 41mmHg (35-46) Arterial Blood pO2 at Patient Temp 69mmHg (65-108) Arterial Blood HCO3 28mmol/L (21-28) Arterial Blood Base Excess 4mmol/L (-3-3) FiO2 50 Prothrombin Time 15.7SEC (11.7-14.0) 16.3SEC (11.7-14.0) Prothromb Time International Ratio 1.3 (0.8-1.1) 1.4 (0.8-1.1) Heparin Anti-Xa Act, Unfractionated 0.51IU/mL (0.30-0.70) 0.33IU/mL (0.30-0.70) White Blood Count 8.0x10^3/uL (4.0-11.0) Red Blood Count 3.14x10^6/uL (4.30-5.70) Hemoglobin 10.1g/dL (13.0-17.5) Hematocrit 29.6% (39.0-53.0) Mean Corpuscular Volume 94fL (79-100) Mean Corpuscular Hemoglobin 32pg (25-35) Mean Corpuscular Hemoglobin Concent 34g/dL (31-37) Red Cell Distribution Width 14.2% (11.5-14.5) Platelet Count 184x10^3/uL (140-400) Neutrophils (%) (Auto) 72% (31-73) Lymphocytes (%) (Auto) 17% (24-48) Monocytes (%) (Auto) 8% (0-9) Eosinophils (%) (Auto) 2% (0-3) Basophils (%) (Auto) 1% (0-3) Neutrophils # (Auto) 5.8x10^3uL (1.8-7.7) Lymphocytes # (Auto) 1.4x10^3/uL (1.0-4.8) Monocytes # (Auto) 0.7x10^3/uL (0.0-1.1) Eosinophils # (Auto) 0.1x10^3/uL (0.0-0.7) Basophils # (Auto) 0.0x10^3/uL (0.0-0.2) Sodium Level 139mmol/L (136-145) Potassium Level 3.8mmol/L (3.5-5.1) Chloride Level 103mmol/L (98-107) Carbon Dioxide Level 30mmol/L (21-32) Anion Gap 6 (6-14) Blood Urea Nitrogen 13mg/dL (8-26) Creatinine 1.0mg/dL (0.7-1.3) Estimated GFR (Cockcroft-Gault) 70.7 Glucose Level 125mg/dL (70-99) Calcium Level 8.9mg/dL (8.5-10.1) Test 12/18/16 05:40 12/18/16 06:33 White Blood Count 7.2x10^3/uL (4.0-11.0) Red Blood Count 3.28x10^6/uL (4.30-5.70) Hemoglobin 10.2g/dL (13.0-17.5) Hematocrit 30.1% (39.0-53.0) Mean Corpuscular Volume 92fL (79-100) Mean Corpuscular Hemoglobin 31pg (25-35) Mean Corpuscular Hemoglobin Concent 34g/dL (31-37) Red Cell Distribution Width 14.1% (11.5-14.5) Platelet Count 194x10^3/uL (140-400) Prothrombin Time 17.2SEC (11.7-14.0) Prothromb Time International Ratio 1.5 (0.8-1.1) Heparin Anti-Xa Act, Unfractionated < 0.10IU/mL (0.30-0.70) 0.12IU/mL (0.30-0.70) Laboratory Tests Test 12/18/16 05:40 12/18/16 06:33 White Blood Count 7.2x10^3/uL (4.0-11.0) Red Blood Count 3.28x10^6/uL (4.30-5.70) Hemoglobin 10.2g/dL (13.0-17.5) Hematocrit 30.1% (39.0-53.0) Mean Corpuscular Volume 92fL (79-100) Mean Corpuscular Hemoglobin 31pg (25-35) Mean Corpuscular Hemoglobin Concent 34g/dL (31-37) Red Cell Distribution Width 14.1% (11.5-14.5) Platelet Count 194x10^3/uL (140-400) Prothrombin Time 17.2SEC (11.7-14.0) Prothromb Time International Ratio 1.5 (0.8-1.1) Heparin Anti-Xa Act, Unfractionated < 0.10IU/mL (0.30-0.70) 0.12IU/mL (0.30-0.70) Microbiology 12/10/16 Blood Culture - Final, Complete NO GROWTH AFTER 5 DAYS 12/10/16 Urine Culture - Final, Complete 12/10/16 Urine Culture Result 1 ([facility]L[place]) - Final, Complete Medications Current Medications Piperacillin Sod/ Tazobactam Sod 1 each 1 each PRN DAILY PRN MC SEE COMMENTS; Start 12/10/16 at 07:15; Stop 12/14/16 at 11:23; Status DC Diltiazem HCl/ Dextrose (Cardizem) 125 ml @ 0 mls/hr CONT PRN IV SEE I/O RECORD Last administered on 12/13/16t 00:58; Start 12/10/16 at 07:15; Stop 12/13 at 12:33; Status DC Furosemide (Lasix) 40 mg 1X ONCE IVP Last administered on 12/10/16 07:52; Start 12/10/16 at 07:15; Stop 12/10/16 at 07:18; Status DC Nitroglycerin (Nitrostat) 0.4 mg 1X ONCE SL ; Start 12/10/16 at 07:15; Stop at 07:18; Status DC Ondansetron HCl (Zofran) 4 mg PRN Q8HRS PRN IV NAUSEA/VOMITING; Start 12/10/16 at 07:30; Stop 12/11/16 at 07:29; Status DC Morphine Sulfate 2 mg 2 mg PRN Q2HR PRN IV PAIN; Start 12/10/16 at 07:30; Stop 12/11/16 at 07:29; Status DC Piperacillin Sod/ Tazobactam Sod/ Sodium Chloride (Zosyn/Iv Sodium Chloride 0.9 % 100ml) 100 ml @ 200 mls/hr 1X ONCE IV Last administered on 12/10/16 09:28 ; Start 12/10/16 at 07:45; Stop 12/10/16 at 08:14; Status DC Lisinopril (Prinivil) 10 mg DAILY PO ; Start 12/11/16 at 09:00; Stop 12/11/16 at 16:31; Status DC Labetalol HCl (Normodyne) 20 mg PRN Q2HR PRN IVP HYPERTENSION, SEE COMMENTS; Start 12/10/16 at 11:30 Aspirin (Ecotrin) 81 mg DAILYWBKFT PO Last administered on 12/18/16 09:21; Start 12/10/16 at 13:00 Furosemide 40 mg 40 mg 1X ONCE IVP Last administered on 12/10/16 14:37; Start 12/10/16 at 12:15; Stop 12/10/16 at 12:23; Status DC Piperacillin Sod/ Tazobactam Sod/ Sodium Chloride (Zosyn/Iv Sodium Chloride 0.9 % 50ml) 50 ml @ 100 mls/hr Q6HRS IV Last administered on 12/18/16 05:07; Start 12/10/16 at 13:30 Allopurinol (Zyloprim) 100 mg DAILY PO ; Start 12/11/16 at 10:00; Stop 12/11/16 at 10:13; Status DC Aspirin (Ecotrin) 81 mg DAILY PO ; Start 12/12/16 at 09:00; Status Cancel Linezolid (Zyvox) 600 mg BID PO Last administered on 12/12/16 21:34; Start at 10:00; Stop 12/13/16 at 08:51; Status DC Spironolactone (Aldactone) 25 mg DAILY PO Last administered on 12/18/16 09:20; Start 12/11/16 at 10:00 Metoprolol Tartrate 100 mg 100 mg BID PO Last administered on 12/13/16 09:28; Start 12/11/16 at 10:00; Stop 12/13/16 at 12:33; Status DC Heparin Sodium/ Dextrose 500 ml @ 19.6 mls/hr CONT PRN IV SEE I/O RECORD Last administered on 12/15/16 05:34; Start 12/11/16 at 14:45; Stop 12/15/16 at 10:20; Status DC Heparin Sodium (Porcine) 2,050 unit PRN Q6HRS PRN IV FOR UFH LEVEL LESS THAN 0.2 Last administered on 12/13/16 20:30; Start 12/11/16 at 14:45; Stop 12/15/16 at 10:20; Status DC Throat Lozenges (Cepacol Sore Throat Lozenge) 1 jorge a PRN Q2HRS PRN PO SORE THROAT Last administered on 12/13/16 09:26; Start 12/11/16 at 19:30 Docusate Sodium (Colace) 100 mg DAILY PO Last administered on 12/18/16 09:21; Start 12/12/16 at 10:00 Polyethylene Glycol (miraLAX PACKET) 17 gm PRN DAILY PRN PO CONSTIPATION; Start 12/12/16 at 10:00 Magnesium Hydroxide (Milk Of Magnesia) 2,400 mg PRN DAILY PRN PO CONSTIPATION; Start 12/12/16 at 10:00 Lidocaine HCl 20 ml 20 ml STK-MED ONCE .ROUTE ; Start 12/12/16 at 14:11; Stop at 14:12; Status DC Heparin Sodium/ Sodium Chloride 500 ml @ As Directed STK-MED ONCE .ROUTE ; Start 12/12/16 at 14:11; Stop 12/12/16 at 14:12; Status DC Iohexol (Omnipaque 300 Mg/ml) 100 ml STK-MED ONCE .ROUTE ; Start 12/12/16 at 14: 11; Stop 12/12/16 at 14:12; Status DC Iodixanol (Visipaque 320) 100 ml STK-MED ONCE .ROUTE ; Start 12/12/16 at 14:11; Stop 12/12/16 at 14:12; Status DC Nitroglycerin (Nitroglycerin) 200 mcg STK-MED ONCE .ROUTE ; Start 12/12/16 at 14 :16; Stop 12/12/16 at 14:17; Status DC Verapamil HCl (Verapamil) 5 mg STK-MED ONCE .ROUTE ; Start 12/12/16 at 14:16; Stop 12/12/16 at 14:17; Status DC Midazolam HCl (Versed) 2 mg STK-MED ONCE .ROUTE ; Start 12/12/16 at 14:16; Stop 12/12/16 at 14:17; Status DC Fentanyl Citrate (Fentanyl 2ml Vial) 100 mcg STK-MED ONCE .ROUTE ; Start at 14:16; Stop 12/12/16 at 14:17; Status DC Heparin Sodium (Porcine) 10,000 unit STK-MED ONCE .ROUTE ; Start 12/12/16 at 14: 16; Stop 12/12/16 at 14:17; Status DC Nitroglycerin (Nitroglycerin) 200 mcg 1X ONCE IART Last administered on 15:04; Start 12/12/16 at 14:45; Stop 12/12/16 at 14:46; Status DC Verapamil HCl (Verapamil) 2.5 mg 1X ONCE IART Last administered on 12/12/16 15:05; Start 12/12/16 at 14:45; Stop 12/12/16 at 14:46; Status DC Heparin Sodium (Porcine) 2,500 unit 1X ONCE IART Last administered on 15:06; Start 12/12/16 at 14:45; Stop 12/12/16 at 14:46; Status DC Heparin Sodium/ Sodium Chloride 1,000 unit 1X ONCE IART Last administered on 15:03; Start 12/12/16 at 14:45; Stop 12/12/16 at 14:46; Status DC Midazolam HCl (Versed) 2 mg 1X ONCE IV Last administered on 12/12/16 15:04; Start 12/12/16 at 14:45; Stop 12/12/16 at 14:46; Status DC Fentanyl Citrate (Fentanyl 2ml Vial) 100 mcg 1X ONCE IV Last administered on 15:04; Start 12/12/16 at 14:45; Stop 12/12/16 at 14:46; Status DC Iodixanol (Visipaque 320) 100 ml 1X ONCE IART Last administered on 12/12/16 15:05; Start 12/12/16 at 14:45; Stop 12/12/16 at 14:46; Status DC Lidocaine HCl 1 ml 1X ONCE IJ Last administered on 12/12/16 15:03; Start at 14:45; Stop 12/12/16 at 14:46; Status DC Nitroglycerin (Nitrostat) 0.4 mg PRN Q5MIN PRN SL CHEST PAIN; Start 12/12/16 at 15:30 Furosemide (Lasix) 40 mg 1X ONCE IVP Last administered on 12/12/16 16:18; Start 12/12/16 at 15:30; Stop 12/12/16 at 15:31; Status DC Metoprolol Tartrate (Lopressor) 50 mg BID PO Last administered on 12/18/16 09: 21; Start 12/13/16 at 21:00 Furosemide (Lasix) 40 mg 1X ONCE IVP Last administered on 12/13/16 15:06; Start 12/13/16 at 12:15; Stop 12/13/16 at 12:37; Status DC Furosemide (Lasix) 40 mg DAILY PO Last administered on 12/18/16 09:21; Start at 09:00 Diltiazem HCl (Cardizem 24hr Cd) 120 mg DAILY PO Last administered on 12/14/16 09:00; Start 12/14/16 at 09:00; Stop 12/14/16 at 12:13; Status DC Lisinopril (Prinivil) 2.5 mg DAILY PO ; Start 12/14/16 at 09:00; Stop 12/14/16 at 09:00; Status DC Atorvastatin Calcium (Lipitor) 10 mg QHS PO Last administered on 12/17/16 21:41 ; Start 12/13/16 at 21:00 Info (Anti-Coagulation Monitoring By Pharmacy) 1 each PRN DAILY PRN MC SEE COMMENTS Last administered on 12/15/16 07:26; Start 12/13/16 at 16:30 Diltiazem HCl (Cardizem 24hr Cd) 240 mg DAILY PO Last administered on 12/18/16 09:22; Start 12/15/16 at 09:00 Diltiazem HCl (Cardizem 24hr Cd) 120 mg 1X ONCE PO Last administered on 12:49; Start 12/14/16 at 12:15; Stop 12/14/16 at 12:20; Status DC Clopidogrel Bisulfate (Plavix) 75 mg DAILYWBKFT PO Last administered on 09:21; Start 12/14/16 at 13:00 Isosorbide Mononitrate (Imdur) 30 mg DAILY PO Last administered on 12/18/16 09: 21; Start 12/15/16 at 11:30 Iohexol (Omnipaque 240 Mg/ml) 30 ml 1X ONCE PO ; Start 12/15/16 at 11:45; Stop 12/15/16 at 11:46; Status DC Iohexol (Omnipaque 300 Mg/ml) 75 ml 1X ONCE IV ; Start 12/15/16 at 11:45; Stop 12/15/16 at 11:46; Status DC Info (Do NOT chart on this entry -- for MONITORING) 1 each PRN DAILY PRN MC SEE COMMENTS; Start 12/15/16 at 11:45; Stop 12/16/16 at 14:09; Status DC Enoxaparin Sodium (Lovenox 40mg Syringe) 40 mg Q24H SQ Last administered on 12/15 17:59; Start 12/15/16 at 18:00; Stop 12/16/16 at 09:35; Status DC Enoxaparin Sodium (Lovenox 80mg Syringe) 80 mg BID SQ Last administered on 14:15; Start 12/16/16 at 10:00; Stop 12/16/16 at 16:23; Status DC Iohexol (Omnipaque 300 Mg/ml) 50 ml STK-MED ONCE .ROUTE ; Start 12/16/16 at 10:32 ; Stop 12/16/16 at 10:33; Status DC Iohexol (Omnipaque 300 Mg/ml) 10 ml 1X ONCE IJ Last administered on 12/16/16 11:40; Start 12/16/16 at 11:45; Stop 12/16/16 at 11:46; Status DC Info (Do NOT chart on this entry -- for MONITORING) 1 each PRN DAILY PRN MC SEE COMMENTS; Start 12/16/16 at 11:45; Stop 12/18/16 at 09:56; Status DC Calcium Carbonate/ Glycine (Tums) 500 mg PRN AFTMEALHC PRN PO INDIGESTION Last administered on 12/16/16 14:14; Start 12/16/16 at 14:15 Pantoprazole Sodium (Protonix) 40 mg DAILYAC PO Last administered on 12/18/16 09:20; Start 12/16/16 at 14:30 Morphine Sulfate 1 mg PRN Q2HR PRN IV PAIN Last administered on 12/17/16 01:36 ; Start 12/16/16 at 14:15 Iohexol (Omnipaque 300 Mg/ml) 75 ml 1X ONCE IV ; Start 12/16/16 at 16:00; Stop 12/16/16 at 16:01; Status DC Info 1 each 1 each PRN DAILY PRN MC SEE COMMENTS; Start 12/16/16 at 15:30; Stop 12/18/16 at 15:29 Heparin Sodium/ Dextrose 500 ml @ 0 mls/hr CONT PRN IV SEE I/O RECORD Last administered on 12/18/16 05:14; Start 12/16/16 at 16:15 Heparin Sodium (Porcine) 2,500 unit PRN Q6HRS PRN IV FOR UFH LEVEL LESS THAN 0.2 Last administered on 12/18/16 11:46; Start 12/16/16 at 16:15 Heparin Sodium (Porcine) 1,250 unit PRN Q6HRS PRN IV FOR UFH LEVEL 0.2 - 0.29; Start 12/16/16 at 16:15 Warfarin Sodium (Coumadin Per Pharmacy) 1 each PRN DAILY PRN MC PER PROTOCOL Last administered on 12/18/16 10:04; Start 12/16/16 at 16:15 Morphine Sulfate 2 mg PRN Q2HR PRN IV PAIN Last administered on 12/17/16 21:43 ; Start 12/16/16 at 16:15 Warfarin Sodium (Coumadin) 6 mg 1X WARF ONCE PO Last administered on 12/16/16 18:20; Start 12/16/16 at 17:00; Stop 12/16/16 at 17:01; Status DC Warfarin Sodium (Coumadin) 5 mg 1X WARF ONCE PO Last administered on 12/17/16 16:29; Start 12/17/16 at 16:00; Stop 12/17/16 at 16:01; Status DC Warfarin Sodium (Coumadin) 6 mg 1X WARF ONCE PO ; Start 12/18/16 at 16:00; Stop 12/18/16 at 16:01 Active Scripts Active Reported Milk Of Magnesia (Magnesium Hydroxide) 2,400 Mg/10 Ml Oral.susp 2,400 Mg PO Metoprolol Tartrate 100 Mg Tablet 1 Tab PO BID Allopurinol 100 Mg Tablet 1 Tab PO DAILY Aspir 81 (Aspirin) 81 Mg Tablet.dr 1 Tab PO DAILY Spironolactone 25 Mg Tablet 1 Tab PO DAILY Cardizem Tablet (Diltiazem Hcl) 30 Mg Tablet 30 Mg PO DAILY Zyvox (Linezolid) 600 Mg Tablet 600 Mg PO BID Augmentin 875-125 Tablet (Amoxicillin/Potassium Clav) 1 Each Tablet Tab PO BID Vitals/I & O Vital Sign - Last 24 Hours 12/17/16 12/17/16 12/17/16 12/17/16 15:25 15:26 16:30 19:00 Temp 98.4 98.5 98.4 98.5 Pulse 91 80 130 Resp 20 20 B/P 122/58 136/77 Pulse Ox 96 96 95 O2 Delivery Nasal Cannula Nasal Cannula Nasal Cannula O2 Flow Rate 5.0 5.0 5.0 12/17/16 12/17/16 12/17/16 12/17/16 19:25 21:42 21:43 22:13 Pulse 130 Resp 20 20 B/P 136/77 Pulse Ox 97 97 O2 Delivery Nasal Cannula Nasal Cannula Nasal Cannula O2 Flow Rate 5.0 5.0 5.0 12/17/16 12/18/16 12/18/16 12/18/16 23:00 03:00 07:00 09:21 Temp 98.2 98.6 98.1 98.2 98.6 98.1 Pulse 72 87 110 110 Resp 20 22 22 B/P 130/76 190/77 150/86 150/86 Pulse Ox 97 90 O2 Delivery Nasal Cannula Nasal Cannula Nasal Cannula O2 Flow Rate 5.0 2.0 6.0 12/18/16 12/18/16 09:21 09:22 Pulse 110 110 B/P 150/86 150/86 Intake and Output 12/17/16 12/17/16 12/18/16 15:00 23:00 07:00 Intake Total 490 ml 522 ml Output Total 350 ml 225 ml 545 ml Balance 140 ml 297 ml -545 ml CARLYLE CARMEN MD Dec 18, 2016 12:16
[2016-12-18] MEDS: MORPHINE SULFATE 2 MG/ML DISP.SYRIN. IV PRN ×2 (13:17→22:16)
[2016-12-18 15:14] VITALS: BP 121/62
[2016-12-18] MEDS ORDERED: WARFARIN 6 MG TABLET. PO ONE (16:00)
--- NOTE | 2016-12-18 16:22 | PDOC ---
Provider Note Provider Note no abd pain. angle po afeb vss abd soft nd nt a/p cholecystitis, liver abscess s/p perc drain. cont supportive care. pe--on anticoagulation poss cecal mass. TRINI KELLEY MD Dec 18, 2016 16:22
--- NOTE | 2016-12-18 16:48 | PDOC ---
PULMONARY PROGRESS NOTES Subjective PT NOT MORE SOA TODAY Vitals Vital Signs Date Time Temp Pulse Resp B/P Pulse Ox O2 Delivery O2 Flow Rate FiO2 12/18/16 15:14 98.9 82 20 121/62 96 Nasal Cannula 5.0 98.9 General: Alert Lungs: Clear, Crackles Cardiovascular: S1 Abdomen: Soft Neuro Exam: Alert Extremities: No Edema Skin: Warm Labs Laboratory Tests Test 12/16/16 22:25 12/17/16 04:45 12/18/16 05:40 12/18/16 06:33 Heparin Anti-Xa Act, Unfractionated 0.51IU/mL (0.30-0.70) 0.33IU/mL (0.30-0.70) < 0.10IU/mL (0.30-0.70) 0.12IU/mL (0.30-0.70) White Blood Count 8.0x10^3/uL (4.0-11.0) 7.2x10^3/uL (4.0-11.0) Red Blood Count 3.14x10^6/uL (4.30-5.70) 3.28x10^6/uL (4.30-5.70) Hemoglobin 10.1g/dL (13.0-17.5) 10.2g/dL (13.0-17.5) Hematocrit 29.6% (39.0-53.0) 30.1% (39.0-53.0) Mean Corpuscular Volume 94fL (79-100) 92fL (79-100) Mean Corpuscular Hemoglobin 32pg (25-35) 31pg (25-35) Mean Corpuscular Hemoglobin Concent 34g/dL (31-37) 34g/dL (31-37) Red Cell Distribution Width 14.2% (11.5-14.5) 14.1% (11.5-14.5) Platelet Count 184x10^3/uL (140-400) 194x10^3/uL (140-400) Neutrophils (%) (Auto) 72% (31-73) Lymphocytes (%) (Auto) 17% (24-48) Monocytes (%) (Auto) 8% (0-9) Eosinophils (%) (Auto) 2% (0-3) Basophils (%) (Auto) 1% (0-3) Neutrophils # (Auto) 5.8x10^3uL (1.8-7.7) Lymphocytes # (Auto) 1.4x10^3/uL (1.0-4.8) Monocytes # (Auto) 0.7x10^3/uL (0.0-1.1) Eosinophils # (Auto) 0.1x10^3/uL (0.0-0.7) Basophils # (Auto) 0.0x10^3/uL (0.0-0.2) Prothrombin Time 16.3SEC (11.7-14.0) 17.2SEC (11.7-14.0) Prothromb Time International Ratio 1.4 (0.8-1.1) 1.5 (0.8-1.1) Sodium Level 139mmol/L (136-145) Potassium Level 3.8mmol/L (3.5-5.1) Chloride Level 103mmol/L (98-107) Carbon Dioxide Level 30mmol/L (21-32) Anion Gap 6 (6-14) Blood Urea Nitrogen 13mg/dL (8-26) Creatinine 1.0mg/dL (0.7-1.3) Estimated GFR (Cockcroft-Gault) 70.7 Glucose Level 125mg/dL (70-99) Calcium Level 8.9mg/dL (8.5-10.1) Laboratory Tests Test 12/18/16 05:40 12/18/16 06:33 White Blood Count 7.2x10^3/uL (4.0-11.0) Red Blood Count 3.28x10^6/uL (4.30-5.70) Hemoglobin 10.2g/dL (13.0-17.5) Hematocrit 30.1% (39.0-53.0) Mean Corpuscular Volume 92fL (79-100) Mean Corpuscular Hemoglobin 31pg (25-35) Mean Corpuscular Hemoglobin Concent 34g/dL (31-37) Red Cell Distribution Width 14.1% (11.5-14.5) Platelet Count 194x10^3/uL (140-400) Prothrombin Time 17.2SEC (11.7-14.0) Prothromb Time International Ratio 1.5 (0.8-1.1) Heparin Anti-Xa Act, Unfractionated < 0.10IU/mL (0.30-0.70) 0.12IU/mL (0.30-0.70) Medications Active Scripts Medications Dose Route/Sig Days Date Category Milk Of Magnesia (Magnesium Hydroxide) 2,400 Mg/10 Ml Oral.susp 2,400 Mg PO 12/10/16 Reported Metoprolol Tartrate 100 Mg Tablet 1 Tab PO BID 12/10/16 Reported Allopurinol 100 Mg Tablet 1 Tab PO DAILY 12/10/16 Reported Aspir 81 (Aspirin) 81 Mg Tablet.dr 1 Tab PO DAILY 12/10/16 Reported Spironolactone 25 Mg Tablet 1 Tab PO DAILY 12/10/16 Reported Cardizem Tablet (Diltiazem Hcl) 30 Mg Tablet 30 Mg PO DAILY 12/10/16 Reported Zyvox (Linezolid) 600 Mg Tablet 600 Mg PO BID 12/10/16 Reported Augmentin 875-125 Tablet (Amoxicillin/Potassium Clav) 1 Each Tablet Tab PO BID 12/10/16 Reported Impression . 1. Acute hypoxic respiratory failure secondary to development of acute congestive heart failure, suspect diastolic heart failure triggered by atrial fibrillation with rapid ventricular response. 2. Atrial fibrillation with rapid ventricular response, triggering congestive heart failure. 3. Recent dilated gallbladder with liver abscess, status post percutaneous cholecystostomy placement. Followup CT chest showed persistent abscess in the liver and status post second drain. Replaced drains 12/16/16 4. No significant history of tobacco use. 5. PE CONFIRMED WITH CTA Plan . FEELS BETTER, D/C PLANNING IN AM, WILL NEED REHAB ON HEPARIN AND COUMADIN ABG noted s/p new drains 12/16 spoke with son antibx per ID follow surgery input YARIEL SMITH MD Dec 18, 2016 16:48
[2016-12-18 19:00] VITALS: BP 132/74
[2016-12-18] MEDS: ATORVASTATIN CALCIUM 10 MG TABLET. PO SCH (20:20)
[2016-12-18] MEDS: BENZOCAINE/MENTHOL LOZENGE. PO PRN (20:21)
[2016-12-18 22:40] VITALS: BP 143/76
[2016-12-19] MEDS: HEPARIN for IV BOLUS 10,000 UNIT/10 ML VIAL. IV PRN (02:27)
[2016-12-19 02:38] LABS: INR 1.9 (0.8-1.1); PROTHROMBIN TIME PATIENT 20.5 SEC (11.7-14.0)
[2016-12-19 03:00] VITALS: BP 138/66
[2016-12-19] MEDS: PIPERACILLIN/TAZOBACTAM 3.375 GM in IV NORMAL SALINE 50ML 50 ML IV SCH ×3 (05:25→18:30)
[2016-12-19 07:00] VITALS: BP 158/84
--- NOTE | 2016-12-19 10:06 | PDOC ---
PROGRESS NOTES Chief Complaint Chief Complaint SOB Edema ASSESSMENT AND PLAN: 1. 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 Afib s/p RVR (new) 2. CHF: 3. Troponin leak: 4. CAD hx: 5. GB abscess: drain in place, on Abx. done by [facility] 6. Gout: no acute issues. cont allopurinol 7,.A cute hypoxic respi failure needing venti mask , resolved 8. PE, possible 9. Possible liver abscess 10, Possible appy History of Present Illness History of Present Illness No CP (despite multivessel CAD on cath, non surgical candidtae) SOA today -(PE on CTA)- on venti mask - heparin gtt restarted Up in chair, worked with PT today NO tests for today scheduled so far PLAn: LTAC screen Sebastien Ortiz and RN Vitals Vitals Vital Signs Date Time Temp Pulse Resp B/P Pulse Ox O2 Delivery O2 Flow Rate FiO2 12/19/16 03:00 97.2 88 20 138/66 92 Venturi Mask 15.0 97.2 Physical Exam General: Alert, Oriented X3, Cooperative, No acute distress Heart: Normal S1, Normal S2, No murmurs, Other (irregular) Lungs: Clear, Crackles Abdomen: Soft, No tenderness, Other (drains in place) Extremities: No edema Skin: No significant lesion Labs LABS Laboratory Tests Test 12/18/16 17:15 12/19/16 00:27 12/19/16 08:40 Heparin Anti-Xa Act, Unfractionated 0.20IU/mL (0.30-0.70) 0.21IU/mL (0.30-0.70) 0.34IU/mL (0.30-0.70) Prothrombin Time 20.5SEC (11.7-14.0) Prothromb Time International Ratio 1.9 (0.8-1.1) Assessment and Plan Assessmemt and Plan Problems Medical Problems: (1) Acute respiratory failure Status: Acute (2) CAD (coronary artery disease) Status: Acute (3) CHF exacerbation Status: Acute (4) Hypoxia Status: Acute (5) Pulmonary edema Status: Acute (6) Volume overload Status: Acute Problems: Comment Review of Relevant I have reviewed the following items liana (where applicable) has been applied. Labs Laboratory Tests Test 12/18/16 05:40 12/18/16 06:33 12/18/16 17:15 12/19/16 00:27 White Blood Count 7.2x10^3/uL (4.0-11.0) Red Blood Count 3.28x10^6/uL (4.30-5.70) Hemoglobin 10.2g/dL (13.0-17.5) Hematocrit 30.1% (39.0-53.0) Mean Corpuscular Volume 92fL (79-100) Mean Corpuscular Hemoglobin 31pg (25-35) Mean Corpuscular Hemoglobin Concent 34g/dL (31-37) Red Cell Distribution Width 14.1% (11.5-14.5) Platelet Count 194x10^3/uL (140-400) Prothrombin Time 17.2SEC (11.7-14.0) 20.5SEC (11.7-14.0) Prothromb Time International Ratio 1.5 (0.8-1.1) 1.9 (0.8-1.1) Heparin Anti-Xa Act, Unfractionated < 0.10IU/mL (0.30-0.70) 0.12IU/mL (0.30-0.70) 0.20IU/mL (0.30-0.70) 0.21IU/mL (0.30-0.70) Test 12/19/16 08:40 Heparin Anti-Xa Act, Unfractionated 0.34IU/mL (0.30-0.70) Laboratory Tests Test 12/18/16 17:15 12/19/16 00:27 12/19/16 08:40 Heparin Anti-Xa Act, Unfractionated 0.20IU/mL (0.30-0.70) 0.21IU/mL (0.30-0.70) 0.34IU/mL (0.30-0.70) Prothrombin Time 20.5SEC (11.7-14.0) Prothromb Time International Ratio 1.9 (0.8-1.1) Microbiology 12/10/16 Blood Culture - Final, Complete NO GROWTH AFTER 5 DAYS 12/10/16 Urine Culture - Final, Complete 12/10/16 Urine Culture Result 1 ([facility]) - Final, Complete Medications Current Medications Piperacillin Sod/ Tazobactam Sod 1 each 1 each PRN DAILY PRN MC SEE COMMENTS; Start 12/10/16 at 07:15; Stop 12/14/16 at 11:23; Status DC Diltiazem HCl/ Dextrose (Cardizem) 125 ml @ 0 mls/hr CONT PRN IV SEE I/O RECORD Last administered on 12/13/16 00:58; Start 12/10/16 at 07:15; Stop 12/13 at 12:33; Status DC Furosemide (Lasix) 40 mg 1X ONCE IVP Last administered on 12/10/16 07:52; Start 12/10/16 at 07:15; Stop 12/10/16 at 07:18; Status DC Nitroglycerin (Nitrostat) 0.4 mg 1X ONCE SL ; Start 12/10/16 at 07:15; Stop at 07:18; Status DC Ondansetron HCl (Zofran) 4 mg PRN Q8HRS PRN IV NAUSEA/VOMITING; Start 12/10/16 at 07:30; Stop 12/11/16 at 07:29; Status DC Morphine Sulfate 2 mg 2 mg PRN Q2HR PRN IV PAIN; Start 12/10/16 at 07:30; Stop 12/11/16 at 07:29; Status DC Piperacillin Sod/ Tazobactam Sod/ Sodium Chloride (Zosyn/Iv Sodium Chloride 0.9 % 100ml) 100 ml @ 200 mls/hr 1X ONCE IV Last administered on 12/10/16 09:28 ; Start 12/10/16 at 07:45; Stop 12/10/16 at 08:14; Status DC Lisinopril (Prinivil) 10 mg DAILY PO ; Start 12/11/16 at 09:00; Stop 12/11/16 at 16:31; Status DC Labetalol HCl (Normodyne) 20 mg PRN Q2HR PRN IVP HYPERTENSION, SEE COMMENTS; Start 12/10/16 at 11:30 Aspirin (Ecotrin) 81 mg DAILYWBKFT PO Last administered on 12/18/16 09:21; Start 12/10/16 at 13:00 Furosemide 40 mg 40 mg 1X ONCE IVP Last administered on 12/10/16 14:37; Start 12/10/16 at 12:15; Stop 12/10/16 at 12:23; Status DC Piperacillin Sod/ Tazobactam Sod/ Sodium Chloride (Zosyn/Iv Sodium Chloride 0.9 % 50ml) 50 ml @ 100 mls/hr Q6HRS IV Last administered on 12/19/16 05:25; Start 12/10/16 at 13:30 Allopurinol (Zyloprim) 100 mg DAILY PO ; Start 12/11/16 at 10:00; Stop 12/11/16 at 10:13; Status DC Aspirin (Ecotrin) 81 mg DAILY PO ; Start 12/12/16 at 09:00; Status Cancel Linezolid (Zyvox) 600 mg BID PO Last administered on 12/12/16 21:34; Start at 10:00; Stop 12/13/16 at 08:51; Status DC Spironolactone (Aldactone) 25 mg DAILY PO Last administered on 12/18/16 09:20; Start 12/11/16 at 10:00 Metoprolol Tartrate 100 mg 100 mg BID PO Last administered on 12/13/16 09:28; Start 12/11/16 at 10:00; Stop 12/13/16 at 12:33; Status DC Heparin Sodium/ Dextrose 500 ml @ 19.6 mls/hr CONT PRN IV SEE I/O RECORD Last administered on 12/15/16 05:34; Start 12/11/16 at 14:45; Stop 12/15/16 at 10:20; Status DC Heparin Sodium (Porcine) 2,050 unit PRN Q6HRS PRN IV FOR UFH LEVEL LESS THAN 0.2 Last administered on 12/13/16 20:30; Start 12/11/16 at 14:45; Stop 12/15/16 at 10:20; Status DC Throat Lozenges (Cepacol Sore Throat Lozenge) 1 jorge a PRN Q2HRS PRN PO SORE THROAT Last administered on 12/18/16 20:21; Start 12/11/16 at 19:30 Docusate Sodium (Colace) 100 mg DAILY PO Last administered on 12/18/16 09:21; Start 12/12/16 at 10:00 Polyethylene Glycol (miraLAX PACKET) 17 gm PRN DAILY PRN PO CONSTIPATION; Start 12/12/16 at 10:00 Magnesium Hydroxide (Milk Of Magnesia) 2,400 mg PRN DAILY PRN PO CONSTIPATION; Start 12/12/16 at 10:00 Lidocaine HCl 20 ml 20 ml STK-MED ONCE .ROUTE ; Start 12/12/16 at 14:11; Stop at 14:12; Status DC Heparin Sodium/ Sodium Chloride 500 ml @ As Directed STK-MED ONCE .ROUTE ; Start 12/12/16 at 14:11; Stop 12/12/16 at 14:12; Status DC Iohexol (Omnipaque 300 Mg/ml) 100 ml STK-MED ONCE .ROUTE ; Start 12/12/16 at 14: 11; Stop 12/12/16 at 14:12; Status DC Iodixanol (Visipaque 320) 100 ml STK-MED ONCE .ROUTE ; Start 12/12/16 at 14:11; Stop 12/12/16 at 14:12; Status DC Nitroglycerin (Nitroglycerin) 200 mcg STK-MED ONCE .ROUTE ; Start 12/12/16 at 14 :16; Stop 12/12/16 at 14:17; Status DC Verapamil HCl (Verapamil) 5 mg STK-MED ONCE .ROUTE ; Start 12/12/16 at 14:16; Stop 12/12/16 at 14:17; Status DC Midazolam HCl (Versed) 2 mg STK-MED ONCE .ROUTE ; Start 12/12/16 at 14:16; Stop 12/12/16 at 14:17; Status DC Fentanyl Citrate (Fentanyl 2ml Vial) 100 mcg STK-MED ONCE .ROUTE ; Start at 14:16; Stop 12/12/16 at 14:17; Status DC Heparin Sodium (Porcine) 10,000 unit STK-MED ONCE .ROUTE ; Start 12/12/16 at 14: 16; Stop 12/12/16 at 14:17; Status DC Nitroglycerin (Nitroglycerin) 200 mcg 1X ONCE IART Last administered on t 15:04; Start 12/12/16 at 14:45; Stop 12/12/16 at 14:46; Status DC Verapamil HCl (Verapamil) 2.5 mg 1X ONCE IART Last administered on 12/12/16t 15:05; Start 12/12/16 at 14:45; Stop 12/12/16 at 14:46; Status DC Heparin Sodium (Porcine) 2,500 unit 1X ONCE IART Last administered on 15:06; Start 12/12/16 at 14:45; Stop 12/12/16 at 14:46; Status DC Heparin Sodium/ Sodium Chloride 1,000 unit 1X ONCE IART Last administered on 15:03; Start 12/12/16 at 14:45; Stop 12/12/16 at 14:46; Status DC Midazolam HCl (Versed) 2 mg 1X ONCE IV Last administered on 12/12/16 15:04; Start 12/12/16 at 14:45; Stop 12/12/16 at 14:46; Status DC Fentanyl Citrate (Fentanyl 2ml Vial) 100 mcg 1X ONCE IV Last administered on 15:04; Start 12/12/16 at 14:45; Stop 12/12/16 at 14:46; Status DC Iodixanol (Visipaque 320) 100 ml 1X ONCE IART Last administered on 12/12/16 15:05; Start 12/12/16 at 14:45; Stop 12/12/16 at 14:46; Status DC Lidocaine HCl 1 ml 1X ONCE IJ Last administered on 12/12/16 15:03; Start at 14:45; Stop 12/12/16 at 14:46; Status DC Nitroglycerin (Nitrostat) 0.4 mg PRN Q5MIN PRN SL CHEST PAIN; Start 12/12/16 at 15:30 Furosemide (Lasix) 40 mg 1X ONCE IVP Last administered on 12/12/16 16:18; Start 12/12/16 at 15:30; Stop 12/12/16 at 15:31; Status DC Metoprolol Tartrate (Lopressor) 50 mg BID PO Last administered on 12/18/16 20: 21; Start 12/13/16 at 21:00 Furosemide (Lasix) 40 mg 1X ONCE IVP Last administered on 12/13/16 15:06; Start 12/13/16 at 12:15; Stop 12/13/16 at 12:37; Status DC Furosemide (Lasix) 40 mg DAILY PO Last administered on 12/18/16 09:21; Start at 09:00 Diltiazem HCl (Cardizem 24hr Cd) 120 mg DAILY PO Last administered on 12/14/16 09:00; Start 12/14/16 at 09:00; Stop 12/14/16 at 12:13; Status DC Lisinopril (Prinivil) 2.5 mg DAILY PO ; Start 12/14/16 at 09:00; Stop 12/14/16 at 09:00; Status DC Atorvastatin Calcium (Lipitor) 10 mg QHS PO Last administered on 12/18/16 20:20 ; Start 12/13/16 at 21:00 Info (Anti-Coagulation Monitoring By Pharmacy) 1 each PRN DAILY PRN MC SEE COMMENTS Last administered on 12/15/16 07:26; Start 12/13/16 at 16:30 Diltiazem HCl (Cardizem 24hr Cd) 240 mg DAILY PO Last administered on 12/18/16 09:22; Start 12/15/16 at 09:00 Diltiazem HCl (Cardizem 24hr Cd) 120 mg 1X ONCE PO Last administered on 12:49; Start 12/14/16 at 12:15; Stop 12/14/16 at 12:20; Status DC Clopidogrel Bisulfate (Plavix) 75 mg DAILYWBKFT PO Last administered on 09:21; Start 12/14/16 at 13:00 Isosorbide Mononitrate (Imdur) 30 mg DAILY PO Last administered on 12/18/16 09: 21; Start 12/15/16 at 11:30 Iohexol (Omnipaque 240 Mg/ml) 30 ml 1X ONCE PO ; Start 12/15/16 at 11:45; Stop 12/15/16 at 11:46; Status DC Iohexol (Omnipaque 300 Mg/ml) 75 ml 1X ONCE IV ; Start 12/15/16 at 11:45; Stop 12/15/16 at 11:46; Status DC Info (Do NOT chart on this entry -- for MONITORING) 1 each PRN DAILY PRN MC SEE COMMENTS; Start 12/15/16 at 11:45; Stop 12/16/16 at 14:09; Status DC Enoxaparin Sodium (Lovenox 40mg Syringe) 40 mg Q24H SQ Last administered on 12/15 17:59; Start 12/15/16 at 18:00; Stop 12/16/16 at 09:35; Status DC Enoxaparin Sodium (Lovenox 80mg Syringe) 80 mg BID SQ Last administered on 14:15; Start 12/16/16 at 10:00; Stop 12/16/16 at 16:23; Status DC Iohexol (Omnipaque 300 Mg/ml) 50 ml STK-MED ONCE .ROUTE ; Start 12/16/16 at 10:32 ; Stop 12/16/16 at 10:33; Status DC Iohexol (Omnipaque 300 Mg/ml) 10 ml 1X ONCE IJ Last administered on 12/16/16 11:40; Start 12/16/16 at 11:45; Stop 12/16/16 at 11:46; Status DC Info (Do NOT chart on this entry -- for MONITORING) 1 each PRN DAILY PRN MC SEE COMMENTS; Start 12/16/16 at 11:45; Stop 12/18/16 at 09:56; Status DC Calcium Carbonate/ Glycine (Tums) 500 mg PRN AFTMEALHC PRN PO INDIGESTION Last administered on 12/16/16 14:14; Start 12/16/16 at 14:15 Pantoprazole Sodium (Protonix) 40 mg DAILYAC PO Last administered on 12/18/16 09:20; Start 12/16/16 at 14:30 Morphine Sulfate 1 mg PRN Q2HR PRN IV PAIN Last administered on 12/17/16 01:36 ; Start 12/16/16 at 14:15 Iohexol (Omnipaque 300 Mg/ml) 75 ml 1X ONCE IV ; Start 12/16/16 at 16:00; Stop 12/16/16 at 16:01; Status DC Info 1 each 1 each PRN DAILY PRN MC SEE COMMENTS; Start 12/16/16 at 15:30; Stop 12/18/16 at 15:29; Status DC Heparin Sodium/ Dextrose 500 ml @ 0 mls/hr CONT PRN IV SEE I/O RECORD Last administered on 12/18/16 21:48; Start 12/16/16 at 16:15 Heparin Sodium (Porcine) 2,500 unit PRN Q6HRS PRN IV FOR UFH LEVEL LESS THAN 0.2 Last administered on 12/18/16 11:46; Start 12/16/16 at 16:15 Heparin Sodium (Porcine) 1,250 unit PRN Q6HRS PRN IV FOR UFH LEVEL 0.2 - 0.29 Last administered on 12/19/16 02:27; Start 12/16/16 at 16:15 Warfarin Sodium (Coumadin Per Pharmacy) 1 each PRN DAILY PRN MC PER PROTOCOL Last administered on 12/18/16 10:04; Start 12/16/16 at 16:15 Morphine Sulfate 2 mg PRN Q2HR PRN IV PAIN Last administered on 12/18/16 22:16 ; Start 12/16/16 at 16:15 Warfarin Sodium (Coumadin) 6 mg 1X WARF ONCE PO Last administered on 12/16/16 18:20; Start 12/16/16 at 17:00; Stop 12/16/16 at 17:01; Status DC Warfarin Sodium (Coumadin) 5 mg 1X WARF ONCE PO Last administered on 12/17/16 16:29; Start 12/17/16 at 16:00; Stop 12/17/16 at 16:01; Status DC Warfarin Sodium (Coumadin) 6 mg 1X WARF ONCE PO Last administered on 12/18/16 17:32; Start 12/18/16 at 16:00; Stop 12/18/16 at 16:01; Status DC Active Scripts Active Reported Milk Of Magnesia (Magnesium Hydroxide) 2,400 Mg/10 Ml Oral.susp 2,400 Mg PO Metoprolol Tartrate 100 Mg Tablet 1 Tab PO BID Allopurinol 100 Mg Tablet 1 Tab PO DAILY Aspir 81 (Aspirin) 81 Mg Tablet.dr 1 Tab PO DAILY Spironolactone 25 Mg Tablet 1 Tab PO DAILY Cardizem Tablet (Diltiazem Hcl) 30 Mg Tablet 30 Mg PO DAILY Zyvox (Linezolid) 600 Mg Tablet 600 Mg PO BID Augmentin 875-125 Tablet (Amoxicillin/Potassium Clav) 1 Each Tablet Tab PO BID Vitals/I & O Vital Sign - Last 24 Hours 12/18/16 12/18/16 12/18/16 12/18/16 11:30 13:17 13:47 15:14 Temp 98.2 98.9 98.2 98.9 Pulse 105 82 Resp 18 18 18 20 B/P 153/73 121/62 Pulse Ox 95 95 96 O2 Delivery Nasal Cannula Nasal Cannula Nasal Cannula Nasal Cannula O2 Flow Rate 5.0 5.0 5.0 5.0 12/18/16 12/18/16 12/18/16 12/18/16 19:00 20:00 20:21 22:40 Temp 98.2 98.3 98.2 98.3 Pulse 117 103 98 Resp 22 B/P 132/74 132/74 143/76 Pulse Ox 94 91 O2 Delivery Nasal Cannula Nasal Cannula Venturi Mask O2 Flow Rate 5.0 5.0 15.0 12/19/16 03:00 Temp 97.2 97.2 Pulse 88 Resp 20 B/P 138/66 Pulse Ox 92 O2 Delivery Venturi Mask O2 Flow Rate 15.0 Intake and Output 12/18/16 12/18/16 12/19/16 15:00 23:00 07:00 Intake Total 455 ml 347 ml 960 ml Output Total 775 ml 0 ml 250 ml Balance -320 ml 347 ml 710 ml CARLYLE CARMEN MD Dec 19, 2016 10:06
[2016-12-19] MEDS: DOCUSATE SODIUM 100 MG CAPSULE PO SCH (10:08)
[2016-12-19] MEDS: DILTIAZEM HCL 240 MG CAP.ER.24H PO SCH (10:08)
[2016-12-19] MEDS: PANTOPRAZOLE 40 MG TABLET. PO SCH (10:09)
[2016-12-19] MEDS: ISOSORBIDE MONONITRATE ER 30 MG TAB.ER.24H PO SCH (10:09)
[2016-12-19] MEDS: ASPIRIN ENTERIC COATED 81 MG TABLET.DR. PO SCH (10:09)
[2016-12-19] MEDS: METOPROLOL TART IMMED RELEASE 50 MG TABLET PO SCH ×2 (10:09→21:33)
[2016-12-19] MEDS: SPIRONOLACTONE 25 MG TABLET PO SCH (10:09)
[2016-12-19] MEDS: CLOPIDOGREL BISULFATE 75 MG TABLET PO SCH (10:09)
[2016-12-19] MEDS: FUROSEMIDE 40 MG TABLET PO SCH (10:10)
[2016-12-19] MEDS: HEPARIN 25,000UTS/500ML PREMIX 500 ML IV PRN (10:15)
--- NOTE | 2016-12-19 10:36 | PDOC ---
ELBA PARKER ASSISTED LIVING DIRECTOR 12/19/16 1036: SURGICAL PROGRESS NOTE Subjective no complaints d/w nursing, LTAC screening Vital Signs Vital Signs Date Time Temp Pulse Resp B/P Pulse Ox O2 Delivery O2 Flow Rate FiO2 12/19/16 10:09 109 158/65 12/19/16 08:00 Nasal Cannula 5.0 12/19/16 07:00 97.8 22 89 97.8 I&O Intake and Output 12/19/16 07:00 Intake Total 1762 ml Output Total 1025 ml Balance 737 ml Intake Oral 720 ml IV Total 1042 ml Output Urine Total 1025 ml Drainage Total 0 ml # Voids 1 General: Alert, Oriented X3, Cooperative, No acute distress Abdomen: Soft, Other (mild ttp drain site) Labs Laboratory Tests Test 12/18/16 05:40 12/18/16 06:33 12/18/16 17:15 12/19/16 00:27 White Blood Count 7.2x10^3/uL (4.0-11.0) Red Blood Count 3.28x10^6/uL (4.30-5.70) Hemoglobin 10.2g/dL (13.0-17.5) Hematocrit 30.1% (39.0-53.0) Mean Corpuscular Volume 92fL (79-100) Mean Corpuscular Hemoglobin 31pg (25-35) Mean Corpuscular Hemoglobin Concent 34g/dL (31-37) Red Cell Distribution Width 14.1% (11.5-14.5) Platelet Count 194x10^3/uL (140-400) Prothrombin Time 17.2SEC (11.7-14.0) 20.5SEC (11.7-14.0) Prothromb Time International Ratio 1.5 (0.8-1.1) 1.9 (0.8-1.1) Heparin Anti-Xa Act, Unfractionated < 0.10IU/mL (0.30-0.70) 0.12IU/mL (0.30-0.70) 0.20IU/mL (0.30-0.70) 0.21IU/mL (0.30-0.70) Test 12/19/16 08:40 Heparin Anti-Xa Act, Unfractionated 0.34IU/mL (0.30-0.70) Laboratory Tests Test 12/18/16 17:15 12/19/16 00:27 12/19/16 08:40 Heparin Anti-Xa Act, Unfractionated 0.20IU/mL (0.30-0.70) 0.21IU/mL (0.30-0.70) 0.34IU/mL (0.30-0.70) Prothrombin Time 20.5SEC (11.7-14.0) Prothromb Time International Ratio 1.9 (0.8-1.1) Problem List Problems Medical Problems: (1) Acute respiratory failure Status: Acute (2) CAD (coronary artery disease) Status: Acute (3) CHF exacerbation Status: Acute (4) Hypoxia Status: Acute (5) Pulmonary edema Status: Acute (6) Volume overload Status: Acute Assessment/Plan supportive care continue drains consider GI eval at some point, possible cecal mass Problems: JANEL ALLISON MD 12/19/161952: SURGICAL PROGRESS NOTE Assessment/Plan Pt seen and examined. Agree with Ms. Parker's note Pt main c/o is breathing issues, on venti mask cont supportive care Problems: ELBA PARKER APRN Dec 19, 2016 10:36 JANEL ALLISON MD Dec 19, 2016 19:53
[2016-12-19 11:15] VITALS: BP 136/62
--- NOTE | 2016-12-19 11:45 | PDOC ---
Subjective: Subjective: Has twinges of right-sided abd pain w/ sneezing, moving, etc. Otherwise says feeling good. "My colon doesn't bother me." Had a BM yesterday. Says he probably will not pursue colonoscopy. Objective: Vital Signs: Vital Signs Date Time Temp Pulse Resp B/P Pulse Ox O2 Delivery O2 Flow Rate FiO2 12/19/16 11:15 98.0 89 22 136/62 90 Nasal Cannula 5.0 98.0 Labs: Laboratory Tests Test 12/18/16 17:15 12/19/16 00:27 12/19/16 08:40 Heparin Anti-Xa Act, Unfractionated 0.20IU/mL 0.21IU/mL 0.34IU/mL Prothrombin Time 20.5SEC Prothromb Time International Ratio 1.9 Imaging: Chest CTA 12/16/16 IMPRESSION: 1. Multiple bilateral pulmonary emboli. 2. 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 3. Moderate-sized bilateral pleural effusions, right greater than left, with moderate underlying atelectasis and consolidation in in both lower lobes. BLE Venous Doppler 12/17/16 Impression: No evidence of deep vein thrombosis in either lower extremity. PE: GEN: NAD, pleasant, up to chair, PT in room LUNGS: breathing mask HEART: tachycardic ABD: S/ND/NT, drains NEURO/PSYCH: A & O 3 OTHER: family present A/P: Abnormal CT A/P -mural thickening along the base of the cecum raising the possibility of a cecal neoplasm with adjacent appendiceal obstruction and/or appendicitis -no previous colonoscopy Liver abscesses A Fib, CHF, recent NC, resp failure, PEs -- Await outcome of family meeting. Patient hints at his preference to avoid colonoscopy. GISSELL FUENTES Dec 19, 2016 11:45
--- NOTE | 2016-12-19 13:54 | PDOC ---
PULMONARY PROGRESS NOTES Subjective LOW SATS DENIES SOA Vitals Vital Signs Date Time Temp Pulse Resp B/P Pulse Ox O2 Delivery O2 Flow Rate FiO2 12/19/16 11:15 98.0 89 22 136/62 90 Nasal Cannula 5.0 98.0 General: Alert Lungs: Crackles (bases) Cardiovascular: S1 Abdomen: Soft Neuro Exam: Alert Extremities: Other (2+edema) Skin: Warm Labs Laboratory Tests Test 12/18/16 05:40 12/18/16 06:33 12/18/16 17:15 12/19/16 00:27 White Blood Count 7.2x10^3/uL (4.0-11.0) Red Blood Count 3.28x10^6/uL (4.30-5.70) Hemoglobin 10.2g/dL (13.0-17.5) Hematocrit 30.1% (39.0-53.0) Mean Corpuscular Volume 92fL (79-100) Mean Corpuscular Hemoglobin 31pg (25-35) Mean Corpuscular Hemoglobin Concent 34g/dL (31-37) Red Cell Distribution Width 14.1% (11.5-14.5) Platelet Count 194x10^3/uL (140-400) Prothrombin Time 17.2SEC (11.7-14.0) 20.5SEC (11.7-14.0) Prothromb Time International Ratio 1.5 (0.8-1.1) 1.9 (0.8-1.1) Heparin Anti-Xa Act, Unfractionated < 0.10IU/mL (0.30-0.70) 0.12IU/mL (0.30-0.70) 0.20IU/mL (0.30-0.70) 0.21IU/mL (0.30-0.70) Test 12/19/16 08:40 12/19/16 13:15 Heparin Anti-Xa Act, Unfractionated 0.34IU/mL (0.30-0.70) 0.30IU/mL (0.30-0.70) Laboratory Tests Test 12/18/16 17:15 12/19/16 00:27 12/19/16 08:40 12/19/16 13:15 Heparin Anti-Xa Act, Unfractionated 0.20IU/mL (0.30-0.70) 0.21IU/mL (0.30-0.70) 0.34IU/mL (0.30-0.70) 0.30IU/mL (0.30-0.70) Prothrombin Time 20.5SEC (11.7-14.0) Prothromb Time International Ratio 1.9 (0.8-1.1) Medications Active Scripts Medications Dose Route/Sig Days Date Category Milk Of Magnesia (Magnesium Hydroxide) 2,400 Mg/10 Ml Oral.susp 2,400 Mg PO 12/10/16 Reported Metoprolol Tartrate 100 Mg Tablet 1 Tab PO BID 12/10/16 Reported Allopurinol 100 Mg Tablet 1 Tab PO DAILY 12/10/16 Reported Aspir 81 (Aspirin) 81 Mg Tablet.dr 1 Tab PO DAILY 12/10/16 Reported Spironolactone 25 Mg Tablet 1 Tab PO DAILY 12/10/16 Reported Cardizem Tablet (Diltiazem Hcl) 30 Mg Tablet 30 Mg PO DAILY 12/10/16 Reported Zyvox (Linezolid) 600 Mg Tablet 600 Mg PO BID 12/10/16 Reported Augmentin 875-125 Tablet (Amoxicillin/Potassium Clav) 1 Each Tablet Tab PO BID 12/10/16 Reported Impression . 1. Acute hypoxic respiratory failure secondary to development of acute congestive heart failure, suspect diastolic heart failure triggered by atrial fibrillation with rapid ventricular response. 2. Atrial fibrillation with rapid ventricular response, triggering congestive heart failure. 3. Recent dilated gallbladder with liver abscess, status post percutaneous cholecystostomy placement. Followup CT chest showed persistent abscess in the liver and status post second drain. Replaced drains 12/16/16 4. No significant history of tobacco use. 5. PE CONFIRMED WITH CTA 6. Severe 3 vessel CAD Plan . Still needing 5 litres of oxygen repeat CXR to r/o new CHF will need LTAC ON HEPARIN AND COUMADIN will need 3-6 months of AC s/p new drains 3/3 antibx per ID follow surgery input RUKHSANA LEE MD Dec 19, 2016 13:54
[2016-12-19 15:00] VITALS: BP 128/60
--- NOTE | 2016-12-19 15:39 | RAD ---
EXAM: Chest one view. HISTORY: Congestive heart failure, shortness of breath. COMPARISON: 12/16/2016. FINDINGS: A frontal view of the chest is obtained. A right arm PICC line has its tip in the superior cavoatrial junction. Surgical drains are noted in the right upper quadrant. A moderate right pleural effusion has increased since the prior study. There is associated right basilar atelectasis or infiltrate. There is a small left pleural effusion with lesser left nasal or atelectasis. There is no pneumothorax. The heart is not enlarged. There are atherosclerotic calcifications of the aorta. IMPRESSION: 1. Increased moderate right pleural effusion with right basilar atelectasis or pneumonia. 2. Small left pleural effusion. Mild pulmonary edema cannot be excluded.
[2016-12-19] MEDS ORDERED: WARFARIN 6 MG TABLET. PO ONE (16:00)
--- NOTE | 2016-12-19 17:13 | PDOC2 ---
PALLIATIVE CARE Palliative Care Note Palliative Care Patient alert. Sitting up in chair. Oxygen sat 90%. Patient sats had dropped earlier and was placed on face mask Met with patient, miguel; Roni Gil David; Juarez unable to attend. Reviewed medical condition: PE on Heparin gtt; abscess liver --drains in place ; possible cecal mass; 3 vessel heart disease treated medically--stents on hold. Patient has decided that he would not want to be put on life support. Miguel aware and supportive of his decision Patient has been evaluated for [facility] and accept at this time of note. Plan transfer tomorrow. Patient would like to complete AD. Diana STEVENS aware and will assist family. Patient would also like information on [facility] for when he goes home. Plan: Discharge to [facility]; DNR/DNI; Outside the Hospital DNR/DNI form signed by patient.; will need physician signature. Continue to treat PE aggressively. Medical treatment of 3 vessel disease --evaluate for stents when medically appropriate. Possible cecal mass. Evaluate when medically appropriate. DAPHNEY JEFFERS Dec 19, 2016 17:13
[2016-12-19 19:00] VITALS: BP 139/64
[2016-12-19] MEDS: ATORVASTATIN CALCIUM 10 MG TABLET. PO SCH (21:32)
[2016-12-19 23:14] VITALS: BP 150/60
[2016-12-20] VITALS (11 sets, daily range): BP systolic 115–147; BP diastolic 55–80
[2016-12-20] MEDS: PIPERACILLIN/TAZOBACTAM 3.375 GM in IV NORMAL SALINE 50ML 50 ML IV SCH ×4 (01:05→18:00)
[2016-12-20] MEDS: HEPARIN 25,000UTS/500ML PREMIX 500 ML IV PRN (01:16)
[2016-12-20] MEDS: PANTOPRAZOLE 40 MG TABLET. PO SCH (07:30)
[2016-12-20] MEDS: CLOPIDOGREL BISULFATE 75 MG TABLET PO SCH (08:00)
[2016-12-20] MEDS: ASPIRIN ENTERIC COATED 81 MG TABLET.DR. PO SCH (08:00)
[2016-12-20 08:32] LABS: BASO # 0.1 x10^3/uL (0.0-0.2); BASO % 1 % (0-3); EOS % 2 % (0-3); HEMATOCRIT 30.3 % (39.0-53.0); LYMPH # 1.1 x10^3/uL (1.0-4.8); LYMPH % 17 % (24-48); MEAN CORPUSCULAR HEMOGLOBIN 31 pg (25-35); MEAN CORPUSCULAR HGB CONC 33 g/dL (31-37); MEAN CORPUSCULAR VOLUME 93 fL (79-100); MONO % 9 % (0-9); NEUT % 72 % (31-73); PLATELET COUNT 233 x10^3/uL (140-400); RED BLOOD COUNT 3.25 x10^6/uL (4.30-5.70); RED CELL DISTRIBUTION WIDTH 13.9 % (11.5-14.5); WHITE BLOOD COUNT 6.6 x10^3/uL (4.0-11.0)
--- NOTE | 2016-12-20 08:39 | RAD ---
EXAM: CT of the chest without intravenous contrast. HISTORY: Pleural effusion. TECHNIQUE: Computed tomography of the chest was performed without intravenous contrast. COMPARISON: 12/16/2016. FINDINGS: Images of the upper abdomen reveal loop drains within the right hepatic lobe and gallbladder. Gallstones are noted there is mild hepatic parenchymal hypoattenuation about the catheters may be edema or small residual collection measuring up to 4 cm.. Bone windows reveal no suspicious lesions. A right arm PICC line has its tip in the superior vena cava. There are no pathologically enlarged mediastinal or axillary lymph nodes. A 1 cm nodule in the anterior mediastinum is well circumscribed and unchanged. There is no pericardial effusion. The heart is mildly enlarged. There are atherosclerotic calcifications of the coronary arteries. The main pulmonary artery is enlarged at 3.6 cm. The previously noted pulmonary emboli are not detectable without contrast. Aortic valve calcifications are also noted. There is a moderate right pleural effusion, increased since the prior study. Mild soft tissue density/nodularity is seen along the right posterior pleura, not detectable previously. The right lower lobe and middle lobe are completely atelectatic. A small left pleural effusion is stable with mild left lower lobe atelectasis. There is a calcified granuloma in the left upper lobe. IMPRESSION: 1. The right pleural effusion is increased and is now moderate and partially loculated. New small soft tissue nodules/thickening along the posterior right pleura suggests an inflammatory component. Correlate with other data to exclude empyema. 2. Total atelectasis of the right lower and right middle lobes. Superimposed pneumonia cannot be excluded. 3. Stable small left pleural effusion. 4. Mild cardiomegaly. Pulmonary arterial enlargement is consistent with pulmonary arterial hypertension. Aortic valve calcifications. Correlate for aortic stenosis. 5. 1 cm nodule in the anterior mediastinal fat. This may be a benign lymph node. Follow-up could exclude a thymic lesion if there is persistent concern. 6. 4 cm hepatic parenchymal collection versus edema surrounding a percutaneous drain. Cholecystostomy in place. Cholelithiasis. *One or more of the following individualized dose reduction techniques were utilized for this examination: 1. Automated exposure control. 2. Adjustment of the mA and/or kV according to patient size. 3. Use of iterative reconstruction technique.
[2016-12-20 08:41] LABS: CALCIUM 8.8 mg/dL (8.5-10.1); CREATININE 0.8 mg/dL (0.7-1.3); GFR 91.4; POTASSIUM 3.4 mmol/L (3.5-5.1)
--- NOTE | 2016-12-20 08:44 | PDOC ---
Infectious Disease Note Subjective Subjective Comfortable, denies pain Feels well sitting in chair ROS ROS GEN: Denies fevers, chills, sweats HEENT: Denies blurred vision, sore throat CV: Denies chest pain GI: Denies n/v/d NEURO: Denies confusion, dizziness Vital Sign Vital Signs Vital Signs Date Time Temp Pulse Resp B/P Pulse Ox O2 Delivery O2 Flow Rate FiO2 12/20/16 07:15 97.7 86 24 147/73 90 Venturi Mask 15.0 97.7 Physical Exam PHYSICAL EXAM GENERAL: NAD, Alert HEENT: PERRL, OC/OP NECK: Supple, no JVD, no LN LUNGS: decreased bs HEART: S1S2, no gallop, no murmur ABD: Soft, NT, no organomegaly, no rebound,, drains in place EXT: No edema, no cyanosis COMMUNICATIONS DIRECTOR: Alert, oriented x 3, no focal neurologic deficit SKIN: No rash IV: ok Labs Lab Laboratory Tests Test 12/19/16 13:15 12/20/16 08:25 Heparin Anti-Xa Act, Unfractionated 0.30IU/mL (0.30-0.70) White Blood Count 6.6x10^3/uL (4.0-11.0) Red Blood Count 3.25x10^6/uL (4.30-5.70) Hemoglobin 10.0g/dL (13.0-17.5) Hematocrit 30.3% (39.0-53.0) Mean Corpuscular Volume 93fL (79-100) Mean Corpuscular Hemoglobin 31pg (25-35) Mean Corpuscular Hemoglobin Concent 33g/dL (31-37) Red Cell Distribution Width 13.9% (11.5-14.5) Platelet Count 233x10^3/uL (140-400) Neutrophils (%) (Auto) 72% (31-73) Lymphocytes (%) (Auto) 17% (24-48) Monocytes (%) (Auto) 9% (0-9) Eosinophils (%) (Auto) 2% (0-3) Basophils (%) (Auto) 1% (0-3) Neutrophils # (Auto) 4.7x10^3uL (1.8-7.7) Lymphocytes # (Auto) 1.1x10^3/uL (1.0-4.8) Monocytes # (Auto) 0.6x10^3/uL (0.0-1.1) Eosinophils # (Auto) 0.1x10^3/uL (0.0-0.7) Basophils # (Auto) 0.1x10^3/uL (0.0-0.2) Objective Assessment Liver abscess 12/02 Kleb and Enterococcus. s/p biliary drains. Reportedly Klebsiella/Hafnia alvei/Ecoli and enterococcus 11/[address] [facility] records. CAD s/p cath Acute cholecystolithiasis. Atrial fibrillation with rapid ventricular response. Acute respiratory failure, improving. Coronary artery disease Plan Plan of Care Cont Zosyn for now . Change to po Augmentin at discharge, since pt likely has colon ca and colonoscopy or any other aggressive measures are not planned. VY TINAJERO MD Dec 20, 2016 08:44
[2016-12-20 08:57] LABS: INR 1.8 (0.8-1.1); PROTHROMBIN TIME PATIENT 19.7 SEC (11.7-14.0)
[2016-12-20] MEDS: FUROSEMIDE 40 MG TABLET PO SCH (09:00)
[2016-12-20] MEDS: ISOSORBIDE MONONITRATE ER 30 MG TAB.ER.24H PO SCH (09:00)
[2016-12-20] MEDS: DOCUSATE SODIUM 100 MG CAPSULE PO SCH (09:00)
[2016-12-20] MEDS: SPIRONOLACTONE 25 MG TABLET PO SCH (09:00)
--- NOTE | 2016-12-20 09:07 | PDOC ---
PULMONARY PROGRESS NOTES Subjective NO SOA,ON 50%VM Vitals Vital Signs Date Time Temp Pulse Resp B/P Pulse Ox O2 Delivery O2 Flow Rate FiO2 12/20/16 07:15 97.7 86 24 147/73 90 Venturi Mask 15.0 97.7 General: Alert, No acute distress Lungs: Crackles (bases, left, right decrease) Cardiovascular: S1 Abdomen: Soft Neuro Exam: Alert Extremities: Other (2+edema) Skin: Warm Labs Laboratory Tests Test 12/18/16 17:15 12/19/16 00:27 12/19/16 08:40 12/19/16 13:15 Heparin Anti-Xa Act, Unfractionated 0.20IU/mL (0.30-0.70) 0.21IU/mL (0.30-0.70) 0.34IU/mL (0.30-0.70) 0.30IU/mL (0.30-0.70) Prothrombin Time 20.5SEC (11.7-14.0) Prothromb Time International Ratio 1.9 (0.8-1.1) Test 12/20/16 08:25 White Blood Count 6.6x10^3/uL (4.0-11.0) Red Blood Count 3.25x10^6/uL (4.30-5.70) Hemoglobin 10.0g/dL (13.0-17.5) Hematocrit 30.3% (39.0-53.0) Mean Corpuscular Volume 93fL (79-100) Mean Corpuscular Hemoglobin 31pg (25-35) Mean Corpuscular Hemoglobin Concent 33g/dL (31-37) Red Cell Distribution Width 13.9% (11.5-14.5) Platelet Count 233x10^3/uL (140-400) Neutrophils (%) (Auto) 72% (31-73) Lymphocytes (%) (Auto) 17% (24-48) Monocytes (%) (Auto) 9% (0-9) Eosinophils (%) (Auto) 2% (0-3) Basophils (%) (Auto) 1% (0-3) Neutrophils # (Auto) 4.7x10^3uL (1.8-7.7) Lymphocytes # (Auto) 1.1x10^3/uL (1.0-4.8) Monocytes # (Auto) 0.6x10^3/uL (0.0-1.1) Eosinophils # (Auto) 0.1x10^3/uL (0.0-0.7) Basophils # (Auto) 0.1x10^3/uL (0.0-0.2) Sodium Level 139mmol/L (136-145) Potassium Level 3.4mmol/L (3.5-5.1) Chloride Level 100mmol/L (98-107) Carbon Dioxide Level 33mmol/L (21-32) Anion Gap 6 (6-14) Blood Urea Nitrogen 11mg/dL (8-26) Creatinine 0.8mg/dL (0.7-1.3) Estimated GFR (Cockcroft-Gault) 91.4 Glucose Level 134mg/dL (70-99) Calcium Level 8.8mg/dL (8.5-10.1) Laboratory Tests Test 12/19/16 13:15 12/20/16 08:25 Heparin Anti-Xa Act, Unfractionated 0.30IU/mL (0.30-0.70) White Blood Count 6.6x10^3/uL (4.0-11.0) Red Blood Count 3.25x10^6/uL (4.30-5.70) Hemoglobin 10.0g/dL (13.0-17.5) Hematocrit 30.3% (39.0-53.0) Mean Corpuscular Volume 93fL (79-100) Mean Corpuscular Hemoglobin 31pg (25-35) Mean Corpuscular Hemoglobin Concent 33g/dL (31-37) Red Cell Distribution Width 13.9% (11.5-14.5) Platelet Count 233x10^3/uL (140-400) Neutrophils (%) (Auto) 72% (31-73) Lymphocytes (%) (Auto) 17% (24-48) Monocytes (%) (Auto) 9% (0-9) Eosinophils (%) (Auto) 2% (0-3) Basophils (%) (Auto) 1% (0-3) Neutrophils # (Auto) 4.7x10^3uL (1.8-7.7) Lymphocytes # (Auto) 1.1x10^3/uL (1.0-4.8) Monocytes # (Auto) 0.6x10^3/uL (0.0-1.1) Eosinophils # (Auto) 0.1x10^3/uL (0.0-0.7) Basophils # (Auto) 0.1x10^3/uL (0.0-0.2) Sodium Level 139mmol/L (136-145) Potassium Level 3.4mmol/L (3.5-5.1) Chloride Level 100mmol/L (98-107) Carbon Dioxide Level 33mmol/L (21-32) Anion Gap 6 (6-14) Blood Urea Nitrogen 11mg/dL (8-26) Creatinine 0.8mg/dL (0.7-1.3) Estimated GFR (Cockcroft-Gault) 91.4 Glucose Level 134mg/dL (70-99) Calcium Level 8.8mg/dL (8.5-10.1) Medications Active Scripts Medications Dose Route/Sig Days Date Category Milk Of Magnesia (Magnesium Hydroxide) 2,400 Mg/10 Ml Oral.susp 2,400 Mg PO 12/10/16 Reported Metoprolol Tartrate 100 Mg Tablet 1 Tab PO BID 12/10/16 Reported Allopurinol 100 Mg Tablet 1 Tab PO DAILY 12/10/16 Reported Aspir 81 (Aspirin) 81 Mg Tablet.dr 1 Tab PO DAILY 12/10/16 Reported Spironolactone 25 Mg Tablet 1 Tab PO DAILY 12/10/16 Reported Cardizem Tablet (Diltiazem Hcl) 30 Mg Tablet 30 Mg PO DAILY 12/10/16 Reported Zyvox (Linezolid) 600 Mg Tablet 600 Mg PO BID 12/10/16 Reported Augmentin 875-125 Tablet (Amoxicillin/Potassium Clav) 1 Each Tablet Tab PO BID 12/10/16 Reported Impression . 1. Acute hypoxic respiratory failure secondary to development of acute congestive heart failure, suspect diastolic heart failure triggered by atrial fibrillation with rapid ventricular response. 2. Atrial fibrillation with rapid ventricular response, triggering congestive heart failure.POA 3. Recent dilated gallbladder with liver abscess, status post percutaneous cholecystostomy placement. Followup CT chest showed persistent abscess in the liver and status post second drain. Replaced drains 12/16/16 4. No significant history of tobacco use. 5. PE CONFIRMED WITH CTA 6. Severe 3 vessel CAD 7. New partially loculated right pleural effusion, ? hepatic abscess extension into pleural space Plan . Still needing VM repeat ct chest with partially loculated right effusion, suspect hepatic abscess extension right thoracentesis with possible chest tube today ON HEPARIN AND COUMADIN(on hold) will need 3-6 months of AC s/p new drains 3/3 antibx per ID follow surgery input d/w patient and RUKHSANA Burroughs MD Dec 20, 2016 09:07
[2016-12-20] MEDS ORDERED: FUROSEMIDE 40 MG/4 ML VIAL IVP ONE (09:30)
--- NOTE | 2016-12-20 09:43 | PDOC ---
PROGRESS NOTES Chief Complaint Chief Complaint SOB Edema ASSESSMENT AND PLAN: 1. 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 Afib s/p RVR (new) 2. CHF: 3. Troponin leak: 4. CAD hx: 5. GB abscess: drain in place, on Abx. done by [facility] 6. Gout: no acute issues. cont allopurinol 7,.A cute hypoxic respi failure needing venti mask , resolved 8. PE, possible 9. Possible liver abscess 10, Possible appy History of Present Illness History of Present Illness Resting up in chair- did not awaken On NC PLanned for thoracentesis as CXR worse. CTs can reviewed: IMPRESSION: 1. The right pleural effusion is increased and is now moderate and partially loculated. New small soft tissue nodules/thickening along the posterior right pleura suggests an inflammatory component. Correlate with other data to exclude empyema. 2. Total atelectasis of the right lower and right middle lobes. Superimposed pneumonia cannot be excluded. 3. Stable small left pleural effusion. 4. Mild cardiomegaly. Pulmonary arterial enlargement is consistent with pulmonary arterial hypertension. Aortic valve calcifications. Correlate for aortic stenosis. 5. 1 cm nodule in the anterior mediastinal fat. This may be a benign lymph node. Follow-up could exclude a thymic lesion if there is persistent concern. 6. 4 cm hepatic parenchymal collection versus edema surrounding a percutaneous drain. Cholecystostomy in place. Cholelithiasis. K 3.3 today LTAc screen on going Plan: IV KCl since nPO Start daily KCL since started on daily lasix PLanned for thoracentesis today INR 1.8 - dw IR - ok with that To stop heparin gtt this NN few hrs before thoracentesis Sebastien Roldan and iR Vitals Vitals Vital Signs Date Time Temp Pulse Resp B/P Pulse Ox O2 Delivery O2 Flow Rate FiO2 12/20/16 07:15 97.7 86 24 147/73 90 Venturi Mask 15.0 97.7 Physical Exam General: Alert, Oriented X3, Cooperative, No acute distress Heart: Normal S1, Normal S2, No murmurs, Other (irregular) Lungs: Crackles (bases, left, right decrease) Abdomen: Soft, Other (mild ttp drain site) Extremities: No edema Skin: No significant lesion Labs LABS Laboratory Tests Test 12/19/16 13:15 12/20/16 08:25 Heparin Anti-Xa Act, Unfractionated 0.30IU/mL (0.30-0.70) 0.20IU/mL (0.30-0.70) White Blood Count 6.6x10^3/uL (4.0-11.0) Red Blood Count 3.25x10^6/uL (4.30-5.70) Hemoglobin 10.0g/dL (13.0-17.5) Hematocrit 30.3% (39.0-53.0) Mean Corpuscular Volume 93fL (79-100) Mean Corpuscular Hemoglobin 31pg (25-35) Mean Corpuscular Hemoglobin Concent 33g/dL (31-37) Red Cell Distribution Width 13.9% (11.5-14.5) Platelet Count 233x10^3/uL (140-400) Neutrophils (%) (Auto) 72% (31-73) Lymphocytes (%) (Auto) 17% (24-48) Monocytes (%) (Auto) 9% (0-9) Eosinophils (%) (Auto) 2% (0-3) Basophils (%) (Auto) 1% (0-3) Neutrophils # (Auto) 4.7x10^3uL (1.8-7.7) Lymphocytes # (Auto) 1.1x10^3/uL (1.0-4.8) Monocytes # (Auto) 0.6x10^3/uL (0.0-1.1) Eosinophils # (Auto) 0.1x10^3/uL (0.0-0.7) Basophils # (Auto) 0.1x10^3/uL (0.0-0.2) Prothrombin Time 19.7SEC (11.7-14.0) Prothromb Time International Ratio 1.8 (0.8-1.1) Sodium Level 139mmol/L (136-145) Potassium Level 3.4mmol/L (3.5-5.1) Chloride Level 100mmol/L (98-107) Carbon Dioxide Level 33mmol/L (21-32) Anion Gap 6 (6-14) Blood Urea Nitrogen 11mg/dL (8-26) Creatinine 0.8mg/dL (0.7-1.3) Estimated GFR (Cockcroft-Gault) 91.4 Glucose Level 134mg/dL (70-99) Calcium Level 8.8mg/dL (8.5-10.1) Review of Systems Review of Systems sleep did not awaken Assessment and Plan Assessmemt and Plan Problems Medical Problems: (1) Acute respiratory failure Status: Acute (2) CAD (coronary artery disease) Status: Acute (3) CHF exacerbation Status: Acute (4) Hypoxia Status: Acute (5) Pulmonary edema Status: Acute (6) Volume overload Status: Acute Problems: Comment Review of Relevant I have reviewed the following items liana (where applicable) has been applied. Labs Laboratory Tests Test 12/18/16 17:15 12/19/16 00:27 12/19/16 08:40 12/19/16 13:15 Heparin Anti-Xa Act, Unfractionated 0.20IU/mL (0.30-0.70) 0.21IU/mL (0.30-0.70) 0.34IU/mL (0.30-0.70) 0.30IU/mL (0.30-0.70) Prothrombin Time 20.5SEC (11.7-14.0) Prothromb Time International Ratio 1.9 (0.8-1.1) Test 12/20/16 08:25 White Blood Count 6.6x10^3/uL (4.0-11.0) Red Blood Count 3.25x10^6/uL (4.30-5.70) Hemoglobin 10.0g/dL (13.0-17.5) Hematocrit 30.3% (39.0-53.0) Mean Corpuscular Volume 93fL (79-100) Mean Corpuscular Hemoglobin 31pg (25-35) Mean Corpuscular Hemoglobin Concent 33g/dL (31-37) Red Cell Distribution Width 13.9% (11.5-14.5) Platelet Count 233x10^3/uL (140-400) Neutrophils (%) (Auto) 72% (31-73) Lymphocytes (%) (Auto) 17% (24-48) Monocytes (%) (Auto) 9% (0-9) Eosinophils (%) (Auto) 2% (0-3) Basophils (%) (Auto) 1% (0-3) Neutrophils # (Auto) 4.7x10^3uL (1.8-7.7) Lymphocytes # (Auto) 1.1x10^3/uL (1.0-4.8) Monocytes # (Auto) 0.6x10^3/uL (0.0-1.1) Eosinophils # (Auto) 0.1x10^3/uL (0.0-0.7) Basophils # (Auto) 0.1x10^3/uL (0.0-0.2) Prothrombin Time 19.7SEC (11.7-14.0) Prothromb Time International Ratio 1.8 (0.8-1.1) Heparin Anti-Xa Act, Unfractionated 0.20IU/mL (0.30-0.70) Sodium Level 139mmol/L (136-145) Potassium Level 3.4mmol/L (3.5-5.1) Chloride Level 100mmol/L (98-107) Carbon Dioxide Level 33mmol/L (21-32) Anion Gap 6 (6-14) Blood Urea Nitrogen 11mg/dL (8-26) Creatinine 0.8mg/dL (0.7-1.3) Estimated GFR (Cockcroft-Gault) 91.4 Glucose Level 134mg/dL (70-99) Calcium Level 8.8mg/dL (8.5-10.1) Laboratory Tests Test 12/19/16 13:15 12/20/16 08:25 Heparin Anti-Xa Act, Unfractionated 0.30IU/mL (0.30-0.70) 0.20IU/mL (0.30-0.70) White Blood Count 6.6x10^3/uL (4.0-11.0) Red Blood Count 3.25x10^6/uL (4.30-5.70) Hemoglobin 10.0g/dL (13.0-17.5) Hematocrit 30.3% (39.0-53.0) Mean Corpuscular Volume 93fL (79-100) Mean Corpuscular Hemoglobin 31pg (25-35) Mean Corpuscular Hemoglobin Concent 33g/dL (31-37) Red Cell Distribution Width 13.9% (11.5-14.5) Platelet Count 233x10^3/uL (140-400) Neutrophils (%) (Auto) 72% (31-73) Lymphocytes (%) (Auto) 17% (24-48) Monocytes (%) (Auto) 9% (0-9) Eosinophils (%) (Auto) 2% (0-3) Basophils (%) (Auto) 1% (0-3) Neutrophils # (Auto) 4.7x10^3uL (1.8-7.7) Lymphocytes # (Auto) 1.1x10^3/uL (1.0-4.8) Monocytes # (Auto) 0.6x10^3/uL (0.0-1.1) Eosinophils # (Auto) 0.1x10^3/uL (0.0-0.7) Basophils # (Auto) 0.1x10^3/uL (0.0-0.2) Prothrombin Time 19.7SEC (11.7-14.0) Prothromb Time International Ratio 1.8 (0.8-1.1) Sodium Level 139mmol/L (136-145) Potassium Level 3.4mmol/L (3.5-5.1) Chloride Level 100mmol/L (98-107) Carbon Dioxide Level 33mmol/L (21-32) Anion Gap 6 (6-14) Blood Urea Nitrogen 11mg/dL (8-26) Creatinine 0.8mg/dL (0.7-1.3) Estimated GFR (Cockcroft-Gault) 91.4 Glucose Level 134mg/dL (70-99) Calcium Level 8.8mg/dL (8.5-10.1) Microbiology 12/10/16 Blood Culture - Final, Complete NO GROWTH AFTER 5 DAYS 12/10/16 Urine Culture - Final, Complete 12/10/16 Urine Culture Result 1 ([facility]) - Final, Complete Medications Current Medications Piperacillin Sod/ Tazobactam Sod 1 each 1 each PRN DAILY PRN MC SEE COMMENTS; Start 12/10/16 at 07:15; Stop 12/14/16 at 11:23; Status DC Diltiazem HCl/ Dextrose (Cardizem) 125 ml @ 0 mls/hr CONT PRN IV SEE I/O RECORD Last administered on 12/13/16t 00:58; Start 12/10/16 at 07:15; Stop 12/13 at 12:33; Status DC Furosemide (Lasix) 40 mg 1X ONCE IVP Last administered on 12/10/16 07:52; Start 12/10/16 at 07:15; Stop 12/10/16 at 07:18; Status DC Nitroglycerin (Nitrostat) 0.4 mg 1X ONCE SL ; Start 12/10/16 at 07:15; Stop at 07:18; Status DC Ondansetron HCl (Zofran) 4 mg PRN Q8HRS PRN IV NAUSEA/VOMITING; Start 12/10/16 at 07:30; Stop 12/11/16 at 07:29; Status DC Morphine Sulfate 2 mg 2 mg PRN Q2HR PRN IV PAIN; Start 12/10/16 at 07:30; Stop 12/11/16 at 07:29; Status DC Piperacillin Sod/ Tazobactam Sod/ Sodium Chloride (Zosyn/Iv Sodium Chloride 0.9 % 100ml) 100 ml @ 200 mls/hr 1X ONCE IV Last administered on 12/10/16 09:28 ; Start 12/10/16 at 07:45; Stop 12/10/16 at 08:14; Status DC Lisinopril (Prinivil) 10 mg DAILY PO ; Start 12/11/16 at 09:00; Stop 12/11/16 at 16:31; Status DC Labetalol HCl (Normodyne) 20 mg PRN Q2HR PRN IVP HYPERTENSION, SEE COMMENTS; Start 12/10/16 at 11:30 Aspirin (Ecotrin) 81 mg DAILYWBKFT PO Last administered on 12/19/16 10:09; Start 12/10/16 at 13:00 Furosemide 40 mg 40 mg 1X ONCE IVP Last administered on 12/10/16 14:37; Start 12/10/16 at 12:15; Stop 12/10/16 at 12:23; Status DC Piperacillin Sod/ Tazobactam Sod/ Sodium Chloride (Zosyn/Iv Sodium Chloride 0.9 % 50ml) 50 ml @ 100 mls/hr Q6HRS IV Last administered on 12/20/16 06:00; Start 12/10/16 at 13:30 Allopurinol (Zyloprim) 100 mg DAILY PO ; Start 12/11/16 at 10:00; Stop 12/11/16 at 10:13; Status DC Aspirin (Ecotrin) 81 mg DAILY PO ; Start 12/12/16 at 09:00; Status Cancel Linezolid (Zyvox) 600 mg BID PO Last administered on 12/12/16 21:34; Start at 10:00; Stop 12/13/16 at 08:51; Status DC Spironolactone (Aldactone) 25 mg DAILY PO Last administered on 12/19/16 10:09; Start 12/11/16 at 10:00 Metoprolol Tartrate 100 mg 100 mg BID PO Last administered on 12/13/16 09:28; Start 12/11/16 at 10:00; Stop 12/13/16 at 12:33; Status DC Heparin Sodium/ Dextrose 500 ml @ 19.6 mls/hr CONT PRN IV SEE I/O RECORD Last administered on 12/15/16 05:34; Start 12/11/16 at 14:45; Stop 12/15/16 at 10:20; Status DC Heparin Sodium (Porcine) 2,050 unit PRN Q6HRS PRN IV FOR UFH LEVEL LESS THAN 0.2 Last administered on 12/13/16 20:30; Start 12/11/16 at 14:45; Stop 12/15/16 at 10:20; Status DC Throat Lozenges (Cepacol Sore Throat Lozenge) 1 jorge a PRN Q2HRS PRN PO SORE THROAT Last administered on 12/18/16 20:21; Start 12/11/16 at 19:30 Docusate Sodium (Colace) 100 mg DAILY PO Last administered on 12/19/16 10:08; Start 12/12/16 at 10:00 Polyethylene Glycol (miraLAX PACKET) 17 gm PRN DAILY PRN PO CONSTIPATION; Start 12/12/16 at 10:00 Magnesium Hydroxide (Milk Of Magnesia) 2,400 mg PRN DAILY PRN PO CONSTIPATION; Start 12/12/16 at 10:00 Lidocaine HCl 20 ml 20 ml STK-MED ONCE .ROUTE ; Start 12/12/16 at 14:11; Stop at 14:12; Status DC Heparin Sodium/ Sodium Chloride 500 ml @ As Directed STK-MED ONCE .ROUTE ; Start 12/12/16 at 14:11; Stop 12/12/16 at 14:12; Status DC Iohexol (Omnipaque 300 Mg/ml) 100 ml STK-MED ONCE .ROUTE ; Start 12/12/16 at 14: 11; Stop 12/12/16 at 14:12; Status DC Iodixanol (Visipaque 320) 100 ml STK-MED ONCE .ROUTE ; Start 12/12/16 at 14:11; Stop 12/12/16 at 14:12; Status DC Nitroglycerin (Nitroglycerin) 200 mcg STK-MED ONCE .ROUTE ; Start 12/12/16 at 14 :16; Stop 12/12/16 at 14:17; Status DC Verapamil HCl (Verapamil) 5 mg STK-MED ONCE .ROUTE ; Start 12/12/16 at 14:16; Stop 12/12/16 at 14:17; Status DC Midazolam HCl (Versed) 2 mg STK-MED ONCE .ROUTE ; Start 12/12/16 at 14:16; Stop 12/12/16 at 14:17; Status DC Fentanyl Citrate (Fentanyl 2ml Vial) 100 mcg STK-MED ONCE .ROUTE ; Start at 14:16; Stop 12/12/16 at 14:17; Status DC Heparin Sodium (Porcine) 10,000 unit STK-MED ONCE .ROUTE ; Start 12/12/16 at 14: 16; Stop 12/12/16 at 14:17; Status DC Nitroglycerin (Nitroglycerin) 200 mcg 1X ONCE IART Last administered on 15:04; Start 12/12/16 at 14:45; Stop 12/12/16 at 14:46; Status DC Verapamil HCl (Verapamil) 2.5 mg 1X ONCE IART Last administered on 12/12/16 15:05; Start 12/12/16 at 14:45; Stop 12/12/16 at 14:46; Status DC Heparin Sodium (Porcine) 2,500 unit 1X ONCE IART Last administered on 15:06; Start 12/12/16 at 14:45; Stop 12/12/16 at 14:46; Status DC Heparin Sodium/ Sodium Chloride 1,000 unit 1X ONCE IART Last administered on 15:03; Start 12/12/16 at 14:45; Stop 12/12/16 at 14:46; Status DC Midazolam HCl (Versed) 2 mg 1X ONCE IV Last administered on 12/12/16 15:04; Start 12/12/16 at 14:45; Stop 12/12/16 at 14:46; Status DC Fentanyl Citrate (Fentanyl 2ml Vial) 100 mcg 1X ONCE IV Last administered on 15:04; Start 12/12/16 at 14:45; Stop 12/12/16 at 14:46; Status DC Iodixanol (Visipaque 320) 100 ml 1X ONCE IART Last administered on 12/12/16 15:05; Start 12/12/16 at 14:45; Stop 12/12/16 at 14:46; Status DC Lidocaine HCl 1 ml 1X ONCE IJ Last administered on 12/12/16 15:03; Start at 14:45; Stop 12/12/16 at 14:46; Status DC Nitroglycerin (Nitrostat) 0.4 mg PRN Q5MIN PRN SL CHEST PAIN; Start 12/12/16 at 15:30 Furosemide (Lasix) 40 mg 1X ONCE IVP Last administered on 12/12/16 16:18; Start 12/12/16 at 15:30; Stop 12/12/16 at 15:31; Status DC Metoprolol Tartrate (Lopressor) 50 mg BID PO Last administered on 12/19/16 21: 33; Start 12/13/16 at 21:00 Furosemide (Lasix) 40 mg 1X ONCE IVP Last administered on 12/13/16 15:06; Start 12/13/16 at 12:15; Stop 12/13/16 at 12:37; Status DC Furosemide (Lasix) 40 mg DAILY PO Last administered on 12/19/16 10:10; Start at 09:00 Diltiazem HCl (Cardizem 24hr Cd) 120 mg DAILY PO Last administered on 12/14/16 09:00; Start 12/14/16 at 09:00; Stop 12/14/16 at 12:13; Status DC Lisinopril (Prinivil) 2.5 mg DAILY PO ; Start 12/14/16 at 09:00; Stop 12/14/16 at 09:00; Status DC Atorvastatin Calcium (Lipitor) 10 mg QHS PO Last administered on 12/19/16 21:32 ; Start 12/13/16 at 21:00 Info (Anti-Coagulation Monitoring By Pharmacy) 1 each PRN DAILY PRN MC SEE COMMENTS Last administered on 12/15/16 07:26; Start 12/13/16 at 16:30 Diltiazem HCl (Cardizem 24hr Cd) 240 mg DAILY PO Last administered on 12/19/16 10:08; Start 12/15/16 at 09:00 Diltiazem HCl (Cardizem 24hr Cd) 120 mg 1X ONCE PO Last administered on 12:49; Start 12/14/16 at 12:15; Stop 12/14/16 at 12:20; Status DC Clopidogrel Bisulfate (Plavix) 75 mg DAILYWBKFT PO Last administered on 10:09; Start 12/14/16 at 13:00 Isosorbide Mononitrate (Imdur) 30 mg DAILY PO Last administered on 12/19/16 10: 09; Start 12/15/16 at 11:30 Iohexol (Omnipaque 240 Mg/ml) 30 ml 1X ONCE PO ; Start 12/15/16 at 11:45; Stop 12/15/16 at 11:46; Status DC Iohexol (Omnipaque 300 Mg/ml) 75 ml 1X ONCE IV ; Start 12/15/16 at 11:45; Stop 12/15/16 at 11:46; Status DC Info (Do NOT chart on this entry -- for MONITORING) 1 each PRN DAILY PRN MC SEE COMMENTS; Start 12/15/16 at 11:45; Stop 12/16/16 at 14:09; Status DC Enoxaparin Sodium (Lovenox 40mg Syringe) 40 mg Q24H SQ Last administered on 12/15 17:59; Start 12/15/16 at 18:00; Stop 12/16/16 at 09:35; Status DC Enoxaparin Sodium (Lovenox 80mg Syringe) 80 mg BID SQ Last administered on 14:15; Start 12/16/16 at 10:00; Stop 12/16/16 at 16:23; Status DC Iohexol (Omnipaque 300 Mg/ml) 50 ml STK-MED ONCE .ROUTE ; Start 12/16/16 at 10:32 ; Stop 12/16/16 at 10:33; Status DC Iohexol (Omnipaque 300 Mg/ml) 10 ml 1X ONCE IJ Last administered on 12/16/16 11:40; Start 12/16/16 at 11:45; Stop 12/16/16 at 11:46; Status DC Info (Do NOT chart on this entry -- for MONITORING) 1 each PRN DAILY PRN MC SEE COMMENTS; Start 12/16/16 at 11:45; Stop 12/18/16 at 09:56; Status DC Calcium Carbonate/ Glycine (Tums) 500 mg PRN AFTMEALHC PRN PO INDIGESTION Last administered on 12/16/16 14:14; Start 12/16/16 at 14:15 Pantoprazole Sodium (Protonix) 40 mg DAILYAC PO Last administered on 12/19/16 10:09; Start 12/16/16 at 14:30 Morphine Sulfate 1 mg PRN Q2HR PRN IV PAIN Last administered on 12/17/16 01:36 ; Start 12/16/16 at 14:15 Iohexol (Omnipaque 300 Mg/ml) 75 ml 1X ONCE IV ; Start 12/16/16 at 16:00; Stop 12/16/16 at 16:01; Status DC Info 1 each 1 each PRN DAILY PRN MC SEE COMMENTS; Start 12/16/16 at 15:30; Stop 12/18/16 at 15:29; Status DC Heparin Sodium/ Dextrose 500 ml @ 0 mls/hr CONT PRN IV SEE I/O RECORD Last administered on 12/20/16 01:16; Start 12/16/16 at 16:15 Heparin Sodium (Porcine) 2,500 unit PRN Q6HRS PRN IV FOR UFH LEVEL LESS THAN 0.2 Last administered on 12/18/16 11:46; Start 12/16/16 at 16:15 Heparin Sodium (Porcine) 1,250 unit PRN Q6HRS PRN IV FOR UFH LEVEL 0.2 - 0.29 Last administered on 12/19/16 02:27; Start 12/16/16 at 16:15 Warfarin Sodium (Coumadin Per Pharmacy) 1 each PRN DAILY PRN MC PER PROTOCOL Last administered on 12/19/16 12:49; Start 12/16/16 at 16:15 Morphine Sulfate 2 mg PRN Q2HR PRN IV PAIN Last administered on 12/18/16 22:16 ; Start 12/16/16 at 16:15 Warfarin Sodium (Coumadin) 6 mg 1X WARF ONCE PO Last administered on 12/16/16 18:20; Start 12/16/16 at 17:00; Stop 12/16/16 at 17:01; Status DC Warfarin Sodium (Coumadin) 5 mg 1X WARF ONCE PO Last administered on 12/17/16 16:29; Start 12/17/16 at 16:00; Stop 12/17/16 at 16:01; Status DC Warfarin Sodium (Coumadin) 6 mg 1X WARF ONCE PO Last administered on 12/18/16 17:32; Start 12/18/16 at 16:00; Stop 12/18/16 at 16:01; Status DC Warfarin Sodium (Coumadin) 6 mg 1X WARF ONCE PO ; Start 12/19/16 at 16:00; Stop 12/19/16 at 16:01; Status DC Furosemide (Lasix) 40 mg 1X ONCE IVP ; Start 12/20/16 at 09:30; Stop 12/20/16 at 09:31; Status DC Potassium Chloride (Klor-Con) 40 meq 1X ONCE PO ; Start 12/20/16 at 10:00; Stop 12/20/16 at 10:01 Potassium Chloride (Klor-Con) 20 meq DAILYWBKFT PO ; Start 12/21/16 at 08:00 Active Scripts Active Reported Milk Of Magnesia (Magnesium Hydroxide) 2,400 Mg/10 Ml Oral.susp 2,400 Mg PO Metoprolol Tartrate 100 Mg Tablet 1 Tab PO BID Allopurinol 100 Mg Tablet 1 Tab PO DAILY Aspir 81 (Aspirin) 81 Mg Tablet.dr 1 Tab PO DAILY Spironolactone 25 Mg Tablet 1 Tab PO DAILY Cardizem Tablet (Diltiazem Hcl) 30 Mg Tablet 30 Mg PO DAILY Zyvox (Linezolid) 600 Mg Tablet 600 Mg PO BID Augmentin 875-125 Tablet (Amoxicillin/Potassium Clav) 1 Each Tablet Tab PO BID Vitals/I & O Vital Sign - Last 24 Hours 12/19/16 12/19/16 12/19/16 12/19/16 10:08 10:09 10:09 11:15 Temp 98.0 98.0 Pulse 110 88 109 89 Resp 22 B/P 158/65 138/66 158/65 136/62 Pulse Ox 90 O2 Delivery Nasal Cannula O2 Flow Rate 5.0 12/19/16 12/19/16 12/19/16 12/19/16 15:00 19:00 20:00 21:33 Temp 98.5 98.8 98.5 98.8 Pulse 81 91 91 Resp 22 B/P 128/60 139/64 139/64 Pulse Ox 90 93 O2 Delivery Venturi Mask Venturi Mask Venturi Mask O2 Flow Rate 15.0 15.0 15.0 12/19/16 12/20/16 12/20/16 23:14 03:00 07:15 Temp 98.0 98.4 97.7 98.0 98.4 97.7 Pulse 79 85 86 Resp 24 B/P 150/60 130/65 147/73 Pulse Ox 91 90 90 O2 Delivery Venturi Mask Venturi Mask Venturi Mask O2 Flow Rate 15.0 15.0 15.0 Intake and Output 12/19/16 12/19/16 12/20/16 15:00 23:00 07:00 Intake Total 760 ml 300 ml Output Total 450 ml 600 ml Balance 310 ml -300 ml CARLYLE CARMEN MD Dec 20, 2016 09:43
[2016-12-20] MEDS ORDERED: POTASSIUM CHLORIDE 20 MEQ TABLET.ER. PO ONE (10:00)
[2016-12-20] MEDS: ANTI-COAG MONITOR BY PHARMACY. MC PRN (10:32)
--- NOTE | 2016-12-20 10:32 | PDOC ---
SURGICAL PROGRESS NOTE Subjective Pt having bowel movement, denies pain, on venti mask Vital Signs Vital Signs Date Time Temp Pulse Resp B/P Pulse Ox O2 Delivery O2 Flow Rate FiO2 12/20/16 07:15 97.7 86 24 147/73 90 Venturi Mask 15.0 97.7 I&O Intake and Output 12/20/16 07:00 Intake Total 1060 ml Output Total 1050 ml Balance 10 ml Intake Oral 1060 ml Output Urine Total 1050 ml # Voids 2 General: Alert, Oriented X3, Cooperative, No acute distress Labs Laboratory Tests Test 12/18/16 17:15 12/19/16 00:27 12/19/16 08:40 12/19/16 13:15 Heparin Anti-Xa Act, Unfractionated 0.20IU/mL (0.30-0.70) 0.21IU/mL (0.30-0.70) 0.34IU/mL (0.30-0.70) 0.30IU/mL (0.30-0.70) Prothrombin Time 20.5SEC (11.7-14.0) Prothromb Time International Ratio 1.9 (0.8-1.1) Test 12/20/16 08:25 White Blood Count 6.6x10^3/uL (4.0-11.0) Red Blood Count 3.25x10^6/uL (4.30-5.70) Hemoglobin 10.0g/dL (13.0-17.5) Hematocrit 30.3% (39.0-53.0) Mean Corpuscular Volume 93fL (79-100) Mean Corpuscular Hemoglobin 31pg (25-35) Mean Corpuscular Hemoglobin Concent 33g/dL (31-37) Red Cell Distribution Width 13.9% (11.5-14.5) Platelet Count 233x10^3/uL (140-400) Neutrophils (%) (Auto) 72% (31-73) Lymphocytes (%) (Auto) 17% (24-48) Monocytes (%) (Auto) 9% (0-9) Eosinophils (%) (Auto) 2% (0-3) Basophils (%) (Auto) 1% (0-3) Neutrophils # (Auto) 4.7x10^3uL (1.8-7.7) Lymphocytes # (Auto) 1.1x10^3/uL (1.0-4.8) Monocytes # (Auto) 0.6x10^3/uL (0.0-1.1) Eosinophils # (Auto) 0.1x10^3/uL (0.0-0.7) Basophils # (Auto) 0.1x10^3/uL (0.0-0.2) Prothrombin Time 19.7SEC (11.7-14.0) Prothromb Time International Ratio 1.8 (0.8-1.1) Heparin Anti-Xa Act, Unfractionated 0.20IU/mL (0.30-0.70) Sodium Level 139mmol/L (136-145) Potassium Level 3.4mmol/L (3.5-5.1) Chloride Level 100mmol/L (98-107) Carbon Dioxide Level 33mmol/L (21-32) Anion Gap 6 (6-14) Blood Urea Nitrogen 11mg/dL (8-26) Creatinine 0.8mg/dL (0.7-1.3) Estimated GFR (Cockcroft-Gault) 91.4 Glucose Level 134mg/dL (70-99) Calcium Level 8.8mg/dL (8.5-10.1) Laboratory Tests Test 12/19/16 13:15 12/20/16 08:25 Heparin Anti-Xa Act, Unfractionated 0.30IU/mL (0.30-0.70) 0.20IU/mL (0.30-0.70) White Blood Count 6.6x10^3/uL (4.0-11.0) Red Blood Count 3.25x10^6/uL (4.30-5.70) Hemoglobin 10.0g/dL (13.0-17.5) Hematocrit 30.3% (39.0-53.0) Mean Corpuscular Volume 93fL (79-100) Mean Corpuscular Hemoglobin 31pg (25-35) Mean Corpuscular Hemoglobin Concent 33g/dL (31-37) Red Cell Distribution Width 13.9% (11.5-14.5) Platelet Count 233x10^3/uL (140-400) Neutrophils (%) (Auto) 72% (31-73) Lymphocytes (%) (Auto) 17% (24-48) Monocytes (%) (Auto) 9% (0-9) Eosinophils (%) (Auto) 2% (0-3) Basophils (%) (Auto) 1% (0-3) Neutrophils # (Auto) 4.7x10^3uL (1.8-7.7) Lymphocytes # (Auto) 1.1x10^3/uL (1.0-4.8) Monocytes # (Auto) 0.6x10^3/uL (0.0-1.1) Eosinophils # (Auto) 0.1x10^3/uL (0.0-0.7) Basophils # (Auto) 0.1x10^3/uL (0.0-0.2) Prothrombin Time 19.7SEC (11.7-14.0) Prothromb Time International Ratio 1.8 (0.8-1.1) Sodium Level 139mmol/L (136-145) Potassium Level 3.4mmol/L (3.5-5.1) Chloride Level 100mmol/L (98-107) Carbon Dioxide Level 33mmol/L (21-32) Anion Gap 6 (6-14) Blood Urea Nitrogen 11mg/dL (8-26) Creatinine 0.8mg/dL (0.7-1.3) Estimated GFR (Cockcroft-Gault) 91.4 Glucose Level 134mg/dL (70-99) Calcium Level 8.8mg/dL (8.5-10.1) Problem List Problems Medical Problems: (1) Acute respiratory failure Status: Acute (2) CAD (coronary artery disease) Status: Acute (3) CHF exacerbation Status: Acute (4) Hypoxia Status: Acute (5) Pulmonary edema Status: Acute (6) Volume overload Status: Acute Assessment/Plan cont drains pt poor surgical candidate agree with plan per palliative care Problems: JANEL ALLISON MD Dec 20, 2016 10:31
[2016-12-20] MEDS: DILTIAZEM HCL 240 MG CAP.ER.24H PO SCH (11:50)
[2016-12-20] MEDS: METOPROLOL TART IMMED RELEASE 50 MG TABLET PO SCH ×2 (11:51→20:02)
[2016-12-20] MEDS: POTASSIUM CHLORIDE 20MEQ 50 ML IV SCH ×2 (11:53→12:56)
--- NOTE | 2016-12-20 13:03 | PDOC ---
Subjective: Subjective: No GI complaints. Says he "doesn't want to mess with a colonoscopy." Objective: Objective: Reviewed palliative care note - DNR/DNI, continue treat PE, evaluate for stents and evaluation of possible cecal mass when medically appropriate. D/w Dr. Mccauley earlier - concern for hepatic abscess extension w/ right pleural effusion. Thoracentesis today. Vital Signs: Vital Signs Date Time Temp Pulse Resp B/P Pulse Ox O2 Delivery O2 Flow Rate FiO2 12/20/16 11:51 74 138/80 12/20/16 10:40 97.4 23 90 Nasal Cannula 5.0 97.4 Labs: Laboratory Tests Test 12/19/16 13:15 12/20/16 08:25 Heparin Anti-Xa Act, Unfractionated 0.30IU/mL 0.20IU/mL White Blood Count 6.6x10^3/uL Red Blood Count 3.25x10^6/uL Hemoglobin 10.0g/dL Hematocrit 30.3% Mean Corpuscular Volume 93fL Mean Corpuscular Hemoglobin 31pg Mean Corpuscular Hemoglobin Concent 33g/dL Red Cell Distribution Width 13.9% Platelet Count 233x10^3/uL Neutrophils (%) (Auto) 72% Lymphocytes (%) (Auto) 17% Monocytes (%) (Auto) 9% Eosinophils (%) (Auto) 2% Basophils (%) (Auto) 1% Neutrophils # (Auto) 4.7x10^3uL Lymphocytes # (Auto) 1.1x10^3/uL Monocytes # (Auto) 0.6x10^3/uL Eosinophils # (Auto) 0.1x10^3/uL Basophils # (Auto) 0.1x10^3/uL Prothrombin Time 19.7SEC Prothromb Time International Ratio 1.8 Sodium Level 139mmol/L Potassium Level 3.4mmol/L Chloride Level 100mmol/L Carbon Dioxide Level 33mmol/L Anion Gap 6 Blood Urea Nitrogen 11mg/dL Creatinine 0.8mg/dL Estimated GFR (Cockcroft-Gault) 91.4 Glucose Level 134mg/dL Calcium Level 8.8mg/dL Imaging: Chest CT 12/20/16 IMPRESSION: 1. The right pleural effusion is increased and is now moderate and partially loculated. New small soft tissue nodules/thickening along the posterior right pleura suggests an inflammatory component. Correlate with other data to exclude empyema. 2. Total atelectasis of the right lower and right middle lobes. Superimposed pneumonia cannot be excluded. 3. Stable small left pleural effusion. 4. Mild cardiomegaly. Pulmonary arterial enlargement is consistent with pulmonary arterial hypertension. Aortic valve calcifications. Correlate for aortic stenosis. 5. 1 cm nodule in the anterior mediastinal fat. This may be a benign lymph node. Follow-up could exclude a thymic lesion if there is persistent concern. 6. 4 cm hepatic parenchymal collection versus edema surrounding a percutaneous drain. Cholecystostomy in place. Cholelithiasis. CXR 12/19/16 IMPRESSION: 1. Increased moderate right pleural effusion with right basilar atelectasis or pneumonia. 2. Small left pleural effusion. Mild pulmonary edema cannot be excluded. PE: GEN: NAD, up to chair LUNGS: nasal cannula HEART: S1S2 ABD: drains NEURO/PSYCH: A & O 3 A/P: Abnormal CT A/P -mural thickening along the base of the cecum raising the possibility of a cecal neoplasm with adjacent appendiceal obstruction and/or appendicitis -no previous colonoscopy [facility] cholecystostomy gram through a cholecystostomy tube and abscessogram through a hepatic abscess drainage catheter w/ IR 3/3 Pleural effusion - new A Fib, CHF, recent PR, resp failure, PEs -- Thoracentesis today. Review w/ Dr. Gordon. GISSELL FUENTES Dec 20, 2016 13:03
[2016-12-20] MEDS ORDERED: LIDOCAINE 1% / SOD BICARB 8.4% 20 ML VIAL. IJ ONE ×2 (13:53→14:45)
[2016-12-20] MEDS ORDERED: MIDAZOLAM HCL 2 MG/2 ML VIAL. ONE (14:10)
[2016-12-20] MEDS ORDERED: FENTANYL PF 100 MCG/2 ML VIAL. ONE (14:10)
[2016-12-20] MEDS ORDERED: MIDAZOLAM HCL 2 MG/2 ML VIAL. IV ONE (14:45)
[2016-12-20] MEDS ORDERED: WARFARIN 7.5 MG TABLET. PO ONE (16:00)
--- NOTE | 2016-12-20 16:24 | PDOC ---
Exam Graduate Engineer Graduate Engineer Kimmie Machine Pan Greaser Machine Pan Greaser Osiris Fuentes Pre-Procedure Diagnosis Pre-Procedure Diagnosis 86 YO male with GB drain, with liver abscess drain, and with loculated right pleural effusion----? empyema Post-Procedure Diagnosis Post-Procedure Diagnosis Same Procedure Performed Procedure Performed CT guided right Dx thoracentesis, followed by chest tube insertion Type of Anesthesia Type of Anesthesia Local + Versed anxiolysis only. Estimated Blood Loss EBL: Minimal Specimens Specimans 60 cc serosanguineous-hazy right pleural fluid aspirated and submitted to lab per protocol Drain/Tubes Drains/Tubes 14F locking pigtail right chest tube inserted---to PleurEvac Condition of Patient Condition of Patient Stable. No apparent complication. Disposition Disposition From IR/CT return to [facility]. F/u with Dr Mccauley. Full report to follow. DARYN BOYD MD Dec 20, 2016 16:24
[2016-12-20] MEDS: MORPHINE SULFATE 2 MG/ML DISP.SYRIN. IV PRN (19:19)
[2016-12-20] MEDS: ATORVASTATIN CALCIUM 10 MG TABLET. PO SCH (20:02)
[2016-12-21] VITALS (7 sets, daily range): BP systolic 111–138; BP diastolic 55–59
[2016-12-21] MEDS: HEPARIN 25,000UTS/500ML PREMIX 500 ML IV PRN ×2 (00:11→12:04)
[2016-12-21] MEDS: PIPERACILLIN/TAZOBACTAM 3.375 GM in IV NORMAL SALINE 50ML 50 ML IV SCH ×4 (06:00→11:54)
[2016-12-21 06:55] LABS: ALBUMIN 2.2 g/dL (3.4-5.0); DIRECT BILIRUBIN 0.2 mg/dL (0.0-0.2); TOTAL BILIRUBIN 0.5 mg/dL (0.2-1.0); TOTAL PROTEIN 6.5 g/dL (6.4-8.2)
--- NOTE | 2016-12-21 07:03 | RAD ---
CT-guided diagnostic thoracentesis with chest tube insertion Indication: 86-year-old male with indwelling liver abscess drainage catheter, cholecystostomy drain, and moderately large, loculated right pleural effusion suggesting empyema. Image guided thoracentesis, with possible chest tube insertion, has been requested by pulmonary.. Anesthesia: Local anesthesia with IV Versed anxiolysis only. No moderate sedation was utilized. Procedure: Informed consent was obtained from the patient. He was placed supine on the CT scanner. Preliminary noncontrast CT images confirmed the presence of a large moderately large, loculated right pleural effusion, with associated atelectasis/infiltrate within right lower and middle lobes. A skin site suitable for CT-guided thoracentesis was selected and marked along the lateral aspect of mid right hemithorax. That area was prepped and draped in the usual sterile fashion. Using aseptic technique, local anesthesia, and CT guidance, a micropuncture sheath was successfully introduced into the right posterolateral pleural space. This sheath was then exchanged over a guidewire for a 6 Tristanian drainage catheter. Approximately 60 cc of serosanguineous-hazy right pleural fluid was then easily removed, samples which were submitted to the clinical laboratory per referring intellectual property manager request. Completion CT images atypical pleural fluid loculation, raising the question of empyema. Referring intellectual property manager was contacted. Chest tube insertion was requested. The 6 Tristanian drainage catheter, utilized for the diagnostic thoracentesis, was removed over a guidewire. The percutaneous tract was dilated and a 14 Tristanian locking pigtail right chest tube was easily introduced. Completion CT images documented satisfactory position of the chest tube, which was connected to Pleur-evac, and was secured at the skin exit site utilizing suture and sterile dressing. Patient tolerated the procedure well without apparent complication. Impression: Successful, uneventful CT-guided diagnostic right thoracentesis, followed by insertion of a 14 Tristanian locking pigtail chest tube, as described. PQRS compliance statement: One or more of the following individualized dose reduction techniques was utilized for this CT procedure: 1. Automated exposure control. 2. Adjustment of MA and/or KV according to patient size. 3. Iterative reconstruction technique.
[2016-12-21 07:04] LABS: PROTHROMBIN TIME PATIENT 21.7 SEC (11.7-14.0)
[2016-12-21] MEDS ORDERED: POTASSIUM CHLORIDE 20 MEQ TABLET.ER. PO SCH (08:00)
[2016-12-21] MEDS: DILTIAZEM HCL 240 MG CAP.ER.24H PO SCH (08:19)
[2016-12-21] MEDS: PANTOPRAZOLE 40 MG TABLET. PO SCH (08:19)
[2016-12-21] MEDS: ISOSORBIDE MONONITRATE ER 30 MG TAB.ER.24H PO SCH (08:20)
[2016-12-21] MEDS: ASPIRIN ENTERIC COATED 81 MG TABLET.DR. PO SCH (08:20)
[2016-12-21] MEDS: METOPROLOL TART IMMED RELEASE 50 MG TABLET PO SCH ×2 (08:21→20:54)
[2016-12-21] MEDS: DOCUSATE SODIUM 100 MG CAPSULE PO SCH (08:21)
[2016-12-21] MEDS: SPIRONOLACTONE 25 MG TABLET PO SCH (08:21)
[2016-12-21] MEDS: CLOPIDOGREL BISULFATE 75 MG TABLET PO SCH (08:21)
[2016-12-21] MEDS: POTASSIUM CHLORIDE 20 MEQ TABLET.ER. PO SCH (08:41)
[2016-12-21] MEDS: FUROSEMIDE 40 MG TABLET PO SCH (08:41)
--- NOTE | 2016-12-21 09:17 | RAD ---
EXAM: Chest one view. HISTORY: Pleural effusion, pleural drain. COMPARISON: 12/19/2016. FINDINGS: A frontal view of the chest is obtained. A right arm PICC line has its tip in the superior cavoatrial junction. A right pleural drain is also in place. Additional surgical drains project in the right upper quadrant, partially visualized. There is a moderate right pleural effusion, slightly smaller since the prior study. A small left pleural effusion is unchanged. There is associated bibasilar atelectasis. There is no appreciable pneumothorax. There is a small amount of gas in the right chest wall. The heart is not enlarged. There are atherosclerotic calcifications of the aorta. IMPRESSION: 1. Slightly smaller moderate right pleural effusion.
--- NOTE | 2016-12-21 10:25 | PDOC ---
Infectious Disease Note Subjective Subjective Comfortable, denies pain Feels well sitting in chair ROS ROS GEN: Denies fevers, chills, sweats HEENT: Denies blurred vision, sore throat CV: Denies chest pain RESP: Denies shortness of air, cough GI: Denies n/v/d NEURO: Denies confusion, dizziness MSK: Denies weakness, joint pain/swelling Vital Sign Vital Signs Vital Signs Date Time Temp Pulse Resp B/P Pulse Ox O2 Delivery O2 Flow Rate FiO2 12/21/16 08:21 75 138/56 12/21/16 08:00 Nasal Cannula 4.0 12/21/16 07:38 97.7 16 98 97.7 Physical Exam PHYSICAL EXAM GENERAL: NAD, Alert HEENT: PERRL, OC/OP NECK: Supple, no JVD, no LN LUNGS: decrease bs, chest tube in place HEART: S1S2, no gallop, no murmur ABD: Soft, NT, no organomegaly, no rebound,, david drain in place EXT: No edema, no cyanosis ACID PUMPER: Alert, oriented x 3, no focal neurologic deficit SKIN: No rash IV: ok Labs Lab Laboratory Tests Test 12/20/16 14:30 12/20/16 23:30 12/21/16 06:30 Body Fluid pH 7.1 Heparin Anti-Xa Act, Unfractionated 0.18IU/mL (0.30-0.70) Prothrombin Time 21.7SEC (11.7-14.0) Prothromb Time International Ratio 2.0 (0.8-1.1) Total Bilirubin 0.5mg/dL (0.2-1.0) Direct Bilirubin 0.2mg/dL (0.0-0.2) Aspartate Amino Transf (AST/SGOT) 29U/L (15-37) Alanine Aminotransferase (ALT/SGPT) 22U/L (16-63) Alkaline Phosphatase 55U/L (46-116) Total Protein 6.5g/dL (6.4-8.2) Albumin 2.2g/dL (3.4-5.0) Objective Assessment Liver abscess 12/02 Kleb and Enterococcus. s/p biliary drains. Reportedly Klebsiella/Hafnia alvei/Ecoli and enterococcus 11/28 per [facility] records. CAD s/p cath Acute cholecystolithiasis. Atrial fibrillation with rapid ventricular response. Acute respiratory failure, improving. Coronary artery disease Plan Plan of Care Cont Zosyn for now . Change to po Augmentin at discharge, since pt likely has colon ca and colonoscopy or any other aggressive measures are not planned. VY TINAJERO MD Dec 21, 2016 10:25
--- NOTE | 2016-12-21 10:43 | PDOC ---
PROGRESS NOTES Chief Complaint Chief Complaint SOB Edema ASSESSMENT AND PLAN: 1. 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 Afib s/p RVR (new) 2. CHF: 3. Troponin leak: 4. CAD hx: 5. GB abscess: drain in place, on Abx. done by [facility] 6. Gout: no acute issues. cont allopurinol 7,.A cute hypoxic respi failure needing venti mask , resolved 8. PE, possible 9. 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 Will inc Kcl if K still low Cont diuresis PT/OT LTAC screen Dw pt and RN Vitals Vitals Vital Signs Date Time Temp Pulse Resp B/P Pulse Ox O2 Delivery O2 Flow Rate FiO2 12/21/16 08:21 75 138/56 12/21/16 08:00 Nasal Cannula 4.0 12/21/16 07:38 97.7 16 98 97.7 Physical Exam General: Alert, Oriented X3, Cooperative, No acute distress Heart: Normal S1, Normal S2, No murmurs, Other (irregular) Lungs: Crackles (bases, left, right decrease) Abdomen: Soft, Other (mild ttp drain site) Extremities: No edema Skin: No significant lesion Labs LABS Laboratory Tests Test 12/20/16 14:30 12/20/16 23:30 12/21/16 06:30 12/21/16 09:24 Body Fluid pH 7.1 Heparin Anti-Xa Act, Unfractionated 0.18IU/mL (0.30-0.70) 0.32IU/mL (0.30-0.70) Prothrombin Time 21.7SEC (11.7-14.0) Prothromb Time International Ratio 2.0 (0.8-1.1) Total Bilirubin 0.5mg/dL (0.2-1.0) Direct Bilirubin 0.2mg/dL (0.0-0.2) Aspartate Amino Transf (AST/SGOT) 29U/L (15-37) Alanine Aminotransferase (ALT/SGPT) 22U/L (16-63) Alkaline Phosphatase 55U/L (46-116) Total Protein 6.5g/dL (6.4-8.2) Albumin 2.2g/dL (3.4-5.0) Review of Systems Review of Systems no soa, cp or em,esis Assessment and Plan Assessmemt and Plan Problems Medical Problems: (1) Acute respiratory failure Status: Acute (2) CAD (coronary artery disease) Status: Acute (3) CHF exacerbation Status: Acute (4) Hypoxia Status: Acute (5) Pulmonary edema Status: Acute (6) Volume overload Status: Acute Problems: Comment Review of Relevant I have reviewed the following items liana (where applicable) has been applied. Labs Laboratory Tests Test 12/19/16 13:15 12/20/16 08:25 12/20/16 14:30 12/20/16 23:30 Heparin Anti-Xa Act, Unfractionated 0.30IU/mL (0.30-0.70) 0.20IU/mL (0.30-0.70) 0.18IU/mL (0.30-0.70) White Blood Count 6.6x10^3/uL (4.0-11.0) Red Blood Count 3.25x10^6/uL (4.30-5.70) Hemoglobin 10.0g/dL (13.0-17.5) Hematocrit 30.3% (39.0-53.0) Mean Corpuscular Volume 93fL (79-100) Mean Corpuscular Hemoglobin 31pg (25-35) Mean Corpuscular Hemoglobin Concent 33g/dL (31-37) Red Cell Distribution Width 13.9% (11.5-14.5) Platelet Count 233x10^3/uL (140-400) Neutrophils (%) (Auto) 72% (31-73) Lymphocytes (%) (Auto) 17% (24-48) Monocytes (%) (Auto) 9% (0-9) Eosinophils (%) (Auto) 2% (0-3) Basophils (%) (Auto) 1% (0-3) Neutrophils # (Auto) 4.7x10^3uL (1.8-7.7) Lymphocytes # (Auto) 1.1x10^3/uL (1.0-4.8) Monocytes # (Auto) 0.6x10^3/uL (0.0-1.1) Eosinophils # (Auto) 0.1x10^3/uL (0.0-0.7) Basophils # (Auto) 0.1x10^3/uL (0.0-0.2) Prothrombin Time 19.7SEC (11.7-14.0) Prothromb Time International Ratio 1.8 (0.8-1.1) Sodium Level 139mmol/L (136-145) Potassium Level 3.4mmol/L (3.5-5.1) Chloride Level 100mmol/L (98-107) Carbon Dioxide Level 33mmol/L (21-32) Anion Gap 6 (6-14) Blood Urea Nitrogen 11mg/dL (8-26) Creatinine 0.8mg/dL (0.7-1.3) Estimated GFR (Cockcroft-Gault) 91.4 Glucose Level 134mg/dL (70-99) Calcium Level 8.8mg/dL (8.5-10.1) Body Fluid pH 7.1 Test 12/21/16 06:30 12/21/16 09:24 Prothrombin Time 21.7SEC (11.7-14.0) Prothromb Time International Ratio 2.0 (0.8-1.1) Total Bilirubin 0.5mg/dL (0.2-1.0) Direct Bilirubin 0.2mg/dL (0.0-0.2) Aspartate Amino Transf (AST/SGOT) 29U/L (15-37) Alanine Aminotransferase (ALT/SGPT) 22U/L (16-63) Alkaline Phosphatase 55U/L (46-116) Total Protein 6.5g/dL (6.4-8.2) Albumin 2.2g/dL (3.4-5.0) Heparin Anti-Xa Act, Unfractionated 0.32IU/mL (0.30-0.70) Laboratory Tests Test 12/20/16 14:30 12/20/16 23:30 12/21/16 06:30 12/21/16 09:24 Body Fluid pH 7.1 Heparin Anti-Xa Act, Unfractionated 0.18IU/mL (0.30-0.70) 0.32IU/mL (0.30-0.70) Prothrombin Time 21.7SEC (11.7-14.0) Prothromb Time International Ratio 2.0 (0.8-1.1) Total Bilirubin 0.5mg/dL (0.2-1.0) Direct Bilirubin 0.2mg/dL (0.0-0.2) Aspartate Amino Transf (AST/SGOT) 29U/L (15-37) Alanine Aminotransferase (ALT/SGPT) 22U/L (16-63) Alkaline Phosphatase 55U/L (46-116) Total Protein 6.5g/dL (6.4-8.2) Albumin 2.2g/dL (3.4-5.0) Microbiology 12/10/16 Blood Culture - Final, Complete NO GROWTH AFTER 5 DAYS 12/10/16 Urine Culture - Final, Complete 12/10/16 Urine Culture Result 1 ([facility]) - Final, Complete Medications Current Medications Piperacillin Sod/ Tazobactam Sod 1 each 1 each PRN DAILY PRN MC SEE COMMENTS; Start 12/10/16 at 07:15; Stop 12/14/16 at 11:23; Status DC Diltiazem HCl/ Dextrose (Cardizem) 125 ml @ 0 mls/hr CONT PRN IV SEE I/O RECORD Last administered on 12/13/16 00:58; Start 12/10/16 at 07:15; Stop 12/13 at 12:33; Status DC Furosemide (Lasix) 40 mg 1X ONCE IVP Last administered on 12/10/16 07:52; Start 12/10/16 at 07:15; Stop 12/10/16 at 07:18; Status DC Nitroglycerin (Nitrostat) 0.4 mg 1X ONCE SL ; Start 12/10/16 at 07:15; Stop at 07:18; Status DC Ondansetron HCl (Zofran) 4 mg PRN Q8HRS PRN IV NAUSEA/VOMITING; Start 12/10/16 at 07:30; Stop 12/11/16 at 07:29; Status DC Morphine Sulfate 2 mg 2 mg PRN Q2HR PRN IV PAIN; Start 12/10/16 at 07:30; Stop 12/11/16 at 07:29; Status DC Piperacillin Sod/ Tazobactam Sod/ Sodium Chloride (Zosyn/Iv Sodium Chloride 0.9 % 100ml) 100 ml @ 200 mls/hr 1X ONCE IV Last administered on 12/10/16 09:28 ; Start 12/10/16 at 07:45; Stop 12/10/16 at 08:14; Status DC Lisinopril (Prinivil) 10 mg DAILY PO ; Start 12/11/16 at 09:00; Stop 12/11/16 at 16:31; Status DC Labetalol HCl (Normodyne) 20 mg PRN Q2HR PRN IVP HYPERTENSION, SEE COMMENTS; Start 12/10/16 at 11:30 Aspirin (Ecotrin) 81 mg DAILYWBKFT PO Last administered on 12/21/16 08:20; Start 12/10/16 at 13:00 Furosemide 40 mg 40 mg 1X ONCE IVP Last administered on 12/10/16 14:37; Start 12/10/16 at 12:15; Stop 12/10/16 at 12:23; Status DC Piperacillin Sod/ Tazobactam Sod/ Sodium Chloride (Zosyn/Iv Sodium Chloride 0.9 % 50ml) 50 ml @ 100 mls/hr Q6HRS IV Last administered on 12/21/16 06:00; Start 12/10/16 at 13:30 Allopurinol (Zyloprim) 100 mg DAILY PO ; Start 12/11/16 at 10:00; Stop 12/11/16 at 10:13; Status DC Aspirin (Ecotrin) 81 mg DAILY PO ; Start 12/12/16 at 09:00; Status Cancel Linezolid (Zyvox) 600 mg BID PO Last administered on 12/12/16 21:34; Start at 10:00; Stop 12/13/16 at 08:51; Status DC Spironolactone (Aldactone) 25 mg DAILY PO Last administered on 12/21/16 08:21; Start 12/11/16 at 10:00 Metoprolol Tartrate 100 mg 100 mg BID PO Last administered on 12/13/16 09:28; Start 12/11/16 at 10:00; Stop 12/13/16 at 12:33; Status DC Heparin Sodium/ Dextrose 500 ml @ 19.6 mls/hr CONT PRN IV SEE I/O RECORD Last administered on 12/15/16 05:34; Start 12/11/16 at 14:45; Stop 12/15/16 at 10:20; Status DC Heparin Sodium (Porcine) 2,050 unit PRN Q6HRS PRN IV FOR UFH LEVEL LESS THAN 0.2 Last administered on 12/13/16 20:30; Start 12/11/16 at 14:45; Stop 12/15/16 at 10:20; Status DC Throat Lozenges (Cepacol Sore Throat Lozenge) 1 jorge a PRN Q2HRS PRN PO SORE THROAT Last administered on 12/18/16 20:21; Start 12/11/16 at 19:30 Docusate Sodium (Colace) 100 mg DAILY PO Last administered on 12/21/16 08:21; Start 12/12/16 at 10:00 Polyethylene Glycol (miraLAX PACKET) 17 gm PRN DAILY PRN PO CONSTIPATION; Start 12/12/16 at 10:00 Magnesium Hydroxide (Milk Of Magnesia) 2,400 mg PRN DAILY PRN PO CONSTIPATION; Start 12/12/16 at 10:00 Lidocaine HCl 20 ml 20 ml STK-MED ONCE .ROUTE ; Start 12/12/16 at 14:11; Stop at 14:12; Status DC Heparin Sodium/ Sodium Chloride 500 ml @ As Directed STK-MED ONCE .ROUTE ; Start 12/12/16 at 14:11; Stop 12/12/16 at 14:12; Status DC Iohexol (Omnipaque 300 Mg/ml) 100 ml STK-MED ONCE .ROUTE ; Start 12/12/16 at 14: 11; Stop 12/12/16 at 14:12; Status DC Iodixanol (Visipaque 320) 100 ml STK-MED ONCE .ROUTE ; Start 12/12/16 at 14:11; Stop 12/12/16 at 14:12; Status DC Nitroglycerin (Nitroglycerin) 200 mcg STK-MED ONCE .ROUTE ; Start 12/12/16 at 14 :16; Stop 12/12/16 at 14:17; Status DC Verapamil HCl (Verapamil) 5 mg STK-MED ONCE .ROUTE ; Start 12/12/16 at 14:16; Stop 12/12/16 at 14:17; Status DC Midazolam HCl (Versed) 2 mg STK-MED ONCE .ROUTE ; Start 12/12/16 at 14:16; Stop 12/12/16 at 14:17; Status DC Fentanyl Citrate (Fentanyl 2ml Vial) 100 mcg STK-MED ONCE .ROUTE ; Start at 14:16; Stop 12/12/16 at 14:17; Status DC Heparin Sodium (Porcine) 10,000 unit STK-MED ONCE .ROUTE ; Start 12/12/16 at 14: 16; Stop 12/12/16 at 14:17; Status DC Nitroglycerin (Nitroglycerin) 200 mcg 1X ONCE IART Last administered on 15:04; Start 12/12/16 at 14:45; Stop 12/12/16 at 14:46; Status DC Verapamil HCl (Verapamil) 2.5 mg 1X ONCE IART Last administered on 12/12/16 15:05; Start 12/12/16 at 14:45; Stop 12/12/16 at 14:46; Status DC Heparin Sodium (Porcine) 2,500 unit 1X ONCE IART Last administered on 15:06; Start 12/12/16 at 14:45; Stop 12/12/16 at 14:46; Status DC Heparin Sodium/ Sodium Chloride 1,000 unit 1X ONCE IART Last administered on 15:03; Start 12/12/16 at 14:45; Stop 12/12/16 at 14:46; Status DC Midazolam HCl (Versed) 2 mg 1X ONCE IV Last administered on 12/12/16 15:04; Start 12/12/16 at 14:45; Stop 12/12/16 at 14:46; Status DC Fentanyl Citrate (Fentanyl 2ml Vial) 100 mcg 1X ONCE IV Last administered on 15:04; Start 12/12/16 at 14:45; Stop 12/12/16 at 14:46; Status DC Iodixanol (Visipaque 320) 100 ml 1X ONCE IART Last administered on 12/12/16 15:05; Start 12/12/16 at 14:45; Stop 12/12/16 at 14:46; Status DC Lidocaine HCl 1 ml 1X ONCE IJ Last administered on 12/12/16 15:03; Start at 14:45; Stop 12/12/16 at 14:46; Status DC Nitroglycerin (Nitrostat) 0.4 mg PRN Q5MIN PRN SL CHEST PAIN; Start 12/12/16 at 15:30 Furosemide (Lasix) 40 mg 1X ONCE IVP Last administered on 12/12/16 16:18; Start 12/12/16 at 15:30; Stop 12/12/16 at 15:31; Status DC Metoprolol Tartrate (Lopressor) 50 mg BID PO Last administered on 12/21/16 08: 21; Start 12/13/16 at 21:00 Furosemide (Lasix) 40 mg 1X ONCE IVP Last administered on 12/13/16 15:06; Start 12/13/16 at 12:15; Stop 12/13/16 at 12:37; Status DC Furosemide (Lasix) 40 mg DAILY PO Last administered on 12/21/16 08:41; Start at 09:00 Diltiazem HCl (Cardizem 24hr Cd) 120 mg DAILY PO Last administered on 12/14/16 09:00; Start 12/14/16 at 09:00; Stop 12/14/16 at 12:13; Status DC Lisinopril (Prinivil) 2.5 mg DAILY PO ; Start 12/14/16 at 09:00; Stop 12/14/16 at 09:00; Status DC Atorvastatin Calcium (Lipitor) 10 mg QHS PO Last administered on 12/20/16 20:02 ; Start 12/13/16 at 21:00 Info (Anti-Coagulation Monitoring By Pharmacy) 1 each PRN DAILY PRN MC SEE COMMENTS Last administered on 12/20/16 10:32; Start 12/13/16 at 16:30 Diltiazem HCl (Cardizem 24hr Cd) 240 mg DAILY PO Last administered on 12/21/16 08:19; Start 12/15/16 at 09:00 Diltiazem HCl (Cardizem 24hr Cd) 120 mg 1X ONCE PO Last administered on 12:49; Start 12/14/16 at 12:15; Stop 12/14/16 at 12:20; Status DC Clopidogrel Bisulfate (Plavix) 75 mg DAILYWBKFT PO Last administered on 08:21; Start 12/14/16 at 13:00 Isosorbide Mononitrate (Imdur) 30 mg DAILY PO Last administered on 12/21/16 08: 20; Start 12/15/16 at 11:30 Iohexol (Omnipaque 240 Mg/ml) 30 ml 1X ONCE PO ; Start 12/15/16 at 11:45; Stop 12/15/16 at 11:46; Status DC Iohexol (Omnipaque 300 Mg/ml) 75 ml 1X ONCE IV ; Start 12/15/16 at 11:45; Stop 12/15/16 at 11:46; Status DC Info (Do NOT chart on this entry -- for MONITORING) 1 each PRN DAILY PRN MC SEE COMMENTS; Start 12/15/16 at 11:45; Stop 12/16/16 at 14:09; Status DC Enoxaparin Sodium (Lovenox 40mg Syringe) 40 mg Q24H SQ Last administered on 12/15 17:59; Start 12/15/16 at 18:00; Stop 12/16/16 at 09:35; Status DC Enoxaparin Sodium (Lovenox 80mg Syringe) 80 mg BID SQ Last administered on 14:15; Start 12/16/16 at 10:00; Stop 12/16/16 at 16:23; Status DC Iohexol (Omnipaque 300 Mg/ml) 50 ml STK-MED ONCE .ROUTE ; Start 12/16/16 at 10:32 ; Stop 12/16/16 at 10:33; Status DC Iohexol (Omnipaque 300 Mg/ml) 10 ml 1X ONCE IJ Last administered on 12/16/16 11:40; Start 12/16/16 at 11:45; Stop 12/16/16 at 11:46; Status DC Info (Do NOT chart on this entry -- for MONITORING) 1 each PRN DAILY PRN MC SEE COMMENTS; Start 12/16/16 at 11:45; Stop 12/18/16 at 09:56; Status DC Calcium Carbonate/ Glycine (Tums) 500 mg PRN AFTMEALHC PRN PO INDIGESTION Last administered on 12/16/16 14:14; Start 12/16/16 at 14:15 Pantoprazole Sodium (Protonix) 40 mg DAILYAC PO Last administered on 12/21/16 08:19; Start 12/16/16 at 14:30 Morphine Sulfate 1 mg PRN Q2HR PRN IV PAIN Last administered on 12/17/16 01:36 ; Start 12/16/16 at 14:15 Iohexol (Omnipaque 300 Mg/ml) 75 ml 1X ONCE IV ; Start 12/16/16 at 16:00; Stop 12/16/16 at 16:01; Status DC Info 1 each 1 each PRN DAILY PRN MC SEE COMMENTS; Start 12/16/16 at 15:30; Stop 12/18/16 at 15:29; Status DC Heparin Sodium/ Dextrose 500 ml @ 0 mls/hr CONT PRN IV SEE I/O RECORD Last administered on 12/21/16 00:11; Start 12/16/16 at 16:15 Heparin Sodium (Porcine) 2,500 unit PRN Q6HRS PRN IV FOR UFH LEVEL LESS THAN 0.2 Last administered on 12/18/16 11:46; Start 12/16/16 at 16:15 Heparin Sodium (Porcine) 1,250 unit PRN Q6HRS PRN IV FOR UFH LEVEL 0.2 - 0.29 Last administered on 12/19/16 02:27; Start 12/16/16 at 16:15 Warfarin Sodium (Coumadin Per Pharmacy) 1 each PRN DAILY PRN MC PER PROTOCOL Last administered on 12/20/16 10:30; Start 12/16/16 at 16:15 Morphine Sulfate 2 mg PRN Q2HR PRN IV PAIN Last administered on 12/20/16 19:19 ; Start 12/16/16 at 16:15 Warfarin Sodium (Coumadin) 6 mg 1X WARF ONCE PO Last administered on 12/16/16 18:20; Start 12/16/16 at 17:00; Stop 12/16/16 at 17:01; Status DC Warfarin Sodium (Coumadin) 5 mg 1X WARF ONCE PO Last administered on 12/17/16 16:29; Start 12/17/16 at 16:00; Stop 12/17/16 at 16:01; Status DC Warfarin Sodium (Coumadin) 6 mg 1X WARF ONCE PO Last administered on 12/18/16 17:32; Start 12/18/16 at 16:00; Stop 12/18/16 at 16:01; Status DC Warfarin Sodium (Coumadin) 6 mg 1X WARF ONCE PO ; Start 12/19/16 at 16:00; Stop 12/19/16 at 16:01; Status DC Furosemide (Lasix) 40 mg 1X ONCE IVP Last administered on 12/20/16 09:46; Start 12/20/16 at 09:30; Stop 12/20/16 at 09:31; Status DC Potassium Chloride (Klor-Con) 40 meq 1X ONCE PO ; Start 12/20/16 at 10:00; Stop 12/20/16 at 10:00; Status DC Potassium Chloride (Klor-Con) 20 meq DAILYWBKFT PO ; Start 12/21/16 at 08:00; Stop 12/21/16 at 08:00; Status DC Potassium Chloride 40 meq 40 meq DAILYWBKFT PO Last administered on 12/21/16 08 :41; Start 12/21/16 at 08:00 Potassium Chloride (KCl Premix 20meq) 50 ml @ 50 mls/hr Q1H IV Last administered on 12/20/16 12:56; Start 12/20/16 at 10:00; Stop 12/20/16 at 11:59; Status DC Warfarin Sodium (Coumadin) 7.5 mg 1X WARF ONCE PO ; Start 12/20/16 at 16:00; Stop 12/20/16 at 16:01; Status DC Lidocaine/Sodium Bicarbonate (Buffered Lidocaine 1%) 20 ml STK-MED ONCE IJ ; Start 12/20/16 at 13:53; Stop 12/20/16 at 13:54; Status DC Fentanyl Citrate (Fentanyl 2ml Vial) 100 mcg STK-MED ONCE .ROUTE ; Start at 14:10; Stop 12/20/16 at 14:11; Status DC Midazolam HCl (Versed) 2 mg STK-MED ONCE .ROUTE ; Start 12/20/16 at 14:10; Stop 12/20/16 at 14:11; Status DC Lidocaine/Sodium Bicarbonate (Buffered Lidocaine 1%) 6 ml 1X ONCE IJ Last administered on 12/20/16 14:47; Start 12/20/16 at 14:45; Stop 12/20/16 at 14:46; Status DC Midazolam HCl (Versed) 0.5 mg 1X ONCE IV Last administered on 3/7/17at 14:48; Start 12/20/16 at 14:45; Stop 12/20/16 at 14:46; Status DC Active Scripts Active Reported Milk Of Magnesia (Magnesium Hydroxide) 2,400 Mg/10 Ml Oral.susp 2,400 Mg PO Metoprolol Tartrate 100 Mg Tablet 1 Tab PO BID Allopurinol 100 Mg Tablet 1 Tab PO DAILY Aspir 81 (Aspirin) 81 Mg Tablet.dr 1 Tab PO DAILY Spironolactone 25 Mg Tablet 1 Tab PO DAILY Cardizem Tablet (Diltiazem Hcl) 30 Mg Tablet 30 Mg PO DAILY Zyvox (Linezolid) 600 Mg Tablet 600 Mg PO BID Augmentin 875-125 Tablet (Amoxicillin/Potassium Clav) 1 Each Tablet Tab PO BID Vitals/I & O Vital Sign - Last 24 Hours 12/20/16 12/20/16 12/20/16 12/20/16 11:50 11:51 14:24 14:29 Pulse 74 74 71 91 Resp 18 18 B/P 138/80 138/80 Pulse Ox 89 92 O2 Delivery Nasal Cannula Nasal Cannula O2 Flow Rate 5.0 6.0 12/20/16 12/20/16 12/20/16 12/20/16 14:34 14:39 14:44 14:48 Pulse 81 85 88 91 Resp 18 16 14 16 Pulse Ox 89 89 88 90 O2 Delivery Nasal Cannula Nasal Cannula Nasal Cannula Nasal Cannula O2 Flow Rate 6.0 6.0 6.0 6.0 12/20/16 12/20/16 12/20/16 12/20/16 19:00 19:19 19:40 19:49 Temp 98.0 98.0 Pulse 82 Resp 24 B/P 124/56 Pulse Ox 94 92 92 O2 Delivery Nasal Cannula Nasal Cannula Nasal Cannula Nasal Cannula O2 Flow Rate 4.0 4.0 4.0 4.0 12/20/16 12/20/16 12/21/16 12/21/16 20:02 23:00 03:00 07:38 Temp 98.0 98.5 97.7 98.0 98.5 97.7 Pulse 82 65 71 75 Resp 20 22 16 B/P 124/56 115/55 132/59 138/56 Pulse Ox 96 95 98 O2 Delivery Nasal Cannula Nasal Cannula O2 Flow Rate 4.0 4.0 12/21/16 12/21/16 12/21/168/17 08:00 08:19 08:20 08:21 Pulse 75 75 75 B/P 138/56 138/56 138/56 O2 Delivery Nasal Cannula O2 Flow Rate 4.0 Intake and Output 12/20/16 12/20/16 12/21/16 15:00 23:00 07:00 Intake Total 480 ml 669 ml Output Total 600 ml 610 ml 470 ml Balance -600 ml -130 ml 199 ml CARLYLE CARMEN MD Dec 21, 2016 10:43
--- NOTE | 2016-12-21 11:31 | PDOC ---
PULMONARY PROGRESS NOTES Subjective s/p right chest tube Vitals Vital Signs Date Time Temp Pulse Resp B/P Pulse Ox O2 Delivery O2 Flow Rate FiO2 12/21/16 08:21 75 138/56 12/21/16 08:00 Nasal Cannula 4.0 12/21/16 07:38 97.7 16 98 97.7 General: Alert, No acute distress Lungs: Crackles (bases, left, right decrease) Cardiovascular: S1 Abdomen: Soft Neuro Exam: Alert Extremities: Other (2+edema) Skin: Warm Labs Laboratory Tests Test 12/19/16 13:15 12/20/16 08:25 12/20/16 14:30 12/20/16 23:30 Heparin Anti-Xa Act, Unfractionated 0.30IU/mL (0.30-0.70) 0.20IU/mL (0.30-0.70) 0.18IU/mL (0.30-0.70) White Blood Count 6.6x10^3/uL (4.0-11.0) Red Blood Count 3.25x10^6/uL (4.30-5.70) Hemoglobin 10.0g/dL (13.0-17.5) Hematocrit 30.3% (39.0-53.0) Mean Corpuscular Volume 93fL (79-100) Mean Corpuscular Hemoglobin 31pg (25-35) Mean Corpuscular Hemoglobin Concent 33g/dL (31-37) Red Cell Distribution Width 13.9% (11.5-14.5) Platelet Count 233x10^3/uL (140-400) Neutrophils (%) (Auto) 72% (31-73) Lymphocytes (%) (Auto) 17% (24-48) Monocytes (%) (Auto) 9% (0-9) Eosinophils (%) (Auto) 2% (0-3) Basophils (%) (Auto) 1% (0-3) Neutrophils # (Auto) 4.7x10^3uL (1.8-7.7) Lymphocytes # (Auto) 1.1x10^3/uL (1.0-4.8) Monocytes # (Auto) 0.6x10^3/uL (0.0-1.1) Eosinophils # (Auto) 0.1x10^3/uL (0.0-0.7) Basophils # (Auto) 0.1x10^3/uL (0.0-0.2) Prothrombin Time 19.7SEC (11.7-14.0) Prothromb Time International Ratio 1.8 (0.8-1.1) Sodium Level 139mmol/L (136-145) Potassium Level 3.4mmol/L (3.5-5.1) Chloride Level 100mmol/L (98-107) Carbon Dioxide Level 33mmol/L (21-32) Anion Gap 6 (6-14) Blood Urea Nitrogen 11mg/dL (8-26) Creatinine 0.8mg/dL (0.7-1.3) Estimated GFR (Cockcroft-Gault) 91.4 Glucose Level 134mg/dL (70-99) Calcium Level 8.8mg/dL (8.5-10.1) Body Fluid pH 7.1 Test 12/21/16 06:30 12/21/16 09:24 Prothrombin Time 21.7SEC (11.7-14.0) Prothromb Time International Ratio 2.0 (0.8-1.1) Total Bilirubin 0.5mg/dL (0.2-1.0) Direct Bilirubin 0.2mg/dL (0.0-0.2) Aspartate Amino Transf (AST/SGOT) 29U/L (15-37) Alanine Aminotransferase (ALT/SGPT) 22U/L (16-63) Alkaline Phosphatase 55U/L (46-116) Total Protein 6.5g/dL (6.4-8.2) Albumin 2.2g/dL (3.4-5.0) Heparin Anti-Xa Act, Unfractionated 0.32IU/mL (0.30-0.70) Laboratory Tests Test 12/20/16 14:30 12/20/16 23:30 12/21/16 06:30 12/21/16 09:24 Body Fluid pH 7.1 Heparin Anti-Xa Act, Unfractionated 0.18IU/mL (0.30-0.70) 0.32IU/mL (0.30-0.70) Prothrombin Time 21.7SEC (11.7-14.0) Prothromb Time International Ratio 2.0 (0.8-1.1) Total Bilirubin 0.5mg/dL (0.2-1.0) Direct Bilirubin 0.2mg/dL (0.0-0.2) Aspartate Amino Transf (AST/SGOT) 29U/L (15-37) Alanine Aminotransferase (ALT/SGPT) 22U/L (16-63) Alkaline Phosphatase 55U/L (46-116) Total Protein 6.5g/dL (6.4-8.2) Albumin 2.2g/dL (3.4-5.0) Medications Active Scripts Medications Dose Route/Sig Days Date Category Milk Of Magnesia (Magnesium Hydroxide) 2,400 Mg/10 Ml Oral.susp 2,400 Mg PO 12/10/16 Reported Metoprolol Tartrate 100 Mg Tablet 1 Tab PO BID 12/10/16 Reported Allopurinol 100 Mg Tablet 1 Tab PO DAILY 12/10/16 Reported Aspir 81 (Aspirin) 81 Mg Tablet.dr 1 Tab PO DAILY 12/10/16 Reported Spironolactone 25 Mg Tablet 1 Tab PO DAILY 12/10/16 Reported Cardizem Tablet (Diltiazem Hcl) 30 Mg Tablet 30 Mg PO DAILY 12/10/16 Reported Zyvox (Linezolid) 600 Mg Tablet 600 Mg PO BID 12/10/16 Reported Augmentin 875-125 Tablet (Amoxicillin/Potassium Clav) 1 Each Tablet Tab PO BID 12/10/16 Reported Comments CXR 12/21 no change Impression . 1. Acute hypoxic respiratory failure secondary to development of acute congestive heart failure, suspect diastolic heart failure triggered by atrial fibrillation with rapid ventricular response. 2. Atrial fibrillation with rapid ventricular response, triggering congestive heart failure.POA 3. Recent dilated gallbladder with liver abscess, status post percutaneous cholecystostomy placement. Followup CT chest showed persistent abscess in the liver and status post second drain. Replaced drains 12/16/16 4. No significant history of tobacco use. 5. PE CONFIRMED WITH CTA 6. Severe 3 vessel CAD 7. New partially loculated right pleural effusion, ? hepatic abscess extension into pleural space. s/p right chest tube Plan . Nasal canula repeat ct chest with partially loculated right effusion, suspect hepatic abscess extension right thoracentesis with chest tube 12/20. follow cultures and CXR Not the best candidate for VAT Can d/c Heparin/ re-start coumadin for PE will need 3-6 months of AC s/p new drains 3 antibx per ID follow surgery input d/w patient and Dr Liz hayes with LTAC transfer DNR/DNI RUKHSANA LEE MD Dec 21, 2016 11:31
--- NOTE | 2016-12-21 11:47 | PDOC ---
Subjective: Subjective: Per pt - feeling pretty good, minimal abd pain in RUQ. Objective: Objective: Per RN - minimal output from biliary drains, chest tube draining, good BMs, eventually back to rehab/LTAC. Vital Signs: Vital Signs Date Time Temp Pulse Resp B/P Pulse Ox O2 Delivery O2 Flow Rate FiO2 12/21/16 08:21 75 138/56 12/21/16 08:00 Nasal Cannula 4.0 12/21/16 07:38 97.7 16 98 97.7 Labs: Laboratory Tests Test 12/20/16 14:30 12/20/16 23:30 12/21/16 06:30 12/21/16 09:24 Body Fluid pH 7.1 Heparin Anti-Xa Act, Unfractionated 0.18IU/mL 0.32IU/mL Prothrombin Time 21.7SEC Prothromb Time International Ratio 2.0 Total Bilirubin 0.5mg/dL Direct Bilirubin 0.2mg/dL Aspartate Amino Transf (AST/SGOT) 29U/L Alanine Aminotransferase (ALT/SGPT) 22U/L Alkaline Phosphatase 55U/L Total Protein 6.5g/dL Albumin 2.2g/dL Imaging: CXR 12/21/16 IMPRESSION: 1. Slightly smaller moderate right pleural effusion. PE: GEN: NAD, up to chair, pleasant LUNGS: nasal cannula, right chest tube HEART: S1S2 ABD: BS+, PAULETTE serosang, no drainage in C tube NEURO/PSYCH: A & O 3 A/P: Abnormal CT A/P -mural thickening along the base of the cecum raising the possibility of a cecal neoplasm with adjacent appendiceal obstruction and/or appendicitis -no previous colonoscopy Liver abscesses -minimal output from biliary drains, normal LFTs -surg following -w/ IR on 12/16: cholecystostomy gram through a cholecystostomy tube and abscessogram through a hepatic abscess drainage catheter Right pleural effusion s/p chest tube 12/20 A Fib, CHF, TX, resp failure, PEs -- Follow cultures. Have discussed future colonoscopy which he does not want to pursue. GISSELL FUENTES Dec 21, 2016 11:47
--- NOTE | 2016-12-21 12:31 | PDOC3 ---
Discharge Summary Visit Information Date of Admission: Dec 10, 2016 Date of Discharge: Dec 21, 2016 Admitting Diagnosis Comment: 1. 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 Afib s/p RVR (new) 2. CHF: 3. Troponin leak: 4. CAD hx: 5. GB abscess: drain in place, on Abx. done by ST [facility] 6. Gout: no acute issues. cont allopurinol 7,.A cute hypoxic respi failure needing venti mask , resolved 8. PE, possible 9. Possible liver abscess 10, Possible appy Final Diagnosis Problems Medical Problems: (1) Acute respiratory failure Status: Acute (2) CAD (coronary artery disease) Status: Acute (3) CHF exacerbation Status: Acute (4) Hypoxia Status: Acute (5) Pulmonary edema Status: Acute (6) Pulmonary embolism Status: Acute (7) Volume overload Status: Acute Brief Hospital Course Allergies Allergies Coded Allergies Type Severity Reaction Last Updated Verified enalapril Allergy Severe ANGIOEDEMA 12/13/16 Yes Vital Signs Vital Signs Date Time Temp Pulse Resp B/P Pulse Ox O2 Delivery O2 Flow Rate FiO2 12/21/16 08:21 75 138/56 12/21/16 08:00 Nasal Cannula 4.0 12/21/16 07:38 97.7 16 98 97.7 Lab Results Laboratory Tests Test 12/19/16 13:15 12/20/16 08:25 12/20/16 14:30 12/20/16 23:30 Heparin Anti-Xa Act, Unfractionated 0.30IU/mL (0.30-0.70) 0.20IU/mL (0.30-0.70) 0.18IU/mL (0.30-0.70) White Blood Count 6.6x10^3/uL (4.0-11.0) Red Blood Count 3.25x10^6/uL (4.30-5.70) Hemoglobin 10.0g/dL (13.0-17.5) Hematocrit 30.3% (39.0-53.0) Mean Corpuscular Volume 93fL (79-100) Mean Corpuscular Hemoglobin 31pg (25-35) Mean Corpuscular Hemoglobin Concent 33g/dL (31-37) Red Cell Distribution Width 13.9% (11.5-14.5) Platelet Count 233x10^3/uL (140-400) Neutrophils (%) (Auto) 72% (31-73) Lymphocytes (%) (Auto) 17% (24-48) Monocytes (%) (Auto) 9% (0-9) Eosinophils (%) (Auto) 2% (0-3) Basophils (%) (Auto) 1% (0-3) Neutrophils # (Auto) 4.7x10^3uL (1.8-7.7) Lymphocytes # (Auto) 1.1x10^3/uL (1.0-4.8) Monocytes # (Auto) 0.6x10^3/uL (0.0-1.1) Eosinophils # (Auto) 0.1x10^3/uL (0.0-0.7) Basophils # (Auto) 0.1x10^3/uL (0.0-0.2) Prothrombin Time 19.7SEC (11.7-14.0) Prothromb Time International Ratio 1.8 (0.8-1.1) Sodium Level 139mmol/L (136-145) Potassium Level 3.4mmol/L (3.5-5.1) Chloride Level 100mmol/L (98-107) Carbon Dioxide Level 33mmol/L (21-32) Anion Gap 6 (6-14) Blood Urea Nitrogen 11mg/dL (8-26) Creatinine 0.8mg/dL (0.7-1.3) Estimated GFR (Cockcroft-Gault) 91.4 Glucose Level 134mg/dL (70-99) Calcium Level 8.8mg/dL (8.5-10.1) Body Fluid pH 7.1 Test 12/21/16 06:30 12/21/16 09:24 Prothrombin Time 21.7SEC (11.7-14.0) Prothromb Time International Ratio 2.0 (0.8-1.1) Total Bilirubin 0.5mg/dL (0.2-1.0) Direct Bilirubin 0.2mg/dL (0.0-0.2) Aspartate Amino Transf (AST/SGOT) 29U/L (15-37) Alanine Aminotransferase (ALT/SGPT) 22U/L (16-63) Alkaline Phosphatase 55U/L (46-116) Total Protein 6.5g/dL (6.4-8.2) Albumin 2.2g/dL (3.4-5.0) Heparin Anti-Xa Act, Unfractionated 0.32IU/mL (0.30-0.70) Laboratory Tests Test 12/20/16 14:30 12/20/16 23:30 12/21/16 06:30 12/21/16 09:24 Body Fluid pH 7.1 Heparin Anti-Xa Act, Unfractionated 0.18IU/mL (0.30-0.70) 0.32IU/mL (0.30-0.70) Prothrombin Time 21.7SEC (11.7-14.0) Prothromb Time International Ratio 2.0 (0.8-1.1) Total Bilirubin 0.5mg/dL (0.2-1.0) Direct Bilirubin 0.2mg/dL (0.0-0.2) Aspartate Amino Transf (AST/SGOT) 29U/L (15-37) Alanine Aminotransferase (ALT/SGPT) 22U/L (16-63) Alkaline Phosphatase 55U/L (46-116) Total Protein 6.5g/dL (6.4-8.2) Albumin 2.2g/dL (3.4-5.0) Brief Hospital Course Mr. Qiu is a 86 old [sex] who presented with [ ] SOA. Course very complicated. HAd NSTEMI, CArdiac cath showed triple vessel dse , needs CABG but declined by [facility] bec of multiple abd drains he had at another facility for liver abscess, GB dse etc, HE has 2 indwelling abd drains, Sx on board too for it. CT scan rpt then showed possible appy and PE. Pt non surgical candidate and no abd pain so appy was left alone, Pt re started on heparin gtt and coumadin for PE and CAD, PT then had R pleural effusion, needing CT drainage by IR 1-2 days Prior to dc, Pt very weak as expected. Pt DNR. Pt came from [facility], Pt eating ok, no confusion in course. Needs lTAC level of care and has been cleared by pulmo to dc. MAR done 2 visits today Dispo; [facility] Discharge Information Condition at Discharge: Improved, Stable Disposition/Orders: Other ([facility]) Scheduled Allopurinol (Allopurinol) 1 TAB PO DAILY (Reported) Amoxicillin/Potassium Clav (Augmentin 875-125 Tablet) TAB PO BID (Reported) Aspirin (Aspir 81) 1 TAB PO DAILY (Reported) Diltiazem Hcl (Cardizem Tablet) 30 MG PO DAILY (Reported) Linezolid (Zyvox) 600 MG PO BID (Reported) Metoprolol Tartrate (Metoprolol Tartrate) 1 TAB PO BID (Reported) Spironolactone (Spironolactone) 1 TAB PO DAILY (Reported) Miscellaneous Medications Magnesium Hydroxide (Milk Of Magnesia) 2,400 MG PO (Reported) CARLYLE CARMEN MD Dec 21, 2016 12:31
--- NOTE | 2016-12-21 14:07 | PDOC ---
SURGICAL PROGRESS NOTE Subjective Pt without new c/o, denies abd pain Vital Signs Vital Signs Date Time Temp Pulse Resp B/P Pulse Ox O2 Delivery O2 Flow Rate FiO2 12/21/16 11:00 70 16 111/55 94 Nasal Cannula 12/21/16 08:00 4.0 12/21/16 07:38 97.7 97.7 I&O Intake and Output 12/21/16 07:00 Intake Total 1149 ml Output Total 1680 ml Balance -531 ml Intake Oral 480 ml IV Total 669 ml Output Urine Total 1550 ml Chest Tube Drainage Total 120 ml Drainage Total 10 ml # Voids 1 General: Alert, Oriented X3, Cooperative, No acute distress Abdomen: Soft, Other (tube in place) Labs Laboratory Tests Test 12/20/16 08:25 12/20/16 14:30 12/20/16 23:30 12/21/16 06:30 White Blood Count 6.6x10^3/uL (4.0-11.0) Red Blood Count 3.25x10^6/uL (4.30-5.70) Hemoglobin 10.0g/dL (13.0-17.5) Hematocrit 30.3% (39.0-53.0) Mean Corpuscular Volume 93fL (79-100) Mean Corpuscular Hemoglobin 31pg (25-35) Mean Corpuscular Hemoglobin Concent 33g/dL (31-37) Red Cell Distribution Width 13.9% (11.5-14.5) Platelet Count 233x10^3/uL (140-400) Neutrophils (%) (Auto) 72% (31-73) Lymphocytes (%) (Auto) 17% (24-48) Monocytes (%) (Auto) 9% (0-9) Eosinophils (%) (Auto) 2% (0-3) Basophils (%) (Auto) 1% (0-3) Neutrophils # (Auto) 4.7x10^3uL (1.8-7.7) Lymphocytes # (Auto) 1.1x10^3/uL (1.0-4.8) Monocytes # (Auto) 0.6x10^3/uL (0.0-1.1) Eosinophils # (Auto) 0.1x10^3/uL (0.0-0.7) Basophils # (Auto) 0.1x10^3/uL (0.0-0.2) Prothrombin Time 19.7SEC (11.7-14.0) 21.7SEC (11.7-14.0) Prothromb Time International Ratio 1.8 (0.8-1.1) 2.0 (0.8-1.1) Heparin Anti-Xa Act, Unfractionated 0.20IU/mL (0.30-0.70) 0.18IU/mL (0.30-0.70) Sodium Level 139mmol/L (136-145) Potassium Level 3.4mmol/L (3.5-5.1) Chloride Level 100mmol/L (98-107) Carbon Dioxide Level 33mmol/L (21-32) Anion Gap 6 (6-14) Blood Urea Nitrogen 11mg/dL (8-26) Creatinine 0.8mg/dL (0.7-1.3) Estimated GFR (Cockcroft-Gault) 91.4 Glucose Level 134mg/dL (70-99) Calcium Level 8.8mg/dL (8.5-10.1) Body Fluid pH 7.1 Total Bilirubin 0.5mg/dL (0.2-1.0) Direct Bilirubin 0.2mg/dL (0.0-0.2) Aspartate Amino Transf (AST/SGOT) 29U/L (15-37) Alanine Aminotransferase (ALT/SGPT) 22U/L (16-63) Alkaline Phosphatase 55U/L (46-116) Total Protein 6.5g/dL (6.4-8.2) Albumin 2.2g/dL (3.4-5.0) Test 12/21/16 09:24 Heparin Anti-Xa Act, Unfractionated 0.32IU/mL (0.30-0.70) Laboratory Tests Test 12/20/16 14:30 12/20/16 23:30 12/21/16 06:30 12/21/16 09:24 Body Fluid pH 7.1 Heparin Anti-Xa Act, Unfractionated 0.18IU/mL (0.30-0.70) 0.32IU/mL (0.30-0.70) Prothrombin Time 21.7SEC (11.7-14.0) Prothromb Time International Ratio 2.0 (0.8-1.1) Total Bilirubin 0.5mg/dL (0.2-1.0) Direct Bilirubin 0.2mg/dL (0.0-0.2) Aspartate Amino Transf (AST/SGOT) 29U/L (15-37) Alanine Aminotransferase (ALT/SGPT) 22U/L (16-63) Alkaline Phosphatase 55U/L (46-116) Total Protein 6.5g/dL (6.4-8.2) Albumin 2.2g/dL (3.4-5.0) Problem List Problems Medical Problems: (1) Acute respiratory failure Status: Acute (2) CAD (coronary artery disease) Status: Acute (3) CHF exacerbation Status: Acute (4) Hypoxia Status: Acute (5) Pulmonary edema Status: Acute (6) Pulmonary embolism Status: Acute (7) Volume overload Status: Acute Assessment/Plan cholecystitis with liver abscess agree with plans for discharge d/w pt's son no immediate surgical plans, as pt is poor surgical candidate Problems: JANEL ALLISON MD Dec 21, 2016 14:07
--- NOTE | 2016-12-21 15:02 | PATHOLOGY ---
CYTOPATHOLOGY REPORT CLINICAL HISTORY: Suspect hepatic abscess extension, Right pleural fluid. SPECIMEN(S) RECEIVED: A.Pleural fluid, Right FINAL DIAGNOSIS: Right pleural fluid, ThinPrep and cell block: - No malignant cells identified. -Paucicellular specimen consisting of few inflammatory cells. (JPM:csd; d/t: 12/21/2016) PATHOLOGIST: Toni Stuart M.D. REPORT ELECTRONICALLY SIGNED BY: Toni Stuart M.D. DATE/TIME: 12/21/2016 15:02 GROSS PATHOLOGY: A. Pleural fluid, Right: The specimen is submitted unfixed, labeled "Roni Oh". Received by the Cytology Department is 15 mL of cloudy orange red fluid. One ThinPrep slide and a cell block were prepared. (clt 12.20.2016) FINANCING ANALYST(S): MITCH Villanueva(ASCP) INITIAL CPT CODE(S): A; 33465, 04740 Professional services performed [place] [address] Technical services performed by [facility] at [address] [place] [address], [address] [address]. PATIENT: RONI OH /AGE: 312/23/1929 (Age: 86) SEX: M PATIENT #: [id number] ALT CASE #: SPECIMEN COLLECTION DATE: 12/20/2016 SPECIMEN RECEIVED DATE: 12/20/[address] [facility] [address] [place] [address], [address] [place] [address] PHONE: [phone] DIRECTOR: Antonio Preciado M.D. * * * END OF REPORT * * *
[2016-12-21] MEDS: WARFARIN 5 MG TABLET. PO SCH (16:00)
[2016-12-21] MEDS ORDERED: WARFARIN 7.5 MG TABLET. PO ONE (16:00)
[2016-12-21] MEDS: AMOXICILLIN/K CLAV 875/125MG TABLET. PO SCH (20:52)
[2016-12-21] MEDS: ATORVASTATIN CALCIUM 10 MG TABLET. PO SCH (20:53)
[2016-12-22] VITALS (8 sets, daily range): BP systolic 118–141; BP diastolic 52–67
[2016-12-22 05:25] LABS: INR 2.2 (0.8-1.1); PROTHROMBIN TIME PATIENT 22.9 SEC (11.7-14.0)
[2016-12-22 05:29] LABS: BASO # 0.1 x10^3/uL (0.0-0.2); BASO % 1 % (0-3); EOS % 3 % (0-3); HEMATOCRIT 28.3 % (39.0-53.0); HEMOGLOBIN 9.6 g/dL (13.0-17.5); LYMPH # 1.2 x10^3/uL (1.0-4.8); LYMPH % 19 % (24-48); MEAN CORPUSCULAR HEMOGLOBIN 31 pg (25-35); MEAN CORPUSCULAR HGB CONC 34 g/dL (31-37); MEAN CORPUSCULAR VOLUME 91 fL (79-100); MONO % 8 % (0-9); NEUT % 69 % (31-73); PLATELET COUNT 260 x10^3/uL (140-400); RED BLOOD COUNT 3.11 x10^6/uL (4.30-5.70); RED CELL DISTRIBUTION WIDTH 14.4 % (11.5-14.5); WHITE BLOOD COUNT 6.3 x10^3/uL (4.0-11.0)
[2016-12-22 05:35] LABS: CALCIUM 8.7 mg/dL (8.5-10.1); CREATININE 0.7 mg/dL (0.7-1.3); GFR 106.7; POTASSIUM 4.1 mmol/L (3.5-5.1)
--- NOTE | 2016-12-22 08:23 | PDOC ---
Infectious Disease Note Subjective Subjective Comfortable, denies pain Feels well sitting in chair ROS ROS GEN: Denies fevers, chills, sweats HEENT: Denies blurred vision, sore throat CV: Denies chest pain RESP: Denies shortness of air, cough GI: Denies n/v/d NEURO: Denies confusion, dizziness MSK: Denies weakness, joint pain/swelling Vital Sign Vital Signs Vital Signs Date Time Temp Pulse Resp B/P Pulse Ox O2 Delivery O2 Flow Rate FiO2 12/22/16 08:20 98.3 76 16 141/67 97 Room Air 98.3 12/22/16 02:34 4.0 Physical Exam PHYSICAL EXAM GENERAL: NAD, Alert HEENT: PERRL, OC/OP NECK: Supple, no JVD, no LN LUNGS: decrease bs , multiple tubes in place HEART: S1S2, no gallop, no murmur ABD: Soft, NT, no organomegaly, no rebound EXT: No edema, no cyanosis PHOTOGRAPHIC EQUIPMENT INSPECTOR: Alert, oriented x 3, no focal neurologic deficit SKIN: No rash IV: ok Labs Lab Laboratory Tests Test 12/21/16 09:24 12/22/16 05:00 Heparin Anti-Xa Act, Unfractionated 0.32IU/mL (0.30-0.70) White Blood Count 6.3x10^3/uL (4.0-11.0) Red Blood Count 3.11x10^6/uL (4.30-5.70) Hemoglobin 9.6g/dL (13.0-17.5) Hematocrit 28.3% (39.0-53.0) Mean Corpuscular Volume 91fL (79-100) Mean Corpuscular Hemoglobin 31pg (25-35) Mean Corpuscular Hemoglobin Concent 34g/dL (31-37) Red Cell Distribution Width 14.4% (11.5-14.5) Platelet Count 260x10^3/uL (140-400) Neutrophils (%) (Auto) 69% (31-73) Lymphocytes (%) (Auto) 19% (24-48) Monocytes (%) (Auto) 8% (0-9) Eosinophils (%) (Auto) 3% (0-3) Basophils (%) (Auto) 1% (0-3) Neutrophils # (Auto) 4.4x10^3uL (1.8-7.7) Lymphocytes # (Auto) 1.2x10^3/uL (1.0-4.8) Monocytes # (Auto) 0.5x10^3/uL (0.0-1.1) Eosinophils # (Auto) 0.2x10^3/uL (0.0-0.7) Basophils # (Auto) 0.1x10^3/uL (0.0-0.2) Prothrombin Time 22.9SEC (11.7-14.0) Prothromb Time International Ratio 2.2 (0.8-1.1) Sodium Level 140mmol/L (136-145) Potassium Level 4.1mmol/L (3.5-5.1) Chloride Level 103mmol/L (98-107) Carbon Dioxide Level 32mmol/L (21-32) Anion Gap 5 (6-14) Blood Urea Nitrogen 14mg/dL (8-26) Creatinine 0.7mg/dL (0.7-1.3) Estimated GFR (Cockcroft-Gault) 106.7 Glucose Level 118mg/dL (70-99) Calcium Level 8.7mg/dL (8.5-10.1) Objective Assessment Liver abscess 12/02 Kleb and Enterococcus. s/p biliary drains. Reportedly Klebsiella/Hafnia alvei/Ecoli and enterococcus 11/28 per [facility] records. CAD s/p cath Acute cholecystolithiasis. Atrial fibrillation with rapid ventricular response. Acute respiratory failure, improving. Coronary artery disease Plan Plan of Care Cont Zosyn for now . Change to po Augmentin at discharge, since pt likely has colon ca and colonoscopy or any other aggressive measures are not planned. VY TINAJERO MD Dec 22, 2016 08:23
[2016-12-22] MEDS: POTASSIUM CHLORIDE 20 MEQ TABLET.ER. PO SCH (08:40)
[2016-12-22] MEDS: PANTOPRAZOLE 40 MG TABLET. PO SCH (08:41)
[2016-12-22] MEDS: AMOXICILLIN/K CLAV 875/125MG TABLET. PO SCH ×2 (08:41→20:44)
[2016-12-22] MEDS: ASPIRIN ENTERIC COATED 81 MG TABLET.DR. PO SCH (08:41)
[2016-12-22] MEDS: METOPROLOL TART IMMED RELEASE 50 MG TABLET PO SCH ×2 (08:42→20:45)
[2016-12-22] MEDS: ISOSORBIDE MONONITRATE ER 30 MG TAB.ER.24H PO SCH (08:42)
[2016-12-22] MEDS: SPIRONOLACTONE 25 MG TABLET PO SCH (08:42)
[2016-12-22] MEDS: DILTIAZEM HCL 240 MG CAP.ER.24H PO SCH (08:42)
[2016-12-22] MEDS: CLOPIDOGREL BISULFATE 75 MG TABLET PO SCH (08:43)
[2016-12-22] MEDS: FUROSEMIDE 40 MG TABLET PO SCH (08:43)
[2016-12-22] MEDS: DOCUSATE SODIUM 100 MG CAPSULE PO SCH (08:45)
--- NOTE | 2016-12-22 10:03 | RAD ---
EXAM: Chest one view. HISTORY: Chest tube placement. COMPARISON: 12/21/2016. FINDINGS: A frontal view of the chest is obtained. A right pleural drain remains in place. Right upper quadrant drains are partially visualized. A right arm PICC line has its tip in the superior vena cava. There is a moderate right pleural effusion, stable to slightly decreased since the prior study. A small left pleural effusion is also likely present. There is atelectasis in the right greater than left bases. There is no pneumothorax. The heart is not enlarged. There are atherosclerotic calcifications of the aorta. IMPRESSION: 1. Stable to slightly decreased moderate right pleural effusion status post drainage. 2. Right greater than left basilar atelectasis.
--- NOTE | 2016-12-22 10:31 | PDOC ---
PROGRESS NOTES Chief Complaint Chief Complaint SOB Edema ASSESSMENT AND PLAN: 1. 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 Afib s/p RVR (new) 2. CHF: 3. Troponin leak: 4. CAD hx: 5. GB abscess: drain in place, on Abx. done by [facility] 6. Gout: no acute issues. cont allopurinol 7,.A cute hypoxic respi failure needing venti mask , resolved 8. PE, possible 9. Possible liver abscess 10, Possible appy History of Present Illness History of Present Illness INdwelling Rt chest tube, minimal drainage NO SOA, no pain at CT site NO desats Ate breakfast ok Walked with PT - Pleural fluid studies on the works K 3.4 yesterday on lasix and PO replacement LTAc denied Plan: Plans on dc CT soon MIght be able to go back to [facility] off chest tube Needs ff up [facility] for his abd drains PO augmentin upon dc Ok to try a peer to peer - dw RN and Case Vitals Vitals Vital Signs Date Time Temp Pulse Resp B/P Pulse Ox O2 Delivery O2 Flow Rate FiO2 12/22/16 08:42 76 141/67 12/22/16 08:20 98.3 16 97 Room Air 98.3 12/22/16 02:34 4.0 Physical Exam General: Alert, Oriented X3, Cooperative, No acute distress Heart: Normal S1, Normal S2, No murmurs, Other (irregular) Lungs: Crackles (bases, left, right decrease) Abdomen: Soft, Other (tube in place) Extremities: No edema Skin: No significant lesion Labs LABS Laboratory Tests Test 12/22/16 05:00 White Blood Count 6.3x10^3/uL (4.0-11.0) Red Blood Count 3.11x10^6/uL (4.30-5.70) Hemoglobin 9.6g/dL (13.0-17.5) Hematocrit 28.3% (39.0-53.0) Mean Corpuscular Volume 91fL (79-100) Mean Corpuscular Hemoglobin 31pg (25-35) Mean Corpuscular Hemoglobin Concent 34g/dL (31-37) Red Cell Distribution Width 14.4% (11.5-14.5) Platelet Count 260x10^3/uL (140-400) Neutrophils (%) (Auto) 69% (31-73) Lymphocytes (%) (Auto) 19% (24-48) Monocytes (%) (Auto) 8% (0-9) Eosinophils (%) (Auto) 3% (0-3) Basophils (%) (Auto) 1% (0-3) Neutrophils # (Auto) 4.4x10^3uL (1.8-7.7) Lymphocytes # (Auto) 1.2x10^3/uL (1.0-4.8) Monocytes # (Auto) 0.5x10^3/uL (0.0-1.1) Eosinophils # (Auto) 0.2x10^3/uL (0.0-0.7) Basophils # (Auto) 0.1x10^3/uL (0.0-0.2) Prothrombin Time 22.9SEC (11.7-14.0) Prothromb Time International Ratio 2.2 (0.8-1.1) Sodium Level 140mmol/L (136-145) Potassium Level 4.1mmol/L (3.5-5.1) Chloride Level 103mmol/L (98-107) Carbon Dioxide Level 32mmol/L (21-32) Anion Gap 5 (6-14) Blood Urea Nitrogen 14mg/dL (8-26) Creatinine 0.7mg/dL (0.7-1.3) Estimated GFR (Cockcroft-Gault) 106.7 Glucose Level 118mg/dL (70-99) Calcium Level 8.7mg/dL (8.5-10.1) Review of Systems Review of Systems no SOA, no abd pain, no cp Assessment and Plan Assessmemt and Plan Problems Medical Problems: (1) Acute respiratory failure Status: Acute (2) CAD (coronary artery disease) Status: Acute (3) CHF exacerbation Status: Acute (4) Hypoxia Status: Acute (5) Pulmonary edema Status: Acute (6) Pulmonary embolism Status: Acute (7) Volume overload Status: Acute Problems: Comment Review of Relevant I have reviewed the following items liana (where applicable) has been applied. Labs Laboratory Tests Test 12/20/16 14:30 12/20/16 23:30 12/21/16 06:30 12/21/16 09:24 Body Fluid pH 7.1 Body Fluid Lactate Dehydrogenase 689IU/L (.) Heparin Anti-Xa Act, Unfractionated 0.18IU/mL (0.30-0.70) 0.32IU/mL (0.30-0.70) Prothrombin Time 21.7SEC (11.7-14.0) Prothromb Time International Ratio 2.0 (0.8-1.1) Total Bilirubin 0.5mg/dL (0.2-1.0) Direct Bilirubin 0.2mg/dL (0.0-0.2) Aspartate Amino Transf (AST/SGOT) 29U/L (15-37) Alanine Aminotransferase (ALT/SGPT) 22U/L (16-63) Alkaline Phosphatase 55U/L (46-116) Total Protein 6.5g/dL (6.4-8.2) Albumin 2.2g/dL (3.4-5.0) Test 12/22/16 05:00 White Blood Count 6.3x10^3/uL (4.0-11.0) Red Blood Count 3.11x10^6/uL (4.30-5.70) Hemoglobin 9.6g/dL (13.0-17.5) Hematocrit 28.3% (39.0-53.0) Mean Corpuscular Volume 91fL (79-100) Mean Corpuscular Hemoglobin 31pg (25-35) Mean Corpuscular Hemoglobin Concent 34g/dL (31-37) Red Cell Distribution Width 14.4% (11.5-14.5) Platelet Count 260x10^3/uL (140-400) Neutrophils (%) (Auto) 69% (31-73) Lymphocytes (%) (Auto) 19% (24-48) Monocytes (%) (Auto) 8% (0-9) Eosinophils (%) (Auto) 3% (0-3) Basophils (%) (Auto) 1% (0-3) Neutrophils # (Auto) 4.4x10^3uL (1.8-7.7) Lymphocytes # (Auto) 1.2x10^3/uL (1.0-4.8) Monocytes # (Auto) 0.5x10^3/uL (0.0-1.1) Eosinophils # (Auto) 0.2x10^3/uL (0.0-0.7) Basophils # (Auto) 0.1x10^3/uL (0.0-0.2) Prothrombin Time 22.9SEC (11.7-14.0) Prothromb Time International Ratio 2.2 (0.8-1.1) Sodium Level 140mmol/L (136-145) Potassium Level 4.1mmol/L (3.5-5.1) Chloride Level 103mmol/L (98-107) Carbon Dioxide Level 32mmol/L (21-32) Anion Gap 5 (6-14) Blood Urea Nitrogen 14mg/dL (8-26) Creatinine 0.7mg/dL (0.7-1.3) Estimated GFR (Cockcroft-Gault) 106.7 Glucose Level 118mg/dL (70-99) Calcium Level 8.7mg/dL (8.5-10.1) Laboratory Tests Test 12/22/16 05:00 White Blood Count 6.3x10^3/uL (4.0-11.0) Red Blood Count 3.11x10^6/uL (4.30-5.70) Hemoglobin 9.6g/dL (13.0-17.5) Hematocrit 28.3% (39.0-53.0) Mean Corpuscular Volume 91fL (79-100) Mean Corpuscular Hemoglobin 31pg (25-35) Mean Corpuscular Hemoglobin Concent 34g/dL (31-37) Red Cell Distribution Width 14.4% (11.5-14.5) Platelet Count 260x10^3/uL (140-400) Neutrophils (%) (Auto) 69% (31-73) Lymphocytes (%) (Auto) 19% (24-48) Monocytes (%) (Auto) 8% (0-9) Eosinophils (%) (Auto) 3% (0-3) Basophils (%) (Auto) 1% (0-3) Neutrophils # (Auto) 4.4x10^3uL (1.8-7.7) Lymphocytes # (Auto) 1.2x10^3/uL (1.0-4.8) Monocytes # (Auto) 0.5x10^3/uL (0.0-1.1) Eosinophils # (Auto) 0.2x10^3/uL (0.0-0.7) Basophils # (Auto) 0.1x10^3/uL (0.0-0.2) Prothrombin Time 22.9SEC (11.7-14.0) Prothromb Time International Ratio 2.2 (0.8-1.1) Sodium Level 140mmol/L (136-145) Potassium Level 4.1mmol/L (3.5-5.1) Chloride Level 103mmol/L (98-107) Carbon Dioxide Level 32mmol/L (21-32) Anion Gap 5 (6-14) Blood Urea Nitrogen 14mg/dL (8-26) Creatinine 0.7mg/dL (0.7-1.3) Estimated GFR (Cockcroft-Gault) 106.7 Glucose Level 118mg/dL (70-99) Calcium Level 8.7mg/dL (8.5-10.1) Microbiology 12/10/16 Blood Culture - Final, Complete NO GROWTH AFTER 5 DAYS 12/20/16 Gram Stain - Final, Complete 12/10/16 Urine Culture - Final, Complete 12/10/16 Urine Culture Result 1 ([facility]) - Final, Complete Medications Current Medications Piperacillin Sod/ Tazobactam Sod 1 each 1 each PRN DAILY PRN MC SEE COMMENTS; Start 12/10/16 at 07:15; Stop 12/14/16 at 11:23; Status DC Diltiazem HCl/ Dextrose (Cardizem) 125 ml @ 0 mls/hr CONT PRN IV SEE I/O RECORD Last administered on 12/13/16 00:58; Start 12/10/16 at 07:15; Stop 12/13 at 12:33; Status DC Furosemide (Lasix) 40 mg 1X ONCE IVP Last administered on 12/10/16 07:52; Start 12/10/16 at 07:15; Stop 12/10/16 at 07:18; Status DC Nitroglycerin (Nitrostat) 0.4 mg 1X ONCE SL ; Start 12/10/16 at 07:15; Stop at 07:18; Status DC Ondansetron HCl (Zofran) 4 mg PRN Q8HRS PRN IV NAUSEA/VOMITING; Start 12/10/16 at 07:30; Stop 12/11/16 at 07:29; Status DC Morphine Sulfate 2 mg 2 mg PRN Q2HR PRN IV PAIN; Start 12/10/16 at 07:30; Stop 12/11/16 at 07:29; Status DC Piperacillin Sod/ Tazobactam Sod/ Sodium Chloride (Zosyn/Iv Sodium Chloride 0.9 % 100ml) 100 ml @ 200 mls/hr 1X ONCE IV Last administered on 12/10/16 09:28 ; Start 12/10/16 at 07:45; Stop 12/10/16 at 08:14; Status DC Lisinopril (Prinivil) 10 mg DAILY PO ; Start 12/11/16 at 09:00; Stop 12/11/16 at 16:31; Status DC Labetalol HCl (Normodyne) 20 mg PRN Q2HR PRN IVP HYPERTENSION, SEE COMMENTS; Start 12/10/16 at 11:30 Aspirin (Ecotrin) 81 mg DAILYWBKFT PO Last administered on 12/22/16 08:41; Start 12/10/16 at 13:00 Furosemide 40 mg 40 mg 1X ONCE IVP Last administered on 12/10/16 14:37; Start 12/10/16 at 12:15; Stop 12/10/16 at 12:23; Status DC Piperacillin Sod/ Tazobactam Sod/ Sodium Chloride (Zosyn/Iv Sodium Chloride 0.9 % 50ml) 50 ml @ 100 mls/hr Q6HRS IV Last administered on 12/21/16 11:54; Start 12/10/16 at 13:30; Stop 12/21/16 at 12:36; Status DC Allopurinol (Zyloprim) 100 mg DAILY PO ; Start 12/11/16 at 10:00; Stop 12/11/16 at 10:13; Status DC Aspirin (Ecotrin) 81 mg DAILY PO ; Start 12/12/16 at 09:00; Status Cancel Linezolid (Zyvox) 600 mg BID PO Last administered on 12/12/16 21:34; Start at 10:00; Stop 12/13/16 at 08:51; Status DC Spironolactone (Aldactone) 25 mg DAILY PO Last administered on 12/22/16 08:42; Start 12/11/16 at 10:00 Metoprolol Tartrate 100 mg 100 mg BID PO Last administered on 12/13/16 09:28; Start 12/11/16 at 10:00; Stop 12/13/16 at 12:33; Status DC Heparin Sodium/ Dextrose 500 ml @ 19.6 mls/hr CONT PRN IV SEE I/O RECORD Last administered on 12/15/16 05:34; Start 12/11/16 at 14:45; Stop 12/15/16 at 10:20; Status DC Heparin Sodium (Porcine) 2,050 unit PRN Q6HRS PRN IV FOR UFH LEVEL LESS THAN 0.2 Last administered on 12/13/16 20:30; Start 12/11/16 at 14:45; Stop 12/15/16 at 10:20; Status DC Throat Lozenges (Cepacol Sore Throat Lozenge) 1 jorge a PRN Q2HRS PRN PO SORE THROAT Last administered on 12/18/16 20:21; Start 12/11/16 at 19:30 Docusate Sodium (Colace) 100 mg DAILY PO Last administered on 12/21/16 08:21; Start 12/12/16 at 10:00 Polyethylene Glycol (miraLAX PACKET) 17 gm PRN DAILY PRN PO CONSTIPATION; Start 12/12/16 at 10:00 Magnesium Hydroxide (Milk Of Magnesia) 2,400 mg PRN DAILY PRN PO CONSTIPATION; Start 12/12/16 at 10:00 Lidocaine HCl 20 ml 20 ml STK-MED ONCE .ROUTE ; Start 12/12/16 at 14:11; Stop at 14:12; Status DC Heparin Sodium/ Sodium Chloride 500 ml @ As Directed STK-MED ONCE .ROUTE ; Start 12/12/16 at 14:11; Stop 12/12/16 at 14:12; Status DC Iohexol (Omnipaque 300 Mg/ml) 100 ml STK-MED ONCE .ROUTE ; Start 12/12/16 at 14: 11; Stop 12/12/16 at 14:12; Status DC Iodixanol (Visipaque 320) 100 ml STK-MED ONCE .ROUTE ; Start 12/12/16 at 14:11; Stop 12/12/16 at 14:12; Status DC Nitroglycerin (Nitroglycerin) 200 mcg STK-MED ONCE .ROUTE ; Start 12/12/16 at 14 :16; Stop 12/12/16 at 14:17; Status DC Verapamil HCl (Verapamil) 5 mg STK-MED ONCE .ROUTE ; Start 12/12/16 at 14:16; Stop 12/12/16 at 14:17; Status DC Midazolam HCl (Versed) 2 mg STK-MED ONCE .ROUTE ; Start 12/12/16 at 14:16; Stop 12/12/16 at 14:17; Status DC Fentanyl Citrate (Fentanyl 2ml Vial) 100 mcg STK-MED ONCE .ROUTE ; Start at 14:16; Stop 12/12/16 at 14:17; Status DC Heparin Sodium (Porcine) 10,000 unit STK-MED ONCE .ROUTE ; Start 12/12/16 at 14: 16; Stop 12/12/16 at 14:17; Status DC Nitroglycerin (Nitroglycerin) 200 mcg 1X ONCE IART Last administered on 15:04; Start 12/12/16 at 14:45; Stop 12/12/16 at 14:46; Status DC Verapamil HCl (Verapamil) 2.5 mg 1X ONCE IART Last administered on 12/12/16 15:05; Start 12/12/16 at 14:45; Stop 12/12/16 at 14:46; Status DC Heparin Sodium (Porcine) 2,500 unit 1X ONCE IART Last administered on 15:06; Start 12/12/16 at 14:45; Stop 12/12/16 at 14:46; Status DC Heparin Sodium/ Sodium Chloride 1,000 unit 1X ONCE IART Last administered on 15:03; Start 12/12/16 at 14:45; Stop 12/12/16 at 14:46; Status DC Midazolam HCl (Versed) 2 mg 1X ONCE IV Last administered on 12/12/16 15:04; Start 12/12/16 at 14:45; Stop 12/12/16 at 14:46; Status DC Fentanyl Citrate (Fentanyl 2ml Vial) 100 mcg 1X ONCE IV Last administered on 15:04; Start 12/12/16 at 14:45; Stop 12/12/16 at 14:46; Status DC Iodixanol (Visipaque 320) 100 ml 1X ONCE IART Last administered on 12/12/16 15:05; Start 12/12/16 at 14:45; Stop 12/12/16 at 14:46; Status DC Lidocaine HCl 1 ml 1X ONCE IJ Last administered on 12/12/16 15:03; Start at 14:45; Stop 12/12/16 at 14:46; Status DC Nitroglycerin (Nitrostat) 0.4 mg PRN Q5MIN PRN SL CHEST PAIN; Start 12/12/16 at 15:30 Furosemide (Lasix) 40 mg 1X ONCE IVP Last administered on 12/12/16 16:18; Start 12/12/16 at 15:30; Stop 12/12/16 at 15:31; Status DC Metoprolol Tartrate (Lopressor) 50 mg BID PO Last administered on 12/22/16 08: 42; Start 12/13/16 at 21:00 Furosemide (Lasix) 40 mg 1X ONCE IVP Last administered on 12/13/16 15:06; Start 12/13/16 at 12:15; Stop 12/13/16 at 12:37; Status DC Furosemide (Lasix) 40 mg DAILY PO Last administered on 12/22/16 08:43; Start at 09:00 Diltiazem HCl (Cardizem 24hr Cd) 120 mg DAILY PO Last administered on 12/14/16 09:00; Start 12/14/16 at 09:00; Stop 12/14/16 at 12:13; Status DC Lisinopril (Prinivil) 2.5 mg DAILY PO ; Start 12/14/16 at 09:00; Stop 12/14/16 at 09:00; Status DC Atorvastatin Calcium (Lipitor) 10 mg QHS PO Last administered on 12/21/16 20:53 ; Start 12/13/16 at 21:00 Info (Anti-Coagulation Monitoring By Pharmacy) 1 each PRN DAILY PRN MC SEE COMMENTS Last administered on 12/20/16 10:32; Start 12/13/16 at 16:30; Stop 12/21 at 12:39; Status DC Diltiazem HCl (Cardizem 24hr Cd) 240 mg DAILY PO Last administered on 12/22/16 08:42; Start 12/15/16 at 09:00 Diltiazem HCl (Cardizem 24hr Cd) 120 mg 1X ONCE PO Last administered on 12:49; Start 12/14/16 at 12:15; Stop 12/14/16 at 12:20; Status DC Clopidogrel Bisulfate (Plavix) 75 mg DAILYWBKFT PO Last administered on 08:43; Start 12/14/16 at 13:00 Isosorbide Mononitrate (Imdur) 30 mg DAILY PO Last administered on 12/22/16 08: 42; Start 12/15/16 at 11:30 Iohexol (Omnipaque 240 Mg/ml) 30 ml 1X ONCE PO ; Start 12/15/16 at 11:45; Stop 12/15/16 at 11:46; Status DC Iohexol (Omnipaque 300 Mg/ml) 75 ml 1X ONCE IV ; Start 12/15/16 at 11:45; Stop 12/15/16 at 11:46; Status DC Info (Do NOT chart on this entry -- for MONITORING) 1 each PRN DAILY PRN MC SEE COMMENTS; Start 12/15/16 at 11:45; Stop 12/16/16 at 14:09; Status DC Enoxaparin Sodium (Lovenox 40mg Syringe) 40 mg Q24H SQ Last administered on 12/15 17:59; Start 12/15/16 at 18:00; Stop 12/16/16 at 09:35; Status DC Enoxaparin Sodium (Lovenox 80mg Syringe) 80 mg BID SQ Last administered on 14:15; Start 12/16/16 at 10:00; Stop 12/16/16 at 16:23; Status DC Iohexol (Omnipaque 300 Mg/ml) 50 ml STK-MED ONCE .ROUTE ; Start 12/16/16 at 10:32 ; Stop 12/16/16 at 10:33; Status DC Iohexol (Omnipaque 300 Mg/ml) 10 ml 1X ONCE IJ Last administered on 12/16/16 11:40; Start 12/16/16 at 11:45; Stop 12/16/16 at 11:46; Status DC Info (Do NOT chart on this entry -- for MONITORING) 1 each PRN DAILY PRN MC SEE COMMENTS; Start 12/16/16 at 11:45; Stop 12/18/16 at 09:56; Status DC Calcium Carbonate/ Glycine (Tums) 500 mg PRN AFTMEALHC PRN PO INDIGESTION Last administered on 12/16/16 14:14; Start 12/16/16 at 14:15 Pantoprazole Sodium (Protonix) 40 mg DAILYAC PO Last administered on 12/22/16 08:41; Start 12/16/16 at 14:30 Morphine Sulfate 1 mg PRN Q2HR PRN IV PAIN Last administered on 12/17/16 01:36 ; Start 12/16/16 at 14:15 Iohexol (Omnipaque 300 Mg/ml) 75 ml 1X ONCE IV ; Start 12/16/16 at 16:00; Stop 12/16/16 at 16:01; Status DC Info 1 each 1 each PRN DAILY PRN MC SEE COMMENTS; Start 12/16/16 at 15:30; Stop 12/18/16 at 15:29; Status DC Heparin Sodium/ Dextrose 500 ml @ 0 mls/hr CONT PRN IV SEE I/O RECORD Last administered on 12/21/16 12:04; Start 12/16/16 at 16:15; Stop 12/21/16 at 12:36; Status DC Heparin Sodium (Porcine) 2,500 unit PRN Q6HRS PRN IV FOR UFH LEVEL LESS THAN 0.2 Last administered on 12/18/16 11:46; Start 12/16/16 at 16:15; Stop 12/21/16 at 12:36; Status DC Heparin Sodium (Porcine) 1,250 unit PRN Q6HRS PRN IV FOR UFH LEVEL 0.2 - 0.29 Last administered on 12/19/16 02:27; Start 12/16/16 at 16:15; Stop 12/21/16 at 12: 36; Status DC Warfarin Sodium (Coumadin Per Pharmacy) 1 each PRN DAILY PRN MC PER PROTOCOL Last administered on 12/21/16 10:53; Start 12/16/16 at 16:15; Stop 12/21/16 at 12: 36; Status DC Morphine Sulfate 2 mg PRN Q2HR PRN IV PAIN Last administered on 12/20/16 19:19 ; Start 12/16/16 at 16:15 Warfarin Sodium (Coumadin) 6 mg 1X WARF ONCE PO Last administered on 12/16/16 18:20; Start 12/16/16 at 17:00; Stop 12/16/16 at 17:01; Status DC Warfarin Sodium (Coumadin) 5 mg 1X WARF ONCE PO Last administered on 12/17/16 16:29; Start 12/17/16 at 16:00; Stop 12/17/16 at 16:01; Status DC Warfarin Sodium (Coumadin) 6 mg 1X WARF ONCE PO Last administered on 12/18/16 17:32; Start 12/18/16 at 16:00; Stop 12/18/16 at 16:01; Status DC Warfarin Sodium (Coumadin) 6 mg 1X WARF ONCE PO ; Start 12/19/16 at 16:00; Stop 12/19/16 at 16:01; Status DC Furosemide (Lasix) 40 mg 1X ONCE IVP Last administered on 12/20/16 09:46; Start 12/20/16 at 09:30; Stop 12/20/16 at 09:31; Status DC Potassium Chloride (Klor-Con) 40 meq 1X ONCE PO ; Start 12/20/16 at 10:00; Stop 12/20/16 at 10:00; Status DC Potassium Chloride (Klor-Con) 20 meq DAILYWBKFT PO ; Start 12/21/16 at 08:00; Stop 12/21/16 at 08:00; Status DC Potassium Chloride 40 meq 40 meq DAILYWBKFT PO Last administered on 12/22/16 08 :40; Start 12/21/16 at 08:00 Potassium Chloride (KCl Premix 20meq) 50 ml @ 50 mls/hr Q1H IV Last administered on 12/20/16 12:56; Start 12/20/16 at 10:00; Stop 12/20/16 at 11:59; Status DC Warfarin Sodium (Coumadin) 7.5 mg 1X WARF ONCE PO ; Start 12/20/16 at 16:00; Stop 12/20/16 at 16:01; Status DC Lidocaine/Sodium Bicarbonate (Buffered Lidocaine 1%) 20 ml STK-MED ONCE IJ ; Start 12/20/16 at 13:53; Stop 12/20/16 at 13:54; Status DC Fentanyl Citrate (Fentanyl 2ml Vial) 100 mcg STK-MED ONCE .ROUTE ; Start at 14:10; Stop 12/20/16 at 14:11; Status DC Midazolam HCl (Versed) 2 mg STK-MED ONCE .ROUTE ; Start 12/20/16 at 14:10; Stop 12/20/16 at 14:11; Status DC Lidocaine/Sodium Bicarbonate (Buffered Lidocaine 1%) 6 ml 1X ONCE IJ Last administered on 12/20/16 14:47; Start 12/20/16 at 14:45; Stop 12/20/16 at 14:46; Status DC Midazolam HCl (Versed) 0.5 mg 1X ONCE IV Last administered on 12/20/16 14:48; Start 12/20/16 at 14:45; Stop 12/20/16 at 14:46; Status DC Warfarin Sodium (Coumadin) 7.5 mg 1X WARF ONCE PO Last administered on 16:23; Start 12/21/16 at 16:00; Stop 12/21/16 at 16:01; Status DC Warfarin Sodium (Coumadin) 5 mg DAILY16 PO ; Start 12/21/16 at 16:00 Amoxicillin/ Clavulanate Potassium (Augmentin 875/ 125mg) 1 tab BID PO Last administered on 12/22/16 08:41; Start 12/21/16 at 21:00 Warfarin Sodium (Coumadin Per Physician) 1 each PRN DAILY PRN MC SEE COMMENTS; Start 12/21/16 at 12:45 Active Scripts Active Reported Milk Of Magnesia (Magnesium Hydroxide) 2,400 Mg/10 Ml Oral.susp 2,400 Mg PO Metoprolol Tartrate 100 Mg Tablet 1 Tab PO BID Allopurinol 100 Mg Tablet 1 Tab PO DAILY Aspir 81 (Aspirin) 81 Mg Tablet.dr 1 Tab PO DAILY Spironolactone 25 Mg Tablet 1 Tab PO DAILY Cardizem Tablet (Diltiazem Hcl) 30 Mg Tablet 30 Mg PO DAILY Zyvox (Linezolid) 600 Mg Tablet 600 Mg PO BID Augmentin 875-125 Tablet (Amoxicillin/Potassium Clav) 1 Each Tablet Tab PO BID Vitals/I & O Vital Sign - Last 24 Hours 12/21/16 12/21/16 12/21/16 12/21/16 11:00 15:00 17:28 19:30 Temp 98.2 98.2 97.6 98.2 98.2 97.6 Pulse 70 83 85 89 Resp 16 16 16 24 B/P 111/55 111/55 111/55 119/59 Pulse Ox 94 94 94 92 O2 Delivery Nasal Cannula Nasal Cannula Nasal Cannula Nasal Cannula O2 Flow Rate 4.0 4.0 4.0 12/21/16 12/21/16 12/21/16 12/22/16 20:00 20:54 23:00 02:34 Temp 97.6 98.5 97.6 98.5 Pulse 103 89 79 Resp 24 22 B/P 119/59 119/59 132/53 Pulse Ox 89 96 O2 Delivery Nasal Cannula Nasal Cannula Nasal Cannula O2 Flow Rate 4.0 4.0 4.0 12/22/16 12/22/16 12/22/16 12/22/16 07:00 08:20 08:42 08:42 Temp 98.3 98.3 Pulse 70 76 76 76 Resp 16 B/P 141/67 141/67 141/67 141/67 Pulse Ox 97 O2 Delivery Room Air 12/22/16 08:42 Pulse 76 B/P 141/67 Intake and Output 12/21/16 12/21/16 12/22/16 15:00 23:00 07:00 Intake Total 100 ml 0 ml 600 ml Output Total 320 ml 830 ml Balance 100 ml -320 ml -230 ml CARLYLE CARMEN MD Dec 22, 2016 10:31
--- NOTE | 2016-12-22 11:29 | PDOC ---
SURGICAL PROGRESS NOTE Subjective Pt feels better, wants to go home Vital Signs Vital Signs Date Time Temp Pulse Resp B/P Pulse Ox O2 Delivery O2 Flow Rate FiO2 12/22/16 08:42 76 141/67 12/22/16 08:20 98.3 16 97 Room Air 98.3 12/22/16 08:00 4.0 I&O Intake and Output 12/22/16 07:00 Intake Total 700 ml Output Total 1150 ml Balance -450 ml Intake Oral 600 ml IV Total 100 ml Output Urine Total 1050 ml Chest Tube Drainage Total 100 ml Drainage Total 0 ml # Bowel Movements 2 General: Alert, Oriented X3, Cooperative, No acute distress Abdomen: Soft, No tenderness, Other (drains in place, left chest tube in place) Labs Laboratory Tests Test 12/20/16 14:30 12/20/16 23:30 12/21/16 06:30 12/21/16 09:24 Body Fluid pH 7.1 Body Fluid Lactate Dehydrogenase 689IU/L (.) Heparin Anti-Xa Act, Unfractionated 0.18IU/mL (0.30-0.70) 0.32IU/mL (0.30-0.70) Prothrombin Time 21.7SEC (11.7-14.0) Prothromb Time International Ratio 2.0 (0.8-1.1) Total Bilirubin 0.5mg/dL (0.2-1.0) Direct Bilirubin 0.2mg/dL (0.0-0.2) Aspartate Amino Transf (AST/SGOT) 29U/L (15-37) Alanine Aminotransferase (ALT/SGPT) 22U/L (16-63) Alkaline Phosphatase 55U/L (46-116) Total Protein 6.5g/dL (6.4-8.2) Albumin 2.2g/dL (3.4-5.0) Test 12/22/16 05:00 White Blood Count 6.3x10^3/uL (4.0-11.0) Red Blood Count 3.11x10^6/uL (4.30-5.70) Hemoglobin 9.6g/dL (13.0-17.5) Hematocrit 28.3% (39.0-53.0) Mean Corpuscular Volume 91fL (79-100) Mean Corpuscular Hemoglobin 31pg (25-35) Mean Corpuscular Hemoglobin Concent 34g/dL (31-37) Red Cell Distribution Width 14.4% (11.5-14.5) Platelet Count 260x10^3/uL (140-400) Neutrophils (%) (Auto) 69% (31-73) Lymphocytes (%) (Auto) 19% (24-48) Monocytes (%) (Auto) 8% (0-9) Eosinophils (%) (Auto) 3% (0-3) Basophils (%) (Auto) 1% (0-3) Neutrophils # (Auto) 4.4x10^3uL (1.8-7.7) Lymphocytes # (Auto) 1.2x10^3/uL (1.0-4.8) Monocytes # (Auto) 0.5x10^3/uL (0.0-1.1) Eosinophils # (Auto) 0.2x10^3/uL (0.0-0.7) Basophils # (Auto) 0.1x10^3/uL (0.0-0.2) Prothrombin Time 22.9SEC (11.7-14.0) Prothromb Time International Ratio 2.2 (0.8-1.1) Sodium Level 140mmol/L (136-145) Potassium Level 4.1mmol/L (3.5-5.1) Chloride Level 103mmol/L (98-107) Carbon Dioxide Level 32mmol/L (21-32) Anion Gap 5 (6-14) Blood Urea Nitrogen 14mg/dL (8-26) Creatinine 0.7mg/dL (0.7-1.3) Estimated GFR (Cockcroft-Gault) 106.7 Glucose Level 118mg/dL (70-99) Calcium Level 8.7mg/dL (8.5-10.1) Laboratory Tests Test 12/22/16 05:00 White Blood Count 6.3x10^3/uL (4.0-11.0) Red Blood Count 3.11x10^6/uL (4.30-5.70) Hemoglobin 9.6g/dL (13.0-17.5) Hematocrit 28.3% (39.0-53.0) Mean Corpuscular Volume 91fL (79-100) Mean Corpuscular Hemoglobin 31pg (25-35) Mean Corpuscular Hemoglobin Concent 34g/dL (31-37) Red Cell Distribution Width 14.4% (11.5-14.5) Platelet Count 260x10^3/uL (140-400) Neutrophils (%) (Auto) 69% (31-73) Lymphocytes (%) (Auto) 19% (24-48) Monocytes (%) (Auto) 8% (0-9) Eosinophils (%) (Auto) 3% (0-3) Basophils (%) (Auto) 1% (0-3) Neutrophils # (Auto) 4.4x10^3uL (1.8-7.7) Lymphocytes # (Auto) 1.2x10^3/uL (1.0-4.8) Monocytes # (Auto) 0.5x10^3/uL (0.0-1.1) Eosinophils # (Auto) 0.2x10^3/uL (0.0-0.7) Basophils # (Auto) 0.1x10^3/uL (0.0-0.2) Prothrombin Time 22.9SEC (11.7-14.0) Prothromb Time International Ratio 2.2 (0.8-1.1) Sodium Level 140mmol/L (136-145) Potassium Level 4.1mmol/L (3.5-5.1) Chloride Level 103mmol/L (98-107) Carbon Dioxide Level 32mmol/L (21-32) Anion Gap 5 (6-14) Blood Urea Nitrogen 14mg/dL (8-26) Creatinine 0.7mg/dL (0.7-1.3) Estimated GFR (Cockcroft-Gault) 106.7 Glucose Level 118mg/dL (70-99) Calcium Level 8.7mg/dL (8.5-10.1) Problem List Problems Medical Problems: (1) Acute respiratory failure Status: Acute (2) CAD (coronary artery disease) Status: Acute (3) CHF exacerbation Status: Acute (4) Hypoxia Status: Acute (5) Pulmonary edema Status: Acute (6) Pulmonary embolism Status: Acute (7) Volume overload Status: Acute Assessment/Plan cholecystitis OK for d/c from surg POV f/u regarding various tubes Problems: JANEL ALLISON MD Dec 22, 2016 11:29
--- NOTE | 2016-12-22 11:31 | PDOC ---
PULMONARY PROGRESS NOTES Subjective s/p right chest tube Vitals Vital Signs Date Time Temp Pulse Resp B/P Pulse Ox O2 Delivery O2 Flow Rate FiO2 12/22/16 08:42 76 141/67 12/22/16 08:20 98.3 16 97 Room Air 98.3 12/22/16 02:34 4.0 General: Alert, No acute distress Lungs: Crackles (bases, left, right decrease) Cardiovascular: S1 Abdomen: Soft Neuro Exam: Alert Extremities: Other (2+edema) Skin: Warm Labs Laboratory Tests Test 12/20/16 14:30 12/20/16 23:30 12/21/16 06:30 12/21/16 09:24 Body Fluid pH 7.1 Body Fluid Lactate Dehydrogenase 689IU/L (.) Heparin Anti-Xa Act, Unfractionated 0.18IU/mL (0.30-0.70) 0.32IU/mL (0.30-0.70) Prothrombin Time 21.7SEC (11.7-14.0) Prothromb Time International Ratio 2.0 (0.8-1.1) Total Bilirubin 0.5mg/dL (0.2-1.0) Direct Bilirubin 0.2mg/dL (0.0-0.2) Aspartate Amino Transf (AST/SGOT) 29U/L (15-37) Alanine Aminotransferase (ALT/SGPT) 22U/L (16-63) Alkaline Phosphatase 55U/L (46-116) Total Protein 6.5g/dL (6.4-8.2) Albumin 2.2g/dL (3.4-5.0) Test 12/22/16 05:00 White Blood Count 6.3x10^3/uL (4.0-11.0) Red Blood Count 3.11x10^6/uL (4.30-5.70) Hemoglobin 9.6g/dL (13.0-17.5) Hematocrit 28.3% (39.0-53.0) Mean Corpuscular Volume 91fL (79-100) Mean Corpuscular Hemoglobin 31pg (25-35) Mean Corpuscular Hemoglobin Concent 34g/dL (31-37) Red Cell Distribution Width 14.4% (11.5-14.5) Platelet Count 260x10^3/uL (140-400) Neutrophils (%) (Auto) 69% (31-73) Lymphocytes (%) (Auto) 19% (24-48) Monocytes (%) (Auto) 8% (0-9) Eosinophils (%) (Auto) 3% (0-3) Basophils (%) (Auto) 1% (0-3) Neutrophils # (Auto) 4.4x10^3uL (1.8-7.7) Lymphocytes # (Auto) 1.2x10^3/uL (1.0-4.8) Monocytes # (Auto) 0.5x10^3/uL (0.0-1.1) Eosinophils # (Auto) 0.2x10^3/uL (0.0-0.7) Basophils # (Auto) 0.1x10^3/uL (0.0-0.2) Prothrombin Time 22.9SEC (11.7-14.0) Prothromb Time International Ratio 2.2 (0.8-1.1) Sodium Level 140mmol/L (136-145) Potassium Level 4.1mmol/L (3.5-5.1) Chloride Level 103mmol/L (98-107) Carbon Dioxide Level 32mmol/L (21-32) Anion Gap 5 (6-14) Blood Urea Nitrogen 14mg/dL (8-26) Creatinine 0.7mg/dL (0.7-1.3) Estimated GFR (Cockcroft-Gault) 106.7 Glucose Level 118mg/dL (70-99) Calcium Level 8.7mg/dL (8.5-10.1) Laboratory Tests Test 12/22/16 05:00 White Blood Count 6.3x10^3/uL (4.0-11.0) Red Blood Count 3.11x10^6/uL (4.30-5.70) Hemoglobin 9.6g/dL (13.0-17.5) Hematocrit 28.3% (39.0-53.0) Mean Corpuscular Volume 91fL (79-100) Mean Corpuscular Hemoglobin 31pg (25-35) Mean Corpuscular Hemoglobin Concent 34g/dL (31-37) Red Cell Distribution Width 14.4% (11.5-14.5) Platelet Count 260x10^3/uL (140-400) Neutrophils (%) (Auto) 69% (31-73) Lymphocytes (%) (Auto) 19% (24-48) Monocytes (%) (Auto) 8% (0-9) Eosinophils (%) (Auto) 3% (0-3) Basophils (%) (Auto) 1% (0-3) Neutrophils # (Auto) 4.4x10^3uL (1.8-7.7) Lymphocytes # (Auto) 1.2x10^3/uL (1.0-4.8) Monocytes # (Auto) 0.5x10^3/uL (0.0-1.1) Eosinophils # (Auto) 0.2x10^3/uL (0.0-0.7) Basophils # (Auto) 0.1x10^3/uL (0.0-0.2) Prothrombin Time 22.9SEC (11.7-14.0) Prothromb Time International Ratio 2.2 (0.8-1.1) Sodium Level 140mmol/L (136-145) Potassium Level 4.1mmol/L (3.5-5.1) Chloride Level 103mmol/L (98-107) Carbon Dioxide Level 32mmol/L (21-32) Anion Gap 5 (6-14) Blood Urea Nitrogen 14mg/dL (8-26) Creatinine 0.7mg/dL (0.7-1.3) Estimated GFR (Cockcroft-Gault) 106.7 Glucose Level 118mg/dL (70-99) Calcium Level 8.7mg/dL (8.5-10.1) Medications Active Scripts Medications Dose Route/Sig Days Date Category Milk Of Magnesia (Magnesium Hydroxide) 2,400 Mg/10 Ml Oral.susp 2,400 Mg PO 12/10/16 Reported Metoprolol Tartrate 100 Mg Tablet 1 Tab PO BID 12/10/16 Reported Allopurinol 100 Mg Tablet 1 Tab PO DAILY 12/10/16 Reported Aspir 81 (Aspirin) 81 Mg Tablet.dr 1 Tab PO DAILY 12/10/16 Reported Spironolactone 25 Mg Tablet 1 Tab PO DAILY 12/10/16 Reported Cardizem Tablet (Diltiazem Hcl) 30 Mg Tablet 30 Mg PO DAILY 12/10/16 Reported Zyvox (Linezolid) 600 Mg Tablet 600 Mg PO BID 12/10/16 Reported Augmentin 875-125 Tablet (Amoxicillin/Potassium Clav) 1 Each Tablet Tab PO BID 12/10/16 Reported Comments CXR 12/22 no change Impression . 1. Acute hypoxic respiratory failure secondary to development of acute congestive heart failure, suspect diastolic heart failure triggered by atrial fibrillation with rapid ventricular response. 2. Atrial fibrillation with rapid ventricular response, triggering congestive heart failure.POA 3. Recent dilated gallbladder with liver abscess, status post percutaneous cholecystostomy placement. Followup CT chest showed persistent abscess in the liver and status post second drain. Replaced drains 12/16/16 4. No significant history of tobacco use. 5. PE CONFIRMED WITH CTA 6. Severe 3 vessel CAD 7. New partially loculated right pleural effusion, ? hepatic abscess extension into pleural space. s/p right chest tube Plan . Nasal canula repeat ct chest with partially loculated right effusion, suspect hepatic abscess extension right thoracentesis with chest tube 12/20. follow cultures and CXR (NO SIG CHANGE) Not the best candidate for VAT/ d/w patient . ? May try TPA via chest tube off Heparin/ re-started coumadin for PE will need 3-6 months of AC s/p abdominal drains 12/16 antibx per ID follow surgery input d/w patient ok with LTAC transfer DNR/DNI RUKHSANA LEE MD Dec 22, 2016 11:31
--- NOTE | 2016-12-22 12:43 | PDOC ---
Subjective: Subjective: Feels a little weak. Objective: Objective: Awaiting insurance approval for DC. Vital Signs: Vital Signs Date Time Temp Pulse Resp B/P Pulse Ox O2 Delivery O2 Flow Rate FiO2 12/22/16 12:36 80 16 119/57 92 Room Air 12/22/16 08:20 98.3 98.3 12/22/16 08:00 4.0 Labs: Laboratory Tests Test 12/22/16 05:00 White Blood Count 6.3x10^3/uL Red Blood Count 3.11x10^6/uL Hemoglobin 9.6g/dL Hematocrit 28.3% Mean Corpuscular Volume 91fL Mean Corpuscular Hemoglobin 31pg Mean Corpuscular Hemoglobin Concent 34g/dL Red Cell Distribution Width 14.4% Platelet Count 260x10^3/uL Neutrophils (%) (Auto) 69% Lymphocytes (%) (Auto) 19% Monocytes (%) (Auto) 8% Eosinophils (%) (Auto) 3% Basophils (%) (Auto) 1% Neutrophils # (Auto) 4.4x10^3uL Lymphocytes # (Auto) 1.2x10^3/uL Monocytes # (Auto) 0.5x10^3/uL Eosinophils # (Auto) 0.2x10^3/uL Basophils # (Auto) 0.1x10^3/uL Prothrombin Time 22.9SEC Prothromb Time International Ratio 2.2 Sodium Level 140mmol/L Potassium Level 4.1mmol/L Chloride Level 103mmol/L Carbon Dioxide Level 32mmol/L Anion Gap 5 Blood Urea Nitrogen 14mg/dL Creatinine 0.7mg/dL Estimated GFR (Cockcroft-Gault) 106.7 Glucose Level 118mg/dL Calcium Level 8.7mg/dL Imaging: CXR 12/22/16 IMPRESSION: 1. Stable to slightly decreased moderate right pleural effusion status post drainage. 2. Right greater than left basilar atelectasis. PE: GEN: NAD, up to chair w/ lunch tray LUNGS: decreased anteriorly, nasal cannula HEART: irregularly irregular, chest tube right w/ tenderness ABD: BS+, minimal drainage biliary tubes NEURO/PSYCH: A & O 3 A/P: Abnormal CT A/P -mural thickening along the base of the cecum raising the possibility of a cecal neoplasm with adjacent appendiceal obstruction and/or appendicitis -no previous colonoscopy, currently not interested in pursuing Liver abscesses -minimal output from biliary drains, normal LFTs -surg following, had IR cholecystomy gram and abscessogram 12/16 Right pleural effusion s/p chest tube 12/20 -- No new GI recs. GISSELL FUENETS Dec 22, 2016 12:43
[2016-12-22] MEDS: WARFARIN 5 MG TABLET. PO SCH (16:51)
--- NOTE | 2016-12-22 17:17 | PDOC2 ---
PALLIATIVE CARE Palliative Care Note Palliative Care Patient alert. Sitting up in chair. Visiting with son Denies SOB Requests assistance with completion of AD Diana STEVENS --message to assist with document. DAPHNEY JEFFERS Dec 22, 2016 17:17
[2016-12-22] MEDS: ATORVASTATIN CALCIUM 10 MG TABLET. PO SCH (20:44)
[2016-12-23 03:25] VITALS: BP 126/66
[2016-12-23 07:00] VITALS: BP 104/84
--- NOTE | 2016-12-23 07:46 | PDOC ---
Infectious Disease Note Subjective Subjective Comfortable, denies pain Feels well sitting in chair ROS ROS GEN: Denies fevers, chills, sweats HEENT: Denies blurred vision, sore throat CV: Denies chest pain RESP: Denies shortness of air, cough GI: Denies n/v/d NEURO: Denies confusion, dizziness MSK: Denies weakness, joint pain/swelling Vital Sign Vital Signs Vital Signs Date Time Temp Pulse Resp B/P Pulse Ox O2 Delivery O2 Flow Rate FiO2 12/23/16 03:25 98.1 77 22 126/66 91 Nasal Cannula 4.0 98.1 Physical Exam PHYSICAL EXAM GENERAL: NAD, Alert HEENT: PERRL, OC/OP NECK: Supple, no JVD, no LN LUNGS: Clear HEART: S1S2, no gallop, no murmur ABD: Soft, NT, no organomegaly, no rebound,, Chest tube and two other drains + EXT: No edema, no cyanosis DESK REPORTER: Alert, oriented x 3, no focal neurologic deficit SKIN: No rash IV: ok Objective Assessment Liver abscess 12/02 Kleb and Enterococcus. s/p biliary drains. Reportedly Klebsiella/Hafnia alvei/Ecoli and enterococcus 11/28 per [facility] records. CAD s/p cath Acute cholecystolithiasis. Atrial fibrillation with rapid ventricular response. Acute respiratory failure, improving. Coronary artery disease Plan Plan of Care Cont Zosyn for now . Change to po Augmentin at discharge, since pt likely has colon ca and colonoscopy or any other aggressive measures are not planned. VY TINAJERO MD Dec 23, 2016 07:46
--- NOTE | 2016-12-23 07:57 | PDOC ---
SURGICAL PROGRESS NOTE Subjective Pt without c/o, feeling better Vital Signs Vital Signs Date Time Temp Pulse Resp B/P Pulse Ox O2 Delivery O2 Flow Rate FiO2 12/23/16 03:25 98.1 77 22 126/66 91 Nasal Cannula 4.0 98.1 I&O Intake and Output 12/23/16 07:00 Intake Total 420 ml Output Total 975 ml Balance -555 ml Intake Oral 420 ml Output Urine Total 965 ml Chest Tube Drainage Total 10 ml # Voids 1 # Bowel Movements 1 General: Alert, Oriented X3, Cooperative, No acute distress Abdomen: Soft, No tenderness, Other (drains in place) Labs Laboratory Tests Test 12/21/16 09:24 12/22/16 05:00 Heparin Anti-Xa Act, Unfractionated 0.32IU/mL (0.30-0.70) White Blood Count 6.3x10^3/uL (4.0-11.0) Red Blood Count 3.11x10^6/uL (4.30-5.70) Hemoglobin 9.6g/dL (13.0-17.5) Hematocrit 28.3% (39.0-53.0) Mean Corpuscular Volume 91fL (79-100) Mean Corpuscular Hemoglobin 31pg (25-35) Mean Corpuscular Hemoglobin Concent 34g/dL (31-37) Red Cell Distribution Width 14.4% (11.5-14.5) Platelet Count 260x10^3/uL (140-400) Neutrophils (%) (Auto) 69% (31-73) Lymphocytes (%) (Auto) 19% (24-48) Monocytes (%) (Auto) 8% (0-9) Eosinophils (%) (Auto) 3% (0-3) Basophils (%) (Auto) 1% (0-3) Neutrophils # (Auto) 4.4x10^3uL (1.8-7.7) Lymphocytes # (Auto) 1.2x10^3/uL (1.0-4.8) Monocytes # (Auto) 0.5x10^3/uL (0.0-1.1) Eosinophils # (Auto) 0.2x10^3/uL (0.0-0.7) Basophils # (Auto) 0.1x10^3/uL (0.0-0.2) Prothrombin Time 22.9SEC (11.7-14.0) Prothromb Time International Ratio 2.2 (0.8-1.1) Sodium Level 140mmol/L (136-145) Potassium Level 4.1mmol/L (3.5-5.1) Chloride Level 103mmol/L (98-107) Carbon Dioxide Level 32mmol/L (21-32) Anion Gap 5 (6-14) Blood Urea Nitrogen 14mg/dL (8-26) Creatinine 0.7mg/dL (0.7-1.3) Estimated GFR (Cockcroft-Gault) 106.7 Glucose Level 118mg/dL (70-99) Calcium Level 8.7mg/dL (8.5-10.1) Problem List Problems Medical Problems: (1) Acute respiratory failure Status: Acute (2) CAD (coronary artery disease) Status: Acute (3) CHF exacerbation Status: Acute (4) Hypoxia Status: Acute (5) Pulmonary edema Status: Acute (6) Pulmonary embolism Status: Acute (7) Volume overload Status: Acute Assessment/Plan OK to d/c when cleared by other services maintain cholecystomy tube and liver abscess drain Problems: JANEL ALLISON MD Dec 23, 2016 07:57
--- NOTE | 2016-12-23 08:52 | PDOC ---
PROGRESS NOTES Chief Complaint Chief Complaint SOB Edema ASSESSMENT AND PLAN: 1. 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 Afib s/p RVR (new) 2. CHF: 3. Troponin leak: 4. CAD hx: 5. GB abscess: drain in place, on Abx. done by [facility] 6. Gout: no acute issues. cont allopurinol 7,.A cute hypoxic respi failure needing venti mask , resolved 8. PE, possible 9. Possible liver abscess 10, Possible appy History of Present Illness History of Present Illness INdwelling Rt chest tube, minimal drainage (10cc) NO SOA, no pain at CT site NO desats Ate breakfast ok Walked with PT - L:TAc denied BP low side - on many cradiac meds per cards Plan: Might dc chest tube today Then back to [facility] need to readdress cardiavc meds, BP too low dw RN and SW and pt Vitals Vitals Vital Signs Date Time Temp Pulse Resp B/P Pulse Ox O2 Delivery O2 Flow Rate FiO2 12/23/16 07:00 97.7 71 20 104/84 93 Nasal Cannula 4.0 97.7 Physical Exam General: Alert, Oriented X3, Cooperative, No acute distress Heart: Normal S1, Normal S2, No murmurs, Other (irregular) Lungs: Crackles (bases, left, right decrease) Abdomen: Soft, No tenderness, Other (drains in place) Extremities: No edema Skin: No significant lesion Review of Systems Review of Systems no soa, cp or rectalbleeding Assessment and Plan Assessmemt and Plan Problems Medical Problems: (1) Acute respiratory failure Status: Acute (2) CAD (coronary artery disease) Status: Acute (3) CHF exacerbation Status: Acute (4) Hypoxia Status: Acute (5) Pulmonary edema Status: Acute (6) Pulmonary embolism Status: Acute (7) Volume overload Status: Acute Problems: Comment Review of Relevant I have reviewed the following items liana (where applicable) has been applied. Labs Laboratory Tests Test 12/21/16 09:24 12/22/16 05:00 Heparin Anti-Xa Act, Unfractionated 0.32IU/mL (0.30-0.70) White Blood Count 6.3x10^3/uL (4.0-11.0) Red Blood Count 3.11x10^6/uL (4.30-5.70) Hemoglobin 9.6g/dL (13.0-17.5) Hematocrit 28.3% (39.0-53.0) Mean Corpuscular Volume 91fL (79-100) Mean Corpuscular Hemoglobin 31pg (25-35) Mean Corpuscular Hemoglobin Concent 34g/dL (31-37) Red Cell Distribution Width 14.4% (11.5-14.5) Platelet Count 260x10^3/uL (140-400) Neutrophils (%) (Auto) 69% (31-73) Lymphocytes (%) (Auto) 19% (24-48) Monocytes (%) (Auto) 8% (0-9) Eosinophils (%) (Auto) 3% (0-3) Basophils (%) (Auto) 1% (0-3) Neutrophils # (Auto) 4.4x10^3uL (1.8-7.7) Lymphocytes # (Auto) 1.2x10^3/uL (1.0-4.8) Monocytes # (Auto) 0.5x10^3/uL (0.0-1.1) Eosinophils # (Auto) 0.2x10^3/uL (0.0-0.7) Basophils # (Auto) 0.1x10^3/uL (0.0-0.2) Prothrombin Time 22.9SEC (11.7-14.0) Prothromb Time International Ratio 2.2 (0.8-1.1) Sodium Level 140mmol/L (136-145) Potassium Level 4.1mmol/L (3.5-5.1) Chloride Level 103mmol/L (98-107) Carbon Dioxide Level 32mmol/L (21-32) Anion Gap 5 (6-14) Blood Urea Nitrogen 14mg/dL (8-26) Creatinine 0.7mg/dL (0.7-1.3) Estimated GFR (Cockcroft-Gault) 106.7 Glucose Level 118mg/dL (70-99) Calcium Level 8.7mg/dL (8.5-10.1) Microbiology 12/10/16 Blood Culture - Final, Complete NO GROWTH AFTER 5 DAYS 12/20/16 Anaerobic/Aerobic Culture, Resulted Pending 12/20/16 Anaerobic Culture Result 1 (MILTON), Resulted Pending 12/20/16 Aerobic Culture - Preliminary, Resulted 12/20/16 Aerobic Culture Result 1 (MILTON) - Preliminary, Resulted 12/10/16 Urine Culture - Final, Complete 12/10/16 Urine Culture Result 1 (MILTON) - Final, Complete Medications Current Medications Piperacillin Sod/ Tazobactam Sod 1 each 1 each PRN DAILY PRN MC SEE COMMENTS; Start 12/10/16 at 07:15; Stop 12/14/16 at 11:23; Status DC Diltiazem HCl/ Dextrose (Cardizem) 125 ml @ 0 mls/hr CONT PRN IV SEE I/O RECORD Last administered on 12/13/16 00:58; Start 12/10/16 at 07:15; Stop 12/13 at 12:33; Status DC Furosemide (Lasix) 40 mg 1X ONCE IVP Last administered on 12/10/16 07:52; Start 12/10/16 at 07:15; Stop 12/10/16 at 07:18; Status DC Nitroglycerin (Nitrostat) 0.4 mg 1X ONCE SL ; Start 12/10/16 at 07:15; Stop at 07:18; Status DC Ondansetron HCl (Zofran) 4 mg PRN Q8HRS PRN IV NAUSEA/VOMITING; Start 12/10/16 at 07:30; Stop 12/11/16 at 07:29; Status DC Morphine Sulfate 2 mg 2 mg PRN Q2HR PRN IV PAIN; Start 12/10/16 at 07:30; Stop 12/11/16 at 07:29; Status DC Piperacillin Sod/ Tazobactam Sod/ Sodium Chloride (Zosyn/Iv Sodium Chloride 0.9 % 100ml) 100 ml @ 200 mls/hr 1X ONCE IV Last administered on 12/10/16 09:28 ; Start 12/10/16 at 07:45; Stop 12/10/16 at 08:14; Status DC Lisinopril (Prinivil) 10 mg DAILY PO ; Start 12/11/16 at 09:00; Stop 12/11/16 at 16:31; Status DC Labetalol HCl (Normodyne) 20 mg PRN Q2HR PRN IVP HYPERTENSION, SEE COMMENTS; Start 12/10/16 at 11:30 Aspirin (Ecotrin) 81 mg DAILYWBKFT PO Last administered on 12/22/16 08:41; Start 12/10/16 at 13:00 Furosemide 40 mg 40 mg 1X ONCE IVP Last administered on 12/10/16 14:37; Start 12/10/16 at 12:15; Stop 12/10/16 at 12:23; Status DC Piperacillin Sod/ Tazobactam Sod/ Sodium Chloride (Zosyn/Iv Sodium Chloride 0.9 % 50ml) 50 ml @ 100 mls/hr Q6HRS IV Last administered on 12/21/16 11:54; Start 12/10/16 at 13:30; Stop 12/21/16 at 12:36; Status DC Allopurinol (Zyloprim) 100 mg DAILY PO ; Start 12/11/16 at 10:00; Stop 12/11/16 at 10:13; Status DC Aspirin (Ecotrin) 81 mg DAILY PO ; Start 12/12/16 at 09:00; Status Cancel Linezolid (Zyvox) 600 mg BID PO Last administered on 12/12/16 21:34; Start at 10:00; Stop 12/13/16 at 08:51; Status DC Spironolactone (Aldactone) 25 mg DAILY PO Last administered on 12/22/16 08:42; Start 12/11/16 at 10:00 Metoprolol Tartrate 100 mg 100 mg BID PO Last administered on 12/13/16 09:28; Start 12/11/16 at 10:00; Stop 12/13/16 at 12:33; Status DC Heparin Sodium/ Dextrose 500 ml @ 19.6 mls/hr CONT PRN IV SEE I/O RECORD Last administered on 12/15/16 05:34; Start 12/11/16 at 14:45; Stop 12/15/16 at 10:20; Status DC Heparin Sodium (Porcine) 2,050 unit PRN Q6HRS PRN IV FOR UFH LEVEL LESS THAN 0.2 Last administered on 12/13/16 20:30; Start 12/11/16 at 14:45; Stop 12/15/16 at 10:20; Status DC Throat Lozenges (Cepacol Sore Throat Lozenge) 1 jorge a PRN Q2HRS PRN PO SORE THROAT Last administered on 12/18/16 20:21; Start 12/11/16 at 19:30 Docusate Sodium (Colace) 100 mg DAILY PO Last administered on 12/21/16 08:21; Start 12/12/16 at 10:00 Polyethylene Glycol (miraLAX PACKET) 17 gm PRN DAILY PRN PO CONSTIPATION; Start 12/12/16 at 10:00 Magnesium Hydroxide (Milk Of Magnesia) 2,400 mg PRN DAILY PRN PO CONSTIPATION; Start 12/12/16 at 10:00 Lidocaine HCl 20 ml 20 ml STK-MED ONCE .ROUTE ; Start 12/12/16 at 14:11; Stop at 14:12; Status DC Heparin Sodium/ Sodium Chloride 500 ml @ As Directed STK-MED ONCE .ROUTE ; Start 12/12/16 at 14:11; Stop 12/12/16 at 14:12; Status DC Iohexol (Omnipaque 300 Mg/ml) 100 ml STK-MED ONCE .ROUTE ; Start 12/12/16 at 14: 11; Stop 12/12/16 at 14:12; Status DC Iodixanol (Visipaque 320) 100 ml STK-MED ONCE .ROUTE ; Start 12/12/16 at 14:11; Stop 12/12/16 at 14:12; Status DC Nitroglycerin (Nitroglycerin) 200 mcg STK-MED ONCE .ROUTE ; Start 12/12/16 at 14 :16; Stop 12/12/16 at 14:17; Status DC Verapamil HCl (Verapamil) 5 mg STK-MED ONCE .ROUTE ; Start 12/12/16 at 14:16; Stop 12/12/16 at 14:17; Status DC Midazolam HCl (Versed) 2 mg STK-MED ONCE .ROUTE ; Start 12/12/16 at 14:16; Stop 12/12/16 at 14:17; Status DC Fentanyl Citrate (Fentanyl 2ml Vial) 100 mcg STK-MED ONCE .ROUTE ; Start at 14:16; Stop 12/12/16 at 14:17; Status DC Heparin Sodium (Porcine) 10,000 unit STK-MED ONCE .ROUTE ; Start 12/12/16 at 14: 16; Stop 12/12/16 at 14:17; Status DC Nitroglycerin (Nitroglycerin) 200 mcg 1X ONCE IART Last administered on 15:04; Start 12/12/16 at 14:45; Stop 12/12/16 at 14:46; Status DC Verapamil HCl (Verapamil) 2.5 mg 1X ONCE IART Last administered on 12/12/16 15:05; Start 12/12/16 at 14:45; Stop 12/12/16 at 14:46; Status DC Heparin Sodium (Porcine) 2,500 unit 1X ONCE IART Last administered on 15:06; Start 12/12/16 at 14:45; Stop 12/12/16 at 14:46; Status DC Heparin Sodium/ Sodium Chloride 1,000 unit 1X ONCE IART Last administered on 15:03; Start 12/12/16 at 14:45; Stop 12/12/16 at 14:46; Status DC Midazolam HCl (Versed) 2 mg 1X ONCE IV Last administered on 12/12/16 15:04; Start 12/12/16 at 14:45; Stop 12/12/16 at 14:46; Status DC Fentanyl Citrate (Fentanyl 2ml Vial) 100 mcg 1X ONCE IV Last administered on 15:04; Start 12/12/16 at 14:45; Stop 12/12/16 at 14:46; Status DC Iodixanol (Visipaque 320) 100 ml 1X ONCE IART Last administered on 12/12/16 15:05; Start 12/12/16 at 14:45; Stop 12/12/16 at 14:46; Status DC Lidocaine HCl 1 ml 1X ONCE IJ Last administered on 12/12/16 15:03; Start at 14:45; Stop 12/12/16 at 14:46; Status DC Nitroglycerin (Nitrostat) 0.4 mg PRN Q5MIN PRN SL CHEST PAIN; Start 12/12/16 at 15:30 Furosemide (Lasix) 40 mg 1X ONCE IVP Last administered on 12/12/16 16:18; Start 12/12/16 at 15:30; Stop 12/12/16 at 15:31; Status DC Metoprolol Tartrate (Lopressor) 50 mg BID PO Last administered on 12/22/16 20: 45; Start 12/13/16 at 21:00 Furosemide (Lasix) 40 mg 1X ONCE IVP Last administered on 12/13/16 15:06; Start 12/13/16 at 12:15; Stop 12/13/16 at 12:37; Status DC Furosemide (Lasix) 40 mg DAILY PO Last administered on 12/22/16 08:43; Start at 09:00 Diltiazem HCl (Cardizem 24hr Cd) 120 mg DAILY PO Last administered on 12/14/16 09:00; Start 12/14/16 at 09:00; Stop 12/14/16 at 12:13; Status DC Lisinopril (Prinivil) 2.5 mg DAILY PO ; Start 12/14/16 at 09:00; Stop 12/14/16 at 09:00; Status DC Atorvastatin Calcium (Lipitor) 10 mg QHS PO Last administered on 12/22/16 20:44 ; Start 12/13/16 at 21:00 Info (Anti-Coagulation Monitoring By Pharmacy) 1 each PRN DAILY PRN MC SEE COMMENTS Last administered on 12/20/16 10:32; Start 12/13/16 at 16:30; Stop 12/21 at 12:39; Status DC Diltiazem HCl (Cardizem 24hr Cd) 240 mg DAILY PO Last administered on 12/22/16 08:42; Start 12/15/16 at 09:00 Diltiazem HCl (Cardizem 24hr Cd) 120 mg 1X ONCE PO Last administered on 12:49; Start 12/14/16 at 12:15; Stop 12/14/16 at 12:20; Status DC Clopidogrel Bisulfate (Plavix) 75 mg DAILYWBKFT PO Last administered on 08:43; Start 12/14/16 at 13:00 Isosorbide Mononitrate (Imdur) 30 mg DAILY PO Last administered on 12/22/16 08: 42; Start 12/15/16 at 11:30 Iohexol (Omnipaque 240 Mg/ml) 30 ml 1X ONCE PO ; Start 12/15/16 at 11:45; Stop 12/15/16 at 11:46; Status DC Iohexol (Omnipaque 300 Mg/ml) 75 ml 1X ONCE IV ; Start 12/15/16 at 11:45; Stop 12/15/16 at 11:46; Status DC Info (Do NOT chart on this entry -- for MONITORING) 1 each PRN DAILY PRN MC SEE COMMENTS; Start 12/15/16 at 11:45; Stop 12/16/16 at 14:09; Status DC Enoxaparin Sodium (Lovenox 40mg Syringe) 40 mg Q24H SQ Last administered on 12/15 17:59; Start 12/15/16 at 18:00; Stop 12/16/16 at 09:35; Status DC Enoxaparin Sodium (Lovenox 80mg Syringe) 80 mg BID SQ Last administered on 14:15; Start 12/16/16 at 10:00; Stop 12/16/16 at 16:23; Status DC Iohexol (Omnipaque 300 Mg/ml) 50 ml STK-MED ONCE .ROUTE ; Start 12/16/16 at 10:32 ; Stop 12/16/16 at 10:33; Status DC Iohexol (Omnipaque 300 Mg/ml) 10 ml 1X ONCE IJ Last administered on 12/16/16 11:40; Start 12/16/16 at 11:45; Stop 12/16/16 at 11:46; Status DC Info (Do NOT chart on this entry -- for MONITORING) 1 each PRN DAILY PRN MC SEE COMMENTS; Start 12/16/16 at 11:45; Stop 12/18/16 at 09:56; Status DC Calcium Carbonate/ Glycine (Tums) 500 mg PRN AFTMEALHC PRN PO INDIGESTION Last administered on 12/16/16 14:14; Start 12/16/16 at 14:15 Pantoprazole Sodium (Protonix) 40 mg DAILYAC PO Last administered on 12/22/16 08:41; Start 12/16/16 at 14:30 Morphine Sulfate 1 mg PRN Q2HR PRN IV PAIN Last administered on 12/17/16 01:36 ; Start 12/16/16 at 14:15 Iohexol (Omnipaque 300 Mg/ml) 75 ml 1X ONCE IV ; Start 12/16/16 at 16:00; Stop 12/16/16 at 16:01; Status DC Info 1 each 1 each PRN DAILY PRN MC SEE COMMENTS; Start 12/16/16 at 15:30; Stop 12/18/16 at 15:29; Status DC Heparin Sodium/ Dextrose 500 ml @ 0 mls/hr CONT PRN IV SEE I/O RECORD Last administered on 12/21/16 12:04; Start 12/16/16 at 16:15; Stop 12/21/16 at 12:36; Status DC Heparin Sodium (Porcine) 2,500 unit PRN Q6HRS PRN IV FOR UFH LEVEL LESS THAN 0.2 Last administered on 12/18/16 11:46; Start 12/16/16 at 16:15; Stop 12/21/16 at 12:36; Status DC Heparin Sodium (Porcine) 1,250 unit PRN Q6HRS PRN IV FOR UFH LEVEL 0.2 - 0.29 Last administered on 12/19/16 02:27; Start 12/16/16 at 16:15; Stop 12/21/16 at 12: 36; Status DC Warfarin Sodium (Coumadin Per Pharmacy) 1 each PRN DAILY PRN MC PER PROTOCOL Last administered on 12/21/16 10:53; Start 12/16/16 at 16:15; Stop 12/21/16 at 12: 36; Status DC Morphine Sulfate 2 mg PRN Q2HR PRN IV PAIN Last administered on 12/20/16 19:19 ; Start 12/16/16 at 16:15 Warfarin Sodium (Coumadin) 6 mg 1X WARF ONCE PO Last administered on 12/16/16 18:20; Start 12/16/16 at 17:00; Stop 12/16/16 at 17:01; Status DC Warfarin Sodium (Coumadin) 5 mg 1X WARF ONCE PO Last administered on 12/17/16 16:29; Start 12/17/16 at 16:00; Stop 12/17/16 at 16:01; Status DC Warfarin Sodium (Coumadin) 6 mg 1X WARF ONCE PO Last administered on 12/18/16 17:32; Start 12/18/16 at 16:00; Stop 12/18/16 at 16:01; Status DC Warfarin Sodium (Coumadin) 6 mg 1X WARF ONCE PO ; Start 12/19/16 at 16:00; Stop 12/19/16 at 16:01; Status DC Furosemide (Lasix) 40 mg 1X ONCE IVP Last administered on 12/20/16 09:46; Start 12/20/16 at 09:30; Stop 12/20/16 at 09:31; Status DC Potassium Chloride (Klor-Con) 40 meq 1X ONCE PO ; Start 12/20/16 at 10:00; Stop 12/20/16 at 10:00; Status DC Potassium Chloride (Klor-Con) 20 meq DAILYWBKFT PO ; Start 12/21/16 at 08:00; Stop 12/21/16 at 08:00; Status DC Potassium Chloride 40 meq 40 meq DAILYWBKFT PO Last administered on 12/22/16 08 :40; Start 12/21/16 at 08:00 Potassium Chloride (KCl Premix 20meq) 50 ml @ 50 mls/hr Q1H IV Last administered on 12/20/16 12:56; Start 12/20/16 at 10:00; Stop 12/20/16 at 11:59; Status DC Warfarin Sodium (Coumadin) 7.5 mg 1X WARF ONCE PO ; Start 12/20/16 at 16:00; Stop 12/20/16 at 16:01; Status DC Lidocaine/Sodium Bicarbonate (Buffered Lidocaine 1%) 20 ml STK-MED ONCE IJ ; Start 12/20/16 at 13:53; Stop 12/20/16 at 13:54; Status DC Fentanyl Citrate (Fentanyl 2ml Vial) 100 mcg STK-MED ONCE .ROUTE ; Start at 14:10; Stop 12/20/16 at 14:11; Status DC Midazolam HCl (Versed) 2 mg STK-MED ONCE .ROUTE ; Start 12/20/16 at 14:10; Stop 12/20/16 at 14:11; Status DC Lidocaine/Sodium Bicarbonate (Buffered Lidocaine 1%) 6 ml 1X ONCE IJ Last administered on 12/20/16 14:47; Start 12/20/16 at 14:45; Stop 12/20/16 at 14:46; Status DC Midazolam HCl (Versed) 0.5 mg 1X ONCE IV Last administered on 12/20/16 14:48; Start 12/20/16 at 14:45; Stop 12/20/16 at 14:46; Status DC Warfarin Sodium (Coumadin) 7.5 mg 1X WARF ONCE PO Last administered on 16:23; Start 12/21/16 at 16:00; Stop 12/21/16 at 16:01; Status DC Warfarin Sodium (Coumadin) 5 mg DAILY16 PO Last administered on 12/22/16 16:51 ; Start 12/21/16 at 16:00 Amoxicillin/ Clavulanate Potassium (Augmentin 875/ 125mg) 1 tab BID PO Last administered on 12/22/16 20:44; Start 12/21/16 at 21:00 Warfarin Sodium (Coumadin Per Physician) 1 each PRN DAILY PRN MC SEE COMMENTS Last administered on 12/23/16 08:14; Start 12/21/16 at 12:45 Active Scripts Active Reported Milk Of Magnesia (Magnesium Hydroxide) 2,400 Mg/10 Ml Oral.susp 2,400 Mg PO Metoprolol Tartrate 100 Mg Tablet 1 Tab PO BID Allopurinol 100 Mg Tablet 1 Tab PO DAILY Aspir 81 (Aspirin) 81 Mg Tablet.dr 1 Tab PO DAILY Spironolactone 25 Mg Tablet 1 Tab PO DAILY Cardizem Tablet (Diltiazem Hcl) 30 Mg Tablet 30 Mg PO DAILY Zyvox (Linezolid) 600 Mg Tablet 600 Mg PO BID Augmentin 875-125 Tablet (Amoxicillin/Potassium Clav) 1 Each Tablet Tab PO BID Vitals/I & O Vital Sign - Last 24 Hours 12/22/16 12/22/16 12/22/16 12/22/16 11:00 12:36 15:00 19:12 Temp 97.8 97.8 Pulse 80 80 71 85 Resp 16 16 B/P 119/57 119/57 128/52 118/62 Pulse Ox 92 92 O2 Delivery Room Air Nasal Cannula O2 Flow Rate 2.0 12/22/16 12/22/16 12/22/16 12/23/16 20:00 20:45 23:09 03:25 Temp 98.1 98.1 98.1 98.1 Pulse 87 64 77 Resp 20 22 B/P 118/62 128/63 126/66 Pulse Ox 94 91 O2 Delivery Nasal Cannula Nasal Cannula Nasal Cannula O2 Flow Rate 4.0 4.0 4.0 12/23/16 07:00 Temp 97.7 97.7 Pulse 71 Resp 20 B/P 104/84 Pulse Ox 93 O2 Delivery Nasal Cannula O2 Flow Rate 4.0 Intake and Output 12/22/16 12/22/16 12/23/16 15:00 23:00 07:00 Intake Total 420 ml Output Total 240 ml 200 ml 535 ml Balance -240 ml -200 ml -115 ml CARLYLE CARMEN MD Dec 23, 2016 08:52
[2016-12-23] MEDS: CLOPIDOGREL BISULFATE 75 MG TABLET PO SCH (08:55)
[2016-12-23] MEDS: ASPIRIN ENTERIC COATED 81 MG TABLET.DR. PO SCH (08:55)
[2016-12-23] MEDS: SPIRONOLACTONE 25 MG TABLET PO SCH (08:55)
[2016-12-23] MEDS: AMOXICILLIN/K CLAV 875/125MG TABLET. PO SCH ×2 (08:55→20:34)
[2016-12-23] MEDS: PANTOPRAZOLE 40 MG TABLET. PO SCH (08:55)
[2016-12-23] MEDS: FUROSEMIDE 40 MG TABLET PO SCH (08:55)
[2016-12-23] MEDS: POTASSIUM CHLORIDE 20 MEQ TABLET.ER. PO SCH (08:56)
[2016-12-23] MEDS: DOCUSATE SODIUM 100 MG CAPSULE PO SCH (09:00)
--- NOTE | 2016-12-23 10:57 | PDOC ---
CARDIO Progress Notes Date and Time Date of Service 12/23/2016 Time of Evaluation 1041 Subjective Subjective: No Chest Pain, No shortness of breath, No Palpitations, No Dizziness Vitals Vitals Vital Signs Date Time Temp Pulse Resp B/P Pulse Ox O2 Delivery O2 Flow Rate FiO2 12/23/16 07:00 97.7 71 20 104/84 93 Nasal Cannula 4.0 97.7 Weight Weight [ ] Input and Output Intake and Output Intake and Output 12/23/16 07:00 Intake Total 420 ml Output Total 975 ml Balance -555 ml Intake Oral 420 ml Output Urine Total 965 ml Chest Tube Drainage Total 10 ml # Voids 1 # Bowel Movements 1 Microbiology Micro Microbiology 12/10/16 Blood Culture - Final, Complete NO GROWTH AFTER 5 DAYS 12/20/16 Anaerobic/Aerobic Culture, Resulted Pending 12/20/16 Anaerobic Culture Result 1 ([facility]), Resulted Pending 12/20/16 Aerobic Culture - Preliminary, Resulted 12/20/16 Aerobic Culture Result 1 ([facility]) - Preliminary, Resulted 12/10/16 Urine Culture - Final, Complete 12/10/16 Urine Culture Result 1 ([facility]TON) - Final, Complete Physical Exam HEENT: Neck Supple W Full Motion Chest: Symmetric LUNGS: Other (posterior basilar crackles) Heart: S1S2, irregularly irregular, other (tele: afib; SR; 6 beat run of NSVT) Abdomen: Soft N/T, Other (biliary tube in place, bilous drain) Extremities: Other (trace edema) Neurology: alert, oriented, follow commands Assessment Assessment 1. Acute diastolic CHF reasonably compensated with medical management continue diuretics, aldosterone agonist, beta-blockers 2. NSTEMI: LHC with severe 3VD; not a candidate for aggressive intervention in the setting of multiple co-morbidities no anginal symptoms continue medical management 3. Persistent AFIB with RVR rate controlled with beta-blockers and CCB have adjusted administration times of meds due to low normotensive BP readings OAC with warfarin 4. HTN controlled with multiple meds 5. s/p cholecystostomy and liver abscess drainage 6. Possible cecal mass/possible appendicitis/small pulmonary emboli ANALY ESCOBAR APRN Dec 23, 2016 10:57
[2016-12-23 11:00] VITALS: BP 137/67
--- NOTE | 2016-12-23 11:02 | PDOC ---
Subjective: Subjective: No GI complaints. Objective: Objective: CT removal today, possible DC? Vital Signs: Vital Signs Date Time Temp Pulse Resp B/P Pulse Ox O2 Delivery O2 Flow Rate FiO2 12/23/16 07:00 97.7 71 20 104/84 93 Nasal Cannula 4.0 97.7 PE: GEN: NAD, up to chair LUNGS: chest tube HEART: S1S2 ABD: NABS, S/ND/NT, drains NEURO/PSYCH: A & O 3 A/P: Abnormal CT A/P -mural thickening along the base of the cecum raising the possibility of a cecal neoplasm with adjacent appendiceal obstruction and/or appendicitis -no previous colonoscopy Liver abscesses -drains in place, normal LFTs Right pleural effusion s/p chest tube 12/20 -?removal today -- No new GI recs - pt not interested in colonoscopy. GISSELL FUENTES Dec 23, 2016 11:02 MOE GIANG MD Dec 23, 2016 11:22
[2016-12-23] MEDS: METOPROLOL TART IMMED RELEASE 50 MG TABLET PO SCH ×2 (11:06→23:43)
--- NOTE | 2016-12-23 11:51 | PDOC ---
Provider Note Provider Note DISCHARGE SUMMARY Site Code: [facility] Name: JACOB OH Acct: [id number] MR: [id number] : 1930 Visit Date: 12/10/16 [facility] [address] [place] [address] DISCHARGE SUMMARY PATIENT: JACOB HO ACCOUNT: [id number] : 1930 LOC: CVICU AGE: 86 SEX: M STATUS: ADM IN LOCATION: CVICU Discharge Summary Visit Information Date of Admission: Dec 10, 2016 Date of Discharge: Dec 23, 2016 Admitting Diagnosis Comment: 1. 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 Afib s/p RVR (new) 2. CHF: 3. Troponin leak: 4. CAD hx: 5. GB abscess: drain in place, on Abx. done by [facility] 6. Gout: no acute issues. cont allopurinol 7,.A cute hypoxic respi failure needing venti mask , resolved 8. PE, possible 9. Possible liver abscess 10, Possible appy Final Diagnosis Problems Medical Problems: (1) Acute respiratory failure Status: Acute (2) CAD (coronary artery disease) Status: Acute (3) CHF exacerbation Status: Acute (4) Hypoxia Status: Acute (5) Pulmonary edema Status: Acute (6) Pulmonary embolism Status: Acute (7) Volume overload Status: Acute Brief Hospital Course Allergies Allergies Coded Allergies Type Severity Reaction Last Updated Verified enalapril Allergy Severe ANGIOEDEMA 12/13/16 Yes Vital Signs Vital Signs Date Time Temp Pulse Resp B/P Pulse Ox O2 Delivery O2 Flow Rate FiO2 12/21/16 08:21 75 138/56 12/21/16 08:00 Nasal Cannula 4.0 12/21/16 07:38 97.7 16 98 97.7 Lab Results Laboratory Tests Test 12/19/16 13:15 12/20/16 08:25 12/20/16 14:30 12/20/16 23:30 Heparin Anti-Xa Act, Unfractionated 0.30IU/mL (0.30-0.70) 0.20IU/mL (0.30-0.70) 0.18IU/mL (0.30-0.70) White Blood Count 6.6x10^3/uL (4.0-11.0) Red Blood Count 3.25x10^6/uL (4.30-5.70) Hemoglobin 10.0g/dL (13.0-17.5) Hematocrit 30.3% (39.0-53.0) Mean Corpuscular Volume 93fL (79-100) Mean Corpuscular Hemoglobin 31pg (25-35) Mean Corpuscular Hemoglobin Concent 33g/dL (31-37) Red Cell Distribution Width 13.9% (11.5-14.5) Platelet Count 233x10^3/uL (140-400) Neutrophils (%) (Auto) 72% (31-73) Lymphocytes (%) (Auto) 17% (24-48) Monocytes (%) (Auto) 9% (0-9) Eosinophils (%) (Auto) 2% (0-3) Basophils (%) (Auto) 1% (0-3) Neutrophils # (Auto) 4.7x10^3uL (1.8-7.7) Lymphocytes # (Auto) 1.1x10^3/uL (1.0-4.8) Monocytes # (Auto) 0.6x10^3/uL (0.0-1.1) Eosinophils # (Auto) 0.1x10^3/uL (0.0-0.7) Basophils # (Auto) 0.1x10^3/uL (0.0-0.2) Prothrombin Time 19.7SEC (11.7-14.0) Prothromb Time International Ratio 1.8 (0.8-1.1) Sodium Level 139mmol/L (136-145) Potassium Level 3.4mmol/L (3.5-5.1) Chloride Level 100mmol/L (98-107) Carbon Dioxide Level 33mmol/L (21-32) Anion Gap 6 (6-14) Blood Urea Nitrogen 11mg/dL (8-26) Creatinine 0.8mg/dL (0.7-1.3) Estimated GFR (Cockcroft-Gault) 91.4 Glucose Level 134mg/dL (70-99) Calcium Level 8.8mg/dL (8.5-10.1) Body Fluid pH 7.1 Test 12/21/16 06:30 12/21/16 09:24 Prothrombin Time 21.7SEC (11.7-14.0) Prothromb Time International Ratio 2.0 (0.8-1.1) Total Bilirubin 0.5mg/dL (0.2-1.0) Direct Bilirubin 0.2mg/dL (0.0-0.2) Aspartate Amino Transf (AST/SGOT) 29U/L (15-37) Alanine Aminotransferase (ALT/SGPT) 22U/L (16-63) Alkaline Phosphatase 55U/L (46-116) Total Protein 6.5g/dL (6.4-8.2) Albumin 2.2g/dL (3.4-5.0) Heparin Anti-Xa Act, Unfractionated 0.32IU/mL (0.30-0.70) Laboratory Tests Test 12/20/16 14:30 12/20/16 23:30 12/21/16 06:30 12/21/16 09:24 Body Fluid pH 7.1 Heparin Anti-Xa Act, Unfractionated 0.18IU/mL (0.30-0.70) 0.32IU/mL (0.30-0.70) Prothrombin Time 21.7SEC (11.7-14.0) Prothromb Time International Ratio 2.0 (0.8-1.1) Total Bilirubin 0.5mg/dL (0.2-1.0) Direct Bilirubin 0.2mg/dL (0.0-0.2) Aspartate Amino Transf (AST/SGOT) 29U/L (15-37) Alanine Aminotransferase (ALT/SGPT) 22U/L (16-63) Alkaline Phosphatase 55U/L (46-116) Total Protein 6.5g/dL (6.4-8.2) Albumin 2.2g/dL (3.4-5.0) Brief Hospital Course Mr. Oh is a 86 old [sex] who presented with [ ] SOA. Course very complicated. HAd NSTEMI, CArdiac cath showed triple vessel dse , needs CABG but declined by [facility] bec of multiple abd drains he had at another facility for liver abscess, GB dse etc, HE has 2 indwelling abd drains, Sx on board too for it. CT scan rpt then showed possible appy and PE. Pt non surgical candidate and no abd pain so appy was left alone, Pt re started on heparin gtt and coumadin for PE and CAD, PT then had R pleural effusion, needing CT drainage by IR 1-2 days Prior to dc, Pt very weak as expected. Pt DNR. Pt came from [facility], Pt eating ok, no confusion in course. Few days prior to dc, pleural eff bigger - needed CT drainage in dwelling, minimal output now, Once cT dcd back to [facility] done 2 visits today Dispo; LTAC Discharge Information Condition at Discharge: Improved, Stable Disposition/Orders: Other (LTAC) Scheduled Allopurinol (Allopurinol) 1 TAB PO DAILY (Reported) Amoxicillin/Potassium Clav (Augmentin 875-125 Tablet) TAB PO BID (Reported) Aspirin (Aspir 81) 1 TAB PO DAILY (Reported) Diltiazem Hcl (Cardizem Tablet) 30 MG PO DAILY (Reported) Linezolid (Zyvox) 600 MG PO BID (Reported) Metoprolol Tartrate (Metoprolol Tartrate) 1 TAB PO BID (Reported) Spironolactone (Spironolactone) 1 TAB PO DAILY (Reported) Miscellaneous Medications Magnesium Hydroxide (Milk Of Magnesia) 2,400 MG PO (Reported) CARLYLE CARMEN MD Dec 21, 2016 12:31 DICTATED BY: CARLYLE CARMEN MD 12/23/16 1231 SIGNED BY: CARLYLE CARMEN MD 12/23/16 1231 cc: NYDIA BARBOSA III DO; DONNA ANGELES; CARLYLE CARMEN MD ~ CARLYLE CARMEN MD Dec 23, 2016 11:51
[2016-12-23] MEDS ORDERED: TALC IPL ONE (13:00)
[2016-12-23] MEDS ORDERED: TOTAL VOLUME IPL ONE (13:00)
--- NOTE | 2016-12-23 13:17 | PDOC ---
PULMONARY PROGRESS NOTES Subjective s/p right chest tube Vitals Vital Signs Date Time Temp Pulse Resp B/P Pulse Ox O2 Delivery O2 Flow Rate FiO2 12/23/16 11:06 83 137/67 12/23/16 11:00 97.7 20 94 Nasal Cannula 4.0 97.7 General: Alert, No acute distress Lungs: Crackles (bases, left, right decrease) Cardiovascular: S1 Abdomen: Soft Neuro Exam: Alert Extremities: Other (2+edema) Skin: Warm Labs Laboratory Tests Test 12/22/16 05:00 White Blood Count 6.3x10^3/uL (4.0-11.0) Red Blood Count 3.11x10^6/uL (4.30-5.70) Hemoglobin 9.6g/dL (13.0-17.5) Hematocrit 28.3% (39.0-53.0) Mean Corpuscular Volume 91fL (79-100) Mean Corpuscular Hemoglobin 31pg (25-35) Mean Corpuscular Hemoglobin Concent 34g/dL (31-37) Red Cell Distribution Width 14.4% (11.5-14.5) Platelet Count 260x10^3/uL (140-400) Neutrophils (%) (Auto) 69% (31-73) Lymphocytes (%) (Auto) 19% (24-48) Monocytes (%) (Auto) 8% (0-9) Eosinophils (%) (Auto) 3% (0-3) Basophils (%) (Auto) 1% (0-3) Neutrophils # (Auto) 4.4x10^3uL (1.8-7.7) Lymphocytes # (Auto) 1.2x10^3/uL (1.0-4.8) Monocytes # (Auto) 0.5x10^3/uL (0.0-1.1) Eosinophils # (Auto) 0.2x10^3/uL (0.0-0.7) Basophils # (Auto) 0.1x10^3/uL (0.0-0.2) Prothrombin Time 22.9SEC (11.7-14.0) Prothromb Time International Ratio 2.2 (0.8-1.1) Sodium Level 140mmol/L (136-145) Potassium Level 4.1mmol/L (3.5-5.1) Chloride Level 103mmol/L (98-107) Carbon Dioxide Level 32mmol/L (21-32) Anion Gap 5 (6-14) Blood Urea Nitrogen 14mg/dL (8-26) Creatinine 0.7mg/dL (0.7-1.3) Estimated GFR (Cockcroft-Gault) 106.7 Glucose Level 118mg/dL (70-99) Calcium Level 8.7mg/dL (8.5-10.1) Medications Active Scripts Medications Dose Route/Sig Days Date Category Milk Of Magnesia (Magnesium Hydroxide) 2,400 Mg/10 Ml Oral.susp 2,400 Mg PO 12/10/16 Reported Metoprolol Tartrate 100 Mg Tablet 1 Tab PO BID 12/10/16 Reported Allopurinol 100 Mg Tablet 1 Tab PO DAILY 12/10/16 Reported Aspir 81 (Aspirin) 81 Mg Tablet.dr 1 Tab PO DAILY 12/10/16 Reported Spironolactone 25 Mg Tablet 1 Tab PO DAILY 12/10/16 Reported Cardizem Tablet (Diltiazem Hcl) 30 Mg Tablet 30 Mg PO DAILY 12/10/16 Reported Zyvox (Linezolid) 600 Mg Tablet 600 Mg PO BID 12/10/16 Reported Augmentin 875-125 Tablet (Amoxicillin/Potassium Clav) 1 Each Tablet Tab PO BID 12/10/16 Reported Comments CXR 12/22 no change Impression . 1. Acute hypoxic respiratory failure secondary to development of acute congestive heart failure, suspect diastolic heart failure triggered by atrial fibrillation with rapid ventricular response. 2. Atrial fibrillation with rapid ventricular response, triggering congestive heart failure.POA 3. Recent dilated gallbladder with liver abscess, status post percutaneous cholecystostomy placement. Followup CT chest showed persistent abscess in the liver and status post second drain. Replaced drains 12/16/16 4. No significant history of tobacco use. 5. PE CONFIRMED WITH CTA 6. Severe 3 vessel CAD 7. New partially loculated right pleural effusion, ? hepatic abscess extension into pleural space. s/p right chest tube Plan . Nasal canula repeat ct chest with partially loculated right effusion, suspect hepatic abscess extension right thoracentesis with chest tube 12/20. follow cultures and CXR (NO SIG CHANGE) Not the best candidate for VAT/ d/w patient . will try low dose TPA via chest tube today coumadin for PE will need 3-6 months of AC s/p abdominal drains 3/3 antibx per ID follow surgery input d/w patient . ok with TPA Insurance denied LTAC transfer HC resort wont take chest tube, will removed chest tube after two days of TPA DNR/DNI RUKHSANA LEE MD Dec 23, 2016 13:17
[2016-12-23] MEDS ORDERED: ALTEPLASE 2MG VIAL 5 MG in IV STERILE WATER 50 ML INT CAT ONE (14:00)
--- NOTE | 2016-12-23 14:13 | PDOC4 ---
PROCEDURE Procedure TPA given via chest tube RUKHSANA LEE MD Dec 23, 2016 14:13
[2016-12-23 15:00] VITALS: BP 137/68
[2016-12-23] MEDS: ISOSORBIDE MONONITRATE ER 30 MG TAB.ER.24H PO SCH (15:04)
[2016-12-23] MEDS: WARFARIN 5 MG TABLET. PO SCH (17:04)
--- NOTE | 2016-12-23 17:54 | OP ---
DATE OF SURGERY: PROCEDURE: TPA through the chest tube. INDICATIONS: Loculated effusion. DESCRIPTION OF PROCEDURE: The patient was informed about the procedure and he agreed to proceed with it. 5 mg of TPA was used along with sterile water and introduced into the pleural space through the chest tube. The patient tolerated the procedure well. Chest tube will be clamped for an hour and then will be back to suction. We will monitor the chest tube output. RUKHSANA LEE MD DR: IBRAHIMA/sharon JOB#: [id number] / [id number] JADE
[2016-12-23 19:46] VITALS: BP 100/65
[2016-12-23] MEDS: ATORVASTATIN CALCIUM 10 MG TABLET. PO SCH (20:34)
[2016-12-23 23:35] VITALS: BP 150/86
[2016-12-23] MEDS: DILTIAZEM HCL 240 MG CAP.ER.24H PO SCH (23:42)
[2016-12-24 03:17] VITALS: BP 124/78
[2016-12-24] MEDS: SPIRONOLACTONE 25 MG TABLET PO SCH (06:26)
[2016-12-24] MEDS: FUROSEMIDE 40 MG TABLET PO SCH (06:26)
[2016-12-24 07:17] LABS: INR 2.9 (0.8-1.1); PROTHROMBIN TIME PATIENT 28.9 SEC (11.7-14.0)
[2016-12-24 07:42] VITALS: BP 123/70
[2016-12-24] MEDS: DOCUSATE SODIUM 100 MG CAPSULE PO SCH (09:00)
[2016-12-24] MEDS ORDERED: ACETAMINOPHEN 325 MG TABLET. PO PRN (09:00)
[2016-12-24] MEDS: POTASSIUM CHLORIDE 20 MEQ TABLET.ER. PO SCH (09:15)
[2016-12-24] MEDS: PANTOPRAZOLE 40 MG TABLET. PO SCH (09:15)
[2016-12-24] MEDS: AMOXICILLIN/K CLAV 875/125MG TABLET. PO SCH ×2 (09:15→20:53)
[2016-12-24] MEDS: CLOPIDOGREL BISULFATE 75 MG TABLET PO SCH (09:15)
[2016-12-24] MEDS: ASPIRIN ENTERIC COATED 81 MG TABLET.DR. PO SCH (09:15)
[2016-12-24] MEDS: METOPROLOL TART IMMED RELEASE 50 MG TABLET PO SCH ×2 (09:19→20:54)
--- NOTE | 2016-12-24 09:36 | PDOC ---
PULMONARY PROGRESS NOTES Subjective s/p right chest tube TPA given 12/23 500 cc came out Vitals Vital Signs Date Time Temp Pulse Resp B/P Pulse Ox O2 Delivery O2 Flow Rate FiO2 12/24/16 09:19 96 123/70 12/24/16 07:42 97.5 19 93 Nasal Cannula 4.0 97.5 General: Alert, No acute distress Lungs: Crackles (bs right) Cardiovascular: S1 Abdomen: Soft Neuro Exam: Alert Extremities: Other (2+edema) Skin: Warm Labs Laboratory Tests Test 12/24/16 06:30 Prothrombin Time 28.9SEC (11.7-14.0) Prothromb Time International Ratio 2.9 (0.8-1.1) Laboratory Tests Test 12/24/16 06:30 Prothrombin Time 28.9SEC (11.7-14.0) Prothromb Time International Ratio 2.9 (0.8-1.1) Medications Active Scripts Medications Dose Route/Sig Days Date Category Milk Of Magnesia (Magnesium Hydroxide) 2,400 Mg/10 Ml Oral.susp 2,400 Mg PO 12/10/16 Reported Metoprolol Tartrate 100 Mg Tablet 1 Tab PO BID 12/10/16 Reported Allopurinol 100 Mg Tablet 1 Tab PO DAILY 12/10/16 Reported Aspir 81 (Aspirin) 81 Mg Tablet.dr 1 Tab PO DAILY 12/10/16 Reported Spironolactone 25 Mg Tablet 1 Tab PO DAILY 12/10/16 Reported Cardizem Tablet (Diltiazem Hcl) 30 Mg Tablet 30 Mg PO DAILY 12/10/16 Reported Zyvox (Linezolid) 600 Mg Tablet 600 Mg PO BID 12/10/16 Reported Augmentin 875-125 Tablet (Amoxicillin/Potassium Clav) 1 Each Tablet Tab PO BID 12/10/16 Reported Comments CXR 12/24, no change Impression . 1. Acute hypoxic respiratory failure secondary to development of acute congestive heart failure, suspect diastolic heart failure triggered by atrial fibrillation with rapid ventricular response. 2. Atrial fibrillation with rapid ventricular response, triggering congestive heart failure.POA 3. Recent dilated gallbladder with liver abscess, status post percutaneous cholecystostomy placement. Followup CT chest showed persistent abscess in the liver and status post second drain. Replaced drains 12/16/16 4. No significant history of tobacco use. 5. PE CONFIRMED WITH CTA 6. Severe 3 vessel CAD 7. New partially loculated right pleural effusion, ? hepatic abscess extension into pleural space. s/p right chest tube, 8. s/p TPA right chest tube , 500 cc came out Plan . Nasal canula repeat ct chest with partially loculated right effusion, suspect hepatic abscess extension right thoracentesis with chest tube 12/20. follow cultures and CXR (NO SIG CHANGE) Not the best candidate for VAT/ d/w patient . will try low dose TPA via chest tube today coumadin for PE will need 3-6 months of AC s/p abdominal drains /3 antibx per ID follow surgery input d/w patient . ok with TPA Insurance denied LTAC transfer [facility] resort wont take chest tube, will removed chest tube after two days of TPA, repeat TPA today DNR/DNI RUKHSANA LEE MD Dec 24, 2016 09:35
--- NOTE | 2016-12-24 09:38 | PDOC ---
ELENAELBA APRN 12/24/1638: SURGICAL PROGRESS NOTE Subjective pt was getting a bath did not see continue drains Vital Signs Vital Signs Date Time Temp Pulse Resp B/P Pulse Ox O2 Delivery O2 Flow Rate FiO2 12/24/16 09:19 96 123/70 12/24/16 07:42 97.5 19 93 Nasal Cannula 4.0 97.5 I&O Intake and Output 12/24/16 07:00 Intake Total 550 ml Output Total 2385 ml Balance -1835 ml Intake Oral 500 ml IV Total 50 ml Output Urine Total 2025 ml Chest Tube Drainage Total 360 ml # Voids 1 # Bowel Movements 3 Labs Laboratory Tests Test 12/24/16 06:30 Prothrombin Time 28.9SEC (11.7-14.0) Prothromb Time International Ratio 2.9 (0.8-1.1) Laboratory Tests Test 12/24/16 06:30 Prothrombin Time 28.9SEC (11.7-14.0) Prothromb Time International Ratio 2.9 (0.8-1.1) Problem List Problems Medical Problems: (1) Acute respiratory failure Status: Acute (2) CAD (coronary artery disease) Status: Acute (3) CHF exacerbation Status: Acute (4) Hypoxia Status: Acute (5) Pulmonary edema Status: Acute (6) Pulmonary embolism Status: Acute (7) Volume overload Status: Acute Problems: JANEL ALLISON MD 12/24/162051: SURGICAL PROGRESS NOTE Assessment/Plan Pt seen and examined. Agree with Ms. Parker's note Pt resting comfortably reports breathing well and denies abd c/o abd soft, NTTP cont supportive care and drains Problems: ELBA PARKER APRN Dec 24, 2016 09:38 JANEL ALLISON MD Dec 24, 2016 20:52
--- NOTE | 2016-12-24 09:44 | RAD ---
Exam performed: One view chest. History: Chest tube follow-up. Date of service: 12/24/16. Comparison: None available Findings: Heart size and mediastinal silhouette is within limits of normal. The pulmonary vascularity is unremarkable. There is a small right pleural effusion and atelectasis which appears slightly improved since prior exam. There is a pigtail catheter in place. Mildly prominent interstitial markings are seen in both lungs. Linear atelectasis in the left lung base. Impression: Improving right basilar atelectasis and pleural effusion.
[2016-12-24] MEDS ORDERED: ALTEPLASE 2MG VIAL 5 MG in IV STERILE WATER 50 ML INT CAT ONE (10:00)
--- NOTE | 2016-12-24 10:16 | PDOC ---
Infectious Disease Note Subjective Subjective "I'm feeling pretty good right now." Ate breakfast + diarrhea w/ incontinence, last night. Better so for this morning. ROS ROS GEN: Denies fevers, chills, sweats HEENT: Denies sore throat CV: Denies chest pain RESP: Denies shortness of air, cough GI: Denies n/v Vital Sign Vital Signs Vital Signs Date Time Temp Pulse Resp B/P Pulse Ox O2 Delivery O2 Flow Rate FiO2 12/24/16 09:19 96 123/70 12/24/16 07:42 97.5 19 93 Nasal Cannula 4.0 97.5 Physical Exam PHYSICAL EXAM GENERAL: Prooped up in chair, eating lunch NAD HEENT: PERRL, OC/OP pink, moist LUNGS: Diminished aeration RLL. Right-sided CT in place. HEART: S1S2 ABD: Soft, NT, R-S drains x 2 intact EXT: BLE edema. No cyanosis [employer]: Alert, oriented x 3, no focal neurologic deficit SKIN: No rash RUE-PICC. clean Labs Lab Laboratory Tests Test 12/24/16 06:30 Prothrombin Time 28.9SEC (11.7-14.0) Prothromb Time International Ratio 2.9 (0.8-1.1) CXR Impression: Improving right basilar atelectasis and pleural effusion. Micro Pleural fluid ANAEROBIC RES 1 Preliminary No anaerobes recovered in 48 hours. AEROBIC RES 1 Preliminary No growth in 48 hours. Objective Assessment Liver abscess 12/02 Kleb and Enterococcus. s/p biliary drains. Reportedly Klebsiella/Hafnia alvei/Ecoli and enterococcus 11/[address] [facility] records. CAD s/p cath. Acute cholecystolithiasis. Atrial fibrillation with rapid ventricular response. Acute respiratory failure, improved Partially loculated right pleural effusion. s/p right chest tube. Cx NGTD Diarrhea. ? abx. c. diff pending PE Plan Plan of Care Augmentin CX NGTD f/u c. diff D/w family Attending Co-Sign Attending Co-Sign The patient was seen and interviewed as well as examined at the bedside. The chart was reviewed. The case was discussed. Agree with the plan of care. YESSY DENNISON APRN Dec 24, 2016 10:16 MICK WILBURN MD Dec 24, 2016 12:59
[2016-12-24 11:17] VITALS: BP 111/67
--- NOTE | 2016-12-24 12:27 | OP ---
DATE OF SURGERY: PROCEDURE: TPA via a chest tube. A 5 mg of TPA was used with sterile water 50 mL then introduced into the chest tube. The patient tolerated the procedure well. Chest tube will be clamped for 1 hour and then put it back to suction. We will monitor the chest tube output. RUKHSANA LEE MD DR: IBRAHIMA/sharon JOB#: [id number] / [id number] JADE
[2016-12-24] MEDS: ISOSORBIDE MONONITRATE ER 30 MG TAB.ER.24H PO SCH (13:04)
[2016-12-24 14:16] VITALS: BP 106/63
--- NOTE | 2016-12-24 15:26 | PDOC ---
PROGRESS NOTES Chief Complaint Chief Complaint SOB Edema ASSESSMENT AND PLAN: 1. 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 Afib s/p RVR (new) 2. CHF: 3. Troponin leak: 4. CAD hx: 5. GB abscess: drain in place, on Abx. done by [facility] 6. Gout: no acute issues. cont allopurinol 7,.A cute hypoxic respi failure needing venti mask , resolved 8. PE, possible 9. Possible liver abscess 10, Possible appy 11. right pleural effusion s/p chest tube placement Plan: fu with pulm for chest tube hope to dc on Monday then dc to resort who wont take him for chest tube. LTAC refused him. check cdiff on po abx [facility] need to readdress cardiavc meds, BP too low dw RN and SW and pt History of Present Illness History of Present Illness INdwelling Rt chest tube, 400cc over night RUQ liver drains NO SOA, no pain at CT site NO desats Ate breakfast ok Walked with PT - L:TAc denied BP low side - on many cradiac meds per cards one time diarrhea Vitals Vitals Vital Signs Date Time Temp Pulse Resp B/P Pulse Ox O2 Delivery O2 Flow Rate FiO2 12/24/16 14:16 97.3 77 22 106/63 95 Nasal Cannula 4.0 97.3 Physical Exam General: Alert, Oriented X3, Cooperative, No acute distress Heart: Normal S1, Normal S2, No murmurs, Other (irregular) Lungs: Crackles (bs right) Abdomen: Soft, No tenderness, Other (drains in place) Extremities: No edema Skin: No significant lesion Labs LABS Laboratory Tests Test 12/24/16 06:30 Prothrombin Time 28.9SEC (11.7-14.0) Prothromb Time International Ratio 2.9 (0.8-1.1) Review of Systems Review of Systems no fever, chills, sob or chest pain Assessment and Plan Assessmemt and Plan Problems Medical Problems: (1) Acute respiratory failure Status: Acute (2) CAD (coronary artery disease) Status: Acute (3) CHF exacerbation Status: Acute (4) Hypoxia Status: Acute (5) Pulmonary edema Status: Acute (6) Pulmonary embolism Status: Acute (7) Volume overload Status: Acute Problems: Comment Review of Relevant I have reviewed the following items liana (where applicable) has been applied. Labs Laboratory Tests Test 12/24/16 06:30 Prothrombin Time 28.9SEC (11.7-14.0) Prothromb Time International Ratio 2.9 (0.8-1.1) Laboratory Tests Test 12/24/16 06:30 Prothrombin Time 28.9SEC (11.7-14.0) Prothromb Time International Ratio 2.9 (0.8-1.1) Microbiology 12/10/16 Blood Culture - Final, Complete NO GROWTH AFTER 5 DAYS 12/20/16 Anaerobic/Aerobic Culture - Preliminary, Resulted 12/20/16 Anaerobic Culture Result 1 ([facility]) - Preliminary, Resulted 12/20/16 Aerobic Culture - Final, Resulted 12/20/16 Aerobic Culture Result 1 ([facility]) - Final, Resulted 12/10/16 Urine Culture - Final, Complete 12/10/16 Urine Culture Result 1 ([facility]) - Final, Complete Medications Current Medications Piperacillin Sod/ Tazobactam Sod 1 each 1 each PRN DAILY PRN MC SEE COMMENTS; Start 12/10/16 at 07:15; Stop 12/14/16 at 11:23; Status DC Diltiazem HCl/ Dextrose (Cardizem) 125 ml @ 0 mls/hr CONT PRN IV SEE I/O RECORD Last administered on 12/13/16 00:58; Start 12/10/16 at 07:15; Stop 12/13 at 12:33; Status DC Furosemide (Lasix) 40 mg 1X ONCE IVP Last administered on 12/10/16 07:52; Start 12/10/16 at 07:15; Stop 12/10/16 at 07:18; Status DC Nitroglycerin (Nitrostat) 0.4 mg 1X ONCE SL ; Start 12/10/16 at 07:15; Stop at 07:18; Status DC Ondansetron HCl (Zofran) 4 mg PRN Q8HRS PRN IV NAUSEA/VOMITING; Start 12/10/16 at 07:30; Stop 12/11/16 at 07:29; Status DC Morphine Sulfate 2 mg 2 mg PRN Q2HR PRN IV PAIN; Start 12/10/16 at 07:30; Stop 12/11/16 at 07:29; Status DC Piperacillin Sod/ Tazobactam Sod/ Sodium Chloride (Zosyn/Iv Sodium Chloride 0.9 % 100ml) 100 ml @ 200 mls/hr 1X ONCE IV Last administered on 12/10/16 09:28 ; Start 12/10/16 at 07:45; Stop 12/10/16 at 08:14; Status DC Lisinopril (Prinivil) 10 mg DAILY PO ; Start 12/11/16 at 09:00; Stop 12/11/16 at 16:31; Status DC Labetalol HCl (Normodyne) 20 mg PRN Q2HR PRN IVP HYPERTENSION, SEE COMMENTS; Start 12/10/16 at 11:30 Aspirin (Ecotrin) 81 mg DAILYWBKFT PO Last administered on 12/24/16 09:15; Start 12/10/16 at 13:00 Furosemide 40 mg 40 mg 1X ONCE IVP Last administered on 12/10/16 14:37; Start 12/10/16 at 12:15; Stop 12/10/16 at 12:23; Status DC Piperacillin Sod/ Tazobactam Sod/ Sodium Chloride (Zosyn/Iv Sodium Chloride 0.9 % 50ml) 50 ml @ 100 mls/hr Q6HRS IV Last administered on 12/21/16 11:54; Start 12/10/16 at 13:30; Stop 12/21/16 at 12:36; Status DC Allopurinol (Zyloprim) 100 mg DAILY PO ; Start 12/11/16 at 10:00; Stop 12/11/16 at 10:13; Status DC Aspirin (Ecotrin) 81 mg DAILY PO ; Start 12/12/16 at 09:00; Status Cancel Linezolid (Zyvox) 600 mg BID PO Last administered on 12/12/16 21:34; Start at 10:00; Stop 12/13/16 at 08:51; Status DC Spironolactone (Aldactone) 25 mg DAILY PO Last administered on 12/23/16 08:55 ; Start 12/11/16 at 10:00; Stop 12/23/16 at 10:50; Status DC Metoprolol Tartrate 100 mg 100 mg BID PO Last administered on 12/13/16 09:28; Start 12/11/16 at 10:00; Stop 12/13/16 at 12:33; Status DC Heparin Sodium/ Dextrose 500 ml @ 19.6 mls/hr CONT PRN IV SEE I/O RECORD Last administered on 12/15/16 05:34; Start 12/11/16 at 14:45; Stop 12/15/16 at 10:20; Status DC Heparin Sodium (Porcine) 2,050 unit PRN Q6HRS PRN IV FOR UFH LEVEL LESS THAN 0.2 Last administered on 12/13/16 20:30; Start 12/11/16 at 14:45; Stop 12/15/16 at 10:20; Status DC Throat Lozenges (Cepacol Sore Throat Lozenge) 1 jorge a PRN Q2HRS PRN PO SORE THROAT Last administered on 12/18/16 20:21; Start 12/11/16 at 19:30 Docusate Sodium (Colace) 100 mg DAILY PO Last administered on 12/21/16 08:21; Start 12/12/16 at 10:00 Polyethylene Glycol (miraLAX PACKET) 17 gm PRN DAILY PRN PO CONSTIPATION; Start 12/12/16 at 10:00 Magnesium Hydroxide (Milk Of Magnesia) 2,400 mg PRN DAILY PRN PO CONSTIPATION; Start 12/12/16 at 10:00 Lidocaine HCl 20 ml 20 ml STK-MED ONCE .ROUTE ; Start 12/12/16 at 14:11; Stop at 14:12; Status DC Heparin Sodium/ Sodium Chloride 500 ml @ As Directed STK-MED ONCE .ROUTE ; Start 12/12/16 at 14:11; Stop 12/12/16 at 14:12; Status DC Iohexol (Omnipaque 300 Mg/ml) 100 ml STK-MED ONCE .ROUTE ; Start 12/12/16 at 14: 11; Stop 12/12/16 at 14:12; Status DC Iodixanol (Visipaque 320) 100 ml STK-MED ONCE .ROUTE ; Start 12/12/16 at 14:11; Stop 12/12/16 at 14:12; Status DC Nitroglycerin (Nitroglycerin) 200 mcg STK-MED ONCE .ROUTE ; Start 12/12/16 at 14 :16; Stop 12/12/16 at 14:17; Status DC Verapamil HCl (Verapamil) 5 mg STK-MED ONCE .ROUTE ; Start 12/12/16 at 14:16; Stop 12/12/16 at 14:17; Status DC Midazolam HCl (Versed) 2 mg STK-MED ONCE .ROUTE ; Start 12/12/16 at 14:16; Stop 12/12/16 at 14:17; Status DC Fentanyl Citrate (Fentanyl 2ml Vial) 100 mcg STK-MED ONCE .ROUTE ; Start at 14:16; Stop 12/12/16 at 14:17; Status DC Heparin Sodium (Porcine) 10,000 unit STK-MED ONCE .ROUTE ; Start 12/12/16 at 14: 16; Stop 12/12/16 at 14:17; Status DC Nitroglycerin (Nitroglycerin) 200 mcg 1X ONCE IART Last administered on 15:04; Start 12/12/16 at 14:45; Stop 12/12/16 at 14:46; Status DC Verapamil HCl (Verapamil) 2.5 mg 1X ONCE IART Last administered on 12/12/16 15:05; Start 12/12/16 at 14:45; Stop 12/12/16 at 14:46; Status DC Heparin Sodium (Porcine) 2,500 unit 1X ONCE IART Last administered on 15:06; Start 12/12/16 at 14:45; Stop 12/12/16 at 14:46; Status DC Heparin Sodium/ Sodium Chloride 1,000 unit 1X ONCE IART Last administered on 15:03; Start 12/12/16 at 14:45; Stop 12/12/16 at 14:46; Status DC Midazolam HCl (Versed) 2 mg 1X ONCE IV Last administered on 12/12/16 15:04; Start 12/12/16 at 14:45; Stop 12/12/16 at 14:46; Status DC Fentanyl Citrate (Fentanyl 2ml Vial) 100 mcg 1X ONCE IV Last administered on 15:04; Start 12/12/16 at 14:45; Stop 12/12/16 at 14:46; Status DC Iodixanol (Visipaque 320) 100 ml 1X ONCE IART Last administered on 12/12/16 15:05; Start 12/12/16 at 14:45; Stop 12/12/16 at 14:46; Status DC Lidocaine HCl 1 ml 1X ONCE IJ Last administered on 12/12/16 15:03; Start at 14:45; Stop 12/12/16 at 14:46; Status DC Nitroglycerin (Nitrostat) 0.4 mg PRN Q5MIN PRN SL CHEST PAIN; Start 12/12/16 at 15:30 Furosemide (Lasix) 40 mg 1X ONCE IVP Last administered on 12/12/16 16:18; Start 12/12/16 at 15:30; Stop 12/12/16 at 15:31; Status DC Metoprolol Tartrate (Lopressor) 50 mg BID PO Last administered on 12/24/16 09: 19; Start 12/13/16 at 21:00 Furosemide (Lasix) 40 mg 1X ONCE IVP Last administered on 12/13/16 15:06; Start 12/13/16 at 12:15; Stop 12/13/16 at 12:37; Status DC Furosemide (Lasix) 40 mg DAILY PO Last administered on 12/23/16 08:55; Start 12/14/16 at 09:00; Stop 12/23/16 at 10:50; Status DC Diltiazem HCl (Cardizem 24hr Cd) 120 mg DAILY PO Last administered on 12/14/16 09:00; Start 12/14/16 at 09:00; Stop 12/14/16 at 12:13; Status DC Lisinopril (Prinivil) 2.5 mg DAILY PO ; Start 12/14/16 at 09:00; Stop 12/14/16 at 09:00; Status DC Atorvastatin Calcium (Lipitor) 10 mg QHS PO Last administered on 12/23/16 20: 34; Start 12/13/16 at 21:00 Info (Anti-Coagulation Monitoring By Pharmacy) 1 each PRN DAILY PRN MC SEE COMMENTS Last administered on 12/20/16 10:32; Start 12/13/16 at 16:30; Stop 12/21 at 12:39; Status DC Diltiazem HCl (Cardizem 24hr Cd) 240 mg DAILY PO Last administered on 12/22/16 08:42; Start 12/15/16 at 09:00; Stop 12/23/16 at 10:50; Status DC Diltiazem HCl (Cardizem 24hr Cd) 120 mg 1X ONCE PO Last administered on 12:49; Start 12/14/16 at 12:15; Stop 12/14/16 at 12:20; Status DC Clopidogrel Bisulfate (Plavix) 75 mg DAILYWBKFT PO Last administered on 09:15; Start 12/14/16 at 13:00 Isosorbide Mononitrate (Imdur) 30 mg DAILY PO Last administered on 12/22/16 08: 42; Start 12/15/16 at 11:30; Stop 12/23/16 at 10:50; Status DC Iohexol (Omnipaque 240 Mg/ml) 30 ml 1X ONCE PO ; Start 12/15/16 at 11:45; Stop 12/15/16 at 11:46; Status DC Iohexol (Omnipaque 300 Mg/ml) 75 ml 1X ONCE IV ; Start 12/15/16 at 11:45; Stop 12/15/16 at 11:46; Status DC Info (Do NOT chart on this entry -- for MONITORING) 1 each PRN DAILY PRN MC SEE COMMENTS; Start 12/15/16 at 11:45; Stop 12/16/16 at 14:09; Status DC Enoxaparin Sodium (Lovenox 40mg Syringe) 40 mg Q24H SQ Last administered on 12/15 17:59; Start 12/15/16 at 18:00; Stop 12/16/16 at 09:35; Status DC Enoxaparin Sodium (Lovenox 80mg Syringe) 80 mg BID SQ Last administered on 14:15; Start 12/16/16 at 10:00; Stop 12/16/16 at 16:23; Status DC Iohexol (Omnipaque 300 Mg/ml) 50 ml STK-MED ONCE .ROUTE ; Start 12/16/16 at 10:32 ; Stop 12/16/16 at 10:33; Status DC Iohexol (Omnipaque 300 Mg/ml) 10 ml 1X ONCE IJ Last administered on 12/16/16 11:40; Start 12/16/16 at 11:45; Stop 12/16/16 at 11:46; Status DC Info (Do NOT chart on this entry -- for MONITORING) 1 each PRN DAILY PRN MC SEE COMMENTS; Start 12/16/16 at 11:45; Stop 12/18/16 at 09:56; Status DC Calcium Carbonate/ Glycine (Tums) 500 mg PRN AFTMEALHC PRN PO INDIGESTION Last administered on 12/16/16 14:14; Start 12/16/16 at 14:15 Pantoprazole Sodium (Protonix) 40 mg DAILYAC PO Last administered on 12/24/16 09:15; Start 12/16/16 at 14:30 Morphine Sulfate 1 mg PRN Q2HR PRN IV PAIN Last administered on 12/17/16 01:36 ; Start 12/16/16 at 14:15 Iohexol (Omnipaque 300 Mg/ml) 75 ml 1X ONCE IV ; Start 12/16/16 at 16:00; Stop 12/16/16 at 16:01; Status DC Info 1 each 1 each PRN DAILY PRN MC SEE COMMENTS; Start 12/16/16 at 15:30; Stop 12/18/16 at 15:29; Status DC Heparin Sodium/ Dextrose 500 ml @ 0 mls/hr CONT PRN IV SEE I/O RECORD Last administered on 12/21/16 12:04; Start 12/16/16 at 16:15; Stop 12/21/16 at 12:36; Status DC Heparin Sodium (Porcine) 2,500 unit PRN Q6HRS PRN IV FOR UFH LEVEL LESS THAN 0.2 Last administered on 12/18/16 11:46; Start 12/16/16 at 16:15; Stop 12/21/16 at 12:36; Status DC Heparin Sodium (Porcine) 1,250 unit PRN Q6HRS PRN IV FOR UFH LEVEL 0.2 - 0.29 Last administered on 12/19/16 02:27; Start 12/16/16 at 16:15; Stop 12/21/16 at 12: 36; Status DC Warfarin Sodium (Coumadin Per Pharmacy) 1 each PRN DAILY PRN MC PER PROTOCOL Last administered on 12/21/16 10:53; Start 12/16/16 at 16:15; Stop 12/21/16 at 12: 36; Status DC Morphine Sulfate 2 mg PRN Q2HR PRN IV PAIN Last administered on 12/20/16 19:19 ; Start 12/16/16 at 16:15 Warfarin Sodium (Coumadin) 6 mg 1X WARF ONCE PO Last administered on 12/16/16 18:20; Start 12/16/16 at 17:00; Stop 12/16/16 at 17:01; Status DC Warfarin Sodium (Coumadin) 5 mg 1X WARF ONCE PO Last administered on 12/17/16 16:29; Start 12/17/16 at 16:00; Stop 12/17/16 at 16:01; Status DC Warfarin Sodium (Coumadin) 6 mg 1X WARF ONCE PO Last administered on 12/18/16 17:32; Start 12/18/16 at 16:00; Stop 12/18/16 at 16:01; Status DC Warfarin Sodium (Coumadin) 6 mg 1X WARF ONCE PO ; Start 12/19/16 at 16:00; Stop 12/19/16 at 16:01; Status DC Furosemide (Lasix) 40 mg 1X ONCE IVP Last administered on 12/20/16 09:46; Start 12/20/16 at 09:30; Stop 12/20/16 at 09:31; Status DC Potassium Chloride (Klor-Con) 40 meq 1X ONCE PO ; Start 12/20/16 at 10:00; Stop 12/20/16 at 10:00; Status DC Potassium Chloride (Klor-Con) 20 meq DAILYWBKFT PO ; Start 12/21/16 at 08:00; Stop 12/21/16 at 08:00; Status DC Potassium Chloride 40 meq 40 meq DAILYWBKFT PO Last administered on 12/24/16 09:15; Start 12/21/16 at 08:00 Potassium Chloride (KCl Premix 20meq) 50 ml @ 50 mls/hr Q1H IV Last administered on 12/20/16 12:56; Start 12/20/16 at 10:00; Stop 12/20/16 at 11:59; Status DC Warfarin Sodium (Coumadin) 7.5 mg 1X WARF ONCE PO ; Start 12/20/16 at 16:00; Stop 12/20/16 at 16:01; Status DC Lidocaine/Sodium Bicarbonate (Buffered Lidocaine 1%) 20 ml STK-MED ONCE IJ ; Start 12/20/16 at 13:53; Stop 12/20/16 at 13:54; Status DC Fentanyl Citrate (Fentanyl 2ml Vial) 100 mcg STK-MED ONCE .ROUTE ; Start at 14:10; Stop 12/20/16 at 14:11; Status DC Midazolam HCl (Versed) 2 mg STK-MED ONCE .ROUTE ; Start 12/20/16 at 14:10; Stop 12/20/16 at 14:11; Status DC Lidocaine/Sodium Bicarbonate (Buffered Lidocaine 1%) 6 ml 1X ONCE IJ Last administered on 12/20/16 14:47; Start 12/20/16 at 14:45; Stop 12/20/16 at 14:46; Status DC Midazolam HCl (Versed) 0.5 mg 1X ONCE IV Last administered on 12/20/16 14:48; Start 12/20/16 at 14:45; Stop 12/20/16 at 14:46; Status DC Warfarin Sodium (Coumadin) 7.5 mg 1X WARF ONCE PO Last administered on 16:23; Start 12/21/16 at 16:00; Stop 12/21/16 at 16:01; Status DC Warfarin Sodium (Coumadin) 5 mg DAILY16 PO Last administered on 12/23/16 17:04 ; Start 12/21/16 at 16:00 Amoxicillin/ Clavulanate Potassium (Augmentin 875/ 125mg) 1 tab BID PO Last administered on 12/24/16 09:15; Start 12/21/16 at 21:00 Warfarin Sodium (Coumadin Per Physician) 1 each PRN DAILY PRN MC SEE COMMENTS Last administered on 12/24/16 12:36; Start 12/21/16 at 12:45 Diltiazem HCl (Cardizem 24hr Cd) 240 mg DAILYWSUP PO Last administered on 23:42; Start 12/23/16 at 17:00 Furosemide (Lasix) 40 mg DAILY06 PO Last administered on 12/24/16 06:26; Start 12/24/16 at 06:00 Isosorbide Mononitrate (Imdur) 30 mg DAILYWLUN PO Last administered on 13:04; Start 12/23/16 at 12:00 Spironolactone 25 mg 25 mg DAILY06 PO Last administered on 12/24/16 06:26; Start 12/24/16 at 06:00 Talc 5 gm/ Miscellaneous 50 ml @ 600 mls/hr 1X ONCE IPL ; Start 12/23/16 at 13 :00; Stop 12/23/16 at 13:04; Status Cancel Alteplase, Recombinant/ Sterile Water (Cathflo) 50 ml @ 100 mls/hr 1X ONCE INT CAT Last administered on 12/23/16 14:10; Start 12/23/16 at 14:00; Stop 08/01 at 14:29; Status DC Acetaminophen 650 mg 650 mg PRN Q6HRS PRN PO MILD PAIN / TEMP; Start 12/24/16 at 09:00 Alteplase, Recombinant/ Sterile Water (Cathflo) 50 ml @ 100 mls/hr 1X ONCE INT CAT Last administered on 12/24/16 11:17; Start 12/24/16 at 10:00; Stop 09/01 at 10:29; Status DC Active Scripts Active Reported Milk Of Magnesia (Magnesium Hydroxide) 2,400 Mg/10 Ml Oral.susp 2,400 Mg PO Metoprolol Tartrate 100 Mg Tablet 1 Tab PO BID Allopurinol 100 Mg Tablet 1 Tab PO DAILY Aspir 81 (Aspirin) 81 Mg Tablet.dr 1 Tab PO DAILY Spironolactone 25 Mg Tablet 1 Tab PO DAILY Cardizem Tablet (Diltiazem Hcl) 30 Mg Tablet 30 Mg PO DAILY Zyvox (Linezolid) 600 Mg Tablet 600 Mg PO BID Augmentin 875-125 Tablet (Amoxicillin/Potassium Clav) 1 Each Tablet Tab PO BID Vitals/I & O Vital Sign - Last 24 Hours 12/23/16 12/23/16 12/23/16 12/23/16 19:46 20:00 23:35 23:42 Temp 97.6 97.9 97.6 97.9 Pulse 108 105 112 Resp 18 18 B/P 100/65 150/86 150/86 Pulse Ox 95 94 O2 Delivery Nasal Cannula Nasal Cannula Nasal Cannula O2 Flow Rate 4.0 4.0 4.0 12/23/16 12/24/16 12/24/16 12/24/16 23:43 03:17 07:42 08:00 Temp 98.4 97.5 98.4 97.5 Pulse 112 82 77 Resp 20 19 B/P 150/86 124/78 123/70 Pulse Ox 93 93 O2 Delivery Nasal Cannula Nasal Cannula Nasal Cannula O2 Flow Rate 4.0 4.0 4.0 12/24/16 12/24/16 12/24/16 12/24/16 09:19 11:17 13:04 14:16 Temp 97.7 97.3 97.7 97.3 Pulse 96 70 75 77 Resp 20 22 B/P 123/70 111/67 128/64 106/63 Pulse Ox 94 95 O2 Delivery Nasal Cannula Nasal Cannula O2 Flow Rate 4.0 4.0 Intake and Output 12/23/16 12/23/16 12/24/16 15:00 23:00 07:00 Intake Total 550 ml Output Total 1935 ml 450 ml Balance -1385 ml -450 ml PRATIBHA RUIZ MD Dec 24, 2016 15:26
[2016-12-24] MEDS: WARFARIN 5 MG TABLET. PO SCH (16:25)
[2016-12-24] MEDS: DILTIAZEM HCL 240 MG CAP.ER.24H PO SCH (18:06)
[2016-12-24 19:35] VITALS: BP 107/57
[2016-12-24] MEDS: ATORVASTATIN CALCIUM 10 MG TABLET. PO SCH (20:53)
[2016-12-24 23:30] VITALS: BP 98/62
[2016-12-25] VITALS (7 sets, daily range): BP systolic 100–126; BP diastolic 55–74
[2016-12-25 06:39] LABS: CREATININE 0.8 mg/dL (0.7-1.3); GFR 91.4; POTASSIUM 4.3 mmol/L (3.5-5.1)
[2016-12-25] MEDS: SPIRONOLACTONE 25 MG TABLET PO SCH (06:41)
[2016-12-25] MEDS: FUROSEMIDE 40 MG TABLET PO SCH (06:41)
[2016-12-25 06:42] LABS: BASO # 0.1 x10^3/uL (0.0-0.2); BASO % 1 % (0-3); EOS % 3 % (0-3); HEMATOCRIT 30.5 % (39.0-53.0); HEMOGLOBIN 9.9 g/dL (13.0-17.5); LYMPH # 1.4 x10^3/uL (1.0-4.8); LYMPH % 18 % (24-48); MEAN CORPUSCULAR HEMOGLOBIN 30 pg (25-35); MEAN CORPUSCULAR HGB CONC 32 g/dL (31-37); MEAN CORPUSCULAR VOLUME 93 fL (79-100); MONO % 6 % (0-9); NEUT % 72 % (31-73); PLATELET COUNT 324 x10^3/uL (140-400); RED BLOOD COUNT 3.27 x10^6/uL (4.30-5.70); RED CELL DISTRIBUTION WIDTH 14.3 % (11.5-14.5); WHITE BLOOD COUNT 7.9 x10^3/uL (4.0-11.0)
[2016-12-25 07:04] LABS: INR 3.4 (0.8-1.1); PROTHROMBIN TIME PATIENT 32.3 SEC (11.7-14.0)
[2016-12-25] MEDS: AMOXICILLIN/K CLAV 875/125MG TABLET. PO SCH ×2 (08:28→21:09)
[2016-12-25] MEDS: PANTOPRAZOLE 40 MG TABLET. PO SCH (08:29)
[2016-12-25] MEDS: CLOPIDOGREL BISULFATE 75 MG TABLET PO SCH (08:29)
[2016-12-25] MEDS: POTASSIUM CHLORIDE 20 MEQ TABLET.ER. PO SCH (08:29)
[2016-12-25] MEDS: ASPIRIN ENTERIC COATED 81 MG TABLET.DR. PO SCH (08:29)
[2016-12-25] MEDS: METOPROLOL TART IMMED RELEASE 50 MG TABLET PO SCH ×2 (08:29→21:10)
[2016-12-25] MEDS: DOCUSATE SODIUM 100 MG CAPSULE PO SCH (08:30)
--- NOTE | 2016-12-25 09:24 | PDOC ---
ELBA PARKER GIS ANALYST DEVELOPER 12/25/16 0923: SURGICAL PROGRESS NOTE Subjective no complaints tolerating breakfast Vital Signs Vital Signs Date Time Temp Pulse Resp B/P Pulse Ox O2 Delivery O2 Flow Rate FiO2 12/25/16 08:29 76 126/74 12/25/16 07:58 97.4 22 94 Nasal Cannula 4.0 97.4 I&O Intake and Output 12/25/16 07:00 Output Total 1835 ml Balance -1835 ml Output Urine Total 1425 ml Chest Tube Drainage Total 410 ml Drainage Total 0 ml # Voids 1 # Bowel Movements 3 General: Alert, Oriented X3, Cooperative, No acute distress Abdomen: Soft, Other Labs Laboratory Tests Test 12/24/16 06:30 12/25/16 06:00 Prothrombin Time 28.9SEC (11.7-14.0) 32.3SEC (11.7-14.0) Prothromb Time International Ratio 2.9 (0.8-1.1) 3.4 (0.8-1.1) White Blood Count 7.9x10^3/uL (4.0-11.0) Red Blood Count 3.27x10^6/uL (4.30-5.70) Hemoglobin 9.9g/dL (13.0-17.5) Hematocrit 30.5% (39.0-53.0) Mean Corpuscular Volume 93fL (79-100) Mean Corpuscular Hemoglobin 30pg (25-35) Mean Corpuscular Hemoglobin Concent 32g/dL (31-37) Red Cell Distribution Width 14.3% (11.5-14.5) Platelet Count 324x10^3/uL (140-400) Neutrophils (%) (Auto) 72% (31-73) Lymphocytes (%) (Auto) 18% (24-48) Monocytes (%) (Auto) 6% (0-9) Eosinophils (%) (Auto) 3% (0-3) Basophils (%) (Auto) 1% (0-3) Neutrophils # (Auto) 5.7x10^3uL (1.8-7.7) Lymphocytes # (Auto) 1.4x10^3/uL (1.0-4.8) Monocytes # (Auto) 0.5x10^3/uL (0.0-1.1) Eosinophils # (Auto) 0.3x10^3/uL (0.0-0.7) Basophils # (Auto) 0.1x10^3/uL (0.0-0.2) Sodium Level 140mmol/L (136-145) Potassium Level 4.3mmol/L (3.5-5.1) Chloride Level 103mmol/L (98-107) Carbon Dioxide Level 30mmol/L (21-32) Anion Gap 7 (6-14) Blood Urea Nitrogen 13mg/dL (8-26) Creatinine 0.8mg/dL (0.7-1.3) Estimated GFR (Cockcroft-Gault) 91.4 Glucose Level 118mg/dL (70-99) Calcium Level 9.0mg/dL (8.5-10.1) Laboratory Tests Test 12/25/16 06:00 White Blood Count 7.9x10^3/uL (4.0-11.0) Red Blood Count 3.27x10^6/uL (4.30-5.70) Hemoglobin 9.9g/dL (13.0-17.5) Hematocrit 30.5% (39.0-53.0) Mean Corpuscular Volume 93fL (79-100) Mean Corpuscular Hemoglobin 30pg (25-35) Mean Corpuscular Hemoglobin Concent 32g/dL (31-37) Red Cell Distribution Width 14.3% (11.5-14.5) Platelet Count 324x10^3/uL (140-400) Neutrophils (%) (Auto) 72% (31-73) Lymphocytes (%) (Auto) 18% (24-48) Monocytes (%) (Auto) 6% (0-9) Eosinophils (%) (Auto) 3% (0-3) Basophils (%) (Auto) 1% (0-3) Neutrophils # (Auto) 5.7x10^3uL (1.8-7.7) Lymphocytes # (Auto) 1.4x10^3/uL (1.0-4.8) Monocytes # (Auto) 0.5x10^3/uL (0.0-1.1) Eosinophils # (Auto) 0.3x10^3/uL (0.0-0.7) Basophils # (Auto) 0.1x10^3/uL (0.0-0.2) Prothrombin Time 32.3SEC (11.7-14.0) Prothromb Time International Ratio 3.4 (0.8-1.1) Sodium Level 140mmol/L (136-145) Potassium Level 4.3mmol/L (3.5-5.1) Chloride Level 103mmol/L (98-107) Carbon Dioxide Level 30mmol/L (21-32) Anion Gap 7 (6-14) Blood Urea Nitrogen 13mg/dL (8-26) Creatinine 0.8mg/dL (0.7-1.3) Estimated GFR (Cockcroft-Gault) 91.4 Glucose Level 118mg/dL (70-99) Calcium Level 9.0mg/dL (8.5-10.1) Problem List Problems Medical Problems: (1) Acute respiratory failure Status: Acute (2) CAD (coronary artery disease) Status: Acute (3) CHF exacerbation Status: Acute (4) Hypoxia Status: Acute (5) Pulmonary edema Status: Acute (6) Pulmonary embolism Status: Acute (7) Volume overload Status: Acute Assessment/Plan supportive care continue drains Problems: JANEL ALLISON MD 12/25/16 1633: SURGICAL PROGRESS NOTE Assessment/Plan Pt seen and examined. Agree with Ms. Parker's note Pt without c/o, except chest tube abd soft, drains in place cont supportive care Problems: ELBA PARKER APRN Dec 25, 2016 09:23 JANEL ALLISON MD Dec 25, 2016 16:33
--- NOTE | 2016-12-25 11:07 | RAD ---
EXAM: Chest one view. HISTORY: Chest tube follow-up. COMPARISON: 12/24/2016. FINDINGS: A frontal view of the chest is obtained. A loop drain remains in place on the right. A right arm PICC line has its tip in the superior vena cava. Another loop drain projects in the right upper quadrant. There is a moderate right pleural effusion. It has decreased in size over prior studies. There is residual right greater than left basilar atelectasis or infiltrate. There is no pneumothorax. The heart is not enlarged. There are atherosclerotic calcifications of the aorta. IMPRESSION: 1. Decreasing moderate right pleural effusion status post drainage. 2. Right greater than left basilar atelectasis or infiltrate.
--- NOTE | 2016-12-25 11:57 | PDOC ---
PULMONARY PROGRESS NOTES Subjective s/p right chest tube TPA given 12/23, 12/24 900 cc total came out Vitals Vital Signs Date Time Temp Pulse Resp B/P Pulse Ox O2 Delivery O2 Flow Rate FiO2 12/25/16 11:00 98.9 63 20 112/63 96 Nasal Cannula 4.0 98.9 General: Alert, No acute distress Lungs: Crackles (bs right) Cardiovascular: S1 Abdomen: Soft Neuro Exam: Alert Extremities: Other (2+edema) Skin: Warm Labs Laboratory Tests Test 12/24/16 06:30 12/25/16 06:00 Prothrombin Time 28.9SEC (11.7-14.0) 32.3SEC (11.7-14.0) Prothromb Time International Ratio 2.9 (0.8-1.1) 3.4 (0.8-1.1) White Blood Count 7.9x10^3/uL (4.0-11.0) Red Blood Count 3.27x10^6/uL (4.30-5.70) Hemoglobin 9.9g/dL (13.0-17.5) Hematocrit 30.5% (39.0-53.0) Mean Corpuscular Volume 93fL (79-100) Mean Corpuscular Hemoglobin 30pg (25-35) Mean Corpuscular Hemoglobin Concent 32g/dL (31-37) Red Cell Distribution Width 14.3% (11.5-14.5) Platelet Count 324x10^3/uL (140-400) Neutrophils (%) (Auto) 72% (31-73) Lymphocytes (%) (Auto) 18% (24-48) Monocytes (%) (Auto) 6% (0-9) Eosinophils (%) (Auto) 3% (0-3) Basophils (%) (Auto) 1% (0-3) Neutrophils # (Auto) 5.7x10^3uL (1.8-7.7) Lymphocytes # (Auto) 1.4x10^3/uL (1.0-4.8) Monocytes # (Auto) 0.5x10^3/uL (0.0-1.1) Eosinophils # (Auto) 0.3x10^3/uL (0.0-0.7) Basophils # (Auto) 0.1x10^3/uL (0.0-0.2) Sodium Level 140mmol/L (136-145) Potassium Level 4.3mmol/L (3.5-5.1) Chloride Level 103mmol/L (98-107) Carbon Dioxide Level 30mmol/L (21-32) Anion Gap 7 (6-14) Blood Urea Nitrogen 13mg/dL (8-26) Creatinine 0.8mg/dL (0.7-1.3) Estimated GFR (Cockcroft-Gault) 91.4 Glucose Level 118mg/dL (70-99) Calcium Level 9.0mg/dL (8.5-10.1) Laboratory Tests Test 12/25/16 06:00 White Blood Count 7.9x10^3/uL (4.0-11.0) Red Blood Count 3.27x10^6/uL (4.30-5.70) Hemoglobin 9.9g/dL (13.0-17.5) Hematocrit 30.5% (39.0-53.0) Mean Corpuscular Volume 93fL (79-100) Mean Corpuscular Hemoglobin 30pg (25-35) Mean Corpuscular Hemoglobin Concent 32g/dL (31-37) Red Cell Distribution Width 14.3% (11.5-14.5) Platelet Count 324x10^3/uL (140-400) Neutrophils (%) (Auto) 72% (31-73) Lymphocytes (%) (Auto) 18% (24-48) Monocytes (%) (Auto) 6% (0-9) Eosinophils (%) (Auto) 3% (0-3) Basophils (%) (Auto) 1% (0-3) Neutrophils # (Auto) 5.7x10^3uL (1.8-7.7) Lymphocytes # (Auto) 1.4x10^3/uL (1.0-4.8) Monocytes # (Auto) 0.5x10^3/uL (0.0-1.1) Eosinophils # (Auto) 0.3x10^3/uL (0.0-0.7) Basophils # (Auto) 0.1x10^3/uL (0.0-0.2) Prothrombin Time 32.3SEC (11.7-14.0) Prothromb Time International Ratio 3.4 (0.8-1.1) Sodium Level 140mmol/L (136-145) Potassium Level 4.3mmol/L (3.5-5.1) Chloride Level 103mmol/L (98-107) Carbon Dioxide Level 30mmol/L (21-32) Anion Gap 7 (6-14) Blood Urea Nitrogen 13mg/dL (8-26) Creatinine 0.8mg/dL (0.7-1.3) Estimated GFR (Cockcroft-Gault) 91.4 Glucose Level 118mg/dL (70-99) Calcium Level 9.0mg/dL (8.5-10.1) Medications Active Scripts Medications Dose Route/Sig Days Date Category Milk Of Magnesia (Magnesium Hydroxide) 2,400 Mg/10 Ml Oral.susp 2,400 Mg PO 12/10/16 Reported Metoprolol Tartrate 100 Mg Tablet 1 Tab PO BID 12/10/16 Reported Allopurinol 100 Mg Tablet 1 Tab PO DAILY 12/10/16 Reported Aspir 81 (Aspirin) 81 Mg Tablet.dr 1 Tab PO DAILY 12/10/16 Reported Spironolactone 25 Mg Tablet 1 Tab PO DAILY 12/10/16 Reported Cardizem Tablet (Diltiazem Hcl) 30 Mg Tablet 30 Mg PO DAILY 12/10/16 Reported Zyvox (Linezolid) 600 Mg Tablet 600 Mg PO BID 12/10/16 Reported Augmentin 875-125 Tablet (Amoxicillin/Potassium Clav) 1 Each Tablet Tab PO BID 12/10/16 Reported Comments CXR 12/25, improving RLL effusion Impression . 1. Acute hypoxic respiratory failure secondary to development of acute congestive heart failure, diastolic heart failure triggered by atrial fibrillation with rapid ventricular response. 2. Atrial fibrillation with rapid ventricular response, triggering congestive heart failure.POA 3. Recent dilated gallbladder with liver abscess, status post percutaneous cholecystostomy placement. Followup CT chest showed persistent abscess in the liver and status post second drain. Replaced drains 12/16/16 4. No significant history of tobacco use. 5. PE CONFIRMED WITH CTA 6. Severe 3 vessel CAD 7. New partially loculated right pleural effusion, ? hepatic abscess extension into pleural space. s/p right chest tube, 8. s/p TPA right chest tube , 500 cc came out 12/24 and 450 cc 12/25. CXR improving. will repeat another dose today and remove chest tube in am Plan . Nasal canula repeat ct chest with partially loculated right effusion, suspect hepatic abscess extension right thoracentesis .s/p chest tube 12/20. follow cultures negative Not the best candidate for VAT/ d/w patient . responding to TPA via chest tube.s /p TPA right chest tube , 500 cc came out 12/24 and 450 cc 12/25. CXR improving. will repeat another dose today and remove chest tube in am coumadin for PE will need 3-6 months of AC s/p abdominal drains 12/16 antibx per ID follow surgery input Insurance denied LTAC transfer DNR/DNI RUKHSANA LEE MD Dec 25, 2016 11:57
[2016-12-25] MEDS ORDERED: ALTEPLASE 2MG VIAL 5 MG in IV STERILE WATER 50 ML INT CAT ONE (12:30)
[2016-12-25] MEDS: ISOSORBIDE MONONITRATE ER 30 MG TAB.ER.24H PO SCH (13:42)
--- NOTE | 2016-12-25 14:53 | PDOC ---
PROGRESS NOTES Chief Complaint Chief Complaint SOB Edema ASSESSMENT AND PLAN: 1. 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 Afib s/p RVR (new) 2. CHF: 3. Troponin leak: 4. CAD hx: 5. GB abscess: drain in place, on Abx. done by [facility] 6. Gout: no acute issues. cont allopurinol 7,.A cute hypoxic respi failure needing venti mask , resolved 8. PE, possible 9. Possible liver abscess 10, Possible appy 11. right pleural effusion s/p chest tube placement Plan: fu with pulm for chest tube hope to dc on Monday then dc to resort who wont take him for chest tube. LTAC refused him. check cdiff, no diarrhea today on po abx [facility] need to readdress cardiavc meds, BP too low dw RN and SW and pt fu with pulm for chest tube, hold coumadin for today, repeat cxr, DC CHEST tube as per pulm tmr, dc to resort then. History of Present Illness History of Present Illness INdwelling Rt chest tube, 400cc over night x2, INR 3.4 RUQ liver drains NO SOA, no pain at CT site NO desats Ate breakfast ok Walked with PT - L:TAc denied BP low side - on many cradiac meds per cards one time diarrhea Vitals Vitals Vital Signs Date Time Temp Pulse Resp B/P Pulse Ox O2 Delivery O2 Flow Rate FiO2 12/25/16 13:42 67 113/59 12/25/16 11:00 98.9 20 96 Nasal Cannula 4.0 98.9 Physical Exam General: Alert, Oriented X3, Cooperative, No acute distress Heart: Normal S1, Normal S2, No murmurs, Other (irregular) Lungs: Crackles (bs right) Abdomen: Soft, Other Extremities: No edema Skin: No significant lesion Labs LABS Laboratory Tests Test 12/25/16 06:00 White Blood Count 7.9x10^3/uL (4.0-11.0) Red Blood Count 3.27x10^6/uL (4.30-5.70) Hemoglobin 9.9g/dL (13.0-17.5) Hematocrit 30.5% (39.0-53.0) Mean Corpuscular Volume 93fL (79-100) Mean Corpuscular Hemoglobin 30pg (25-35) Mean Corpuscular Hemoglobin Concent 32g/dL (31-37) Red Cell Distribution Width 14.3% (11.5-14.5) Platelet Count 324x10^3/uL (140-400) Neutrophils (%) (Auto) 72% (31-73) Lymphocytes (%) (Auto) 18% (24-48) Monocytes (%) (Auto) 6% (0-9) Eosinophils (%) (Auto) 3% (0-3) Basophils (%) (Auto) 1% (0-3) Neutrophils # (Auto) 5.7x10^3uL (1.8-7.7) Lymphocytes # (Auto) 1.4x10^3/uL (1.0-4.8) Monocytes # (Auto) 0.5x10^3/uL (0.0-1.1) Eosinophils # (Auto) 0.3x10^3/uL (0.0-0.7) Basophils # (Auto) 0.1x10^3/uL (0.0-0.2) Prothrombin Time 32.3SEC (11.7-14.0) Prothromb Time International Ratio 3.4 (0.8-1.1) Sodium Level 140mmol/L (136-145) Potassium Level 4.3mmol/L (3.5-5.1) Chloride Level 103mmol/L (98-107) Carbon Dioxide Level 30mmol/L (21-32) Anion Gap 7 (6-14) Blood Urea Nitrogen 13mg/dL (8-26) Creatinine 0.8mg/dL (0.7-1.3) Estimated GFR (Cockcroft-Gault) 91.4 Glucose Level 118mg/dL (70-99) Calcium Level 9.0mg/dL (8.5-10.1) Review of Systems Review of Systems no fever, chills, sob or chest pain Assessment and Plan Assessmemt and Plan Problems Medical Problems: (1) Acute respiratory failure Status: Acute (2) CAD (coronary artery disease) Status: Acute (3) CHF exacerbation Status: Acute (4) Hypoxia Status: Acute (5) Pulmonary edema Status: Acute (6) Pulmonary embolism Status: Acute (7) Volume overload Status: Acute Problems: Comment Review of Relevant I have reviewed the following items liana (where applicable) has been applied. Labs Laboratory Tests Test 12/24/16 06:30 12/25/16 06:00 Prothrombin Time 28.9SEC (11.7-14.0) 32.3SEC (11.7-14.0) Prothromb Time International Ratio 2.9 (0.8-1.1) 3.4 (0.8-1.1) White Blood Count 7.9x10^3/uL (4.0-11.0) Red Blood Count 3.27x10^6/uL (4.30-5.70) Hemoglobin 9.9g/dL (13.0-17.5) Hematocrit 30.5% (39.0-53.0) Mean Corpuscular Volume 93fL (79-100) Mean Corpuscular Hemoglobin 30pg (25-35) Mean Corpuscular Hemoglobin Concent 32g/dL (31-37) Red Cell Distribution Width 14.3% (11.5-14.5) Platelet Count 324x10^3/uL (140-400) Neutrophils (%) (Auto) 72% (31-73) Lymphocytes (%) (Auto) 18% (24-48) Monocytes (%) (Auto) 6% (0-9) Eosinophils (%) (Auto) 3% (0-3) Basophils (%) (Auto) 1% (0-3) Neutrophils # (Auto) 5.7x10^3uL (1.8-7.7) Lymphocytes # (Auto) 1.4x10^3/uL (1.0-4.8) Monocytes # (Auto) 0.5x10^3/uL (0.0-1.1) Eosinophils # (Auto) 0.3x10^3/uL (0.0-0.7) Basophils # (Auto) 0.1x10^3/uL (0.0-0.2) Sodium Level 140mmol/L (136-145) Potassium Level 4.3mmol/L (3.5-5.1) Chloride Level 103mmol/L (98-107) Carbon Dioxide Level 30mmol/L (21-32) Anion Gap 7 (6-14) Blood Urea Nitrogen 13mg/dL (8-26) Creatinine 0.8mg/dL (0.7-1.3) Estimated GFR (Cockcroft-Gault) 91.4 Glucose Level 118mg/dL (70-99) Calcium Level 9.0mg/dL (8.5-10.1) Laboratory Tests Test 12/25/16 06:00 White Blood Count 7.9x10^3/uL (4.0-11.0) Red Blood Count 3.27x10^6/uL (4.30-5.70) Hemoglobin 9.9g/dL (13.0-17.5) Hematocrit 30.5% (39.0-53.0) Mean Corpuscular Volume 93fL (79-100) Mean Corpuscular Hemoglobin 30pg (25-35) Mean Corpuscular Hemoglobin Concent 32g/dL (31-37) Red Cell Distribution Width 14.3% (11.5-14.5) Platelet Count 324x10^3/uL (140-400) Neutrophils (%) (Auto) 72% (31-73) Lymphocytes (%) (Auto) 18% (24-48) Monocytes (%) (Auto) 6% (0-9) Eosinophils (%) (Auto) 3% (0-3) Basophils (%) (Auto) 1% (0-3) Neutrophils # (Auto) 5.7x10^3uL (1.8-7.7) Lymphocytes # (Auto) 1.4x10^3/uL (1.0-4.8) Monocytes # (Auto) 0.5x10^3/uL (0.0-1.1) Eosinophils # (Auto) 0.3x10^3/uL (0.0-0.7) Basophils # (Auto) 0.1x10^3/uL (0.0-0.2) Prothrombin Time 32.3SEC (11.7-14.0) Prothromb Time International Ratio 3.4 (0.8-1.1) Sodium Level 140mmol/L (136-145) Potassium Level 4.3mmol/L (3.5-5.1) Chloride Level 103mmol/L (98-107) Carbon Dioxide Level 30mmol/L (21-32) Anion Gap 7 (6-14) Blood Urea Nitrogen 13mg/dL (8-26) Creatinine 0.8mg/dL (0.7-1.3) Estimated GFR (Cockcroft-Gault) 91.4 Glucose Level 118mg/dL (70-99) Calcium Level 9.0mg/dL (8.5-10.1) Microbiology 12/10/16 Blood Culture - Final, Complete NO GROWTH AFTER 5 DAYS 12/20/16 Anaerobic/Aerobic Culture - Preliminary, Resulted 12/20/16 Anaerobic Culture Result 1 ([facility]) - Preliminary, Resulted 12/20/16 Aerobic Culture - Final, Resulted 12/20/16 Aerobic Culture Result 1 ([facility]) - Final, Resulted 12/10/16 Urine Culture - Final, Complete 12/10/16 Urine Culture Result 1 ([facility]) - Final, Complete Medications Current Medications Piperacillin Sod/ Tazobactam Sod 1 each 1 each PRN DAILY PRN MC SEE COMMENTS; Start 12/10/16 at 07:15; Stop 12/14/16 at 11:23; Status DC Diltiazem HCl/ Dextrose (Cardizem) 125 ml @ 0 mls/hr CONT PRN IV SEE I/O RECORD Last administered on 12/13/16 00:58; Start 12/10/16 at 07:15; Stop 12/13 at 12:33; Status DC Furosemide (Lasix) 40 mg 1X ONCE IVP Last administered on 12/10/16 07:52; Start 12/10/16 at 07:15; Stop 12/10/16 at 07:18; Status DC Nitroglycerin (Nitrostat) 0.4 mg 1X ONCE SL ; Start 12/10/16 at 07:15; Stop at 07:18; Status DC Ondansetron HCl (Zofran) 4 mg PRN Q8HRS PRN IV NAUSEA/VOMITING; Start 12/10/16 at 07:30; Stop 12/11/16 at 07:29; Status DC Morphine Sulfate 2 mg 2 mg PRN Q2HR PRN IV PAIN; Start 12/10/16 at 07:30; Stop 12/11/16 at 07:29; Status DC Piperacillin Sod/ Tazobactam Sod/ Sodium Chloride (Zosyn/Iv Sodium Chloride 0.9 % 100ml) 100 ml @ 200 mls/hr 1X ONCE IV Last administered on 12/10/16 09:28 ; Start 12/10/16 at 07:45; Stop 12/10/16 at 08:14; Status DC Lisinopril (Prinivil) 10 mg DAILY PO ; Start 12/11/16 at 09:00; Stop 12/11/16 at 16:31; Status DC Labetalol HCl (Normodyne) 20 mg PRN Q2HR PRN IVP HYPERTENSION, SEE COMMENTS; Start 12/10/16 at 11:30 Aspirin (Ecotrin) 81 mg DAILYWBKFT PO Last administered on 12/25/16 08:29; Start 12/10/16 at 13:00 Furosemide 40 mg 40 mg 1X ONCE IVP Last administered on 12/10/16 14:37; Start 12/10/16 at 12:15; Stop 12/10/16 at 12:23; Status DC Piperacillin Sod/ Tazobactam Sod/ Sodium Chloride (Zosyn/Iv Sodium Chloride 0.9 % 50ml) 50 ml @ 100 mls/hr Q6HRS IV Last administered on 12/21/16 11:54; Start 12/10/16 at 13:30; Stop 12/21/16 at 12:36; Status DC Allopurinol (Zyloprim) 100 mg DAILY PO ; Start 12/11/16 at 10:00; Stop 12/11/16 at 10:13; Status DC Aspirin (Ecotrin) 81 mg DAILY PO ; Start 12/12/16 at 09:00; Status Cancel Linezolid (Zyvox) 600 mg BID PO Last administered on 12/12/16 21:34; Start at 10:00; Stop 12/13/16 at 08:51; Status DC Spironolactone (Aldactone) 25 mg DAILY PO Last administered on 12/23/16 08:55 ; Start 12/11/16 at 10:00; Stop 12/23/16 at 10:50; Status DC Metoprolol Tartrate 100 mg 100 mg BID PO Last administered on 12/13/16 09:28; Start 12/11/16 at 10:00; Stop 12/13/16 at 12:33; Status DC Heparin Sodium/ Dextrose 500 ml @ 19.6 mls/hr CONT PRN IV SEE I/O RECORD Last administered on 12/15/16 05:34; Start 12/11/16 at 14:45; Stop 12/15/16 at 10:20; Status DC Heparin Sodium (Porcine) 2,050 unit PRN Q6HRS PRN IV FOR UFH LEVEL LESS THAN 0.2 Last administered on 12/13/16 20:30; Start 12/11/16 at 14:45; Stop 12/15/16 at 10:20; Status DC Throat Lozenges (Cepacol Sore Throat Lozenge) 1 jorge a PRN Q2HRS PRN PO SORE THROAT Last administered on 12/18/16 20:21; Start 12/11/16 at 19:30 Docusate Sodium (Colace) 100 mg DAILY PO Last administered on 12/21/16 08:21; Start 12/12/16 at 10:00 Polyethylene Glycol (miraLAX PACKET) 17 gm PRN DAILY PRN PO CONSTIPATION; Start 12/12/16 at 10:00 Magnesium Hydroxide (Milk Of Magnesia) 2,400 mg PRN DAILY PRN PO CONSTIPATION; Start 12/12/16 at 10:00 Lidocaine HCl 20 ml 20 ml STK-MED ONCE .ROUTE ; Start 12/12/16 at 14:11; Stop at 14:12; Status DC Heparin Sodium/ Sodium Chloride 500 ml @ As Directed STK-MED ONCE .ROUTE ; Start 12/12/16 at 14:11; Stop 12/12/16 at 14:12; Status DC Iohexol (Omnipaque 300 Mg/ml) 100 ml STK-MED ONCE .ROUTE ; Start 12/12/16 at 14: 11; Stop 12/12/16 at 14:12; Status DC Iodixanol (Visipaque 320) 100 ml STK-MED ONCE .ROUTE ; Start 12/12/16 at 14:11; Stop 12/12/16 at 14:12; Status DC Nitroglycerin (Nitroglycerin) 200 mcg STK-MED ONCE .ROUTE ; Start 12/12/16 at 14 :16; Stop 12/12/16 at 14:17; Status DC Verapamil HCl (Verapamil) 5 mg STK-MED ONCE .ROUTE ; Start 12/12/16 at 14:16; Stop 12/12/16 at 14:17; Status DC Midazolam HCl (Versed) 2 mg STK-MED ONCE .ROUTE ; Start 12/12/16 at 14:16; Stop 12/12/16 at 14:17; Status DC Fentanyl Citrate (Fentanyl 2ml Vial) 100 mcg STK-MED ONCE .ROUTE ; Start at 14:16; Stop 12/12/16 at 14:17; Status DC Heparin Sodium (Porcine) 10,000 unit STK-MED ONCE .ROUTE ; Start 12/12/16 at 14: 16; Stop 12/12/16 at 14:17; Status DC Nitroglycerin (Nitroglycerin) 200 mcg 1X ONCE IART Last administered on 15:04; Start 12/12/16 at 14:45; Stop 12/12/16 at 14:46; Status DC Verapamil HCl (Verapamil) 2.5 mg 1X ONCE IART Last administered on 12/12/16 15:05; Start 12/12/16 at 14:45; Stop 12/12/16 at 14:46; Status DC Heparin Sodium (Porcine) 2,500 unit 1X ONCE IART Last administered on 15:06; Start 12/12/16 at 14:45; Stop 12/12/16 at 14:46; Status DC Heparin Sodium/ Sodium Chloride 1,000 unit 1X ONCE IART Last administered on 15:03; Start 12/12/16 at 14:45; Stop 12/12/16 at 14:46; Status DC Midazolam HCl (Versed) 2 mg 1X ONCE IV Last administered on 12/12/16 15:04; Start 12/12/16 at 14:45; Stop 12/12/16 at 14:46; Status DC Fentanyl Citrate (Fentanyl 2ml Vial) 100 mcg 1X ONCE IV Last administered on 15:04; Start 12/12/16 at 14:45; Stop 12/12/16 at 14:46; Status DC Iodixanol (Visipaque 320) 100 ml 1X ONCE IART Last administered on 12/12/16 15:05; Start 12/12/16 at 14:45; Stop 12/12/16 at 14:46; Status DC Lidocaine HCl 1 ml 1X ONCE IJ Last administered on 12/12/16 15:03; Start at 14:45; Stop 12/12/16 at 14:46; Status DC Nitroglycerin (Nitrostat) 0.4 mg PRN Q5MIN PRN SL CHEST PAIN; Start 12/12/16 at 15:30 Furosemide (Lasix) 40 mg 1X ONCE IVP Last administered on 12/12/16 16:18; Start 12/12/16 at 15:30; Stop 12/12/16 at 15:31; Status DC Metoprolol Tartrate (Lopressor) 50 mg BID PO Last administered on 12/25/16 08: 29; Start 12/13/16 at 21:00 Furosemide (Lasix) 40 mg 1X ONCE IVP Last administered on 12/13/16 15:06; Start 12/13/16 at 12:15; Stop 12/13/16 at 12:37; Status DC Furosemide (Lasix) 40 mg DAILY PO Last administered on 12/23/16 08:55; Start 12/14/16 at 09:00; Stop 12/23/16 at 10:50; Status DC Diltiazem HCl (Cardizem 24hr Cd) 120 mg DAILY PO Last administered on 12/14/16 09:00; Start 12/14/16 at 09:00; Stop 12/14/16 at 12:13; Status DC Lisinopril (Prinivil) 2.5 mg DAILY PO ; Start 12/14/16 at 09:00; Stop 12/14/16 at 09:00; Status DC Atorvastatin Calcium (Lipitor) 10 mg QHS PO Last administered on 12/24/16 20: 53; Start 12/13/16 at 21:00 Info (Anti-Coagulation Monitoring By Pharmacy) 1 each PRN DAILY PRN MC SEE COMMENTS Last administered on 12/20/16 10:32; Start 12/13/16 at 16:30; Stop 12/21 at 12:39; Status DC Diltiazem HCl (Cardizem 24hr Cd) 240 mg DAILY PO Last administered on 12/22/16 08:42; Start 12/15/16 at 09:00; Stop 12/23/16 at 10:50; Status DC Diltiazem HCl (Cardizem 24hr Cd) 120 mg 1X ONCE PO Last administered on 12:49; Start 12/14/16 at 12:15; Stop 12/14/16 at 12:20; Status DC Clopidogrel Bisulfate (Plavix) 75 mg DAILYWBKFT PO Last administered on 08:29; Start 12/14/16 at 13:00 Isosorbide Mononitrate (Imdur) 30 mg DAILY PO Last administered on 12/22/16 08: 42; Start 12/15/16 at 11:30; Stop 12/23/16 at 10:50; Status DC Iohexol (Omnipaque 240 Mg/ml) 30 ml 1X ONCE PO ; Start 12/15/16 at 11:45; Stop 12/15/16 at 11:46; Status DC Iohexol (Omnipaque 300 Mg/ml) 75 ml 1X ONCE IV ; Start 12/15/16 at 11:45; Stop 12/15/16 at 11:46; Status DC Info (Do NOT chart on this entry -- for MONITORING) 1 each PRN DAILY PRN MC SEE COMMENTS; Start 12/15/16 at 11:45; Stop 12/16/16 at 14:09; Status DC Enoxaparin Sodium (Lovenox 40mg Syringe) 40 mg Q24H SQ Last administered on 12/15 17:59; Start 12/15/16 at 18:00; Stop 12/16/16 at 09:35; Status DC Enoxaparin Sodium (Lovenox 80mg Syringe) 80 mg BID SQ Last administered on 14:15; Start 12/16/16 at 10:00; Stop 12/16/16 at 16:23; Status DC Iohexol (Omnipaque 300 Mg/ml) 50 ml STK-MED ONCE .ROUTE ; Start 12/16/16 at 10:32 ; Stop 12/16/16 at 10:33; Status DC Iohexol (Omnipaque 300 Mg/ml) 10 ml 1X ONCE IJ Last administered on 12/16/16 11:40; Start 12/16/16 at 11:45; Stop 12/16/16 at 11:46; Status DC Info (Do NOT chart on this entry -- for MONITORING) 1 each PRN DAILY PRN MC SEE COMMENTS; Start 12/16/16 at 11:45; Stop 12/18/16 at 09:56; Status DC Calcium Carbonate/ Glycine (Tums) 500 mg PRN AFTMEALHC PRN PO INDIGESTION Last administered on 12/16/16 14:14; Start 12/16/16 at 14:15 Pantoprazole Sodium (Protonix) 40 mg DAILYAC PO Last administered on 12/25/16 08:29; Start 12/16/16 at 14:30 Morphine Sulfate 1 mg PRN Q2HR PRN IV PAIN Last administered on 12/17/16 01:36 ; Start 12/16/16 at 14:15 Iohexol (Omnipaque 300 Mg/ml) 75 ml 1X ONCE IV ; Start 12/16/16 at 16:00; Stop 12/16/16 at 16:01; Status DC Info 1 each 1 each PRN DAILY PRN MC SEE COMMENTS; Start 12/16/16 at 15:30; Stop 12/18/16 at 15:29; Status DC Heparin Sodium/ Dextrose 500 ml @ 0 mls/hr CONT PRN IV SEE I/O RECORD Last administered on 12/21/16 12:04; Start 12/16/16 at 16:15; Stop 12/21/16 at 12:36; Status DC Heparin Sodium (Porcine) 2,500 unit PRN Q6HRS PRN IV FOR UFH LEVEL LESS THAN 0.2 Last administered on 12/18/16 11:46; Start 12/16/16 at 16:15; Stop 12/21/16 at 12:36; Status DC Heparin Sodium (Porcine) 1,250 unit PRN Q6HRS PRN IV FOR UFH LEVEL 0.2 - 0.29 Last administered on 12/19/16 02:27; Start 12/16/16 at 16:15; Stop 12/21/16 at 12: 36; Status DC Warfarin Sodium (Coumadin Per Pharmacy) 1 each PRN DAILY PRN MC PER PROTOCOL Last administered on 12/21/16 10:53; Start 12/16/16 at 16:15; Stop 12/21/16 at 12: 36; Status DC Morphine Sulfate 2 mg PRN Q2HR PRN IV PAIN Last administered on 12/20/16 19:19 ; Start 12/16/16 at 16:15 Warfarin Sodium (Coumadin) 6 mg 1X WARF ONCE PO Last administered on 12/16/16 18:20; Start 12/16/16 at 17:00; Stop 12/16/16 at 17:01; Status DC Warfarin Sodium (Coumadin) 5 mg 1X WARF ONCE PO Last administered on 12/17/16 16:29; Start 12/17/16 at 16:00; Stop 12/17/16 at 16:01; Status DC Warfarin Sodium (Coumadin) 6 mg 1X WARF ONCE PO Last administered on 12/18/16 17:32; Start 12/18/16 at 16:00; Stop 12/18/16 at 16:01; Status DC Warfarin Sodium (Coumadin) 6 mg 1X WARF ONCE PO ; Start 12/19/16 at 16:00; Stop 12/19/16 at 16:01; Status DC Furosemide (Lasix) 40 mg 1X ONCE IVP Last administered on 12/20/16 09:46; Start 12/20/16 at 09:30; Stop 12/20/16 at 09:31; Status DC Potassium Chloride (Klor-Con) 40 meq 1X ONCE PO ; Start 12/20/16 at 10:00; Stop 12/20/16 at 10:00; Status DC Potassium Chloride (Klor-Con) 20 meq DAILYWBKFT PO ; Start 12/21/16 at 08:00; Stop 12/21/16 at 08:00; Status DC Potassium Chloride 40 meq 40 meq DAILYWBKFT PO Last administered on 12/25/16 08:29; Start 12/21/16 at 08:00 Potassium Chloride (KCl Premix 20meq) 50 ml @ 50 mls/hr Q1H IV Last administered on 12/20/16 12:56; Start 12/20/16 at 10:00; Stop 12/20/16 at 11:59; Status DC Warfarin Sodium (Coumadin) 7.5 mg 1X WARF ONCE PO ; Start 12/20/16 at 16:00; Stop 12/20/16 at 16:01; Status DC Lidocaine/Sodium Bicarbonate (Buffered Lidocaine 1%) 20 ml STK-MED ONCE IJ ; Start 12/20/16 at 13:53; Stop 12/20/16 at 13:54; Status DC Fentanyl Citrate (Fentanyl 2ml Vial) 100 mcg STK-MED ONCE .ROUTE ; Start at 14:10; Stop 12/20/16 at 14:11; Status DC Midazolam HCl (Versed) 2 mg STK-MED ONCE .ROUTE ; Start 12/20/16 at 14:10; Stop 12/20/16 at 14:11; Status DC Lidocaine/Sodium Bicarbonate (Buffered Lidocaine 1%) 6 ml 1X ONCE IJ Last administered on 12/20/16 14:47; Start 12/20/16 at 14:45; Stop 12/20/16 at 14:46; Status DC Midazolam HCl (Versed) 0.5 mg 1X ONCE IV Last administered on 12/20/16 14:48; Start 12/20/16 at 14:45; Stop 12/20/16 at 14:46; Status DC Warfarin Sodium (Coumadin) 7.5 mg 1X WARF ONCE PO Last administered on 16:23; Start 12/21/16 at 16:00; Stop 12/21/16 at 16:01; Status DC Warfarin Sodium (Coumadin) 5 mg DAILY16 PO Last administered on 12/24/16 16:25 ; Start 12/21/16 at 16:00 Amoxicillin/ Clavulanate Potassium (Augmentin 875/ 125mg) 1 tab BID PO Last administered on 12/25/16 08:28; Start 12/21/16 at 21:00 Warfarin Sodium (Coumadin Per Physician) 1 each PRN DAILY PRN MC SEE COMMENTS Last administered on 12/24/16 12:36; Start 12/21/16 at 12:45 Diltiazem HCl (Cardizem 24hr Cd) 240 mg DAILYWSUP PO Last administered on 18:06; Start 12/23/16 at 17:00 Furosemide (Lasix) 40 mg DAILY06 PO Last administered on 12/25/16 06:41; Start 12/24/16 at 06:00 Isosorbide Mononitrate (Imdur) 30 mg DAILYWLUN PO Last administered on 13:42; Start 12/23/16 at 12:00 Spironolactone 25 mg 25 mg DAILY06 PO Last administered on 12/25/16 06:41; Start 12/24/16 at 06:00 Talc 5 gm/ Miscellaneous 50 ml @ 600 mls/hr 1X ONCE IPL ; Start 12/23/16 at 13 :00; Stop 12/23/16 at 13:04; Status Cancel Alteplase, Recombinant/ Sterile Water (Cathflo) 50 ml @ 100 mls/hr 1X ONCE INT CAT Last administered on 12/23/16 14:10; Start 12/23/16 at 14:00; Stop 08/01 at 14:29; Status DC Acetaminophen 650 mg 650 mg PRN Q6HRS PRN PO MILD PAIN / TEMP; Start 12/24/16 at 09:00 Alteplase, Recombinant 5 mg/ Sterile Water 50 ml @ 100 mls/hr 1X ONCE INT CAT Last administered on 12/24/16 11:17; Start 12/24/16 at 10:00; Stop 12/24/16 at 10:29; Status DC Alteplase, Recombinant/ Sterile Water (Cathflo) 50 ml @ 100 mls/hr 1X ONCE INT CAT Last administered on 12/25/16 12:49; Start 12/25/16 at 12:30; Stop 10/01 at 12:59; Status DC Active Scripts Active Reported Milk Of Magnesia (Magnesium Hydroxide) 2,400 Mg/10 Ml Oral.susp 2,400 Mg PO Metoprolol Tartrate 100 Mg Tablet 1 Tab PO BID Allopurinol 100 Mg Tablet 1 Tab PO DAILY Aspir 81 (Aspirin) 81 Mg Tablet.dr 1 Tab PO DAILY Spironolactone 25 Mg Tablet 1 Tab PO DAILY Cardizem Tablet (Diltiazem Hcl) 30 Mg Tablet 30 Mg PO DAILY Zyvox (Linezolid) 600 Mg Tablet 600 Mg PO BID Augmentin 875-125 Tablet (Amoxicillin/Potassium Clav) 1 Each Tablet Tab PO BID Vitals/I & O Vital Sign - Last 24 Hours 12/24/16 12/24/16 12/24/16 12/24/16 18:06 19:35 20:00 20:54 Temp 97.7 97.7 Pulse 94 71 74 Resp 20 B/P 107/57 107/57 Pulse Ox 96 O2 Delivery Nasal Cannula Nasal Cannula O2 Flow Rate 4.0 4.0 12/24/16 12/25/16 12/25/16 12/25/16 23:30 03:49 07:58 08:00 Temp 98.3 98.8 97.4 98.3 98.8 97.4 Pulse 69 63 72 Resp 22 26 22 B/P 98/62 109/65 126/74 Pulse Ox 93 93 94 O2 Delivery Nasal Cannula Nasal Cannula Nasal Cannula Nasal Cannula O2 Flow Rate 4.0 4.0 4.0 4.0 12/25/16 12/25/16 12/25/16 08:29 11:00 13:42 Temp 98.9 98.9 Pulse 76 63 67 Resp 20 B/P 126/74 112/63 113/59 Pulse Ox 96 O2 Delivery Nasal Cannula O2 Flow Rate 4.0 Intake and Output 12/24/16 12/24/16 12/25/16 15:00 23:00 07:00 Output Total 1125 ml 710 ml Balance -1125 ml -710 ml PRATIBHA RUIZ MD Dec 25, 2016 14:53
--- NOTE | 2016-12-25 16:38 | OP ---
DATE OF SURGERY: PROCEDURE: Giving TPA through the chest tube. Due to continued improvement in the last 2 days with TPA resulting in an increased chest tube output and improving chest x-ray, another dose of 5 mg of TPA mixed with 50 mL of sterile fluid was introduced into the right pleural space. The patient tolerated the procedure well. Chest tube will be clamped for 1 hour and then unclamp it and place it back to suction. RUKHSANA LEE MD DR: IBRAHIMA/sharon JOB#: [id number] / [id number]
[2016-12-25] MEDS: DILTIAZEM HCL 240 MG CAP.ER.24H PO SCH (18:03)
[2016-12-25] MEDS: ATORVASTATIN CALCIUM 10 MG TABLET. PO SCH (21:09)
[2016-12-26 03:42] VITALS: BP 109/65
[2016-12-26] MEDS: SPIRONOLACTONE 25 MG TABLET PO SCH (06:25)
[2016-12-26] MEDS: FUROSEMIDE 40 MG TABLET PO SCH (06:25)
[2016-12-26 07:00] VITALS: BP 134/72
--- NOTE | 2016-12-26 08:45 | PDOC ---
Infectious Disease Note Subjective Subjective "I'm feeling pretty good right now." Ate breakfast + diarrhea w/ incontinence, last night. Better so for this morning. ROS ROS GEN: Denies fevers, chills, sweats HEENT: Denies blurred vision, sore throat CV: Denies chest pain RESP: Denies shortness of air, cough GI: Denies n/v/d NEURO: Denies confusion, dizziness MSK: Denies weakness, joint pain/swelling Vital Sign Vital Signs Vital Signs Date Time Temp Pulse Resp B/P Pulse Ox O2 Delivery O2 Flow Rate FiO2 12/26/16 07:00 97.9 67 18 134/72 94 Nasal Cannula 3.0 97.9 Physical Exam PHYSICAL EXAM GENERAL: In bed, NAD HEENT: PERRL, OC/OP pink, moist LUNGS: Diminished aeration RLL. Right-sided CT in place. HEART: S1S2 ABD: Soft, NT, R-S drains x 2 intact EXT: BLE edema. 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 clean Objective Assessment Liver abscess 12/02 Kleb and Enterococcus. s/p biliary drains. Reportedly Klebsiella/Hafnia alvei/Ecoli and enterococcus 11/28 per [facility] records. CAD s/p cath Acute cholecystolithiasis. Atrial fibrillation with rapid ventricular response. Acute respiratory failure, improving. Coronary artery disease Plan Plan of Care Augmentin for at least 10 days F/u 2 weeks at [facility] or in our office [phone] MICK WILBURN MD Dec 26, 2016 08:45
[2016-12-26] MEDS: DOCUSATE SODIUM 100 MG CAPSULE PO SCH (09:00)
[2016-12-26] MEDS: AMOXICILLIN/K CLAV 875/125MG TABLET. PO SCH ×2 (09:08→20:29)
[2016-12-26] MEDS: POTASSIUM CHLORIDE 20 MEQ TABLET.ER. PO SCH (09:08)
[2016-12-26] MEDS: METOPROLOL TART IMMED RELEASE 50 MG TABLET PO SCH ×3 (09:09→21:00)
[2016-12-26] MEDS: PANTOPRAZOLE 40 MG TABLET. PO SCH (09:09)
[2016-12-26] MEDS: CLOPIDOGREL BISULFATE 75 MG TABLET PO SCH (09:10)
[2016-12-26] MEDS: ASPIRIN ENTERIC COATED 81 MG TABLET.DR. PO SCH (09:10)
[2016-12-26 11:00] VITALS: BP 114/61
--- NOTE | 2016-12-26 11:40 | PDOC ---
PROGRESS NOTES Chief Complaint Chief Complaint SOB Edema ASSESSMENT AND PLAN: 1. 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 Afib s/p RVR (new) rate controlled. 2. CHF diastolic 3. Troponin due to above 4. CAD hx: 5. GB abscess: improving. 6. Gout: no acute issues. cont allopurinol 7,.Acute hypoxic Respiratory failure resolved. 8. PE, on CT 9. Possible liver abscess 10, Possible appy 11. right pleural effusion s/p chest tube placement Plan: Possible Chest tube removal today Repeat CXR in AM abx per ID warfarin per pharmacy Out pt follow up general surgery SNU in AM History of Present Illness History of Present Illness sitting in chair eating well no acute issues no fever Vitals Vitals Vital Signs Date Time Temp Pulse Resp B/P Pulse Ox O2 Delivery O2 Flow Rate FiO2 12/26/16 11:00 97.5 73 20 114/61 94 Nasal Cannula 3.0 97.5 Physical Exam General: Alert, Oriented X3, Cooperative, No acute distress Heart: Normal S1, Normal S2, No murmurs, Other (irregular) Lungs: Crackles (bs right) Abdomen: Soft, Other Extremities: No edema Skin: No significant lesion Assessment and Plan Assessmemt and Plan Problems Medical Problems: (1) Acute respiratory failure Status: Acute (2) CAD (coronary artery disease) Status: Acute (3) CHF exacerbation Status: Acute (4) Hypoxia Status: Acute (5) Pulmonary edema Status: Acute (6) Pulmonary embolism Status: Acute (7) Volume overload Status: Acute Problems: Comment Review of Relevant I have reviewed the following items liana (where applicable) has been applied. Labs Laboratory Tests Test 12/25/16 06:00 White Blood Count 7.9x10^3/uL (4.0-11.0) Red Blood Count 3.27x10^6/uL (4.30-5.70) Hemoglobin 9.9g/dL (13.0-17.5) Hematocrit 30.5% (39.0-53.0) Mean Corpuscular Volume 93fL (79-100) Mean Corpuscular Hemoglobin 30pg (25-35) Mean Corpuscular Hemoglobin Concent 32g/dL (31-37) Red Cell Distribution Width 14.3% (11.5-14.5) Platelet Count 324x10^3/uL (140-400) Neutrophils (%) (Auto) 72% (31-73) Lymphocytes (%) (Auto) 18% (24-48) Monocytes (%) (Auto) 6% (0-9) Eosinophils (%) (Auto) 3% (0-3) Basophils (%) (Auto) 1% (0-3) Neutrophils # (Auto) 5.7x10^3uL (1.8-7.7) Lymphocytes # (Auto) 1.4x10^3/uL (1.0-4.8) Monocytes # (Auto) 0.5x10^3/uL (0.0-1.1) Eosinophils # (Auto) 0.3x10^3/uL (0.0-0.7) Basophils # (Auto) 0.1x10^3/uL (0.0-0.2) Prothrombin Time 32.3SEC (11.7-14.0) Prothromb Time International Ratio 3.4 (0.8-1.1) Sodium Level 140mmol/L (136-145) Potassium Level 4.3mmol/L (3.5-5.1) Chloride Level 103mmol/L (98-107) Carbon Dioxide Level 30mmol/L (21-32) Anion Gap 7 (6-14) Blood Urea Nitrogen 13mg/dL (8-26) Creatinine 0.8mg/dL (0.7-1.3) Estimated GFR (Cockcroft-Gault) 91.4 Glucose Level 118mg/dL (70-99) Calcium Level 9.0mg/dL (8.5-10.1) Microbiology 12/10/16 Blood Culture - Final, Complete NO GROWTH AFTER 5 DAYS 12/20/16 Anaerobic/Aerobic Culture - Preliminary, Resulted 12/20/16 Anaerobic Culture Result 1 ([facility]) - Preliminary, Resulted 12/20/16 Aerobic Culture - Final, Resulted 12/20/16 Aerobic Culture Result 1 ([facility]) - Final, Resulted 12/10/16 Urine Culture - Final, Complete 12/10/16 Urine Culture Result 1 ([facility]) - Final, Complete Medications Current Medications Piperacillin Sod/ Tazobactam Sod 1 each 1 each PRN DAILY PRN MC SEE COMMENTS; Start 12/10/16 at 07:15; Stop 12/14/16 at 11:23; Status DC Diltiazem HCl/ Dextrose (Cardizem) 125 ml @ 0 mls/hr CONT PRN IV SEE I/O RECORD Last administered on 12/13/16 00:58; Start 12/10/16 at 07:15; Stop 12/13 at 12:33; Status DC Furosemide (Lasix) 40 mg 1X ONCE IVP Last administered on 12/10/16 07:52; Start 12/10/16 at 07:15; Stop 12/10/16 at 07:18; Status DC Nitroglycerin (Nitrostat) 0.4 mg 1X ONCE SL ; Start 12/10/16 at 07:15; Stop at 07:18; Status DC Ondansetron HCl (Zofran) 4 mg PRN Q8HRS PRN IV NAUSEA/VOMITING; Start 12/10/16 at 07:30; Stop 12/11/16 at 07:29; Status DC Morphine Sulfate 2 mg 2 mg PRN Q2HR PRN IV PAIN; Start 12/10/16 at 07:30; Stop 12/11/16 at 07:29; Status DC Piperacillin Sod/ Tazobactam Sod/ Sodium Chloride (Zosyn/Iv Sodium Chloride 0.9 % 100ml) 100 ml @ 200 mls/hr 1X ONCE IV Last administered on 12/10/16 09:28 ; Start 12/10/16 at 07:45; Stop 12/10/16 at 08:14; Status DC Lisinopril (Prinivil) 10 mg DAILY PO ; Start 12/11/16 at 09:00; Stop 12/11/16 at 16:31; Status DC Labetalol HCl (Normodyne) 20 mg PRN Q2HR PRN IVP HYPERTENSION, SEE COMMENTS; Start 12/10/16 at 11:30 Aspirin (Ecotrin) 81 mg DAILYWBKFT PO Last administered on 12/26/16 09:10; Start 12/10/16 at 13:00 Furosemide 40 mg 40 mg 1X ONCE IVP Last administered on 12/10/16 14:37; Start 12/10/16 at 12:15; Stop 12/10/16 at 12:23; Status DC Piperacillin Sod/ Tazobactam Sod/ Sodium Chloride (Zosyn/Iv Sodium Chloride 0.9 % 50ml) 50 ml @ 100 mls/hr Q6HRS IV Last administered on 12/21/16 11:54; Start 12/10/16 at 13:30; Stop 12/21/16 at 12:36; Status DC Allopurinol (Zyloprim) 100 mg DAILY PO ; Start 12/11/16 at 10:00; Stop 12/11/16 at 10:13; Status DC Aspirin (Ecotrin) 81 mg DAILY PO ; Start 12/12/16 at 09:00; Status Cancel Linezolid (Zyvox) 600 mg BID PO Last administered on 12/12/16 21:34; Start at 10:00; Stop 12/13/16 at 08:51; Status DC Spironolactone (Aldactone) 25 mg DAILY PO Last administered on 12/23/16 08:55 ; Start 12/11/16 at 10:00; Stop 12/23/16 at 10:50; Status DC Metoprolol Tartrate 100 mg 100 mg BID PO Last administered on 12/13/16 09:28; Start 12/11/16 at 10:00; Stop 12/13/16 at 12:33; Status DC Heparin Sodium/ Dextrose 500 ml @ 19.6 mls/hr CONT PRN IV SEE I/O RECORD Last administered on 12/15/16 05:34; Start 12/11/16 at 14:45; Stop 12/15/16 at 10:20; Status DC Heparin Sodium (Porcine) 2,050 unit PRN Q6HRS PRN IV FOR UFH LEVEL LESS THAN 0.2 Last administered on 12/13/16 20:30; Start 12/11/16 at 14:45; Stop 12/15/16 at 10:20; Status DC Throat Lozenges (Cepacol Sore Throat Lozenge) 1 jorge a PRN Q2HRS PRN PO SORE THROAT Last administered on 12/18/16 20:21; Start 12/11/16 at 19:30 Docusate Sodium (Colace) 100 mg DAILY PO Last administered on 12/21/16 08:21; Start 12/12/16 at 10:00 Polyethylene Glycol (miraLAX PACKET) 17 gm PRN DAILY PRN PO CONSTIPATION; Start 12/12/16 at 10:00 Magnesium Hydroxide (Milk Of Magnesia) 2,400 mg PRN DAILY PRN PO CONSTIPATION; Start 12/12/16 at 10:00 Lidocaine HCl 20 ml 20 ml STK-MED ONCE .ROUTE ; Start 12/12/16 at 14:11; Stop at 14:12; Status DC Heparin Sodium/ Sodium Chloride 500 ml @ As Directed STK-MED ONCE .ROUTE ; Start 12/12/16 at 14:11; Stop 12/12/16 at 14:12; Status DC Iohexol (Omnipaque 300 Mg/ml) 100 ml STK-MED ONCE .ROUTE ; Start 12/12/16 at 14: 11; Stop 12/12/16 at 14:12; Status DC Iodixanol (Visipaque 320) 100 ml STK-MED ONCE .ROUTE ; Start 12/12/16 at 14:11; Stop 12/12/16 at 14:12; Status DC Nitroglycerin (Nitroglycerin) 200 mcg STK-MED ONCE .ROUTE ; Start 12/12/16 at 14 :16; Stop 12/12/16 at 14:17; Status DC Verapamil HCl (Verapamil) 5 mg STK-MED ONCE .ROUTE ; Start 12/12/16 at 14:16; Stop 12/12/16 at 14:17; Status DC Midazolam HCl (Versed) 2 mg STK-MED ONCE .ROUTE ; Start 12/12/16 at 14:16; Stop 12/12/16 at 14:17; Status DC Fentanyl Citrate (Fentanyl 2ml Vial) 100 mcg STK-MED ONCE .ROUTE ; Start at 14:16; Stop 12/12/16 at 14:17; Status DC Heparin Sodium (Porcine) 10,000 unit STK-MED ONCE .ROUTE ; Start 12/12/16 at 14: 16; Stop 12/12/16 at 14:17; Status DC Nitroglycerin (Nitroglycerin) 200 mcg 1X ONCE IART Last administered on t 15:04; Start 12/12/16 at 14:45; Stop 12/12/16 at 14:46; Status DC Verapamil HCl (Verapamil) 2.5 mg 1X ONCE IART Last administered on 12/12/16t 15:05; Start 12/12/16 at 14:45; Stop 12/12/16 at 14:46; Status DC Heparin Sodium (Porcine) 2,500 unit 1X ONCE IART Last administered on 15:06; Start 12/12/16 at 14:45; Stop 12/12/16 at 14:46; Status DC Heparin Sodium/ Sodium Chloride 1,000 unit 1X ONCE IART Last administered on 15:03; Start 12/12/16 at 14:45; Stop 12/12/16 at 14:46; Status DC Midazolam HCl (Versed) 2 mg 1X ONCE IV Last administered on 12/12/16 15:04; Start 12/12/16 at 14:45; Stop 12/12/16 at 14:46; Status DC Fentanyl Citrate (Fentanyl 2ml Vial) 100 mcg 1X ONCE IV Last administered on 15:04; Start 12/12/16 at 14:45; Stop 12/12/16 at 14:46; Status DC Iodixanol (Visipaque 320) 100 ml 1X ONCE IART Last administered on 12/12/16 15:05; Start 12/12/16 at 14:45; Stop 12/12/16 at 14:46; Status DC Lidocaine HCl 1 ml 1X ONCE IJ Last administered on 12/12/16 15:03; Start at 14:45; Stop 12/12/16 at 14:46; Status DC Nitroglycerin (Nitrostat) 0.4 mg PRN Q5MIN PRN SL CHEST PAIN; Start 12/12/16 at 15:30 Furosemide (Lasix) 40 mg 1X ONCE IVP Last administered on 12/12/16 16:18; Start 12/12/16 at 15:30; Stop 12/12/16 at 15:31; Status DC Metoprolol Tartrate (Lopressor) 50 mg BID PO Last administered on 12/26/16 09: 09; Start 12/13/16 at 21:00 Furosemide (Lasix) 40 mg 1X ONCE IVP Last administered on 12/13/16 15:06; Start 12/13/16 at 12:15; Stop 12/13/16 at 12:37; Status DC Furosemide (Lasix) 40 mg DAILY PO Last administered on 12/23/16 08:55; Start 12/14/16 at 09:00; Stop 12/23/16 at 10:50; Status DC Diltiazem HCl (Cardizem 24hr Cd) 120 mg DAILY PO Last administered on 12/14/16 09:00; Start 12/14/16 at 09:00; Stop 12/14/16 at 12:13; Status DC Lisinopril (Prinivil) 2.5 mg DAILY PO ; Start 12/14/16 at 09:00; Stop 12/14/16 at 09:00; Status DC Atorvastatin Calcium (Lipitor) 10 mg QHS PO Last administered on 12/25/16 21: 09; Start 12/13/16 at 21:00 Info (Anti-Coagulation Monitoring By Pharmacy) 1 each PRN DAILY PRN MC SEE COMMENTS Last administered on 12/20/16 10:32; Start 12/13/16 at 16:30; Stop 12/21 at 12:39; Status DC Diltiazem HCl (Cardizem 24hr Cd) 240 mg DAILY PO Last administered on 12/22/16 08:42; Start 12/15/16 at 09:00; Stop 12/23/16 at 10:50; Status DC Diltiazem HCl (Cardizem 24hr Cd) 120 mg 1X ONCE PO Last administered on 12:49; Start 12/14/16 at 12:15; Stop 12/14/16 at 12:20; Status DC Clopidogrel Bisulfate (Plavix) 75 mg DAILYWBKFT PO Last administered on 09:10; Start 12/14/16 at 13:00 Isosorbide Mononitrate (Imdur) 30 mg DAILY PO Last administered on 12/22/16 08: 42; Start 12/15/16 at 11:30; Stop 12/23/16 at 10:50; Status DC Iohexol (Omnipaque 240 Mg/ml) 30 ml 1X ONCE PO ; Start 12/15/16 at 11:45; Stop 12/15/16 at 11:46; Status DC Iohexol (Omnipaque 300 Mg/ml) 75 ml 1X ONCE IV ; Start 12/15/16 at 11:45; Stop 12/15/16 at 11:46; Status DC Info (Do NOT chart on this entry -- for MONITORING) 1 each PRN DAILY PRN MC SEE COMMENTS; Start 12/15/16 at 11:45; Stop 12/16/16 at 14:09; Status DC Enoxaparin Sodium (Lovenox 40mg Syringe) 40 mg Q24H SQ Last administered on 12/15 17:59; Start 12/15/16 at 18:00; Stop 12/16/16 at 09:35; Status DC Enoxaparin Sodium (Lovenox 80mg Syringe) 80 mg BID SQ Last administered on 14:15; Start 12/16/16 at 10:00; Stop 12/16/16 at 16:23; Status DC Iohexol (Omnipaque 300 Mg/ml) 50 ml STK-MED ONCE .ROUTE ; Start 12/16/16 at 10:32 ; Stop 12/16/16 at 10:33; Status DC Iohexol (Omnipaque 300 Mg/ml) 10 ml 1X ONCE IJ Last administered on 12/16/16 11:40; Start 12/16/16 at 11:45; Stop 12/16/16 at 11:46; Status DC Info (Do NOT chart on this entry -- for MONITORING) 1 each PRN DAILY PRN MC SEE COMMENTS; Start 12/16/16 at 11:45; Stop 12/18/16 at 09:56; Status DC Calcium Carbonate/ Glycine (Tums) 500 mg PRN AFTMEALHC PRN PO INDIGESTION Last administered on 12/16/16 14:14; Start 12/16/16 at 14:15 Pantoprazole Sodium (Protonix) 40 mg DAILYAC PO Last administered on 12/26/16 09:09; Start 12/16/16 at 14:30 Morphine Sulfate 1 mg PRN Q2HR PRN IV PAIN Last administered on 12/17/16 01:36 ; Start 12/16/16 at 14:15 Iohexol (Omnipaque 300 Mg/ml) 75 ml 1X ONCE IV ; Start 12/16/16 at 16:00; Stop 12/16/16 at 16:01; Status DC Info 1 each 1 each PRN DAILY PRN MC SEE COMMENTS; Start 12/16/16 at 15:30; Stop 12/18/16 at 15:29; Status DC Heparin Sodium/ Dextrose 500 ml @ 0 mls/hr CONT PRN IV SEE I/O RECORD Last administered on 12/21/16 12:04; Start 12/16/16 at 16:15; Stop 12/21/16 at 12:36; Status DC Heparin Sodium (Porcine) 2,500 unit PRN Q6HRS PRN IV FOR UFH LEVEL LESS THAN 0.2 Last administered on 12/18/16 11:46; Start 12/16/16 at 16:15; Stop 12/21/16 at 12:36; Status DC Heparin Sodium (Porcine) 1,250 unit PRN Q6HRS PRN IV FOR UFH LEVEL 0.2 - 0.29 Last administered on 12/19/16 02:27; Start 12/16/16 at 16:15; Stop 12/21/16 at 12: 36; Status DC Warfarin Sodium (Coumadin Per Pharmacy) 1 each PRN DAILY PRN MC PER PROTOCOL Last administered on 12/21/16 10:53; Start 12/16/16 at 16:15; Stop 12/21/16 at 12: 36; Status DC Morphine Sulfate 2 mg PRN Q2HR PRN IV PAIN Last administered on 12/20/16 19:19 ; Start 12/16/16 at 16:15 Warfarin Sodium (Coumadin) 6 mg 1X WARF ONCE PO Last administered on 12/16/16 18:20; Start 12/16/16 at 17:00; Stop 12/16/16 at 17:01; Status DC Warfarin Sodium (Coumadin) 5 mg 1X WARF ONCE PO Last administered on 12/17/16 16:29; Start 12/17/16 at 16:00; Stop 12/17/16 at 16:01; Status DC Warfarin Sodium (Coumadin) 6 mg 1X WARF ONCE PO Last administered on 12/18/16 17:32; Start 12/18/16 at 16:00; Stop 12/18/16 at 16:01; Status DC Warfarin Sodium (Coumadin) 6 mg 1X WARF ONCE PO ; Start 12/19/16 at 16:00; Stop 12/19/16 at 16:01; Status DC Furosemide (Lasix) 40 mg 1X ONCE IVP Last administered on 12/20/16 09:46; Start 12/20/16 at 09:30; Stop 12/20/16 at 09:31; Status DC Potassium Chloride (Klor-Con) 40 meq 1X ONCE PO ; Start 12/20/16 at 10:00; Stop 12/20/16 at 10:00; Status DC Potassium Chloride (Klor-Con) 20 meq DAILYWBKFT PO ; Start 12/21/16 at 08:00; Stop 12/21/16 at 08:00; Status DC Potassium Chloride 40 meq 40 meq DAILYWBKFT PO Last administered on 12/26/16 09:08; Start 12/21/16 at 08:00 Potassium Chloride (KCl Premix 20meq) 50 ml @ 50 mls/hr Q1H IV Last administered on 12/20/16 12:56; Start 12/20/16 at 10:00; Stop 12/20/16 at 11:59; Status DC Warfarin Sodium (Coumadin) 7.5 mg 1X WARF ONCE PO ; Start 12/20/16 at 16:00; Stop 12/20/16 at 16:01; Status DC Lidocaine/Sodium Bicarbonate (Buffered Lidocaine 1%) 20 ml STK-MED ONCE IJ ; Start 12/20/16 at 13:53; Stop 12/20/16 at 13:54; Status DC Fentanyl Citrate (Fentanyl 2ml Vial) 100 mcg STK-MED ONCE .ROUTE ; Start at 14:10; Stop 12/20/16 at 14:11; Status DC Midazolam HCl (Versed) 2 mg STK-MED ONCE .ROUTE ; Start 12/20/16 at 14:10; Stop 12/20/16 at 14:11; Status DC Lidocaine/Sodium Bicarbonate (Buffered Lidocaine 1%) 6 ml 1X ONCE IJ Last administered on 12/20/16 14:47; Start 12/20/16 at 14:45; Stop 12/20/16 at 14:46; Status DC Midazolam HCl (Versed) 0.5 mg 1X ONCE IV Last administered on 12/20/16 14:48; Start 12/20/16 at 14:45; Stop 12/20/16 at 14:46; Status DC Warfarin Sodium (Coumadin) 7.5 mg 1X WARF ONCE PO Last administered on 16:23; Start 12/21/16 at 16:00; Stop 12/21/16 at 16:01; Status DC Warfarin Sodium (Coumadin) 5 mg DAILY16 PO Last administered on 12/24/16 16:25 ; Start 12/21/16 at 16:00; Stop 12/25/16 at 14:58; Status DC Amoxicillin/ Clavulanate Potassium (Augmentin 875/ 125mg) 1 tab BID PO Last administered on 12/26/16 09:08; Start 12/21/16 at 21:00 Warfarin Sodium (Coumadin Per Physician) 1 each PRN DAILY PRN MC SEE COMMENTS Last administered on 12/25/16 14:56; Start 12/21/16 at 12:45 Diltiazem HCl (Cardizem 24hr Cd) 240 mg DAILYWSUP PO Last administered on 18:03; Start 12/23/16 at 17:00 Furosemide (Lasix) 40 mg DAILY06 PO Last administered on 12/26/16 06:25; Start 12/24/16 at 06:00 Isosorbide Mononitrate (Imdur) 30 mg DAILYWLUN PO Last administered on 13:42; Start 12/23/16 at 12:00 Spironolactone 25 mg 25 mg DAILY06 PO Last administered on 12/26/16 06:25; Start 12/24/16 at 06:00 Talc 5 gm/ Miscellaneous 50 ml @ 600 mls/hr 1X ONCE IPL ; Start 12/23/16 at 13 :00; Stop 12/23/16 at 13:04; Status Cancel Alteplase, Recombinant/ Sterile Water (Cathflo) 50 ml @ 100 mls/hr 1X ONCE INT CAT Last administered on 12/23/16 14:10; Start 12/23/16 at 14:00; Stop 08/01 at 14:29; Status DC Acetaminophen 650 mg 650 mg PRN Q6HRS PRN PO MILD PAIN / TEMP; Start 12/24/16 at 09:00 Alteplase, Recombinant 5 mg/ Sterile Water 50 ml @ 100 mls/hr 1X ONCE INT CAT Last administered on 12/24/16 11:17; Start 12/24/16 at 10:00; Stop 12/24/16 at 10:29; Status DC Alteplase, Recombinant/ Sterile Water (Cathflo) 50 ml @ 100 mls/hr 1X ONCE INT CAT Last administered on 3/12/17at 12:49; Start 12/25/16 at 12:30; Stop 10/01 at 12:59; Status DC Warfarin Sodium (Coumadin) 5 mg DAILY16 PO ; Start 12/26/16 at 16:00 Active Scripts Active Reported Milk Of Magnesia (Magnesium Hydroxide) 2,400 Mg/10 Ml Oral.susp 2,400 Mg PO Metoprolol Tartrate 100 Mg Tablet 1 Tab PO BID Allopurinol 100 Mg Tablet 1 Tab PO DAILY Aspir 81 (Aspirin) 81 Mg Tablet.dr 1 Tab PO DAILY Spironolactone 25 Mg Tablet 1 Tab PO DAILY Cardizem Tablet (Diltiazem Hcl) 30 Mg Tablet 30 Mg PO DAILY Zyvox (Linezolid) 600 Mg Tablet 600 Mg PO BID Augmentin 875-125 Tablet (Amoxicillin/Potassium Clav) 1 Each Tablet Tab PO BID Vitals/I & O Vital Sign - Last 24 Hours 12/25/16 12/25/16 12/25/16 12/25/16 13:42 14:57 17:18 18:03 Temp 97.5 97.5 Pulse 67 66 99 Resp 18 B/P 113/59 100/56 124/66 124/66 Pulse Ox 94 O2 Delivery Nasal Cannula O2 Flow Rate 4.0 12/25/16 12/25/16 12/25/16 12/25/16 19:20 20:00 21:10 23:32 Temp 97.5 97.8 97.5 97.8 Pulse 102 83 82 Resp 18 B/P 109/55 109/55 113/62 Pulse Ox 94 94 O2 Delivery Nasal Cannula Nasal Cannula Nasal Cannula O2 Flow Rate 3.0 3.0 3.0 12/26/16 12/26/16 12/26/16 12/26/16 03:42 07:00 07:50 09:09 Temp 98.0 97.9 98.0 97.9 Pulse 64 67 67 Resp 16 18 B/P 109/65 134/72 134/72 Pulse Ox 95 94 O2 Delivery Nasal Cannula Nasal Cannula Nasal Cannula O2 Flow Rate 3.0 3.0 3.0 12/26/16 11:00 Temp 97.5 97.5 Pulse 73 Resp 20 B/P 114/61 Pulse Ox 94 O2 Delivery Nasal Cannula O2 Flow Rate 3.0 Intake and Output 12/25/16 12/25/16 12/26/16 15:00 23:00 07:00 Intake Total 1475 ml Output Total 1430 ml 450 ml Balance 45 ml -450 ml BOAZ DEL TORO MD Dec 26, 2016 11:40
--- NOTE | 2016-12-26 11:56 | PDOC ---
Provider Note Provider Note No abd pain, n/v. angle po. afeb vss abd soft nd nt a/p cholecystitis, liver abscess pulm embolus no new surg recs. f/u with dr. horvath after dc. TRINI KELLEY MD Dec 26, 2016 11:56
--- NOTE | 2016-12-26 13:20 | PDOC ---
Subjective: Subjective: Feeling pretty good. No GI complaints. Objective: Vital Signs: Vital Signs Date Time Temp Pulse Resp B/P Pulse Ox O2 Delivery O2 Flow Rate FiO2 12/26/16 11:00 97.5 73 20 114/61 94 Nasal Cannula 3.0 97.5 Imaging: CXR 12/26/16 PENDING PE: GEN: NAD, on commode NEURO/PSYCH: A & O 3 A/P: Abnormal CT A/P -mural thickening along the base of the cecum (?neoplasm vs appendicitis) -no previous colonoscopy Liver abscesses w/ drains -normal LFTs Right pleural effusion s/p chest tube 12/20 -- Await CT removal, DC. No new GI recs - pt still not interested in colonoscopy. Follow-up PRN if desires later on. GISSELL FUENTES Dec 26, 2016 13:20
[2016-12-26] MEDS: ISOSORBIDE MONONITRATE ER 30 MG TAB.ER.24H PO SCH (13:21)
--- NOTE | 2016-12-26 14:13 | RAD ---
Portable chest, 12/26/2016: History: Follow-up effusion Comparison is made to studies dating back to 12/21/2016. A right PICC extends into the superior vena cava. A pigtail pleural drain remains in place on the right. Inferolateral pleural thickening on the right op has slowly improved over the last 5 days. There is moderate residual right basilar atelectasis/infiltrate. There is no evidence of pneumothorax. Minimal linear atelectasis is present in the left lower chest. IMPRESSION: Slowly resolving right pleural effusion with moderate residual right basilar atelectasis/infiltrate.
[2016-12-26 15:00] VITALS: BP 109/58
[2016-12-26] MEDS: WARFARIN 5 MG TABLET. PO SCH (16:05)
--- NOTE | 2016-12-26 17:34 | PDOC ---
PULMONARY PROGRESS NOTES Subjective s/p right chest tube TPA given 12/23, 12/24 Vitals Vital Signs Date Time Temp Pulse Resp B/P Pulse Ox O2 Delivery O2 Flow Rate FiO2 12/26/16 15:00 97.9 80 20 109/58 95 Nasal Cannula 3.0 97.9 General: Alert, No acute distress Lungs: Clear Cardiovascular: S1 Abdomen: Soft Neuro Exam: Alert Extremities: Other (2+edema) Skin: Warm Labs Laboratory Tests Test 12/25/16 06:00 White Blood Count 7.9x10^3/uL (4.0-11.0) Red Blood Count 3.27x10^6/uL (4.30-5.70) Hemoglobin 9.9g/dL (13.0-17.5) Hematocrit 30.5% (39.0-53.0) Mean Corpuscular Volume 93fL (79-100) Mean Corpuscular Hemoglobin 30pg (25-35) Mean Corpuscular Hemoglobin Concent 32g/dL (31-37) Red Cell Distribution Width 14.3% (11.5-14.5) Platelet Count 324x10^3/uL (140-400) Neutrophils (%) (Auto) 72% (31-73) Lymphocytes (%) (Auto) 18% (24-48) Monocytes (%) (Auto) 6% (0-9) Eosinophils (%) (Auto) 3% (0-3) Basophils (%) (Auto) 1% (0-3) Neutrophils # (Auto) 5.7x10^3uL (1.8-7.7) Lymphocytes # (Auto) 1.4x10^3/uL (1.0-4.8) Monocytes # (Auto) 0.5x10^3/uL (0.0-1.1) Eosinophils # (Auto) 0.3x10^3/uL (0.0-0.7) Basophils # (Auto) 0.1x10^3/uL (0.0-0.2) Prothrombin Time 32.3SEC (11.7-14.0) Prothromb Time International Ratio 3.4 (0.8-1.1) Sodium Level 140mmol/L (136-145) Potassium Level 4.3mmol/L (3.5-5.1) Chloride Level 103mmol/L (98-107) Carbon Dioxide Level 30mmol/L (21-32) Anion Gap 7 (6-14) Blood Urea Nitrogen 13mg/dL (8-26) Creatinine 0.8mg/dL (0.7-1.3) Estimated GFR (Cockcroft-Gault) 91.4 Glucose Level 118mg/dL (70-99) Calcium Level 9.0mg/dL (8.5-10.1) Medications Active Scripts Medications Dose Route/Sig Days Date Category Milk Of Magnesia (Magnesium Hydroxide) 2,400 Mg/10 Ml Oral.susp 2,400 Mg PO 12/10/16 Reported Metoprolol Tartrate 100 Mg Tablet 1 Tab PO BID 12/10/16 Reported Allopurinol 100 Mg Tablet 1 Tab PO DAILY 12/10/16 Reported Aspir 81 (Aspirin) 81 Mg Tablet.dr 1 Tab PO DAILY 12/10/16 Reported Spironolactone 25 Mg Tablet 1 Tab PO DAILY 12/10/16 Reported Cardizem Tablet (Diltiazem Hcl) 30 Mg Tablet 30 Mg PO DAILY 12/10/16 Reported Zyvox (Linezolid) 600 Mg Tablet 600 Mg PO BID 12/10/16 Reported Augmentin 875-125 Tablet (Amoxicillin/Potassium Clav) 1 Each Tablet Tab PO BID 12/10/16 Reported Comments CXR 12/25, improving RLL effusion Impression . 1. Acute hypoxic respiratory failure secondary to development of acute congestive heart failure, diastolic heart failure triggered by atrial fibrillation with rapid ventricular response. 2. Atrial fibrillation with rapid ventricular response, triggering congestive heart failure.POA 3. Recent dilated gallbladder with liver abscess, status post percutaneous cholecystostomy placement. Followup CT chest showed persistent abscess in the liver and status post second drain. Replaced drains 12/16/16 4. No significant history of tobacco use. 5. PE CONFIRMED WITH CTA 6. Severe 3 vessel CAD 7. New partially loculated right pleural effusion, ? hepatic abscess extension into pleural space. s/p right chest tube, 8. s/p TPA right chest tube , 500 cc came out 12/24 and 450 cc 12/25. CXR improving. will repeat another dose today and remove chest tube in am Plan . d/c tube today Nasal canula repeat ct chest with partially loculated right effusion, suspect hepatic abscess extension right thoracentesis .s/p chest tube 3/7. follow cultures negative Not the best candidate for VAT/ d/w patient . responding to TPA via chest tube.s /p TPA right chest tube , 500 cc came out 12/24 and 450 cc 12/25. CXR improving coumadin for PE will need 3-6 months of AC s/p abdominal drains / antibx per ID follow surgery input Insurance denied LTAC transfer DNR/DNI YARIEL SMITH MD Dec 26, 2016 17:34
[2016-12-26] MEDS: DILTIAZEM HCL 240 MG CAP.ER.24H PO SCH (17:55)
[2016-12-26] MEDS ORDERED: CLOP75TA PO (19:07)
[2016-12-26] MEDS ORDERED: LISI-338 PO (19:07)
[2016-12-26] MEDS ORDERED: AMLO5TAB4 PO (19:07)
[2016-12-26 19:28] VITALS: BP 115/61
[2016-12-26] MEDS ORDERED: MAGNESIUM SULFATE 2GM 50 ML IV ONE (19:30)
[2016-12-26] MEDS: ATORVASTATIN CALCIUM 10 MG TABLET. PO SCH (20:29)
[2016-12-26] MEDS: MORPHINE SULFATE 2 MG/ML DISP.SYRIN. IV PRN (20:30)
[2016-12-26 23:26] VITALS: BP 128/66
[2016-12-27 03:24] VITALS: BP 105/57
[2016-12-27] MEDS: FUROSEMIDE 40 MG TABLET PO SCH (05:55)
[2016-12-27] MEDS: SPIRONOLACTONE 25 MG TABLET PO SCH (05:55)
[2016-12-27 06:15] LABS: PROTHROMBIN TIME PATIENT 29.4 SEC (11.7-14.0)
[2016-12-27 07:00] VITALS: BP 123/48
--- NOTE | 2016-12-27 08:07 | PDOC ---
Infectious Disease Note Subjective Subjective "I'm feeling pretty good right now." Ate breakfast + diarrhea w/ incontinence, last night. Better so for this morning. ROS ROS GEN: Denies fevers, chills, sweats HEENT: Denies blurred vision, sore throat CV: Denies chest pain RESP: Denies shortness of air, cough GI: Denies n/v/d NEURO: Denies confusion, dizziness MSK: Denies weakness, joint pain/swelling Vital Sign Vital Signs Vital Signs Date Time Temp Pulse Resp B/P Pulse Ox O2 Delivery O2 Flow Rate FiO2 12/27/16 03:24 98.0 67 16 105/57 100 Nasal Cannula 4.0 98.0 Physical Exam PHYSICAL EXAM GENERAL: NAD, Alert, in chair HEENT: PERRL, OC/OP -dry NECK: Supple, no JVD, no LN LUNGS: Clear. CT out HEART: S1S2, no gallop, no murmur ABD: Soft, NT, no organomegaly, no rebound. Drain in place EXT: No edema, no cyanosis BOOK STORE ASSOCIATE: Alert, oriented x 3, no focal neurologic deficit SKIN: No rash IV: PICC - clean Labs Lab Laboratory Tests Test 12/26/16 13:00 12/26/16 18:20 12/27/16 05:45 Clostridium difficile Toxin (PCR) Positive (Negative) Magnesium Level 1.8mg/dL (1.8-2.4) Prothrombin Time 29.4SEC (11.7-14.0) Prothromb Time International Ratio 3.0 (0.8-1.1) Objective Assessment C-diff Liver abscess 12/02 Kleb and Enterococcus. s/p biliary drains. Reportedly Klebsiella/Hafnia alvei/Ecoli and enterococcus 11/28 per [facility] records. CAD s/p cath Acute cholecystolithiasis. Atrial fibrillation with rapid ventricular response. Acute respiratory failure, improving. Coronary artery disease Plan Plan of Care Augmentin for 7 more days Po Vanc QID for 2 weeks then TID for a week and then BID for 4 weeks F/u 2 weeks at [facility] or in our office [phone] MICK WILBURN MD Dec 27, 2016 08:07
[2016-12-27] MEDS: DOCUSATE SODIUM 100 MG CAPSULE PO SCH (09:00)
[2016-12-27] MEDS: ASPIRIN ENTERIC COATED 81 MG TABLET.DR. PO SCH (09:07)
[2016-12-27] MEDS: AMOXICILLIN/K CLAV 875/125MG TABLET. PO SCH (09:07)
[2016-12-27] MEDS: POTASSIUM CHLORIDE 20 MEQ TABLET.ER. PO SCH (09:08)
[2016-12-27] MEDS: CLOPIDOGREL BISULFATE 75 MG TABLET PO SCH (09:08)
[2016-12-27] MEDS: PANTOPRAZOLE 40 MG TABLET. PO SCH (09:08)
[2016-12-27] MEDS: VANCOMYCIN 125 MG/2.5 ML ORAL SOLUTION. PO SCH ×2 (09:09→14:14)
[2016-12-27] MEDS: METOPROLOL TART IMMED RELEASE 50 MG TABLET PO SCH ×2 (09:09→14:00)
[2016-12-27 11:40] VITALS: BP 107/63
--- NOTE | 2016-12-27 13:29 | PDOC ---
SURGICAL PROGRESS NOTE Subjective no complaints possible dc to rehab today Vital Signs Vital Signs Date Time Temp Pulse Resp B/P Pulse Ox O2 Delivery O2 Flow Rate FiO2 12/27/16 11:40 97.4 83 19 107/63 97 Nasal Cannula 4.0 97.4 I&O Intake and Output 12/27/16 07:00 Intake Total 700 ml Output Total 1075 ml Balance -375 ml Intake Oral 700 ml Output Urine Total 1075 ml # Bowel Movements 3 General: Alert, Oriented X3, Cooperative, No acute distress Abdomen: Soft, Other (drains in place) Labs Laboratory Tests Test 12/26/16 13:00 12/26/16 18:20 12/27/16 05:45 Clostridium difficile Toxin (PCR) Positive (Negative) Magnesium Level 1.8mg/dL (1.8-2.4) Prothrombin Time 29.4SEC (11.7-14.0) Prothromb Time International Ratio 3.0 (0.8-1.1) Laboratory Tests Test 12/26/16 18:20 12/27/16 05:45 Magnesium Level 1.8mg/dL (1.8-2.4) Prothrombin Time 29.4SEC (11.7-14.0) Prothromb Time International Ratio 3.0 (0.8-1.1) Problem List Problems Medical Problems: (1) Acute respiratory failure Status: Acute (2) CAD (coronary artery disease) Status: Acute (3) CHF exacerbation Status: Acute (4) Hypoxia Status: Acute (5) Pulmonary edema Status: Acute (6) Pulmonary embolism Status: Acute (7) Volume overload Status: Acute Assessment/Plan drains in place at DC FU in clinic with Dr Parks Problems: ELBA PARKER APRN Dec 27, 2016 13:29
[2016-12-27] MEDS: ISOSORBIDE MONONITRATE ER 30 MG TAB.ER.24H PO SCH (14:14)
--- NOTE | 2016-12-27 14:35 | PDOC ---
Subjective: Subjective: Denies diarrhea, but admits to frequent stools. Objective: Vital Signs: Vital Signs Date Time Temp Pulse Resp B/P Pulse Ox O2 Delivery O2 Flow Rate FiO2 12/27/16 14:14 67 113/57 12/27/16 11:40 97.4 19 97 Nasal Cannula 4.0 97.4 Labs: Laboratory Tests Test 12/26/16 18:20 12/27/16 05:45 Magnesium Level 1.8mg/dL Prothrombin Time 29.4SEC Prothromb Time International Ratio 3.0 PE: GEN: NAD, up to chair talking on phone ABD: S/ND/NT NEURO/PSYCH: A & O 3 A/P: Abnormal CT A/P -mural thickening along the base of the cecum (?neoplasm vs appendicitis) -no previous colonoscopy Liver abscesses w/ drains Right pleural effusion s/p chest tube 12/20, TPA C Diff -on oral vanco -- Plans to DC to [facility] this afternoon. GISSELL FUENTES Dec 27, 2016 14:35
[2016-12-27 14:36] VITALS: BP 113/57
[2016-12-27] MEDS: WARFARIN 5 MG TABLET. PO SCH (15:51)
== END 2016-12-27 16:45 | DRG 280 ==
LOC: ER 07:28 → ED HOLD 08:01 → CVICU 11:00
PROVIDERS: ADMIT Internal Medicine; ATTEND Internal Medicine
PROC: 5A09357 Assistance with Respiratory Ventilation, Less than 24 Consecutive Hours, Continuous Positive Airway Pressure (ICD-10-PCS; principal; 2016-12-10)
PROC: 02HV33Z Insertion of Infusion Device into Superior Vena Cava, Percutaneous Approach (ICD-10-PCS; 2016-12-10)
PROC: B5181ZA Fluoroscopy of Superior Vena Cava using Low Osmolar Contrast, Guidance (ICD-10-PCS; 2016-12-10)
PROC: 4A023N7 Measurement of Cardiac Sampling and Pressure, Left Heart, Percutaneous Approach (ICD-10-PCS; 2016-12-12)
PROC: B2111ZZ Fluoroscopy of Multiple Coronary Arteries using Low Osmolar Contrast (ICD-10-PCS; 2016-12-12)
PROC: B2151ZZ Fluoroscopy of Left Heart using Low Osmolar Contrast (ICD-10-PCS; 2016-12-12)
PROC: 0F9430Z Drainage of Gallbladder with Drainage Device, Percutaneous Approach (ICD-10-PCS; 2016-12-16)
PROC: 0W9930Z Drainage of Right Pleural Cavity with Drainage Device, Percutaneous Approach (ICD-10-PCS; 2016-12-21)
PROC: 3E08317 Introduction of Other Thrombolytic into Heart, Percutaneous Approach (ICD-10-PCS; 2016-12-23)
DX: I21.4 Non-ST elevation (NSTEMI) myocardial infarction (principal); K75.0 Abscess of liver; J96.00 Acute respiratory failure, unspecified whether with hypoxia or hypercapnia; I50.33 Acute on chronic diastolic (congestive) heart failure; I26.99 Other pulmonary embolism without acute cor pulmonale; J18.9 Pneumonia, unspecified organism; J96.01 Acute respiratory failure with hypoxia; J44.0 Chronic obstructive pulmonary disease with (acute) lower respiratory infection; I48.1 Persistent atrial fibrillation; J98.11 Atelectasis; K57.32 Diverticulitis of large intestine without perforation or abscess without bleeding; K80.00 Calculus of gallbladder with acute cholecystitis without obstruction; K80.20 Calculus of gallbladder without cholecystitis without obstruction; E11.9 Type 2 diabetes mellitus without complications; I11.0 Hypertensive heart disease with heart failure; M19.90 Unspecified osteoarthritis, unspecified site; Z66 Do not resuscitate; I25.10 Atherosclerotic heart disease of native coronary artery without angina pectoris; I27.2 Other secondary pulmonary hypertension; K63.9 Disease of intestine, unspecified; M10.9 Gout, unspecified; N40.0 Benign prostatic hyperplasia without lower urinary tract symptoms; Z51.5 Encounter for palliative care; Z82.49 Family history of ischemic heart disease and other diseases of the circulatory system; Z86.73 Personal history of transient ischemic attack (TIA), and cerebral infarction without residual deficits; Z87.891 Personal history of nicotine dependence; Z98.61 Coronary angioplasty status; Z88.8 Allergy status to other drugs, medicaments and biological substances; Z79.899 Other long term (current) drug therapy; Z79.82 Long term (current) use of aspirin
CPT/HCPCS: 32557; 36415; 36600; 47531; 49424; 71010; 71250; 71275; 74150; 74177; 76080; 80048; 80061; 80076; 81001; 82805; 83605; 83615; 83690; 83735; 83880; 83986; 84157; 84443; 84484; 85027; 85520; 85610; 87040; 87071; 87075; 87086; 87205; 87324; 87641; 88112; 88305; 93005; 93306; 93458; 93970; 94660; 96365; 96375; A4215; C1729; C1769; C1892; J1650; J1940; J2250; J2270; J2543; J2997; J3010; J3480; J3490; J7060; Q9967; 97110; 97116; 97530; 97535; 99285-25

== ENCOUNTER 2017-01-20 18:03 | Emergency (ER) | payer OTHER ==
[~2017-01-20 18:03] MED LIST: ALLO100T PO; AMLO5TAB4 PO; AMOX1TAB61 PO; ASPI-482 PO; CLOP75TA PO; DILT30TA26 PO; LINE600T PO; LISI-338 PO; MAGN2400 PO; METO100T2 PO; SPIR25TA3 PO
[2017-01-20 18:11] VITALS: BP 129/66
--- NOTE | 2017-01-20 19:09 | PHYS DOC ---
Past Medical History Past Medical History: A-Fib, COPD, Hypertension, AR, TIA Additional Past Medical Histor: liver abscess, pulmonary embolis Past Surgical History: Angioplasty Additional Past Surgical Histo: Multiple drains in abdomen placed Alcohol Use: None Drug Use: None Adult General Chief Complaint Chief Complaint: POST-OP PROBLEM HPI HPI 79-year-old female with a past medical history of hepatic abscess status post drain placement being currently followed by Dr. Parks presenting to the emergency department today with leaking from his surgical drain site. He denies any abdominal pain. Reportedly he has a scheduled appointment next Monday with Dr. Parks. Onset 24 hours. Location generalized. Duration intermittent. No alleviating factors present. The patient reports "feeling great". Review of systems is negative for chest pain shortness breath abdominal pain nausea vomiting fevers chills. All other review of systems is negative unless otherwise noted in history of present illness. Review of Systems Review of Systems SEE ABOVE. Allergies Allergies Allergies Coded Allergies Type Severity Reaction Last Updated Verified enalapril Allergy Severe ANGIOEDEMA 12/13/16 Yes Physical Exam Physical Exam Constitutional: Well developed, well nourished, no acute distress, non-toxic appearance. [] HENT: Normocephalic, atraumatic, bilateral external ears normal, oropharynx moist, no oral exudates, nose normal. Eyes: PERRLA, EOMI, conjunctiva normal, no discharge. Neck: Normal range of motion, no tenderness, supple, no stridor. Cardiovascular:Heart rate regular rhythm, no murmur [] Lungs & Thorax: Bilateral breath sounds clear to auscultation [] Abdomen: Soft nontender abdomen without rebound tenderness or guarding present. Negative McBurneys point. Negative Montes sign. No ecchymosis present. The patient has a drain coming out of the right upper quadrant. No erythema of the surrounding tissue. Skin: Warm, dry, no erythema, no rash. Back: No tenderness, no CVA tenderness. [] Extremities: No tenderness, no cyanosis, no clubbing, ROM intact, no edema. [] Neurologic: Alert and oriented X 3, normal motor function, normal sensory function, no focal deficits noted. Psychologic: Affect normal, judgement normal, mood normal. [] Current Patient Data Vital Signs Vital Signs Date Time Temp Pulse Resp B/P Pulse Ox O2 Delivery O2 Flow Rate FiO2 01/20/17 18:11 96.4 125 18 129/66 95 Room Air 96.4 EKG EKG [] Radiology/Procedures Radiology/Procedures [] Course & Med Decision Making Course & Med Decision Making Pertinent Labs and Imaging studies reviewed. (See chart for details) [] 79-year-old female who presented to the emergency department after having leaking from one of his hepatic abscess drains. Fortunately the opening in the patient's drain/crack in the patient's drain was able to be replaced without any difficulty and the patient was subsequently discharged home to follow up with Dr. Parks over the next 4-5 days. Dragon Disclaimer Dragon Disclaimer This electronic medical record was generated, in whole or in part, using a voice recognition dictation system. Departure Departure Impression: Primary Impression: PAULETTE drain, broken Disposition: 01 HOME, SELF-CARE Condition: STABLE Referrals: DONNA ANGELES (PCP) JANEL PARKS MD Patient Instructions: [facility] Additional Instructions: Thank you for allowing us to participate in your care today. Followup with dr. Parks in 4-5 days. If you do not have a primary care provider you can ask for a list of our primary care providers. Return to the emergency department you have any new or concerning findings. This should be evaluated by the primary care physician and any necessary consulting services for continued management within a few days after discharge. Return to emergency room if you have any new or concerning symptoms including but not limited to fever, chills, nausea, vomiting, intractable pain, any new rashes, chest pain, shortness of air, uncontrolled bleeding, difficulty breathing, and/or vision loss. Problem Qualifiers Primary Impression: PAULETTE drain, broken Encounter type: initial encounter Qualified Code: T85.698A - Other mechanical complication of other specified internal prosthetic devices, implants and grafts, initial encounter MONI MELO MD Jan 20, 2017 19:09
== END 2017-01-20 19:41 | disposition home or self-care (01) ==
LOC: ER 18:03
DX: T85.618A Breakdown (mechanical) of other specified internal prosthetic devices, implants and grafts, initial encounter (principal); I48.91 Unspecified atrial fibrillation; J44.9 Chronic obstructive pulmonary disease, unspecified; I10 Essential (primary) hypertension; I25.2 Old myocardial infarction; Z86.73 Personal history of transient ischemic attack (TIA), and cerebral infarction without residual deficits; Z95.1 Presence of aortocoronary bypass graft; Z86.711 Personal history of pulmonary embolism; Z88.8 Allergy status to other drugs, medicaments and biological substances; Y83.8 Other surgical procedures as the cause of abnormal reaction of the patient, or of later complication, without mention of misadventure at the time of the procedure; Y92.89 Other specified places as the place of occurrence of the external cause
CPT/HCPCS: 99284

== ENCOUNTER 2017-02-09 09:57 | Outpatient (CLI) | payer OTHER ==
[~2017-02-09] VITALS: Ht 177.8 cm; Wt 73.9 kg
[2017-02-09 10:45] VITALS: BP 141/70
[2017-02-09] MEDS ORDERED: IOHEXOL 300 MG/ML 50 ML VIAL. ONE (10:45)
[2017-02-09 10:58] LABS: INR 1.4 (0.8-1.1)
[2017-02-09] MEDS ORDERED: coumadin PO (11:08)
[2017-02-09] MEDS ORDERED: CONTRAST GIVEN MC PRN (11:30)
[2017-02-09] MEDS ORDERED: IOHEXOL 300 MG/ML 50 ML VIAL. INT CAT ONE (11:30)
[2017-02-09] MEDS ORDERED: LIDOCAINE 1% / SOD BICARB 8.4% 20 ML VIAL. IJ ONE ×2 (11:36→11:45)
[2017-02-09 12:05] VITALS: BP 140/72
--- NOTE | 2017-02-09 12:25 | PDOC1 ---
History and Physical Date of Procedure Date of Admission 02/09/17 Procedure Procedure Liver abscess drain injection/check, with possible removal. GB drain injection/check, with possible removal. Indication Indication 87 YO male with indwelling liver abscess drain and with indwelling cholecystostomy drain---evaluate for possible removal or exchange. Past Medical History Past Medical History See Nursing Pre procedure PMH Past Surgical History Past Surgical History See Nursing Pre Procedure PSH. Current Medications Current Medications Current Medications Iohexol (Omnipaque 300 Mg/ml) 50 ml STK-MED ONCE .ROUTE ; Start 02/09/17 at 10: 45; Stop 02/09/17 at 10:46; Status DC Iohexol (Omnipaque 300 Mg/ml) 50 ml 1X ONCE INT CAT Last administered on 11:34; Start 02/09/17 at 11:30; Stop 02/09/17 at 11:31; Status DC Info (Do NOT chart on this entry -- for MONITORING) 1 each PRN DAILY PRN MC SEE COMMENTS; Start 02/09/17 at 11:30; Stop 02/11/17 at 11:29 Lidocaine/Sodium Bicarbonate (Buffered Lidocaine 1%) 20 ml STK-MED ONCE IJ ; Start 02/09/17 at 11:36; Stop 02/09/17 at 11:37; Status DC Lidocaine/Sodium Bicarbonate (Buffered Lidocaine 1%) 20 ml 1X ONCE IJ Last administered on 02/09/17 11:48; Start 02/09/17 at 11:45; Stop 02/09/17 at 11:46 ; Status DC Active Scripts Active Reported [coumadin] Mg PO DAILY Clopidogrel (Clopidogrel Bisulfate) 75 Mg Tablet 1 Tab PO DAILY Lisinopril 5 Mg Tablet 1 Tab PO DAILY Norvasc (Amlodipine Besylate) 5 Mg Tablet 1 Tab PO DAILY Metoprolol Tartrate 100 Mg Tablet 1 Tab PO BID Allopurinol 100 Mg Tablet 1 Tab PO DAILY Aspir 81 (Aspirin) 81 Mg Tablet.dr 1 Tab PO DAILY Spironolactone 25 Mg Tablet 1 Tab PO DAILY Cardizem Tablet (Diltiazem Hcl) 30 Mg Tablet 30 Mg PO DAILY Allergies Allergies: Coded Allergies: enalapril (Verified Allergy, Severe, ANGIOEDEMA, 12/13/16) Physical Exam Vital Signs Vital Signs Date Time Temp Pulse Resp B/P Pulse Ox O2 Delivery O2 Flow Rate FiO2 02/09/17 10:45 98.1 78 16 141/70 93 Room Air 98.1 Lungs: Clear to auscultation Heart: Regular rate Psych/Mental Status: Mental status NL Other 12F liver abscess drain to PAULETTE suction---no drainage in bulb 8.5F GB drain to gravity drainage---whitish cloudy drainage in bag Assessment Assessment Liver abscess, with indwelling 12F abscess drain to bulb suction---no drainage in bulb. Cholecystitis, with indwelling 8.5F GB drain to gravity drainage---possibly purulent drainage in bag. Problems: Plan Plan Hepatic abscess drain injection/check, with possible removal or exchange. GB drain injection/check, with STAT Gram stain, followed by possible removal or exchange. DARYN BODY MD Feb 09, 2017 12:25
--- NOTE | 2017-02-09 12:37 | PDOC ---
Exam Braided Rug Maker Braided Rug Maker Kimmie Flue Tile Press Operator Flue Tile Press Operator Osiris Fuentes Pre-Procedure Diagnosis Pre-Procedure Diagnosis Liver abscess, with indwelling 12F drainage catheter to bulb suction---no output in bulb. Cholecystitis, with indwelling 8.5F GB drain to gravity drainage---? purulent output in bag. Post-Procedure Diagnosis Post-Procedure Diagnosis No residual liver abscess cavity. Contracted GB, with cholelithiasis, with patent cystic duct and CBD, and with WBCs and GNRs per Gram stain from GB aspirate. Procedure Performed Procedure Performed Liver abscess drain check, followed by removal. GB drain check, followed by exchange, due to + STAT Gram stain. Type of Anesthesia Type of Anesthesia Local only Estimated Blood Loss EBL: None Specimens Specimans 12F hepatic abscess drain removed and discarded. Sample of GB aspirate to micro for STAT Gram stain. 8.5F GB drain removed (exchanged for larger drain) and discarded. Drain/Tubes Drains/Tubes New 10F locking pigtail GB drain---to gravity drainage. Condition of Patient Condition of Patient Stable. No apparent complication. Disposition Disposition Discharge with son from [facility], if no problems. New GB drain to gravity drainage. F/u with Dr Parks. Full report to follow. OK to resume PO Coumadin. DARYN BOYD MD Feb 09, 2017 12:37
--- NOTE | 2017-02-09 16:37 | RAD ---
Liver abscess drain check/injection, with drain removal Gallbladder drain check/injection, with the drain replacement Indication: 87-year-old male with an indwelling 12 [place] hepatic abscess drain, and with an indwelling 8.5 [place] gallbladder drainage catheter. Liver abscess drain check, with possible removal, has been requested. Gallbladder drain check, with possible removal, has also been requested. Anesthesia: Local only Fluoroscopy time: 5.5 minutes Kerma-area product: 24 Gycm2 Contrast material: 5 cc Omnipaque 300 Procedure: Informed consent was obtained from the patient. He was placed supine on the angiography table. Right upper quadrant was prepped and draped in the usual sterile fashion. No moderate sedation was utilized. Liver drain check with removal: Preliminary evaluation revealed no drain output within the PAULETTE bulb attached to the indwelling 12 [place] liver abscess drain. No saline could be easily injected through the drainage catheter, suggesting catheter occlusion. In order to evaluate for residual abscess cavity, the indwelling occluded 12 [place] liver abscess drain was exchanged over an Amplatz wire for a 10 [place] drainage catheter. A small volume of Omnipaque 300 was slowly injected through the 10 [place] drain. No significant residual liver abscess cavity was opacified. Therefore, the 10 [place] drain was removed and a sterile dressing was applied. Gallbladder drain check with drainage catheter exchange: Preliminary evaluation revealed possibly purulent material within the drainage bag attached to the gallbladder drain. Therefore, using aseptic technique, a small amount of complex fluid was aspirated through the 8.5 [place] gallbladder drain. This material was submitted to microbiology for stat Gram stain, which revealed the presence of WBCs and gram-negative rods. Therefore, gallbladder drain removal was considered contraindicated. Under fluoroscopic control, a small volume of Omnipaque 300 was slowly injected through the indwelling gallbladder drain. Multiple fluoroscopic spot images were obtained. Those images revealed contracted gallbladder, 2 large gallbladder calculi, patent cystic duct, and patent common bile duct and ampulla. Since the indwelling gallbladder drain had been in place multiple weeks, catheter exchange was considered indicated. Using aseptic technique, local anesthesia, and fluoroscopic guidance, the indwelling 8.5 [place] gallbladder drain was then exchanged over an Amplatz wire for a larger 10 [place] drainage catheter. Tip of the new 10 [place] drain was coiled within the gallbladder fundus. This was documented with contrast injection and fluoroscopic spot image. This new drain was then secured at the skin exit site utilizing suture and sterile dressing and was connected to gravity drainage. Patient tolerated the procedures well without apparent complication. Impression: 1. No significant residual liver abscess cavity was demonstrated, therefore, catheter liver drainage was discontinued. 2. Gallbladder drain injection revealed contracted gallbladder, 2 large gallbladder calculi, patent cystic duct, and patent common bile duct and ampulla. 3. Gram stain from material aspirated from the gallbladder was positive for wbc's and gram-negative rods. Therefore, gallbladder drain removal was considered contraindicated. Since the indwelling gallbladder drain had been in place multiple weeks, routine drain exchange was considered indicated and was successfully and uneventfully performed, as described.
== END 2017-02-09 12:20 | disposition home or self-care (01) ==
LOC: INTRAD 09:57
PROVIDERS: ATTEND Surgery
DX: K75.0 Abscess of liver (principal); I48.91 Unspecified atrial fibrillation; I10 Essential (primary) hypertension; J44.9 Chronic obstructive pulmonary disease, unspecified; I25.10 Atherosclerotic heart disease of native coronary artery without angina pectoris
CPT/HCPCS: 36415; 47536; 49424; 85610; 87071; 87075; 87186; 87205; A4215; C1729; Q9967

== ENCOUNTER 2017-05-15 08:12 | Outpatient (CLI) | payer OTHER ==
[~2017-05-15] VITALS: Ht 177.8 cm; Wt 74.8 kg
[~2017-05-15 08:12] MED LIST changes: +coumadin PO
[2017-05-15 09:03] LABS: BASO % 1 % (0-3); EOS % 3 % (0-3); HEMOGLOBIN 12.6 g/dL (13.0-17.5); LYMPH # 1.9 x10^3/uL (1.0-4.8); LYMPH % 36 % (24-48); MEAN CORPUSCULAR HEMOGLOBIN 29 pg (25-35); MEAN CORPUSCULAR HGB CONC 32 g/dL (31-37); MEAN CORPUSCULAR VOLUME 89 fL (79-100); MONO % 6 % (0-9); NEUT % 55 % (31-73); PLATELET COUNT 148 x10^3/uL (140-400); RED BLOOD COUNT 4.37 x10^6/uL (4.30-5.70); RED CELL DISTRIBUTION WIDTH 15.3 % (11.5-14.5); WHITE BLOOD COUNT 5.3 x10^3/uL (4.0-11.0)
[2017-05-15] MEDS ORDERED: POTA20TA82 PO (09:05)
[2017-05-15] MEDS ORDERED: FURO40TA4 PO (09:05)
[2017-05-15] MEDS ORDERED: WARF5TAB7 PO (09:05)
[2017-05-15] MEDS ORDERED: MIRT15TA PO (09:05)
[2017-05-15] MEDS ORDERED: ISOS30TA19 PO (09:05)
[2017-05-15] MEDS ORDERED: ATOR10TA60 PO (09:05)
[2017-05-15] MEDS ORDERED: PANT40TA3 PO (09:05)
[2017-05-15] MEDS ORDERED: METO50TA2 PO (09:05)
[2017-05-15 09:09] VITALS: BP 174/93
[2017-05-15 09:11] LABS: INR 1.6 (0.8-1.1); PROTHROMBIN TIME PATIENT 17.7 SEC (11.7-14.0)
[2017-05-15] MEDS ORDERED: IOHEXOL 300 MG/ML 50 ML VIAL. ONE (09:31)
[2017-05-15] MEDS ORDERED: HEPARIN for ARTERIAL LINE 0 ML ONE (09:32)
[2017-05-15] MEDS ORDERED: LIDOCAINE 1% / SOD BICARB 8.4% 20 ML VIAL. IJ ONE ×2 (09:32→09:45)
[2017-05-15] MEDS ORDERED: IOHEXOL 300 MG/ML 50 ML VIAL. IJ ONE (09:45)
--- NOTE | 2017-05-15 12:04 | RAD ---
Contrast injection, pre-existing cholecystostomy tube. Exchange of pre-existing tube over wire. Indication: 87-year-old male with cholecystostomy tube, history of contracted gallbladder and cholelithiasis. Discussion: There is contrast benefits of the procedure were discussed with the patient. Informed consent was obtained. The patient was brought to the fluoroscopy suite and placed in supine position. A timeout procedure was performed. Fluoroscopic evaluation demonstrates a grossly stable appearance of the right upper quadrant cholecystostomy tube. Contrast was administered through this tube, redemonstrating a contracted gallbladder with multiple stones. The cystic duct however is patent and contrast flows into the common bile duct and duodenum freely. Per request, the preexisting drain was exchanged over a wire for a new 10 Thai locking pigtail drainage catheter. Catheter position was confirmed with fluoroscopy and the administration of contrast. Minimal hemobilia noted following exchange. No immediate complications are identified. The new drainage catheter was secured in place and a sterile dressing applied. Fluoroscopy time 2.2 minutes Dose area product: 1.0 rg centimeters squared Exposures: 2 Impression: 1. Successful exchange of 10 Thai percutaneous cholecystostomy tube 2. Redemonstration of a contracted gallbladder and cholelithiasis however the cystic duct and common duct are patent and drain freely into the duodenum
== END 2017-05-15 11:02 | disposition home or self-care (01) ==
LOC: INTRAD 08:12
PROVIDERS: ATTEND Surgery
DX: K80.20 Calculus of gallbladder without cholecystitis without obstruction (principal); I25.10 Atherosclerotic heart disease of native coronary artery without angina pectoris; J44.9 Chronic obstructive pulmonary disease, unspecified; M19.90 Unspecified osteoarthritis, unspecified site; Z90.49 Acquired absence of other specified parts of digestive tract; Z97.8 Presence of other specified devices; Z88.8 Allergy status to other drugs, medicaments and biological substances; Z87.39 Personal history of other diseases of the musculoskeletal system and connective tissue; Z79.01 Long term (current) use of anticoagulants; Z87.01 Personal history of pneumonia (recurrent); Z83.3 Family history of diabetes mellitus
CPT/HCPCS: 36415; 47536; 85027; 85610; A4215; C1729; C1887; Q9967